=== PATIENT | male | born 1950 | race Caucasian/White ===

== ENCOUNTER 2020-05-24 09:47 | Inpatient (IN) | payer MEDICARE ==
[~2020-05-24] VITALS: Ht 175.3 cm; Wt 73.9 kg
[2020-05-24] MEDS ORDERED: ATOR40TA75 PO (10:01)
[2020-05-24] MEDS ORDERED: METO1TAB32 PO (10:01)
[2020-05-24] MEDS ORDERED: VICT18IN SC (10:01)
[2020-05-24] MEDS ORDERED: ASPI81CH33 PO (10:01)
[2020-05-24] MEDS ORDERED: METF500T13 PO (10:01)
[2020-05-24] MEDS ORDERED: CIAL5TAB PO (10:01)
[2020-05-24] MEDS ORDERED: LOSA25TA14 PO (10:01)
[2020-05-24 10:36] LABS: BASO % 0.1 % (0.0-1.0); EOS # 0.1 10^3/uL (0.0-0.5); EOS % 1.1 % (0.0-3.0); HEMATOCRIT 30.1 % (42.0-52.0); HEMOGLOBIN 9.8 g/dl (13.5-17.5); LYMPH # 0.8 10^3/uL (1.5-5.0); LYMPH % 10.4 % (24.0-44.0); MEAN CORPUSCULAR HEMOGLOBIN 29.3 pg (27.0-33.0); MEAN CORPUSCULAR HGB CONC 32.6 g/dl (32.0-36.5); MEAN CORPUSCULAR VOLUME 90.1 fl (80.0-96.0); MONO # 0.7 10^3/uL (0.0-0.8); NEUTROPHILS # 5.7 10^3/uL (1.5-8.5); PLATELET COUNT, AUTOMATED 212 10^3/uL (150-450); RED BLOOD COUNT 3.34 10^6/uL (4.30-6.10); WHITE BLOOD COUNT 7.4 10^3/uL (4.0-10.0)
[2020-05-24 10:59] LABS: BLOOD UREA NITROGEN 13 MG/DL (7-18); CALCIUM LEVEL 9.1 MG/DL (8.8-10.2); CARBON DIOXIDE LEVEL 27 MEQ/L (21-32); CHLORIDE LEVEL 102 MEQ/L (98-107); CREATININE FOR GFR 1.19 MG/DL (0.70-1.30); GLOMERULAR FILTRATION RATE > 60.0 (>49); GLUCOSE, FASTING 140 MG/DL (70-100); POTASSIUM SERUM 3.4 MEQ/L (3.5-5.1); SODIUM LEVEL 136 MEQ/L (136-145)
[2020-05-24] MEDS ORDERED: NS 1,000 ML IV ONE (11:00)
[2020-05-24] MEDS ORDERED: cefTRIAXone SOD 1 GM in D5W MINI-BAG PLUS 50 ML IV ONE (12:00)
--- NOTE | 2020-05-24 13:26 | REP ---
INDICATION: left flank pain, dysuria COMPARISON: None. TECHNIQUE: CT Scan of the abdomen and pelvis was performed without intravenous contrast. Sagittal and coronal reconstruction images performed. FINDINGS: Lung bases: Unremarkable. There is a small hiatal hernia. Liver: There appears to be a small subcentimeter cyst in the inferior right lobe of the liver. Gallbladder: Unremarkable. Spleen: Grossly unremarkable.. Adrenals: Normal. Pancreas: Grossly unremarkable.. Kidneys: There are multiple bilateral intrarenal calculi present. Largest on the right has a maximum diameter of 1 cm, located in the upper pole. The largest on the left is also located in the upper pole and has a maximum diameter of 8 mm. There is no right hydro ureteral nephrosis. The left kidney is enlarged with perinephric stranding and edema of a mild degree. There is moderately severe left hydroureteronephrosis. This is due to distal left ureteral calculi. There is a cluster of 2 or 3 calculi in the distal left ureter with a maximum diameter of 8 mm. Another calculus is seen at the left ureterovesical junction measuring 7 mm in maximum diameter. Urinary bladder itself is mildly distended with no other intraluminal calculus.. Small and large bowel: Grossly unremarkable.. There is sigmoid diverticulosis without evidence of acute diverticulitis. There appears to surgical sutures along the anterior proximal sigmoid colon. Free fluid: None. Abdominal aorta: No aneurysm. Extensive atherosclerotic calcifications. Adenopathy: None. Appendix: Not inflamed. Osseous structures: There are degenerative changes of the spine without compression deformity. Pelvis: No mass. No bladder calculus seen. Metallic clips are seen in the prostate. IMPRESSION: Multiple bilateral intrarenal calculi. Moderately severe left hydroureteronephrosis is caused by several distal left ureteral calculi as discussed in detail above. <Electronically signed by Cristian Hills > 05/24/20 [id number]
[2020-05-24] MEDS ORDERED: ASPI81TA26 PO (14:41)
[2020-05-24] MEDS ORDERED: MOM 30ML SUSPENSION UDC PO PRN (16:00)
[2020-05-24] MEDS ORDERED: ACETAMINOPHEN TAB 650MG DOSE (2X325MG) PO PRN (16:00)
[2020-05-24] MEDS ORDERED: HEPARIN SOD (PORCINE) 5000UNITS/ML 1ML VIAL/SYRINGE SC SCH (16:00)
[2020-05-24] MEDS ORDERED: MAALOX 30 ML SUSP *UDC PO PRN (16:00)
[2020-05-24 18:13] VITALS: BP 157/85
--- NOTE | 2020-05-24 18:58 | CR.PDOC ---
General Date of Consultation: May 24, 2020 Referring Provider: Zackery Mike M.D. Consultation REASON FOR CONSULTATION/CHIEF COMPLAINT: Ureteral obstruction and stones HISTORY OF PRESENT ILLNESS: Gualberto comes into the hospital with left flank pain, fevers up to 101, and nausea and vomiting which originally started week ago but has gotten worse over the last several days. He does have a history of kidney stones and is normally seen by Dr. Garza. A CT scan of the abdomen and pelvis was done in the emergency room on 05/24/20 and this showed severe left hydroureteronephrosis to 2-3 calculi in the distal left ureter measuring up to 8 and 7 mm each. There was also a 10 mm right upper pole stone and an 8 mm left upper pole stone. He passed 2 stones last month. He has had about 15-20 stones in his lifetime and at least 5 different operation. A urinalysis showed too numerous to count white blood cells but his white blood count was normal. He denies any gross hematuria. He does have burning at the end of his urinary stream and recently has had occasional urge incontinence. He does have some mild irritative and obstructive voiding symptoms and has been given tamsulosin in the past but no longer takes this. ALLERGIES: Please see below. HOME MEDICATIONS: Please see below. PAST MEDICAL HISTORY: -High blood pressure and hypercholesterolemia -Diabetes -Bilateral nephrolithiasis -Iron deficiency anemia -History of an DE in 2011 and no stents were placed PAST SURGICAL HISTORY: -At least 5 kidney stone operations including ureteroscopy and ESWL -Multiple orthopedic surgeries including ankle surgery and a rotator cuff FAMILY HISTORY: Noncontributory SOCIAL HISTORY: He denies drug or alcohol abuse and does not smoke cigarettes REVIEW OF SYSTEMS: The ED review of systems was gone over and reviewed PHYSICAL EXAMINATION: VITAL SIGNS: Please see below. GENERAL APPEARANCE: Well-developed well-nourished male in no apparent respiratory distress HEENT: PERRLA and EOMI RESPIRATORY: Clear without the use of accessory muscles CARDIOVASCULAR: Regular rate and rhythm ABDOMEN: Some left-sided abdominal tenderness but no rebound or guarding EXTREMITIES: No cyanosis clubbing or edema NEUROLOGICAL: Intact and nonfocal PSYCHIATRIC: Alert and oriented 3 LABORATORY DATA: Please see below. ASSESSMENT/PLAN: -Bilateral nephrolithiasis now with left flank pain which started 1 week ago and a 2-3 day history of fevers with vomiting found to have 2-3 distal left ureteral stones causing obstruction. The plan is to admit him overnight and stabilize him medically with IV antibiotics and IV fluids and plan on going to the operating room tomorrow and hopefully be able to do ureteroscopy, laser lithotripsy, and the stent placement. If he is still febrile or his white blood count postop then we may just want to place a stent at that time rather than go after the stones which could possibly cause septicemia. Vital Signs/I&O Vital Signs Date Time Temp Pulse Resp B/P (MAP) Pulse Ox O2 Delivery O2 Flow Rate FiO2 05/24/20 17:02 99.3 88 17 161/73 (102) 100 05/24/20 09:48 Room Air Laboratory Data Labs 24H Laboratory Tests 2 05/24/20 10:11: Immature Granulocyte % (Auto) 0.4, Neutrophils (%) (Auto) 78.0H, Lymphocytes (%) (Auto) 10.4L, Monocytes (%) (Auto) 10.0H, Eosinophils (%) (Auto) 1.1, Basophils (%) (Auto) 0.1, Neutrophils # (Auto) 5.7, Lymphocytes # (Auto) 0.8L, Monocytes # (Auto) 0.7, Eosinophils # (Auto) 0.1, Basophils # (Auto) 0.0, Nucleated Red Blood Cells % (auto) 0.0, Anion Gap 7L, Glomerular Filtration Rate > 60.0, Calcium Level 9.1 05/24/20 10:14: Urine Color BLANKA, Urine Appearance CLOUDYH, Urine pH 6.0, Urine Specific [place] 1.026, Urine Protein 2+H, Urine Glucose (UA) NEGATIVE, Urine Ketones TRACEH, Urine Blood 1+H, Urine Nitrite NEGATIVE, Urine Bilirubin NEGATIVE, Urine Urobilinogen 4.0H, Urine Leukocyte Esterase 3+H, Urine WBC (Auto) TNTCH, Urine RBC (Auto) 29H, Urine Hyaline Casts (Auto) 0, Urine Bacteria (Auto) 1+H, Urine S quamous Epithelial Cells 0, Urine Mucus (Auto) SMALL, Urine Sperm (Auto) 05/24/20 14:43: Coronavirus (COVID-19)(PCR) NEGATIVE CBC/BMP Laboratory Tests 05/24/20 10:11 Microbiology Microbiology 05/24/20 Urine Culture, Received Pending Allergies Coded Allergies: No Known Allergies (Unverified , 05/24/20) Home Medications Scheduled Aspirin (Aspirin EC) 81 Mg Tablet.dr, 81 MG PO DAILY, (Reported) Atorvastatin Calcium (Atorvastatin Calcium) 40 Mg Tablet, 40 MG PO QHS, (Reported) Liraglutide (Victoza 2-Phong) 0.6 Mg/0.1 Ml Pen.injctr, 0.6 MG SC DAILY, (Reported) Losartan Potassium (Losartan Potassium) 25 Mg Tablet, 25 MG PO DAILY, (Reported) Metformin HCl (Metformin HCl) 500 Mg Tablet, 1,000 MG PO DAILY, (Reported) Metoprolol Succinate (Metoprolol Succinate) 25 Mg Tab.er.24h, 25 MG PO QHS, (Reported) Tadalafil (Cialis) 5 Mg Tablet, 5 MG PO QHS, (Reported) RUPERTO KLEIN MD May 24, 2020 18:58
--- NOTE | 2020-05-24 19:13 | HPEPDOC ---
[facility] Medical History & Physical Date of Admission May 24, 2020 Date of Service: May 24, 2020 History and Physical CHIEF COMPLAINT: fever, flank pain HISTORY OF PRESENT ILLNESS: 70-year-old male with a history of type 2 diabetes, hypertension, coronary artery disease, prostate cancer status post radiation as well as kidney stones bilaterally, presented to the ED with a week long history of left flank pain, fevers, recurrent nausea, vomiting, starting one week ago and progressively worsening. Patient has a long-standing history of bilateral renal calculi. He follows with Dr. Garza, has had prior lithotripsy in the past. CT scan imaging shows multiple bilateral large intrarenal calculi: 1 cm diam in R upper pole. 8mm in L upper pole. Mod-severe hydroureteronephrosis on L due to distal L ureteral calculi (2-3 stones ~8 mm in diam) as well as a stone at UV junction 7mm in diam. Urology was consulted in ER. Patient was given a dose of ceftriaxone empirically. Urine cultures sent. From the patient has a history of coronary disease. Reports a myocardial infarction in 2011 did not require stenting. He is new to the area and did set up with PCP but has an appointment on 06/27/19. Patient will be be admitted by hospital services for IV antibiotics, hydration in consultation with urology for obstructive ureteral stones. PAST MEDICAL HISTORY: DM2 HTN BPH Prostate ca s/p radiation Iron deficiency anemia HTN HLD Hx of bilateral renal stones Hx [place] 2011, no stenting PAST SURGICAL HISTORY: Colonoscopy 3 years ago, reports 5 benign polyps Mesh hernia repair x 2 L ankle surgery Rotator cuff repair SOCIAL HISTORY: Patient denies smoking Patient denies etoh use Patient denies illicit drug use FAMILY HISTORY: Reviewed with patient. Patient denies any relevant history. ALLERGIES: Please see below. REVIEW OF SYSTEMS: CONSTITUTIONAL: patient denies fevers, chills HEENT: patient denies blurred vision, loss of vision, headache,. CARDIOVASCULAR: patient denies chest pain, palpitations. RESPIRATORY: patient denies shortness of breath, cough, hemoptysis. GASTROINTESTINAL: patient denies abdominal pain, n/v/d, blood in stool. GENITOURINARY: Endorses left flank pain SKIN: patient denies rashes. MUSCULOSKELETAL: patient denies joint pain, neck pain. NEUROLOGICAL: patient denies focal weakness, numbness, seizures. PSYCHIATRIC: patient denies SI/HI. ENDOCRINE: patient denies polyuria, heat intolerance, cold intolerance. HEMATOLOGIC/LYMPHATIC: patient denies easy bruising. HOME MEDICATIONS: Please see below. PHYSICAL EXAMINATION: VITAL SIGNS: please see below General: NAD, comfortable HEENT: PERRLA, EOMI, sclerae clear Neck: supple, normal ROM, no JVD Respiratory: lungs CTAB, no wheeze, no rales, no crackles CVS: RRR, normal S1, S2, no murmurs Abdo: soft, no masses, no hepatosplenomegaly, BS+, no rebound tenderness, mild tenderness to palpation of left lower quadrant. No bilateral CVA tenderness Extremities: no edema, pulses 2+ MSK: no joint deformities, normal ROM Neuro: no focal neuro deficits, moving all 4 extremities, CN2-12 intact. Strength 5/5 in all 4 extremities. No nystagmus. Psych: calm, cooperative, AAO x 3 LABORATORY DATA: See below. IMAGING: CT abdo pelvis wo contrast (05/24/20): FINDINGS: Lung bases: Unremarkable. There is a small hiatal hernia. Liver: There appears to be a small subcentimeter cyst in the inferior right lobe of the liver. Gallbladder: Unremarkable. Spleen: Grossly unremarkable.. Adrenals: Normal. Pancreas: Grossly unremarkable.. Kidneys: There are multiple bilateral intrarenal calculi present. Largest on the right has a maximum diameter of 1 cm, located in the upper pole. The largest on the left is also located in the upper pole and has a maximum diameter of 8 mm. There is no right hydro ureteral nephrosis. The left kidney is enlarged with perinephric stranding and edema of a mild degree. There is moderately severe left hydroureteronephrosis. This is due to distal left ureteral calculi. There is a cluster of 2 or 3 calculi in the distal left ureter with a maximum diameter of 8 mm. Another calculus is seen at the left ureterovesical junction measuring 7 mm in maximum diameter. Urinary bladder itself is mildly distended with no other intraluminal calculus.. Small and large bowel: Grossly unremarkable.. There is sigmoid diverticulosis without evidence of acute diverticulitis. There appears to surgical sutures along the anterior proximal sigmoid colon. Free fluid: None. Abdominal aorta: No aneurysm. Extensive atherosclerotic calcifications. Adenopathy: None. Appendix: Not inflamed. Osseous structures: There are degenerative changes of the spine without compression deformity. Pelvis: No mass. No bladder calculus seen. Metallic clips are seen in the prostate. IMPRESSION: Multiple bilateral intrarenal calculi. Moderately severe left hydroureteronephrosis is caused by several distal left ureteral calculi as discussed in detail above. MICROBIOLOGY: Please see below. ASSESSMENT: 70-year-old male with history listed as listed above, presenting with L ureteral obstruction secondary to distal ureteral stones. Urology consulted. Patient admitted for IV antibiotics, IV fluids. . PLAN: #UTI/pyelonephritis with hydroureteronephrosis 2/2 2-3 L distal ureteral stones as well as a stone in UV junction. Multiple stones in R renal pelvis, no hydro on R Seen on CT. Febrile. IV antibiotics, s/p ceftriaxone in ED, will continue with zosyn. IVF. zofran for n/v. Trend CBC. Tylenol for fevers. Plan for OR by Dr. Waterman in am. #hypokalemia: K 3.4, replace #HTN: home meds. losartan 25 mg. Metoprolol 25 daily #HDL: check lipid panel #CAD: c/w asa/statin #DM2: Insulin sliding scale. FSBS AC and HS. Consistent carbohydrate diet. Hypoglycemic precautions. Check a1c. Check lipids. Podiatry and ophtalmology as outpatient.. Hold metformin #GI ppx: protonix PO daily. DVT ppx: SCDs, TEDs. Heparin will be held pre-op. Resume after surgery. Vital Signs Vital Signs Date Time Temp Pulse Resp B/P (MAP) Pulse Ox O2 Delivery O2 Flow Rate FiO2 05/24/20 18:13 100.1 104 18 157/85 (109) 98 Room Air Laboratory Data Labs 24H Laboratory Tests 2 05/24/20 10:11: Immature Granulocyte % (Auto) 0.4, Neutrophils (%) (Auto) 78.0H, Lymphocytes (%) (Auto) 10.4L, Monocytes (%) (Auto) 10.0H, Eosinophils (%) (Auto) 1.1, Basophils (%) (Auto) 0.1, Neutrophils # (Auto) 5.7, Lymphocytes # (Auto) 0.8L, Monocytes # (Auto) 0.7, Eosinophils # (Auto) 0.1, Basophils # (Auto) 0.0, Nucleated Red Blood Cells % (auto) 0.0, Anion Gap 7L, Glomerular Filtration Rate > 60.0, Calcium Level 9.1 05/24/20 10:14: Urine Color BLANKA, Urine Appearance CLOUDYH, Urine pH 6.0, Urine Specific [place] 1.026, Urine Protein 2+H, Urine Glucose (UA) NEGATIVE, Urine Ketones TRACEH, Urine Blood 1+H, Urine Nitrite NEGATIVE, Urine Bilirubin NEGATIVE, Urine Urobilinogen 4.0H, Urine Leukocyte Esterase 3+H, Urine WBC (Auto) TNTCH, Urine RBC (Auto) 29H, Urine Hyaline Casts (Auto) 0, Urine Bacteria (Auto) 1+H, Urine Squamous Epithelial Cells 0, Urine Mucus (Auto) SMALL, Urine Sperm (Auto) 05/24/20 14:43: Coronavirus (COVID-19)(PCR) NEGATIVE CBC/BMP Laboratory Tests 05/24/20 10:11 Microbiology Microbiology 05/24/20 Urine Culture, Received Pending Home Medications Scheduled Aspirin (Aspirin EC) 81 Mg Tablet.dr, 81 MG PO DAILY Atorvastatin Calcium (Atorvastatin Calcium) 40 Mg Tablet, 40 MG PO QHS Liraglutide (Victoza 2-Phong) 0.6 Mg/0.1 Ml Pen.injctr, 0.6 MG SC DAILY Losartan Potassium (Losartan Potassium) 25 Mg Tablet, 25 MG PO DAILY Metformin HCl (Metformin HCl) 500 Mg Tablet, 1,000 MG PO DAILY Metoprolol Succinate (Metoprolol Succinate) 25 Mg Tab.er.24h, 25 MG PO QHS Tadalafil (Cialis) 5 Mg Tablet, 5 MG PO QHS Allergies Coded Allergies: No Known Allergies (Unverified , 05/24/20) A-FIB/CHADSVASC A-FIB History Current/History of A-Fib/PAF?: No Current PO Anticoag Therapy: No EDWINA CORREA MD May 24, 2020 19:13
[2020-05-24] MEDS ORDERED: DEXTROSE 50% 50 ML SYRINGE IV PRN (19:15)
[2020-05-24] MEDS ORDERED: GLUCAGON INJ 1MG VIAL SC PRN (19:15)
[2020-05-24] MEDS ORDERED: GLUCOSE 4GM CHEW TABLET PO PRN (19:15)
[2020-05-24] MEDS: PIPERACILLIN/TAZOBACTAM SOD 4.5 GM in D5W MINI-BAG PLUS 50 ML IV SCH (20:22)
[2020-05-24] MEDS: NS 1,000 ML IV SCH (20:22)
[2020-05-24] MEDS: DOCUSATE SODIUM 100MG CAPSULE PO SCH (21:00)
[2020-05-24] MEDS ORDERED: HumaLOG INSULIN (NovoLOG) PER UNIT SC SCH (21:00)
[2020-05-24] MEDS ORDERED: METOPROLOL SUCC *XL* 25MG TAB (TopROL *XL*) PO SCH (21:00)
[2020-05-24] MEDS ORDERED: ATORVASTATIN 20 MG TAB PO SCH (21:00)
[2020-05-24 22:00] VITALS: BP 144/82
[2020-05-25] VITALS (7 sets, daily range): BP systolic 122–137; BP diastolic 70–80
[2020-05-25] MEDS: PIPERACILLIN/TAZOBACTAM SOD 4.5 GM in D5W MINI-BAG PLUS 50 ML IV SCH ×2 (04:15→13:29)
[2020-05-25] MEDS: NS 1,000 ML IV SCH ×2 (04:15→13:32)
[2020-05-25 06:12] LABS: BASO % 0.3 % (0.0-1.0); EOS # 0.1 10^3/uL (0.0-0.5); EOS % 1.7 % (0.0-3.0); HEMATOCRIT 26.5 % (42.0-52.0); HEMOGLOBIN 8.3 g/dl (13.5-17.5); LYMPH # 0.6 10^3/uL (1.5-5.0); LYMPH % 10.4 % (24.0-44.0); MEAN CORPUSCULAR HEMOGLOBIN 28.9 pg (27.0-33.0); MEAN CORPUSCULAR HGB CONC 31.3 g/dl (32.0-36.5); MEAN CORPUSCULAR VOLUME 92.3 fl (80.0-96.0); MONO # 0.6 10^3/uL (0.0-0.8); MONO % 9.9 % (0.0-5.0); NEUTROPHILS # 4.4 10^3/uL (1.5-8.5); PLATELET COUNT, AUTOMATED 196 10^3/uL (150-450); RED BLOOD COUNT 2.87 10^6/uL (4.30-6.10); WHITE BLOOD COUNT 5.8 10^3/uL (4.0-10.0)
[2020-05-25 06:27] LABS: HEMOGLOBIN A1c 6.7 %
[2020-05-25 06:32] LABS: ALBUMIN 2.4 GM/DL (3.2-5.2); ALT/SGPT 20 U/L (12-78); BILIRUBIN,TOTAL 0.6 MG/DL (0.2-1.0); BLOOD UREA NITROGEN 13 MG/DL (7-18); CALCIUM LEVEL 8.3 MG/DL (8.8-10.2); CARBON DIOXIDE LEVEL 27 MEQ/L (21-32); CHLORIDE LEVEL 103 MEQ/L (98-107); CHOLESTEROL LEVEL 81 MG/DL (<200); CREATININE FOR GFR 1.19 MG/DL (0.70-1.30); GLOMERULAR FILTRATION RATE > 60.0 (>49); GLUCOSE, FASTING 137 MG/DL (70-100); HDL CHOLESTEROL 30 MG/DL (>40); LDL CHOLESTEROL 37 MG/DL (<100); MAGNESIUM LEVEL 1.3 MG/DL (1.8-2.4); NON-HDL-C 51 MG/DL; POTASSIUM SERUM 3.5 MEQ/L (3.5-5.1); SODIUM LEVEL 136 MEQ/L (136-145); TRIGLYCERIDES LEVEL 70 MG/DL (<150)
[2020-05-25] MEDS: HumaLOG INSULIN (NovoLOG) PER UNIT SC SCH ×2 (07:30→13:32)
[2020-05-25] MEDS ORDERED: dexameTHASONE 4 MG/ML 1ML VIAL (J1100 PER 1MG) As Ordered ONE (07:57)
[2020-05-25] MEDS ORDERED: propofoL 200 MG/20 ML VIAL As Ordered ONE (07:57)
[2020-05-25] MEDS ORDERED: LIDOCAINE 2% 100MG/5ML SDV (FOR ANES.) As Ordered ONE (07:57)
[2020-05-25] MEDS ORDERED: ONDANSETRON 4MG/2ML VIAL As Ordered ONE (07:57)
[2020-05-25] MEDS ORDERED: fentaNYL 100 MCG/2 ML INJECTION (J3010) As Ordered ONE ×2 (07:59→10:06)
[2020-05-25] MEDS ORDERED: MIDAZOLAM INJ 2MG/2ML VIAL (J2250 PER 1MG) As Ordered ONE (07:59)
[2020-05-25] MEDS ORDERED: LOSARTAN 25 MG TAB PO SCH (09:00)
[2020-05-25] MEDS ORDERED: ASPIRIN 81 MG ENTERIC TAB PO SCH (09:00)
[2020-05-25] MEDS ORDERED: CONRAY-60 60% 50ML VIAL (Q9961) As Ordered ONE (09:00)
--- NOTE | 2020-05-25 09:35 | ECGEPIP ---
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 Order Number: [id number] Reading MD: Carolyn Nova Measurements Intervals Dickens Rate: 80 P: 73 MT: 143 QRS: 26 QRSD: 105 T: 41 QT: 370 QTc: 428 Interpretive Statements SINUS RHYTHM POSSIBLE LATERAL MYOCARDIAL INFARCTION, PROBABLY OLD LOW VOLTAGE LIMB No prior Electronically Signed on 05-25-2020 9:35:26 EST by Carolyn Nova
--- NOTE | 2020-05-25 10:17 | IPNPDOC ---
Date Seen The patient was seen on 05/25/20. Progress Note SUBJECTIVE: patient was seen and examined at bedside. Doing well, no acute events overnight. Denies fevers, chills, abdominal pain, dysuria, CP, SOB, palpitations. OBJECTIVE PHYSICAL EXAMINATION: VITAL SIGNS: please see below General: NAD, comfortable HEENT: PERRLA, EOMI, sclerae clear Neck: supple, normal ROM, no JVD Respiratory: lungs CTAB, no wheeze, no rales, no crackles CVS: RRR, normal S1, S2, no murmurs Abdo: soft, no masses, no hepatosplenomegaly, BS+, no rebound tenderness, mild tenderness to palpation of left lower quadrant. No bilateral CVA tenderness Extremities: no edema, pulses 2+ MSK: no joint deformities, normal ROM Neuro: no focal neuro deficits, moving all 4 extremities, CN2-12 intact. Strength 5/5 in all 4 extremities. No nystagmus. Psych: calm, cooperative, AAO x 3 LABORATORY DATA, IMAGING STUDIES, MICROBIOLOGY: Please see below. CT abdo pelvis wo contrast (05/24/20): Multiple bilateral intrarenal calculi. Moderately severe left hydroureteronephrosis is caused by several distal left ureteral calculi DVT prophylaxis ordered?: SCDs, TEDs. Holding heparin prior to OR. ASSESSMENT: 70-year-old male with history listed as listed above, presenting with L ureteral obstruction secondary to distal ureteral stones. Urology consulted. Patient admitted for IV antibiotics, IV fluids, urology intervention. PLAN: #UTI/pyelonephritis with hydroureteronephrosis 2/2 2-3 L distal ureteral stones as well as a stone in UV junction. Multiple stones in R renal pelvis, no hydro on R Seen on CT. Febrile. IV antibiotics, s/p ceftriaxone in ED, will continue with zosyn. IVF. zofran for n/v. Trend CBC. Tylenol for fevers. Plan for OR by Dr. Waterman. #hypokalemia:resolved #hx of iron def anemia: baseline unknown, hgb 9.8 on arrival, now 8.3, likely dilutional effect. Transfuse for Hgb < 8 given hx of CAD. Check iron panel. Check fecal occult blood. #HTN: home meds. losartan 25 mg. Metoprolol 25 daily #HDL: check lipid panel #CAD: c/w asa/statin #DM2: Insulin sliding scale. FSBS AC and HS. Consistent carbohydrate diet. Hypoglycemic precautions. Check a1c. Check lipids. Podiatry and ophtalmology as outpatient.. Hold metformin #GI ppx: protonix PO daily. DVT ppx: SCDs, TEDs. Heparin will be held pre-op. Resume after surgery. VS, I&O, 24H, Fishbone Vital Signs/I&O Vital Signs Date Time Temp Pulse Resp B/P (MAP) Pulse Ox O2 Delivery O2 Flow Rate FiO2 05/25/20 06:00 98.5 79 20 122/74 (90) 97 Room Air I&O- Last 24 Hours up to 6 AM 05/25/20 05:59 Intake Total 1350 ml Output Total 125 ml Balance 1225 ml Laboratory Data 24H LABS Laboratory Tests 2 05/24/20 14:43: Coronavirus (COVID-19)(PCR) NEGATIVE 05/24/20 21:20: Bedside Glucose (Misc Panel) 109 05/25/20 05:17: Immature Granulocyte % (Auto) 0.7, Neutrophils (%) (Auto) 77.0H, Lymphocytes (%) (Auto) 10.4L, Monocytes (%) (Auto) 9.9H, Eosinophils (%) (Auto) 1.7, Basophils (%) (Auto) 0.3, Neutrophils # (Auto) 4.4, Lymphocytes # (Auto) 0.6L, Monocytes # (Auto) 0.6, Eosinophils # (Auto) 0.1, Basophils # (Auto) 0.0, Nucleated Red Blood Cells % (auto) 0.0, Anion Gap 6L, Glomerular Filtration Rate > 60.0, Estimated Mean Plasma Glucose 146H, Hemoglobin A1c 6.7, Calcium Level 8.3L, Magnesium Level 1.3L, Total Bilirubin 0.6, Aspartate Amino Transf (AST/SGOT) 12, Alanine Aminotransferase (ALT/SGPT) 20, Alkaline Phosphatase 57, Total Protein 6.0L, Albumin 2.4L, Albumin/Globulin Ratio 0.7, Triglycerides Level 70, Total Cholesterol 81, LDL Cholesterol 37, Non-HDL Cholesterol (LDL + VLDL) 51, Total HDL Cholesterol 30L, Cholesterol/HDL Ratio 2.700 CBC/BMP Laboratory Tests 05/25/20 05:17 Microbiology Microbiology 05/24/20 Blood Culture, Received Pending 05/24/20 Blood Culture, Received Pending 05/24/20 Urine Culture - Final, Complete EDWINA CORREA MD May 25, 2020 10:17
--- NOTE | 2020-05-25 11:01 | ROOPDOC ---
[facility] Report Of Operation Report of Operation DATE OF PROCEDURE: 05/25/20 PREPROCEDURE DIAGNOSES: Left distal ureteral stones and severe hydronephrosis. POSTPROCEDURE DIAGNOSES: Same. PROCEDURE: Cystoscopy, left ureteroscopy, laser lithotripsy, stone basketing, and left ureteral stent placement. SURGEON: Belén Klein MD TAIL BOARD MAN: None ANESTHESIA: Gen. ESTIMATED BLOOD LOSS: No significant blood loss COMPLICATIONS: None REMARKS: 1 of the stones was stuck at the ureteral orifice and a wire could not be passed so laser was used originally PROCEDURE NOTE: The patient came into the ER last night with a long-standing history of bilateral nephrolithiasis requiring multiple operations in the past. He noticed left flank pain approximately 1 week ago and for the last 2-3 days has had a fever with vomiting. A CT scan showed 2-3 distal left ureteral stones measuring up to 7 and 8 mm each. It was decided to admit the patient overnight for IV antibiotics and IV rehydration before bringing him to the operating room this morning. All options, alternatives, risks, benefits were discussed and it was decided to proceed with left ureteroscopic stone manipulation and stent placement. Risks included septicemia, inability to remove all the stones, ureteral injury, possible ureteral stricture in the future, stent discomfort, andthe need to remove the stent post-procedurally. DESCRIPTION OF PROCEDURE: The patient was brought into the operating room and general anesthesia was induced. He was then placed in the lithotomy position and careful attention was paid to make sure that his pressure points were well-padded and protected. He was then prepped and draped in the usual fashion. A 21 Indonesian cystoscope was inserted in his urethra was noted to be open without any evidence of lesions or strictures. His prostatic urethra showed very minimal obstruction. Upon entering the bladder there was a stone seen coming out of the left ureteral orifice. There was no other stones, erythematous patches, lesions, or abnormalities. Attempted to place a wire in the left ureteral orifice but was unable to pass the stone. At this point I used a laser fiber and was able to break this stone enough that I was then able to pass a safety wire. I then passed a ureteroscope and used the laser to make the stones into small enough fragments that I could then basket. I basketed and removed 3 separate stones. A 6 Indonesian universal stent was then placed with good placement seen in the left renal pelvis and in the bladder. The patient tolerated the procedure well and was returned to the recovery room in stable condition. BELÉN KLEIN MD May 25, 2020 11:01
[2020-05-25 11:32] LABS: FERRITIN 61 NG/ML (26-388); IRON (FE) 34 UG/DL (65-175)
[2020-05-25 12:47] LABS: HEMATOCRIT 25.9 % (42.0-52.0); HEMOGLOBIN 8.2 g/dl (13.5-17.5)
[2020-05-25 13:00] LABS: INR 1.2; PROTHROMBIN TIME 15.5 SECONDS (12.5-14.3)
[2020-05-25] MEDS: DOCUSATE SODIUM 100MG CAPSULE PO SCH (13:30)
[2020-05-25] MEDS ORDERED: ONDANSETRON 4MG/2ML VIAL IV PRN (16:00)
[2020-05-25] MEDS ORDERED: LR 1,000 ML IV SCH (16:00)
[2020-05-25] MEDS ORDERED: fentaNYL 100 MCG/2 ML INJECTION (J3010) IV PRN (16:00)
[2020-05-25] MEDS ORDERED: oxyCODONE 5MG TAB PO PRN (16:00)
--- NOTE | 2020-05-25 16:06 | DS.PDOC ---
Discharge Summary General Date of Admission May 24, 2020 at 15:56 Date of Discharge 05/25/20 Discharge Summary PROCEDURES PERFORMED DURING STAY: [None]. ADMITTING DIAGNOSES: UTI/pyelonephritis L sided hydroureteronephrosis Hypokalemia Hx of HTN HLD Hx of CAD DM2 DISCHARGE DIAGNOSES: UTI/pyelonephritis L sided hydroureteronephrosis Hypokalemia Hx of HTN HLD Hx of CAD DM2 COMPLICATIONS/CHIEF COMPLAINT: Pyelonephritis,Ureteral Calculus Left. HISTORY OF PRESENT ILLNESS: HISTORY OF PRESENT ILLNESS: 70-year-old male with a history of type 2 diabetes, hypertension, coronary artery disease, prostate cancer status post radiation as well as kidney stones bilaterally, presented to the ED with a week long history of left flank pain, fevers, recurrent nausea, vomiting, starting one week ago and progressively worsening. Patient has a long-standing history of bilateral renal calculi. He follows with Dr. Garza, has had prior lithotripsy in the past. CT scan imaging shows multiple bilateral large intrarenal calculi: 1 cm diam in R upper pole. 8mm in L upper pole. Mod-severe hydroureteronephrosis on L due to distal L ureteral calculi (2-3 stones ~8 mm in diam) as well as a stone at UV junction 7mm in diam. Urology was consulted in ER. Patient was given a dose of ceftriaxone empirically. Urine cultures sent. From the patient has a history of coronary disease. Reports a myocardial infarction in 2011 did not require stenting. He is new to the area and did set up with PCP but has an appointment on 06/27/19. Patient will be be admitted by hospital services for IV antibiotics, hydration in consultation with urology for obstructive ureteral stones. HOSPITAL COURSE: #UTI/pyelonephritis with hydroureteronephrosis 2/2 2-3 L distal ureteral stones as well as a stone in UV junction. Multiple stones in R renal pelvis, no hydro on R Seen on CT. Febrile. He received a total of 3 days of IV antibiotics, and was discharged with a 5 days course of PO bactrim DS. Urine cx negative. Blood cultures prelim neg. S/p L ureteral stent placement by Dr. Waterman. Cleared for discharge by urology, will be contacted to remove stent. #hypokalemia:resolved #hx of iron def anemia: baseline unknown, hgb 9.8 on arrival, now 8.3, likely dilutional effect. Transfuse for Hgb < 8 given hx of CAD. Iron 34. Check fecal occult blood - negative. #HTN: home meds. losartan 25 mg. Metoprolol 25 daily #HDL: check lipid panel #CAD: c/w asa/statin #DM2: Insulin sliding scale. FSBS AC and HS. Consistent carbohydrate diet. Hypoglycemic precautions. Check a1c. Check lipids. Podiatry and ophtalmology as outpatient. Resume metformin on discharge. #GI ppx: protonix PO daily. DISCHARGE MEDICATIONS: Please see below. ALLERGIES: Please see below. PHYSICAL EXAMINATION ON DISCHARGE: VITAL SIGNS: Please see below. General: NAD, comfortable HEENT: PERRLA, EOMI, sclerae clear Neck: supple, normal ROM, no JVD Respiratory: lungs CTAB, no wheeze, no rales, no crackles CVS: RRR, normal S1, S2, no murmurs Abdo: soft, no masses, no hepatosplenomegaly, BS+, no rebound tenderness, abdominal pain resolved. No bilateral CVA tenderness Extremities: no edema, pulses 2+ MSK: no joint deformities, normal ROM Neuro: no focal neuro deficits, moving all 4 extremities, CN2-12 intact. Strength 5/5 in all 4 extremities. No nystagmus. Psych: calm, cooperative, AAO x 3 LABORATORY DATA: Please see below. IMAGING: CT abdo pelvis wo contrast (05/24/20) FINDINGS: Lung bases: Unremarkable. There is a small hiatal hernia. Liver: There appears to be a small subcentimeter cyst in the inferior right lobe of the liver. Gallbladder: Unremarkable. Spleen: Grossly unremarkable.. Adrenals: Normal. Pancreas: Grossly unremarkable.. Kidneys: There are multiple bilateral intrarenal calculi present. Largest on the right has a maximum diameter of 1 cm, located in the upper pole. The largest on the left is also located in the upper pole and has a maximum diameter of 8 mm. There is no right hydro ureteral nephrosis. The left kidney is enlarged with perinephric stranding and edema of a mild degree. There is moderately severe left hydroureteronephrosis. This is due to distal left ureteral calculi. There is a cluster of 2 or 3 calculi in the distal left ureter with a maximum diameter of 8 mm. Another calculus is seen at the left ureterovesical junction measuring 7 mm in maximum diameter. Urinary bladder itself is mildly distended with no other intraluminal calculus.. Small and large bowel: Grossly unremarkable.. There is sigmoid diverticulosis without evidence of acute diverticulitis. There appears to surgical sutures along the anterior proximal sigmoid colon. Free fluid: None. Abdominal aorta: No aneurysm. Extensive atherosclerotic calcifications. Adenopathy: None. Appendix: Not inflamed. Osseous structures: There are degenerative changes of the spine without compression deformity. Pelvis: No mass. No bladder calculus seen. Metallic clips are seen in the prostate. IMPRESSION: Multiple bilateral intrarenal calculi. Moderately severe left hydroureteronephrosis is caused by several distal left ureteral calculi as discussed in detail above. PROGNOSIS: good ACTIVITY: As tolerated DIET: consistent carbohydrate DISCHARGE PLAN: DC home with PCP follow up in 3-5 days. He will be contacted by urology office for planned removal of stent. DISPOSITION: . DISCHARGE INSTRUCTIONS: 1. f/u with PCP 3-5 days 2. f/u with urology for stent removal, will be contacted by urology office 3. complete course of bactrim on DC for 5 days 4. if fevers, chills, bleeding, or otherwise worsening of symptoms, to return to the emergency room or call 911. ITEMS TO FOLLOWUP ON ON OUTPATIENT: stent removal check BMP check CBC follow up on renal stone type pathology follow up final blood cultures iron replacement DISCHARGE CONDITION: Stable TIME SPENT ON DISCHARGE: 35 minutes Vital Signs/I&Os Vital Signs Date Time Temp Pulse Resp B/P (MAP) Pulse Ox O2 Delivery O2 Flow Rate FiO2 05/25/20 14:30 97.7 70 18 134/78 (96) 98 Room Air I&O- Last 24 Hours up to 6 AM 05/25/20 06:00 Intake Total 1350 ml Output Total 125 ml Balance 1225 ml Laboratory Data Labs 24H Laboratory Tests 2 05/24/20 21:20: Bedside Glucose (Misc Panel) 109 05/25/20 05:17: Immature Granulocyte % (Auto) 0.7, Neutrophils (%) (Auto) 77.0H, Lymphocytes (%) (Auto) 10.4L, Monocytes (%) (Auto) 9.9H, Eosinophils (%) (Auto) 1.7, Basophils (%) (Auto) 0.3, Neutrophils # (Auto) 4.4, Lymphocytes # (Auto) 0.6L, Monocytes # (Auto) 0.6, Eosinophils # (Auto) 0.1, Basophils # (Auto) 0.0, Nucleated Red Blood Cells % (auto) 0.0, Anion Gap 6L, Glomerular Filtration Rate > 60.0, Estimated Mean Plasma Glucose 146H, Hemoglobin A1c 6.7, Calcium Level 8.3L, Magnesium Level 1.3L, Iron Level 34L, Ferritin 61, Total Bilirubin 0.6, Aspartate Amino Transf (AST/SGOT) 12, Alanine Aminotransferase (ALT/SGPT) 20, Alkaline Phosphatase 57, Total Protein 6.0L, Albumin 2.4L, Albumin/Globulin Ratio 0.7, Triglycerides Level 70, Total Cholesterol 81, LDL Cholesterol 37, Non-HDL Cholesterol (LDL + VLDL) 51, Total HDL Cholesterol 30L, Cholesterol/HDL Ratio 2.700 05/25/20 10:00: 05/25/20 11:45: Bedside Glucose (Misc Panel) 181H 05/25/20 12:15: Prothrombin Time 15.5H, Prothromb Time International Ratio 1.20 CBC/BMP Laboratory Tests 05/25/20 05:17 05/25/20 12:16 FSBS Laboratory Tests Test 05/24/20 21:20 05/25/20 11:45 Range/Units Bedside Glucose (Misc Panel) 109 181 80-115 MG/DL Microbiology Microbiology 05/25/20 Stool Occult Blood (GAVIN), Received Pending 05/24/20 Blood Culture, Received Pending 05/24/20 Blood Culture, Received Pending 05/24/20 Urine Culture - Final, Complete Discharge Medications Scheduled Aspirin (Aspirin EC) 81 Mg Tablet.dr, 81 MG PO DAILY, (Reported) Atorvastatin Calcium (Atorvastatin Calcium) 40 Mg Tablet, 40 MG PO QHS, (Reported) Liraglutide (Victoza 2-Phong) 0.6 Mg/0.1 Ml Pen.injctr, 0.6 MG SC DAILY, (Reported) Losartan Potassium (Losartan Potassium) 25 Mg Tablet, 25 MG PO DAILY, (Reported) Metformin HCl (Metformin HCl) 500 Mg Tablet, 1,000 MG PO DAILY, (Reported) Metoprolol Succinate (Metoprolol Succinate) 25 Mg Tab.er.24h, 25 MG PO QHS, (Reported) Sulfamethoxazole/Trimethoprim (Sulfamethoxazole-Tmp Ds Tablet) 1 Each Tablet, 1 TAB PO BID Tadalafil (Cialis) 5 Mg Tablet, 5 MG PO QHS, (Reported) Scheduled PRN Acetaminophen (Acetaminophen) 325 Mg Tablet, 650 MG PO Q4H PRN for PAIN OR FEVER Hydrocodone/Acetaminophen (Hydrocodone-Acetamin 5-325 mg) 1 Each Tablet, 1 TAB PO TIDP PRN for pain Allergies Coded Allergies: No Known Allergies (Unverified , 05/24/20) EDWINA OCRREA MD May 25, 2020 16:06
[2020-05-25] MEDS ORDERED: TRAM50TA2 PO (16:10)
[2020-05-25] MEDS ORDERED: ACET1TAB55 PO (16:10)
[2020-05-25] MEDS ORDERED: SULF1TAB93 PO (16:12)
[2020-05-25] MEDS ORDERED: HYDR-3713 PO (16:14)
== END 2020-05-25 16:54 | disposition home or self-care (01) | DRG 661 ==
LOC: M ED 09:47 → M ED INP 15:56 → ENRESERV 16:20 → M MSPAV 18:14
PROVIDERS: ADMIT Family Medicine; ATTEND Family Medicine
PROC: 0TC78ZZ Extirpation of Matter from Left Ureter, Via Natural or Artificial Opening Endoscopic (ICD-10-PCS; 2020-05-25)
PROC: 0T778DZ Dilation of Left Ureter with Intraluminal Device, Via Natural or Artificial Opening Endoscopic (ICD-10-PCS; principal; 2020-05-25 09:30)
DX: N13.1 Hydronephrosis with ureteral stricture, not elsewhere classified (principal); E11.9 Type 2 diabetes mellitus without complications; I10 Essential (primary) hypertension; N40.0 Benign prostatic hyperplasia without lower urinary tract symptoms; D50.9 Iron deficiency anemia, unspecified; I25.2 Old myocardial infarction; Z85.46 Personal history of malignant neoplasm of prostate; Z79.899 Other long term (current) drug therapy; E78.00 Pure hypercholesterolemia, unspecified

== ENCOUNTER → 2020-05-27 | Outpatient (REF) | payer MEDICARE ==
[~2020-05-27] MED LIST: ACET1TAB55 PO; ASPI81CH33 PO; ASPI81TA26 PO; ATOR40TA75 PO; CIAL5TAB PO; HYDR-3713 PO; LOSA25TA14 PO; METF500T13 PO; METO1TAB32 PO; SULF1TAB93 PO; TRAM50TA2 PO; VICT18IN SC
[2020-05-28 13:36] LABS: PERCENT SATURATION 12.8 % (19.7-50.0)
== END ==
LOC: M LAB REF 12:25
PROVIDERS: ATTEND Internal Medicine
DX: D50.9 Iron deficiency anemia, unspecified (principal)

== ENCOUNTER 2020-10-01 15:46 | Observation (INO) | payer MEDICARE ==
[~2020-10-01] VITALS: Ht 175.3 cm; Wt 61.6 kg
[~2020-10-01 15:46] MED LIST changes: -ACET-910 PO; -FERR1TAB8 PO; -FERR325T3 PO; -LIDOCAINE 2% 100MG/5ML SDV (FOR ANES.) As Ordered ONE; -MAGN400T2 PO; -MIDAZOLAM INJ 2MG/2ML VIAL (J2250 PER 1MG) As Ordered ONE; -NITR4TASL SL; -OMEP-218 PO; -OMEP40CA97 PO; -ONDANSETRON 4MG/2ML VIAL As Ordered ONE; -SLOWTAB2 PO; -VICT18IN2 SC; -fentaNYL 100 MCG/2 ML INJECTION (J3010) As Ordered ONE; -propofoL 200 MG/20 ML VIAL As Ordered ONE
[2020-10-01] MEDS ORDERED: FERR325T3 PO (15:56)
[2020-10-01] MEDS ORDERED: MAGN400T2 PO (15:56)
[2020-10-01] MEDS ORDERED: OMEP40CA97 PO (15:56)
[2020-10-01 17:41] LABS: BASO % 0.5 % (0.0-1.0); EOS # 0.1 10^3/uL (0.0-0.5); EOS % 2.7 % (0.0-3.0); HEMATOCRIT 29.1 % (42.0-52.0); HEMOGLOBIN 9.1 g/dl (13.5-17.5); MEAN CORPUSCULAR HEMOGLOBIN 28.3 pg (27.0-33.0); MEAN CORPUSCULAR HGB CONC 31.3 g/dl (32.0-36.5); MEAN CORPUSCULAR VOLUME 90.4 fl (80.0-96.0); MONO # 0.5 10^3/uL (0.0-0.8); MONO % 11.7 % (2.0-8.0); NEUTROPHILS # 2.7 10^3/uL (1.5-8.5); NEUTROPHILS % 61.6 % (36.0-66.0); PLATELET COUNT, AUTOMATED 209 10^3/uL (150-450); RED BLOOD COUNT 3.22 10^6/uL (4.30-6.10); WHITE BLOOD COUNT 4.4 10^3/uL (4.0-10.0)
[2020-10-01] MEDS ORDERED: NS 1,000 ML IV ONE (17:50)
[2020-10-01] MEDS ORDERED: KETOROLAC 30 MG/ML 1ML VIAL IV ONE (17:50)
[2020-10-01] MEDS ORDERED: TAMSULOSIN 0.4 MG CAP PO ONE (17:50)
[2020-10-01] MEDS ORDERED: ONDANSETRON 4MG/2ML VIAL IV ONE ×2 (17:50→21:25)
[2020-10-01 18:02] LABS: ALBUMIN 3.1 GM/DL (3.2-5.2); BILIRUBIN,DIRECT 0.2 MG/DL (0.0-0.2); BILIRUBIN,TOTAL 0.2 MG/DL (0.2-1.0); TOTAL PROTEIN 7.7 GM/DL (6.4-8.2)
[2020-10-01] MEDS ORDERED: ISOVUE-370 76% 100ML VIAL As Ordered ONE (18:34)
--- NOTE | 2020-10-01 19:58 | REPVR ---
PROCEDURE INFORMATION: Exam: CT Abdomen And Pelvis With Contrast Exam date and time: 10/01/2020 6:55 PM Age: 70 years old Clinical indication: Fever; Abdominal pain; Flank; Left; Additional info: Left flank pain x 1wk, fever, HX stones TECHNIQUE: Imaging protocol: Computed tomography of the abdomen and pelvis with contrast. Radiation optimization: All CT scans at this facility use at least one of these dose optimization techniques: automated exposure control; mA and/or kV adjustment per patient size (includes targeted exams where dose is matched to clinical indication); or iterative reconstruction. Contrast material: ISOVUE 370; Contrast volume: 100 ml; Contrast route: INTRAVENOUS (IV); COMPARISON: CT ABD PELVIS W/O CONTRAST 05/24/2020 12:28 PM FINDINGS: Mediastinal space: There is a small hiatal hernia. Liver: The liver is normal. Gallbladder and bile ducts: The gallbladder is contracted but otherwise normal. Bile ducts are not dilated. Pancreas: Normal. No ductal dilation. Spleen: The spleen is normal. Adrenal glands: The adrenals are normal. Kidneys and ureters: There are multiple bilateral renal calculi measuring up to 6 mm. There is severe left hydronephrosis and hydroureter. This is secondary to multiple calculi in the left distal ureter. There are 8 calculi in the left distal ureter measuring up to 4 mm. These are within 3 cm of the left UVJ. On the right side no definite hydronephrosis or hydroureter. However , there are 2 distal ureteral calculi the larger measuring 3 mm within 12 mm of the right UVJ. On the prior scan there were also multiple calculi in the left distal ureter and severe hydronephrosis. There were no calculi in the right ureter. There is persistent bilateral perinephric stranding unchanged from prior scan Stomach and bowel: There are numerous colonic diverticula. There is no bowel wall thickening. No bowel distension. Appendix: The appendix is well visualized and is normal. Intraperitoneal space: There is no free fluid or fluid collection. There is no free air. Vasculature: Unremarkable. No abdominal aortic aneurysm. Lymph nodes: Unremarkable. No enlarged lymph nodes. Urinary bladder: There is mild bladder wall thickening likely secondary to LN obstruction. No focal wall thickening. No calculus. Reproductive: The prostate is mildly enlarged, 5 cm. Bones/joints: Unremarkable. No acute fracture. Soft tissues: Unremarkable. IMPRESSION: 1. Persistent severe left hydronephrosis and hydroureter secondary to multiple distal left ureteral calculi. This was also present on the prior scan. 2. No hydronephrosis or hydroureter on the right, however , there are 2 distal right ureteral calculi which were not present on the prior scan. 3. Multiple additional bilateral nonobstructive renal calculi. 4. Extensive diverticulosis. No acute inflammatory findings Electronically signed by: Kennedy Pablo On 10/01/2020 19:58:12 PM
[2020-10-01] MEDS ORDERED: cefTRIAXone SOD 2 GM in D5W MINI-BAG PLUS 50 ML IV ONE (21:25)
[2020-10-01] MEDS ORDERED: MORPHINE 4 MG/ML 1ML VIAL/SYRINGE (J2270) IV ONE (21:25)
[2020-10-01] MEDS ORDERED: MOM 30ML SUSPENSION UDC PO PRN (21:40)
[2020-10-01] MEDS ORDERED: DEXTROSE 50% 50 ML SYRINGE IV PRN (21:40)
[2020-10-01] MEDS ORDERED: GLUCAGON INJ 1MG VIAL SC PRN (21:40)
[2020-10-01] MEDS ORDERED: MAALOX 30 ML SUSP *UDC PO PRN (21:40)
[2020-10-01] MEDS ORDERED: GLUCOSE 4GM CHEW TABLET PO PRN (21:40)
[2020-10-01] MEDS ORDERED: ONDANSETRON 4MG/2ML VIAL IV PRN (22:00)
--- NOTE | 2020-10-01 22:03 | HPEPDOC ---
[facility] Medical History & Physical Date of Admission Oct 01, 2020 Date of Service: Oct 01, 2020 Primary Care Physician: Clarice Pisano Attending Physician: JOANN WILLIAM MD History and Physical TIME OF SERVICE 1010PM CHIEF COMPLAINT: PAIN HISTORY OF PRESENT ILLNESS: This 70 yr old M was last admitted in May for management of Pyelonephritis w L hydroureteronephrosis and had a stent placed and a few weeks later had it removed. On September 25 he developed n/v, chills, burning w urination, L sided flank pain that radiated to his groin that felt similar to the pain he had in the past that was associated with kidney stones. He felt that the the pain was not that bad, has already passed one stone, but felt like he wasn't getting better so he decided to to come to the hospital for evaluation. ROS: 12 point ROS neg except as listed in HPI PAST MEDICAL/SURGICAL HISTORY: NIDDM2 Essential HTN BPH Prostate ca s/p radiation tx Iron deficiency anemia CAD/ PR 2011 w/o stenting / HLD Nephrolithiasis (10+ kidney stone procedures including ureteroscopy, stents & ESWL) Colonoscopy 3 years ago, reports 5 benign polyps Hernia repair x 2 w mesh implantation L ankle surgery Rotator cuff repair SOCIAL HISTORY: Patient denies smoking, etoh or recreational drug use FAMILY HISTORY:Daughter has kidney stones ALLERGIES: Please see below. HOME MEDICATIONS: Please see below. PHYSICAL EXAMINATION: Vital Signs Date Time Temp Pulse Resp B/P (MAP) Pulse Ox O2 Delivery O2 Flow Rate FiO2 10/01/ 15:47 98.7 106 18 146/79 (101) 98 Room Air GENERAL APPEARANCE: well nourished and developed/ NAD INTEGUMENT: not pale, flushed or diaphoretic HEENT:EOMI CARDIOVASCULAR: RRR/NMRG / no LE edema LUNGS: CTAB on RA ABDOMEN: soft/ NT w palpation MUSCULOSKELETAL: STEVEN x 4 extremities and back / + L lower back tenderness w percussion NEUROLOGICAL: CN 2-12 grossly intact /speech not dysarthric PSYCHIATRIC: A&OX 3 able to understand and follow all commands LABORATORY DATA: Immature Granulocyte % (Auto) 0.5, Neutrophils (%) (Auto) 61.6, Lymphocytes (%) (Auto) 23.0L, Monocytes (%) (Auto) 11.7H, Eosinophils (%) (Auto) 2.7, Basophils (%) (Auto) 0.5, Neutrophils # (Auto) 2.7, Lymphocytes # (Auto) 1.0L, Monocytes # (Auto) 0.5, Eosinophils # (Auto) 0.1, Basophils # (Auto) 0.0, Nucleated Red Blood Cells % (auto) 0.0, Total Bilirubin 0.2, Direct Bilirubin 0.2, Aspartate Amino Transf (AST/SGOT) 27, Alanine Aminotransferase (ALT/SGPT) 30, Alkaline Phosphatase 75, Total Protein 7.7, Albumin 3.1L, Albumin/Globulin Ratio 0.7, Lipase 351 10/01/20 17:28: POC Glucose (Misc Panel) 123H, POC Sodium (Misc Panel) 139, POC Potassium (Misc Panel) 4.1, POC Chloride (Misc Panel) 99, POC Total CO2 (Misc Panel) 30.0H, POC Blood Urea Nitrogen (Misc Panel 12, POC Ionized Calcium (Misc Panel) 5.0, POC Creatinine (Misc Panel) 1.1, POC Hematocrit (Misc Panel) 29.0L 10/01/20 18:14: Urine Color YELLOW, Urine Appearance HAZY, Urine pH 6.0, Urine Specific [place] 1.016, Urine Protein 2+H, Urine Glucose (UA) NEGATIVE, Urine Ketones NEGATIVE, Urine Blood 1+H, Urine Nitrite NEGATIVE, Urine Bilirubin NEGATIVE, Urine Urobilinogen 0.2, Urine Leukocyte Esterase 3+H, Urine WBC (Auto) 107H, Urine RBC (Auto) 16H, Urine Hyaline Casts (Auto) 0, Urine Bacteria (Auto) 1+H, Urine Squamous Epithelial Cells 0, Urine Mucus (Auto) SMALL, Urine Sperm (Auto) , Lactic Acid Level 1.4 IMAGING: CT abd/pelvis "IMPRESSION: 1. Persistent severe left hydronephrosis and hydroureter secondary to multiple distal left ureteral calculi. This was also present on the prior scan. 2. No hydronephrosis or hydroureter on the right, however , there are 2 distal right ureteral calculi which were not present on the prior scan. 3. Multiple additional bilateral nonobstructive renal calculi. 4. Extensive diverticulosis. No acute inflammatory findings." MICROBIOLOGY: 10/01/20 Urine Culture, Received Pending ASSESSMENT: is a 70 yr old w a hx of multiple epiosode of Nephrolithiasis requiring various interventions, NIDDM2, HTN, BPH, Prostate ca, BUDDY & CAD/DLP who presented w renal colic associated with fever will be admitted for management of persistent L hydrouretonephrosis 2/2 multiple ureteral calculi. PLAN: 1. Persistent L hydrouretonephrosis 2/2 multiple ureteral calculi Has received advice on modifying his diet, has stopped drinking soda but admits that he doesn't do everything he was told to do Plan:admit to med/surg / NPO/ LR / c/w Ceftriaxone / Morphine / Zofran / per d/w BRANT Barrios will take the patient to the OR tonight / strain urine for stones/ can f/u w Uro on out pt basis to review diet recommendations to avoid reoccurrence of stones 2. Pyelonephritis Dysuria w + UA Plan: abx / f/u UCx 3 NIDDM2 Plan: consistent carb diet in the morning / SSI w hypoglycemia protocol / hold metformin / f/u A1C (target 6-7.5%) 3 Essential HTN Plan: losartan & metoprolol 4 Chronic BUDDY Hx of colonic polyps Plan: hold Iron resolution of UTI / missed GI apt today to plan repeat c-scope, he can f/u at a later date 6 BPH / hx of Prostate ca s/p radiation tx Plan: Flomax / f/u w Uro as scheduled on an out pt basis 5 CAD/ PR 2011 w/o stenting / HLD Plan: ASA, statin, metoprolol DVT Px w SCDs Dispo: likely home after less than 2 midnight's stay Home Medications Scheduled Aspirin (Aspirin EC) 81 Mg Tablet.dr, 81 MG PO DAILY Atorvastatin Calcium (Atorvastatin Calcium) 40 Mg Tablet, 40 MG PO QHS Ferrous Sulfate (Ferrous Sulfate) 325 Mg Tablet.dr, 1 TAB PO DAILY Liraglutide (Victoza 2-Phong) 0.6 Mg/0.1 Ml Pen.injctr, 0.6 MG SC DAILY Losartan Potassium (Losartan Potassium) 25 Mg Tablet, 25 MG PO DAILY Magnesium Oxide (Magnesium Oxide) 400 Mg Tablet, 1 TAB PO DAILY for constipation Metformin HCl (Metformin HCl) 500 Mg Tablet, 1,000 MG PO DAILY Metoprolol Succinate (Metoprolol Succinate) 25 Mg Tab.er.24h, 25 MG PO QHS Omeprazole (Omeprazole) 40 Mg Capsule.dr, 1 CAP PO DAILY Tadalafil (Cialis) 5 Mg Tablet, 5 MG PO QHS Scheduled PRN Acetaminophen (Acetaminophen) 325 Mg Tablet, 650 MG PO Q4H PRN for PAIN OR FEVER Allergies Coded Allergies: No Known Allergies (Unverified , 05/24/20) A-FIB/CHADSVASC A-FIB History Current/History of A-Fib/PAF?: No Current PO Anticoag Therapy: No JOANN WILLIAM MD Oct 01, 2020 22:03
[2020-10-01 22:41] LABS: RSV AMPLIFICATION NEGATIVE (NEGATIVE)
[2020-10-01] MEDS: LR 1,000 ML IV SCH (22:41)
[2020-10-01] MEDS ORDERED: SLOWTAB2 PO (23:07)
[2020-10-01] MEDS ORDERED: FERR1TAB8 PO (23:07)
[2020-10-01] MEDS ORDERED: NITR4TASL SL (23:07)
[2020-10-01] MEDS ORDERED: OMEP-218 PO (23:07)
[2020-10-01] MEDS ORDERED: VICT18IN2 SC (23:07)
--- NOTE | 2020-10-01 23:14 | SMCUROLCON ---
Urology Consultation General Date of Consultation 10/01/20 Reason For Consultation This patient is seen for Ureteral Calculus,Left. History of Present Illness The patient is a 70-year-old male with a past medical history for renal calculi. He states that he began having flank pain, fever, chills, nausea and vomiting 1 week ago and was self-medicating with Tylenol without much success. When the nausea and vomiting cleared he began having chills. At some point today he also began having left flank pain and decided it was time to come into the hospital. A CT scan was performed in the emergency room showing the patient had numerous calculi in the distal left ureter causing significant high-grade hydronephrosis on the left side. He also had at least 2 stones in the distal right ureter with no hydro-. Urology consult was therefore called and he'll be admitted to medicine for hydration and antibiotics. Urine shows 107 white cells and 1+ bacteria. Past Medical History Medical History Hypertension Type 2 diabetes BPH Prostate cancer status post radiation Iron deficiency anemia Coronary artery disease with myocardial infarction 2012 Renal calculi Surgical Hstory Hernia repair 2 Left ankle surgery Rotator cuff repair left shoulder Radiation for prostate cancer Ureteroscopic laser lithotripsy left side Social History * Smoker: non-smoker Alcohol: Denies Drugs: denies Medications Current Medications Current Medications Medications (Trade) Dose Ordered Sig/Edson Route PRN Reason Start Time Stop Time Status Last Admin Dose Admin Al Hydrox/Mg Hydrox/Simethicone (Mylanta) 30 ml DAILY PRN PO DYSPEPSIA 10/01/20 21:40 Ceftriaxone Sodium 1 gm/ Dextrose 50 ml @ 100 mls/hr DAILY IV 10/02/20 09:00 Dextrose (Dextrose 50%) 25 ml ASDIRECTED PRN IV SEE LABEL COMMENTS 10/01/20 21:40 Glucagon (Glucagon) 1 mg ASDIRECTED PRN SC SEE LABEL COMMENTS 10/01/20 21:40 Glucose (Glucose) 16 GM ASDIRECTED PRN PO SEE LABEL COMMENTS 10/01/20 21:40 Insulin Human Lispro (HumaLOG INSULIN) See Protocol Table Q6H SC 10/02/20 00:00 Lactated Ringer's 1,000 ml @ 100 mls/hr Q10H IV 10/01/20 21:40 10/01/20 22:41 Magnesium Hydroxide (Milk Of Magnesia) 30 ml DAILY PRN PO CONSTIPATION 10/01/20 21:40 Morphine Sulfate (Morphine Sulfate Inj) 2 mg Q2H PRN IV renal colic 10/01/20 21:40 Ondansetron HCl (ZOFRAN INJection) 4 mg Q4HP PRN IV NAUSEA OR VOMITING 10/01/20 22:00 Allergies Allergies: Coded Allergies: No Known Allergies (Unverified , 05/24/20) Review of Systems General: Reports: Normal Appetite; Denies: Fatigue, Malaise Constitutional: Denies: Fever, Chills, Sweats, Weakness, Malaise Eyes: Denies: Pain, Vision change ENT: Denies: Head Aches, Sore Throat, Epistaxis Skin: Denies: Rash, Lesions, Breakdown, Nail Changes Pulmonary: Denies: Dyspnea, Cough Cardiovascular: Denies Chest Pain, Denies Palpitations Gastrointestinal: Denies: Nausea, Vomiting, Abdominal Pain Genitourinary: Denies: Dysuria, Frequency, Incontinence, Hematuria Hematologic: Denies: Bruising, Bleeding Excessively Endocrine: Denies: Polydipsia, Polyphagia, Polyuria Musculoskeletal: Denies: Neck Pain, Back Pain Neurological: Denies: Weakness, Numbness, Incoordination, Change in Speech Psych: Reports: Mood Normal; Denies: Anxiety, Depression Physical Examination General Exam: Alert, No Acute Distress EYE EXAM: PERRLA, Conjunctiva & lids normal, EOMI; No: Sclera icteric ENT EXAM: Atraumatic, Mucous membr. moist/pink, Pharynx Normal Neck Exam: Supple; No: JVD, thyromegaly Chest Exam: Clear to auscultation, Normal air movement Heart Exam: Rate Normal, Regular Rhythm, Normal S1, Normal S2; No: Murmurs, Rubs Abdomen Exam: Normal Bowel Sounds, Soft; No: Tenderness, Hepatospenomegaly Male Exam: Normal Genital Exam Male Exam 2+ left CVA tenderness Extremity Exam: Normal Pulses; No: Clubbing, Cyanosis, Edema Skin Exam: Nl turgor and temperature; No: Rash, Breakdown Neuro Exam: Normal Gait, Normal Speech, Cranial Nerves 3-12 NL, Reflexes 2+ Psych Exam: Mental status NL, Mood NL, Oriented x 3 Vital Signs/I&O Vital Signs Date Time Temp Pulse Resp B/P (MAP) Pulse Ox O2 Delivery O2 Flow Rate FiO2 10/01/20 22:45 74 16 132/77 (95) 97 Room Air 10/01/20 19:32 97.8 Laboratory Data 24H Labs Laboratory Tests 2 10/01/20 17:23: Immature Granulocyte % (Auto) 0.5, Neutrophils (%) (Auto) 61.6, Lymphocytes (%) (Auto) 23.0L, Monocytes (%) (Auto) 11.7H, Eosinophils (%) (Auto) 2.7, Basophils (%) (Auto) 0.5, Neutrophils # (Auto) 2.7, Lymphocytes # (Auto) 1.0L, Monocytes # (Auto) 0.5, Eosinophils # (Auto) 0.1, Basophils # (Auto) 0.0, Nucleated Red Blood Cells % (auto) 0.0, Total Bilirubin 0.2, Direct Bilirubin 0.2, Aspartate Amino Transf (AST/SGOT) 27, Alanine Aminotransferase (ALT/SGPT) 30, Alkaline Phosphatase 75, Total Protein 7.7, Albumin 3.1L, Albumin/Globulin Ratio 0.7, Lipase 351 10/01/20 17:28: POC Glucose (Misc Panel) 123H, POC Sodium (Misc Panel) 139, POC Potassium (Misc Panel) 4.1, POC Chloride (Misc Panel) 99, POC Total CO2 (Misc Panel) 30.0H, POC Blood Urea Nitrogen (Misc Panel 12, POC Ionized Calcium (Misc Panel) 5.0, POC Creatinine (Misc Panel) 1.1, POC Hematocrit (Misc Panel) 29.0L 10/01/20 18:14: Urine Color YELLOW, Urine Appearance HAZY, Urine pH 6.0, Urine Specific [place] 1.016, Urine Protein 2+H, Urine Glucose (UA) NEGATIVE, Urine Ketones NEGATIVE, Urine Blood 1+H, Urine Nitrite NEGATIVE, Urine Bilirubin NEGATIVE, Urine Urobilinogen 0.2, Urine Leukocyte Esterase 3+H, Urine WBC (Auto) 107H, Urine RBC (Auto) 16H, Urine Hyaline Casts (Auto) 0, Urine Bacteria (Auto) 1+H, Urine Squamous Epithelial Cells 0, Urine Mucus (Auto) SMALL, Urine Sperm (Auto) , La ctic Acid Level 1.4 10/01/20 21:31: Coronavirus (COVID-19)(PCR) NEGATIVE, Influenza Type A (RT-PCR) NEGATIVE, Influenza Type B (RT-PCR) NEGATIVE, Respiratory Syncytial Virus (PCR) NEGATIVE CBC/BMP Laboratory Tests 10/01/20 17:23 Microbiology Microbiology 10/01/20 Urine Culture, Received Pending Assessment Bilateral ureteral calculi Severe left hydronephrosis Plan Patient will be brought to the operating room for bilateral retrograde pyelograms and bilateral stent placement. Once the patient is more medically stable, he will need bilateral ureteroscopic laser lithotripsy Time Spent on Consult: Time Spent / Consult (Minutes): 75 NAINA ARANA MD Oct 01, 2020 23:14
[2020-10-01] MEDS ORDERED: CONRAY-60 60% 50ML VIAL (Q9961) As Ordered ONE (23:48)
[2020-10-02] VITALS (10 sets, daily range): BP systolic 136–146; BP diastolic 75–80
[2020-10-02] MEDS ORDERED: fentaNYL 100 MCG/2 ML INJECTION (J3010) IV PRN (01:15)
[2020-10-02] MEDS ORDERED: HYDROMORPHONE HCL 0.5 MG/ 0.5 ML SYRINGE (J1170 PER 1) IV PRN (01:15)
[2020-10-02] MEDS ORDERED: ONDANSETRON 4MG/2ML VIAL IV PRN (01:15)
[2020-10-02] MEDS ORDERED: LR 1,000 ML IV SCH (01:15)
[2020-10-02] MEDS ORDERED: oxyCODONE 5MG TAB PO PRN (01:15)
[2020-10-02] MEDS ORDERED: NITROGLYCERIN 0.4 MG SUBL TABLET SL PRN (01:20)
[2020-10-02] MEDS: ATORVASTATIN 20 MG TAB PO SCH ×2 (02:03→20:54)
[2020-10-02] MEDS: METOPROLOL SUCC *XL* 25MG TAB (TopROL *XL*) PO SCH ×2 (02:03→20:54)
[2020-10-02] MEDS: MORPHINE 2 MG/ML 1ML VIAL (J2270) IV PRN ×3 (05:39→23:35)
[2020-10-02 07:02] LABS: HEMATOCRIT 25.5 % (42.0-52.0); MEAN CORPUSCULAR HEMOGLOBIN 28.3 pg (27.0-33.0); MEAN CORPUSCULAR HGB CONC 31.4 g/dl (32.0-36.5); MEAN CORPUSCULAR VOLUME 90.1 fl (80.0-96.0); PLATELET COUNT, AUTOMATED 162 10^3/uL (150-450); RED BLOOD COUNT 2.83 10^6/uL (4.30-6.10); WHITE BLOOD COUNT 3.7 10^3/uL (4.0-10.0)
[2020-10-02 07:23] LABS: HEMOGLOBIN A1c 6.2 %
[2020-10-02 07:31] LABS: BLOOD UREA NITROGEN 11 MG/DL (7-18); CALCIUM LEVEL 8.3 MG/DL (8.8-10.2); CARBON DIOXIDE LEVEL 27 MEQ/L (21-32); CHLORIDE LEVEL 106 MEQ/L (98-107); CREATININE FOR GFR 1.03 MG/DL (0.70-1.30); GLOMERULAR FILTRATION RATE > 60.0 (>49); GLUCOSE, FASTING 137 MG/DL (70-100); POTASSIUM SERUM 4.1 MEQ/L (3.5-5.1); SODIUM LEVEL 138 MEQ/L (136-145)
[2020-10-02] MEDS: HumaLOG INSULIN (NovoLOG) PER UNIT SC SCH ×4 (08:18→18:09)
[2020-10-02] MEDS: ASPIRIN 81MG ENTERIC TABLET PO SCH (08:18)
[2020-10-02] MEDS: OMEPRAZOLE 20 MG CAP PO SCH (08:18)
[2020-10-02] MEDS: LOSARTAN 25 MG TAB PO SCH (08:20)
[2020-10-02] MEDS: cefTRIAXone SOD 1 GM in D5W MINI-BAG PLUS 50 ML IV SCH (08:20)
--- NOTE | 2020-10-02 08:38 | ROOPDOC ---
[facility] Report Of Operation Report of Operation DATE OF PROCEDURE: 10/02/20 PREPROCEDURE DIAGNOSES: Bilateral ureteral calculi with obstruction and massive left hydronephrosis POSTPROCEDURE DIAGNOSES: Bilateral ureteral calculi with bilateral hydronephrosis PROCEDURE: Cystoscopy, bilateral retrograde pyelogram, right ureteral stent placement, left ureteroscopic stone extraction and stent placement SURGEON: Shemar Holm MD MARINE CHRONOMETER ASSEMBLER: None ANESTHESIA: Gen. ESTIMATED BLOOD LOSS: Approximately less than 5 mL. COMPLICATIONS: Significant edema of the left ureteral orifice with calculus obstruction REMARKS: Patient had numerous stones in the distal left ureter and significant hydronephrosis complicating the procedure on the left side. PROCEDURE NOTE: Patient was brought to the operating room for bilateral stent placement because of bilateral stones. He also has massive hydronephrosis on the left side from at least 8 stones in the distal left ureter. DESCRIPTION OF PROCEDURE: The patient was placed on the table in supine position and given general anesthesia, placed in the lithotomy position, prepped with Betadine paint and timeout was performed. A #22 Tajik cystoscope was inserted into the meatus and advanced under direct vision of a 30 lens to the bladder. Once in the bladder, evaluation of the mucosa showed a normal bladder except for the ureteral orifices. Both were difficult to identify. The left ureteral orifice had significant edema surrounding it. With first fluoroscopy, the patient was found to have retained contrast material from his CT scan over 6 hours previously with contrast present on both sides. A wire guide was attempted to be passed into the left ureteral orifice unsuccessfully because of the calculus obstruction. The catheter was then placed in the right ureteral orifice up to the renal pelvis. A 6 Tajik double-J stent was then passed over the wire and coiled well in the renal pelvis and in the bladder when the wire was removed. A short ureteroscope was then exchanged for the cystoscope and the left ureteral orifice was examined. Several stones were retrieved with the basket. A wire was then able to be passed around some remaining stones up to the renal pelvis. The cystoscope was then exchanged for the ureteroscope and a 6 Tajik double-J stent was passed over this wire and also coiled well in the renal pelvis and in the bladder when the wire was removed. The calculi were retrieved from the bladder, bladder was drained and cystoscope was removed. The patient will need bilateral ureteroscopic laser lithotripsy after his medical condition is stabilized. SHEMAR HOLM MD Oct 02, 2020 08:38
--- NOTE | 2020-10-02 09:10 | REP ---
INDICATION: SURGERY. COMPARISON: Comparison CT study October 01, 2020.. TECHNIQUE: Fifteen views. 1 minutes 2 seconds of fluoroscopy time is reported. FINDINGS: A sequence of 15 last image hold fluoroscopically obtained spot radiographs document bilateral ureteral cannulation, contrast injection, moderate to marked hydronephrosis, and stent placement. IMPRESSION: Procedural imaging. <Electronically signed by Nico Boo > 10/02/20 0981
--- NOTE | 2020-10-02 19:59 | IPNPDOC ---
Date Seen The patient was seen on 10/02/20. Progress Note SUBJECTIVE: Taken to OR this AM for cystoscopy, bilateral retrograde pyelogram, right ureteral stent placement, left ureteroscopic stone extraction and stent placement . Still having some mild LLQ, flank pain. UCx pending. Denies SOB, fevers, chills. OBJECTIVE: PHYSICAL EXAMINATION: VS: Please see below GENERAL APPEARANCE: well nourished and developed/ NAD INTEGUMENT: not pale, flushed or diaphoretic HEENT:EOMI CARDIOVASCULAR: RRR/NMRG / no LE edema LUNGS: CTAB on RA ABDOMEN: LLQ tenderness, left flank pain. No CVA tendernss. soft, BS + in 4 quad MUSCULOSKELETAL: STEVEN x 4 extremities and back / + L lower back tenderness w percussion NEUROLOGICAL: CN 2-12 grossly intact /speech not dysarthric PSYCHIATRIC: A&OX 3 able to understand and follow all commands LABORATORY DATA: Please see below IMAGING: CT abd/pelvis 1. Persistent severe left hydronephrosis and hydroureter secondary to multiple distal left ureteral calculi. This was also present on the prior scan. 2. No hydronephrosis or hydroureter on the right, however , there are 2 distal right ureteral calculi which were not present on the prior scan. 3. Multiple additional bilateral nonobstructive renal calculi. 4. Extensive diverticulosis. No acute inflammatory findings." MICROBIOLOGY: UCx pending ASSESSMENT: is a 70 yr old w a hx of multiple epiosode of Nephrolithiasis requiring various interventions, NIDDM2, HTN, BPH, Prostate ca, BUDDY & CAD/DLP who presented w renal colic associated with fever will be admitted for management of persistent L hydrouretonephrosis 2/2 multiple ureteral calculi. PLAN: Bilateral ureteral calculi with obstruction and massive left hydronephrosis -POD 0 cystoscopy, bilateral retrograde pyelogram, right ureteral stent placement, left ureteroscopic stone extraction and stent placement -Pain persisting but milder -Stone sent for further evaluation -Per urology, patient will need bilateral ureteroscopic laser lithotripsy after his medical condition is stabilized. Can f/u as o/p in the 2 weeks after discharge -Pain control, monitor u/o Acute pyelonephritis -WBC wnl, afebrile -CVA tenderness still slightly present -UCx pending -C/w ceftriaxone -Daily labs NIDDM2 -BS stable -consistent carb diet in the morning / SSI w hypoglycemia protocol / hold metformin / f/u A1C (target 6-7.5%) Essential HTN -losartan & metoprolol -Chronic BUDDY -Hx of colonic polyps -hold Iron until resolution of UTI / missed GI apt today to plan repeat c-scope, he can f/u at a later date BPH / hx of Prostate ca s/p radiation tx -Flomax / f/u w Uro as scheduled on an out pt basis CAD/ [place] 2011 w/o stenting / HLD -ASA, statin, metoprolol DVT Px w SCDs DISPOSITION: F/u UCx. Urology to f/u with patient as o/p. Plan is d/c home when medically improved. VS, I&O, 24H, Fishbone Vital Signs/I&O Vital Signs Date Time Temp Pulse Resp B/P (MAP) Pulse Ox O2 Delivery O2 Flow Rate FiO2 10/02/20 18:00 98.6 86 18 137/77 (97) 95 Room Air I&O- Last 24 Hours up to 6 AM 10/02/20 06:00 Intake Total 3000 ml Output Total 654 ml Balance 2346 ml Laboratory Data 24H LABS Laboratory Tests 2 10/01/20 21:31: Coronavirus (COVID-19)(PCR) NEGATIVE, Influenza Type A (RT-PCR) NEGATIVE, Influenza Type B (RT-PCR) NEGATIVE, Respiratory Syncytial Virus (PCR) NEGATIVE 10/01/20 23:33: Bedside Glucose (Misc Panel) 119H 10/02/20 00:41: 10/02/20 06:41: Nucleated Red Blood Cells % (auto) 0.0, Anion Gap 5L, Glomerular Filtration Rate > 60.0, Estimated Mean Plasma Glucose 131H, Hemoglobin A1c 6.2, Calcium Level 8.3L 10/02/20 11:24: Bedside Glucose (Misc Panel) 121H 10/02/20 16:21: Bedside Glucose (Misc Panel) 132H 10/02/20 19:49: Bedside Glucose (Misc Panel) 195H CBC/BMP Laboratory Tests 10/02/20 06:41 Microbiology Microbiology 10/01/20 Urine Culture - Final, Complete Melinda Mckeon MD Oct 02, 2020 19:59
[2020-10-02] MEDS ORDERED: ACET-910 PO (20:08)
[2020-10-02] MEDS ORDERED: HumaLOG INSULIN (NovoLOG) PER UNIT SC SCH ×2 (21:00)
[2020-10-02] MEDS: LR 1,000 ML IV SCH (23:52)
[2020-10-03 02:00] VITALS: BP 150/83
[2020-10-03 06:00] VITALS: BP 149/84
[2020-10-03 08:00] LABS: HEMATOCRIT 25.1 % (42.0-52.0); HEMOGLOBIN 7.9 g/dl (13.5-17.5); MEAN CORPUSCULAR HEMOGLOBIN 28.3 pg (27.0-33.0); MEAN CORPUSCULAR HGB CONC 31.5 g/dl (32.0-36.5); PLATELET COUNT, AUTOMATED 185 10^3/uL (150-450); RED BLOOD COUNT 2.79 10^6/uL (4.30-6.10); WHITE BLOOD COUNT 4.3 10^3/uL (4.0-10.0)
[2020-10-03 08:24] LABS: BLOOD UREA NITROGEN 9 MG/DL (7-18); CALCIUM LEVEL 8.6 MG/DL (8.8-10.2); CARBON DIOXIDE LEVEL 29 MEQ/L (21-32); CHLORIDE LEVEL 103 MEQ/L (98-107); CREATININE FOR GFR 0.88 MG/DL (0.70-1.30); GLOMERULAR FILTRATION RATE > 60.0 (>49); GLUCOSE, FASTING 134 MG/DL (70-100); POTASSIUM SERUM 3.9 MEQ/L (3.5-5.1); SODIUM LEVEL 138 MEQ/L (136-145)
[2020-10-03] MEDS: HumaLOG INSULIN (NovoLOG) PER UNIT SC SCH (08:28)
[2020-10-03] MEDS: OMEPRAZOLE 20 MG CAP PO SCH (08:28)
[2020-10-03] MEDS: ASPIRIN 81MG ENTERIC TABLET PO SCH (08:28)
[2020-10-03 08:30] VITALS: BP 134/80
[2020-10-03] MEDS: LOSARTAN 25 MG TAB PO SCH (08:30)
[2020-10-03] MEDS: cefTRIAXone SOD 1 GM in D5W MINI-BAG PLUS 50 ML IV SCH (08:30)
[2020-10-03 10:00] VITALS: BP 131/70
--- NOTE | 2020-10-03 17:47 | DS.PDOC ---
Discharge Summary General Date of Admission Oct 01, 2020 at 15:47 Date of Discharge 10/03/20 Attending Physician: Melinda Mckeon MD Discharge Summary HISTORY OF PRESENT ILLNESS: This 70 yr old M was last admitted in May for management of Pyelonephritis w L hydroureteronephrosis and had a stent placed and a few weeks later had it removed. On September 25 he developed n/v, chills, burning w urination, L sided flank pain that radiated to his groin that felt similar to the pain he had in the past that was associated with kidney stones. He felt that the the pain was not that bad, has already passed one stone, but felt like he wasn't getting better so he decided to to come to the hospital for evaluation. He was admitted to hospitalist service for bilateral ureteral calculi with obstruction and massive left hydronephrosis with urology consulted. HOSPITAL COURSE: Patient was taken to OR on 10/02/20 for for cystoscopy, bilateral retrograde pyelogram, right ureteral stent placement, left ureteroscopic stone extraction and stent placement . Still having some mild LLQ, flank pain post operatively, no stones were passed but one was sent for pathology. Although UA +, UCx later came back no growth. Per urology, patient will need bilateral ureteroscopic laser lithotripsy after his medical condition is stabilized. Can f/u as o/p in the 2 weeks after discharge. By 10/03/20 patient had controlled left flank pain, u/o was good and decision was made to discharge home with f/u with urology. He had some anemia with H/H 7.9/ 25 ;however, there was not major blood loss during procedure, no s/s of bleeding post-op. He was advised to f/u with PCP about anemia and have CBC repeated on next visit. At time of discharge, patient had no acute complaints. PAST MEDICAL/SURGICAL HISTORY: NIDDM2 Essential HTN BPH Prostate ca s/p radiation tx Iron deficiency anemia CAD/ CT 2011 w/o stenting / HLD Nephrolithiasis (10+ kidney stone procedures including ureteroscopy, stents & ESWL) Colonoscopy 3 years ago, reports 5 benign polyps Hernia repair x 2 w mesh implantation L ankle surgery Rotator cuff repair SOCIAL HISTORY: Patient denies smoking, etoh or recreational drug use DISCHARGE MEDS: Please see below PHYSICAL EXAMINATION: VS: Please see below GENERAL APPEARANCE: well nourished and developed/ NAD INTEGUMENT: intact, no cyanosis, rashes HEENT:EOMI CARDIOVASCULAR: RRR/NMRG / no LE edema LUNGS: CTAB on RA ABDOMEN:mild LLQ tenderness, no left flank pain. No CVA tendernss. soft, BS + in 4 quad MUSCULOSKELETAL: STEVEN x 4 extremities and back / + L lower back tenderness w percussion NEUROLOGICAL: CN 2-12 grossly intact /speech not dysarthric PSYCHIATRIC: A&OX 3 able to understand and follow all commands LABORATORY DATA: Please see below IMAGING: CT abd/pelvis 1. Persistent severe left hydronephrosis and hydroureter secondary to multiple distal left ureteral calculi. This was also present on the prior scan. 2. No hydronephrosis or hydroureter on the right, however , there are 2 distal right ureteral calculi which were not present on the prior scan. 3. Multiple additional bilateral nonobstructive renal calculi. 4. Extensive diverticulosis. No acute inflammatory findings." MICROBIOLOGY: UCx: NG ASSESSMENT: is a 70 yr old w a hx of multiple epiosode of Nephrolithiasis requiring various interventions, NIDDM2, HTN, BPH, Prostate ca, BUDDY & CAD/DLP who presented w renal colic associated with fever will be admitted for management of persistent L hydrouretonephrosis 2/2 multiple ureteral calculi. PLAN: Bilateral ureteral calculi with obstruction and massive left hydronephrosis -POD 1 cystoscopy, bilateral retrograde pyelogram, right ureteral stent placement, left ureteroscopic stone extraction and stent placement -Pain much improved -Stone sent for further evaluation - pending results -Per urology, patient will need bilateral ureteroscopic laser lithotripsy after his medical condition is stabilized. Can f/u as o/p in the 2 weeks after discharge in clinic. -Pain control with tylenol PRN Chronic BUDDY -H/H slightly lower today at 7.9/25 -No s/s of bleeding, no blood loss during procedure -Hx of colonic polyps -Has GI apt today to plan repeat c-scope, he can f/u at a later date -Recommend f/u CBC on next PCP or GI visit to reassess levels + UA -UCx later NG -Received 3 days of IV ceftriaxone prior to d/c NIDDM2 -BS stable -consistent carb diet, f/u with PCP Essential HTN -losartan & metoprolol BPH / hx of Prostate ca s/p radiation tx -Flomax / f/u w Uro as scheduled on an out pt basis CAD/ CT 2011 w/o stenting / HLD -ASA, statin, metoprolol DISPOSITION: Urology to f/u with patient as o/p TIME SPENT ON DISCHARGE: 35 minutes. Vital Signs/I&Os Vital Signs Date Time Temp Pulse Resp B/P (MAP) Pulse Ox O2 Delivery O2 Flow Rate FiO2 10/03/20 10:00 97.9 75 20 131/70 (90) 97 Room Air I&O- Last 24 Hours up to 6 AM 10/03/20 06:00 Intake Total 3320 ml Output Total 1950 ml Balance 1370 ml Laboratory Data Labs 24H Laboratory Tests 2 10/02/20 19:49: Bedside Glucose (Misc Panel) 195H 10/03/20 07:09: Nucleated Red Blood Cells % (auto) 0.0, Anion Gap 6L, Glomerular Filtration Rate > 60.0, Calcium Level 8.6L 10/03/20 11:29: Bedside Glucose (Misc Panel) 131H CBC/BMP Laboratory Tests 10/03/20 07:09 FSBS Laboratory Tests Test 10/02/20 19:49 10/03/20 11:29 Range/Units Bedside Glucose (Misc Panel) 195 131 80-115 MG/DL Microbiology Microbiology 10/01/20 Urine Culture - Final, Complete Discharge Medications Scheduled Aspirin (Aspirin EC) 81 Mg Tablet.dr, 81 MG PO DAILY, (Reported) Atorvastatin Calcium (Atorvastatin Calcium) 40 Mg Tablet, 40 MG PO QHS, (Re ported) Ferrous Sulfate (Ferrous Sulfate) 325 Mg Tablet, 325 MG PO DAILY, (Reported) Liraglutide (Victoza 3-Phong) 0.6 Mg/0.1 Ml Pen.injctr, 1.2 MG SC QHS, (Reported) Losartan Potassium (Losartan Potassium) 25 Mg Tablet, 25 MG PO DAILY, (Reported) Magnesium Chloride (Slow-Mag) 71.5 Mg Tablet.dr, 3 TAB PO QHS, (Reported) Metformin HCl (Metformin HCl) 500 Mg Tablet, 1,000 MG PO DAILY, (Reported) Metoprolol Succinate (Metoprolol Succinate) 25 Mg Tab.er.24h, 25 MG PO QHS, (Reported) Omeprazole (Omeprazole) 20 Mg Capsule.dr, 20 MG PO DAILY, (Reported) Tadalafil (Cialis) 5 Mg Tablet, 5 MG PO QHS, (Reported) Scheduled PRN Acetaminophen (Acetaminophen) 325 Mg Tablet, 650 MG PO Q6HP PRN for PAIN OR FEVER Nitroglycerin (Nitrostat) 0.4 Mg Tab.subl, 0.4 MG SL NITRO PRN for CHEST PAIN, (Reported) Allergies Coded Allergies: No Known Allergies (Unverified , 05/24/20) Melinda Mckeon MD Oct 03, 2020 17:47
[2020-10-11 16:09] LABS: Ca Ox Monohydrate 5 % (.); Size 3x3 mm (.)
== END 2020-10-03 12:25 | disposition home or self-care (01) ==
LOC: M ED 15:46 → M ED INP 15:47 → ENRESERV 23:21 → M MS5PR 10-02 01:38
PROVIDERS: ADMIT Internal Medicine; ATTEND Internal Medicine
DX: N13.2 Hydronephrosis with renal and ureteral calculous obstruction (principal); I10 Essential (primary) hypertension; I25.2 Old myocardial infarction; I25.10 Atherosclerotic heart disease of native coronary artery without angina pectoris; D50.9 Iron deficiency anemia, unspecified; E11.9 Type 2 diabetes mellitus without complications; Z79.82 Long term (current) use of aspirin; Z79.84 Long term (current) use of oral hypoglycemic drugs; Z79.899 Other long term (current) drug therapy; Z85.46 Personal history of malignant neoplasm of prostate; Z92.3 Personal history of irradiation
CPT/HCPCS: 36415; 52332; 52352; 74177; 74420; 80047; 80048; 80076; 81001; 82365; 83036; 83605; 83690; 85025; 85027; 87086; 87631; 88300; 96361; 96365; 96366; 96375; 96376; 99284; C1769; C2617; G0378; J0696; J1885; J2270; J2405; Q9961; Q9967

== ENCOUNTER → 2020-10-01 | Day surgery (SDC) | payer MEDICARE ==
[~2020-10-01] MED LIST changes: +ACET-910 PO; +FERR1TAB8 PO; +FERR325T3 PO; +LIDOCAINE 2% 100MG/5ML SDV (FOR ANES.) As Ordered ONE; +MAGN400T2 PO; +MIDAZOLAM INJ 2MG/2ML VIAL (J2250 PER 1MG) As Ordered ONE; +NITR4TASL SL; +OMEP-218 PO; +OMEP40CA97 PO; +ONDANSETRON 4MG/2ML VIAL As Ordered ONE; +SLOWTAB2 PO; +VICT18IN2 SC; +fentaNYL 100 MCG/2 ML INJECTION (J3010) As Ordered ONE; +propofoL 200 MG/20 ML VIAL As Ordered ONE
== END | disposition home or self-care (01) ==
LOC: M SDC 23:14
PROVIDERS: ATTEND Urology
DX: N20.0 Calculus of kidney (principal); N13.0 Hydronephrosis with ureteropelvic junction obstruction; I10 Essential (primary) hypertension; N40.0 Benign prostatic hyperplasia without lower urinary tract symptoms; I25.10 Atherosclerotic heart disease of native coronary artery without angina pectoris; I25.2 Old myocardial infarction; D50.9 Iron deficiency anemia, unspecified; E11.9 Type 2 diabetes mellitus without complications; Z79.82 Long term (current) use of aspirin; Z79.84 Long term (current) use of oral hypoglycemic drugs; Z79.899 Other long term (current) drug therapy; Z85.46 Personal history of malignant neoplasm of prostate; Z92.3 Personal history of irradiation; Z98.61 Coronary angioplasty status
CPT/HCPCS: 52332; 52352; J2250; J2405; J3010

== ENCOUNTER → 2020-10-31 | Outpatient (CLI) | payer MEDICARE ==
[~2020-10-31] MED LIST changes: +ACET-910 PO; +BACTDSTA PO; +FERR1TAB8 PO; +FERR325T3 PO; +MAGN400T2 PO; +NITR4TASL SL; +OMEP-218 PO; +OMEP40CA97 PO; +SLOWTAB2 PO; -SULF1TAB93 PO; +VICT18IN2 SC
--- NOTE | 2020-11-01 01:43 | REP ---
INDICATION: CALCULUS OF KIDNEY COMPARISON: None. TECHNIQUE: PA and lateral. FINDINGS: The mediastinum and cardiac silhouette are normal. The lung regalado suggest generalized chronic appearing changes without acute consolidation, effusion, or pneumothorax. The skeletal structures are intact and normal. IMPRESSION: No acute cardiopulmonary process. <Electronically signed by Fuad Alberto > 11/01/20 014
== END ==
LOC: M RAD 11:23
PROVIDERS: ATTEND Nurse Practitioner Women's Health
DX: Z01.818 Encounter for other preprocedural examination (principal); N20.0 Calculus of kidney; Z79.899 Other long term (current) drug therapy

== ENCOUNTER → 2020-10-31 | Outpatient (REF) | payer MEDICARE ==
[2020-10-31 18:58] LABS: INR 1.07; PARTIAL THROMBOPLASTIN TIME 25.9 SECONDS (24.2-38.5); PROTHROMBIN TIME 14.1 SECONDS (12.5-14.3)
[2020-10-31 19:34] LABS: APPEARANCE, URINE HAZY (CLEAR); BACTERIA, URINE AUTO 1+ (NEGATIVE); BILIRUBIN, URINE AUTO NEGATIVE (NEGATIVE); BLOOD, URINE BLOOD 3+ (NEGATIVE); COLOR, URINE YELLOW (YELLOW); GLUCOSE, URINE (UA) AUTO NEGATIVE (NEGATIVE); KETONE, URINE AUTO NEGATIVE (NEGATIVE); LEUKOCYTE ESTERASE, URINE AUTO 3+ (NEGATIVE); MUCUS, URINE SMALL (NEGATIVE); NITRITE, URINE AUTO NEGATIVE (NEGATIVE); PROTEIN, URINE AUTO 2+ mg/dL (NEGATIVE); RBC, URINE AUTO TNTC /HPF (0-3); SPECIFIC GRAVITY URINE AUTO 1.011 (1.002-1.035); SQUAMOUS EPITHELIAL CELL UR AU 0 /HPF (0-6); UROBILINOGEN, URINE AUTO 0.2 mg/dL (0.0-2.0); WBC, URINE AUTO 98 /HPF (0-3)
== END ==
LOC: M LAB REF 16:13
PROVIDERS: ATTEND Internal Medicine
DX: Z01.818 Encounter for other preprocedural examination (principal); Z79.899 Other long term (current) drug therapy

== ENCOUNTER → 2020-11-04 | Outpatient (REF) | payer MEDICARE ==
[2020-11-06 12:12] LABS: HEPATITIS C QUANTITATION 1210000 IU/mL (.)
== END ==
LOC: M LAB REF 16:36
PROVIDERS: ATTEND Internal Medicine
DX: B19.20 Unspecified viral hepatitis C without hepatic coma (principal)

== ENCOUNTER → 2020-11-12 | Outpatient (REF) | payer MEDICARE | LOC: M LAB REF 16:06 | PROVIDERS: ATTEND Internal Medicine | DX: B19.20 Unspecified viral hepatitis C without hepatic coma (principal) ==

== ENCOUNTER → 2020-11-26 | Outpatient (REF) | payer MEDICARE ==
[2020-11-27 14:04] LABS: HEPATITIS B SURFACE ANTIBODY NEGATIVE (POSITIVE); HEPATITIS B SURFACE ANTIGEN NEGATIVE (NEGATIVE)
== END ==
LOC: M LAB REF 12:19
PROVIDERS: ATTEND Internal Medicine
DX: Z11.59 Encounter for screening for other viral diseases (principal); R79.89 Other specified abnormal findings of blood chemistry; B18.2 Chronic viral hepatitis C

== ENCOUNTER → 2020-11-29 | Outpatient (REF) | payer MEDICARE ==
[~2020-11-29] MED LIST changes: +OMEP40CA4 PO; -OMEP40CA97 PO
[2020-11-29 19:15] LABS: APPEARANCE, URINE HAZY (CLEAR); BACTERIA, URINE AUTO NEGATIVE (NEGATIVE); BILIRUBIN, URINE AUTO NEGATIVE (NEGATIVE); BLOOD, URINE BLOOD 3+ (NEGATIVE); COLOR, URINE YELLOW (YELLOW); GLUCOSE, URINE (UA) AUTO NEGATIVE (NEGATIVE); KETONE, URINE AUTO NEGATIVE (NEGATIVE); LEUKOCYTE ESTERASE, URINE AUTO 3+ (NEGATIVE); MUCUS, URINE SMALL (NEGATIVE); NITRITE, URINE AUTO NEGATIVE (NEGATIVE); PROTEIN, URINE AUTO 2+ mg/dL (NEGATIVE); RBC, URINE AUTO TNTC /HPF (0-3); SPECIFIC GRAVITY URINE AUTO 1.012 (1.002-1.035); SQUAMOUS EPITHELIAL CELL UR AU 0 /HPF (0-6); UROBILINOGEN, URINE AUTO 0.2 mg/dL (0.0-2.0); WBC, URINE AUTO 96 /HPF (0-3)
== END ==
LOC: M LAB REF 16:18
PROVIDERS: ATTEND Internal Medicine
DX: N20.0 Calculus of kidney (principal)

== ENCOUNTER → 2020-12-04 | Outpatient (CLI) | payer MEDICARE | LOC: M LABSMTC 11:00 | PROVIDERS: ATTEND Anesthesiology | DX: Z01.818 Encounter for other preprocedural examination (principal); Z11.52 Encounter for screening for COVID-19 ==

== ENCOUNTER 2020-12-09 07:34 | Day surgery (SDC) | payer MEDICARE ==
[~2020-12-09] VITALS: Ht 175.3 cm; Wt 72.1 kg
[~2020-12-09 07:34] MED LIST changes: +LR 1,000 ML IV ONE; +ceFAZolin SOD 2 GM in IV 1 EA IV ONE
[2020-12-09] MEDS ORDERED: propofoL 200 MG/20 ML VIAL As Ordered ONE (08:01)
[2020-12-09] MEDS ORDERED: fentaNYL 250 MCG/5 ML INJECTION (J3010) As Ordered ONE (08:01)
[2020-12-09] MEDS ORDERED: ROCURONIUM BROMIDE 50 MG/5 ML VIAL As Ordered ONE (08:01)
[2020-12-09] MEDS ORDERED: LIDOCAINE 2% 100MG/5ML SDV (FOR ANES.) As Ordered ONE (08:01)
[2020-12-09] MEDS ORDERED: MIDAZOLAM INJ 2MG/2ML VIAL (J2250 PER 1MG) As Ordered ONE (08:02)
[2020-12-09] MEDS ORDERED: CONRAY-60 60% 50ML VIAL (Q9961) As Ordered ONE (08:45)
[2020-12-09] MEDS ORDERED: ePHEDrine SULFATE 25 MG/5 ML(5MG/ML) SYRINGE As Ordered ONE (09:08)
[2020-12-09] MEDS ORDERED: PHENYLephrine 500MCG 5ML (100MCG/ML) SYRINGE As Ordered ONE (09:08)
[2020-12-09] MEDS ORDERED: dexameTHASONE 4 MG/ML 1ML VIAL (J1100 PER 1MG) As Ordered ONE (09:12)
[2020-12-09] MEDS ORDERED: ONDANSETRON 4MG/2ML VIAL As Ordered ONE (09:29)
--- NOTE | 2020-12-09 10:05 | REP ---
INDICATION: CYSTO, BILAT STENT, LASER. COMPARISON: Comparison study October 02, 2020.. TECHNIQUE: Single-view. 10 seconds of fluoroscopy time. FINDINGS: A single last image hold fluoroscopically obtained spot radiograph of the abdomen documents bilateral double pigtail ureteral stent placement. IMPRESSION: Procedural imaging. <Electronically signed by Nico Boo > 12/09/20 1002
[2020-12-09] MEDS ORDERED: CIPR500T39 PO (10:11)
[2020-12-09] MEDS ORDERED: PYRI1TAB5 PO (10:11)
[2020-12-09] MEDS ORDERED: OXYB5TAB10 PO (10:11)
[2020-12-09] MEDS ORDERED: HYDR-3713 PO (10:11)
[2020-12-09] MEDS ORDERED: ONDANSETRON 4MG/2ML VIAL IV PRN (10:23)
[2020-12-09] MEDS ORDERED: fentaNYL 100 MCG/2 ML INJECTION (J3010) IV PRN (10:23)
[2020-12-09] MEDS ORDERED: LR 1,000 ML IV SCH (10:23)
[2020-12-09] MEDS ORDERED: oxyCODONE 5MG TAB PO PRN (10:23)
[2020-12-09] MEDS ORDERED: MEPERIDINE INJ 25 MG/ML VIAL (J2175) IV PRN (10:23)
[2020-12-09 11:06] VITALS: BP 112/70
--- NOTE | 2020-12-10 13:15 | ROOPDOC ---
[facility] Report Of Operation Report of Operation DATE OF PROCEDURE: 12/10/20 PREPROCEDURE DIAGNOSES: [Bilateral distal ureteral stones, bilateral ureteral stents in place]. POSTPROCEDURE DIAGNOSES: [Same]. PROCEDURE PERFORMED: [Cystoscopy, fluoroscopy, rigid ureteroscopy with laser lithotripsy and basket stone extraction on both sides, bilateral ureteral stent exchange]. SURGEON: [Megan Deluca, IMAGING ACCOUNT MANAGER: [None], MD ANESTHESIA: [General]. ESTIMATED BLOOD LOSS: Approximately minimal mL. COMPLICATIONS: [None]. REMARKS: [70-year-old white male. Bilateral distal ureteral stones. Another urologist placed stents not long ago. Surgery was arranged to deal with the stones. Informed consent was obtained. Risks were discussed such as infection, bleeding, pain, scarring, failure of surgery, injury to the urinary tract, risks of anesthesia and others. No guarantees were given.]. FINDINGS: SPECIMENS REMOVED: [Stone for analysis] PROCEDURE NOTE: . DESCRIPTION OF PROCEDURE: [I met with the patient in the preop area before surgery. Informed consent was obtained. Surgery was discussed. Patient wished to proceed. Surgery was done under antimicrobial coverage. Patient was brought to the operating room. General anesthesia was secured without difficulty. Dorsolithotomy position. Well padded. Prepped and draped in the usual sterile fashion. Timeout was performed. Cystoscopy was performed with a rigid cystoscope. The left side was done first. The stent on the left was pulled to the external urethral meatus after which a wire was passed through it up into the kidney as seen using fluoroscopy. Stent was then removed. With the wire in place rigid ureteroscopy was performed. Several stones were encountered in the distal ureter. Laser lithotripsy was performed. Basket stone extraction was performed. Once satisfied a new 6fr multilength stent was placed. Before placing the stent I advanced the rigid ureteroscope to its hub. No other stones were encountered. The same procedure was done on the other side. Again several stones were encountered in the distal ureter. Laser lithotripsy and basket stone extraction were performed. A new 6fr stent was placed. Patient tolerated surgery well and left the room in satisfactory condition. At the end the bladder was emptied and the cystoscope was removed. Home with antibiotic, pain medication, oxybutynin and Pyridium.]. BENSON DELUCA MD Dec 10, 2020 13:15
== END 2020-12-09 11:07 | disposition home or self-care (01) ==
LOC: M SDC 07:34
PROVIDERS: ATTEND Urology
DX: N20.2 Calculus of kidney with calculus of ureter (principal); I25.10 Atherosclerotic heart disease of native coronary artery without angina pectoris; I25.2 Old myocardial infarction; I10 Essential (primary) hypertension; E78.5 Hyperlipidemia, unspecified; E11.9 Type 2 diabetes mellitus without complications; K21.9 Gastro-esophageal reflux disease without esophagitis; B18.2 Chronic viral hepatitis C; Z87.891 Personal history of nicotine dependence; R91.8 Other nonspecific abnormal finding of lung field; Z79.82 Long term (current) use of aspirin; Z79.899 Other long term (current) drug therapy; Z79.84 Long term (current) use of oral hypoglycemic drugs; Z92.3 Personal history of irradiation; Z85.46 Personal history of malignant neoplasm of prostate
CPT/HCPCS: 52356; 74420; 82365; 88300; C1769; C2617; J0690; J1100; J2250; J2370; J2405; J3010; Q9961

== ENCOUNTER → 2020-12-26 | Outpatient (CLI) | payer MEDICARE ==
[~2020-12-26] MED LIST changes: +CIPR500T39 PO; +ECOT81TA5 PO; +GERI8.6T PO; -LR 1,000 ML IV ONE; +OXYB5TAB10 PO; +PYRI1TAB5 PO; -ceFAZolin SOD 2 GM in IV 1 EA IV ONE
== END ==
LOC: M LABSMTC 10:38
PROVIDERS: ATTEND Anesthesiology
DX: Z01.812 Encounter for preprocedural laboratory examination (principal); Z20.822 Contact with and (suspected) exposure to COVID-19

== ENCOUNTER 2020-12-31 11:05 | Day surgery (SDC) | payer MEDICARE ==
[~2020-12-31] VITALS: Ht 175.3 cm; Wt 73.9 kg
[~2020-12-31 11:05] MED LIST changes: +NS 1,000 ML IV ONE
[2020-12-31] MEDS ORDERED: propofoL 200 MG/20 ML VIAL As Ordered ONE ×2 (13:03→13:44)
[2020-12-31] MEDS ORDERED: LIDOCAINE 2% 100MG/5ML SDV (FOR ANES.) As Ordered ONE (13:03)
[2020-12-31] MEDS ORDERED: fentaNYL 100 MCG/2 ML INJECTION (J3010) As Ordered ONE (13:03)
--- NOTE | 2020-12-31 13:57 | ROOR ---
Patient Name: Gualberto Wyman Procedure Date: 12/31/2020 1:12 PM Date of : 1950 Age: 70 Room: [facility] Gender: Male Note Status: Finalized Procedure: Upper GI endoscopy Indications: Iron deficiency anemia, Heartburn Providers: Carlos Pathak MD Referring MD: Clarice TAI MD Requesting Provider: Medicines: Monitored Anesthesia Care Complications: No immediate complications. Procedure: Pre-Anesthesia Assessment: - The heart rate, respiratory rate, oxygen saturations, blood pressure, adequacy of pulmonary ventilation, and response to care were monitored throughout the procedure. The Endoscope was introduced through the mouth, and advanced to the second part of duodenum. The upper GI endoscopy was accomplished without difficulty. The patient tolerated the procedure well. Findings: A single 5 mm sessile polyp was found in the first portion of the duodenum. The polyp was removed with a cold snare. Resection and retrieval were complete. Small Hiatal Hernia. The exam was otherwise without abnormality. Impression: - A single duodenal polyp. Resected and retrieved. - Small Hiatal Hernia. - The examination was otherwise normal. Recommendation: - Await pathology results. - Continue present medications. Procedure Code(s): --- Professional --- 94161, Esophagogastroduodenoscopy, flexible, transoral; with removal of tumor(s), polyp(s), or other lesion(s) by snare technique Diagnosis Code(s): --- Professional --- R12, Heartburn D50.9, Iron deficiency anemia, unspecified K31.7, Polyp of stomach and duodenum CPT copyright 2019 [employer]. All rights reserved. The codes documented in this report are preliminary and upon manager completions review may be revised to meet current compliance requirements. Carlos Pathak MD Carlos Pathak MD 12/31/2020 1:56:34 PM Electronically signed by Carlos Pathak MD Number of Addenda: 0 Note Initiated On: 12/31/2020 1:12 PM Estimated Blood Loss: Estimated blood loss: none.
--- NOTE | 2020-12-31 14:05 | ROOR ---
Patient Name: Gualberto Wyman Procedure Date: 12/31/2020 1:13 PM Date of : 1950 Age: 70 Room: [facility] Gender: Male Note Status: Finalized Procedure: Colonoscopy Indications: Iron deficiency anemia Providers: Carlos Pathak MD Referring MD: Clarice TAI MD Requesting Provider: Medicines: Monitored Anesthesia Care Complications: No immediate complications. Procedure: Pre-Anesthesia Assessment: - The heart rate, respiratory rate, oxygen saturations, blood pressure, adequacy of pulmonary ventilation, and response to care were monitored throughout the procedure. The Colonoscope was introduced through the anus and advanced to 10 cm into the ileum. The colonoscopy was performed without difficulty. The patient tolerated the procedure well. The quality of the bowel preparation was fair. (opaque fluid) Findings: The perianal and digital rectal examinations were normal. Two small angioectasias with typical arborization were found in the colon. For hemostasis, four hemostatic clips were successfully placed. There was no bleeding at the end of the procedure. Three sessile polyps were found in the ascending colon and descending colon. The polyps were 4 to 6 mm in size. These polyps were removed with a hot snare. Resection and retrieval were complete. A tattoo was seen in the mid ascending colon. A post-polypectomy scar was found at the tattoo site. There was no evidence of residual polyp tissue. Localized mild inflammation characterized by altered vascularity was found in the distal rectum. Internal hemorrhoids were found during retroflexion. The hemorrhoids were small. Impression: - Preparation of the colon was fair, slight obscuration with opaque fluid. - Two colonic angioectasias in the cecum. Clips were placed. - Three 4 to 6 mm polyps in the ascending colon and descending colon, removed with a hot snare. Resected and retrieved. - A tattoo was seen in the mid ascending colon. A post-polypectomy scar was found at the tattoo site. There was no evidence of residual polyp tissue. - Mild radiation proctitis. - Mild diverticulosis and small Internal hemorrhoids. Recommendation: - Repeat colonoscopy in 3 years for surveillance. Procedure Code(s): --- Professional --- 04086, 59, Colonoscopy, flexible; with control of bleeding, any method 33608, Colonoscopy, flexible; with removal of tumor(s), polyp(s), or other lesion(s) by snare technique Diagnosis Code(s): --- Professional --- D50.9, Iron deficiency anemia, unspecified K62.7, Radiation proctitis K63.5, Polyp of colon K55.20, Angiodysplasia of colon without hemorrhage K64.8, Other hemorrhoids CPT copyright 2019 [employer]. All rights reserved. The codes documented in this report are preliminary and upon mine car mechanic review may be revised to meet current compliance requirements. Carlos Pathak MD Carlos Pathak MD 12/31/2020 2:05:29 PM Electronically signed by Carlos Pathak MD Number of Addenda: 0 Note Initiated On: 12/31/2020 1:13 PM Estimated Blood Loss: Estimated blood loss: none.
[2020-12-31 14:20] VITALS: BP 127/74
== END 2020-12-31 14:29 | disposition home or self-care (01) ==
LOC: M OPP 11:05
PROVIDERS: ATTEND Internal Medicine Gastroenterology
DX: K62.7 Radiation proctitis (principal); K63.5 Polyp of colon; K55.20 Angiodysplasia of colon without hemorrhage; K64.8 Other hemorrhoids; D50.9 Iron deficiency anemia, unspecified; K31.7 Polyp of stomach and duodenum; K44.9 Diaphragmatic hernia without obstruction or gangrene; R12 Heartburn; B19.21 Unspecified viral hepatitis C with hepatic coma; Z79.82 Long term (current) use of aspirin; Z79.84 Long term (current) use of oral hypoglycemic drugs; Z79.899 Other long term (current) drug therapy; Z87.891 Personal history of nicotine dependence; Z85.46 Personal history of malignant neoplasm of prostate
CPT/HCPCS: 43239; 45382; 45385; 88305; J3010

== ENCOUNTER → 2021-02-04 | Outpatient (REF) | payer MEDICARE ==
[~2021-02-04] MED LIST changes: -NS 1,000 ML IV ONE
[2021-02-04 12:03] LABS: PERCENT SATURATION 8.2 % (19.7-50.0)
[2021-02-04 12:04] LABS: FOLATE 15.8 NG/ML
== END ==
LOC: M LAB REF 11:07
PROVIDERS: ATTEND Internal Medicine
DX: D50.9 Iron deficiency anemia, unspecified (principal); D72.819 Decreased white blood cell count, unspecified

== ENCOUNTER → 2021-02-10 | Outpatient (CLI) | payer MEDICARE ==
[2021-02-10 14:29] LABS: BASO % 0.6 % (0.0-1.0); EOS # 0.2 10^3/uL (0.0-0.5); EOS % 4.4 % (0.0-3.0); HEMATOCRIT 28.7 % (42.0-52.0); HEMOGLOBIN 8.6 g/dl (13.5-17.5); LYMPH # 1.1 10^3/uL (1.5-5.0); LYMPH % 31.2 % (24.0-44.0); MEAN CORPUSCULAR HEMOGLOBIN 26.3 pg (27.0-33.0); MEAN CORPUSCULAR VOLUME 87.8 fl (80.0-96.0); MONO # 0.4 10^3/uL (0.0-0.8); MONO % 10.5 % (2.0-8.0); NEUTROPHILS # 1.8 10^3/uL (1.5-8.5); PLATELET COUNT, AUTOMATED 164 10^3/uL (150-450); RED BLOOD COUNT 3.27 10^6/uL (4.30-6.10); WHITE BLOOD COUNT 3.4 10^3/uL (4.0-10.0)
== END ==
LOC: M PLALAB 11:58
PROVIDERS: ATTEND Internal Medicine Infectious Disease
DX: D50.9 Iron deficiency anemia, unspecified (principal); B18.2 Chronic viral hepatitis C
CPT/HCPCS: 36415; 81596; 82105; 85025; 90471; 90636; G0463

== ENCOUNTER 2021-02-11 08:12 | Outpatient (CLI) | payer MEDICARE ==
[~2021-02-11] VITALS: Ht 175.3 cm; Wt 74.1 kg
[~2021-02-11 08:12] MED LIST changes: +ACETAMINOPHEN 500 MG TAB PO ONE; +FERRIC CARBOXYMALTOSE INJ 750 MG, VIAL MATE ADAPTER 1 EACH in NS 250 ML IV ONE; +diphenhydrAMINE 25MG CAP PO ONE
[2021-02-11 08:15] VITALS: BP 148/80
[2021-02-11 09:50] VITALS: BP 168/79
== END 2021-02-11 10:00 | disposition home or self-care (01) ==
LOC: M INFU 08:12
PROVIDERS: ATTEND Internal Medicine
DX: D50.9 Iron deficiency anemia, unspecified (principal)
CPT/HCPCS: 96365; J1439

== ENCOUNTER 2021-02-19 08:34 | Outpatient (CLI) | payer MEDICARE ==
[~2021-02-19] VITALS: Ht 175.3 cm; Wt 74.1 kg
[2021-02-19 08:51] VITALS: BP 165/80
[2021-02-19 09:57] VITALS: BP 180/81
== END 2021-02-19 09:57 | disposition home or self-care (01) ==
LOC: M INFU 08:34
PROVIDERS: ATTEND Internal Medicine
DX: D50.9 Iron deficiency anemia, unspecified (principal)
CPT/HCPCS: 96365; J1439

== ENCOUNTER → 2021-02-26 | Outpatient (CLI) | payer MEDICARE ==
[~2021-02-26] MED LIST changes: -ACETAMINOPHEN 500 MG TAB PO ONE; -FERRIC CARBOXYMALTOSE INJ 750 MG, VIAL MATE ADAPTER 1 EACH in NS 250 ML IV ONE; +GLUCAGON INJ 1MG VIAL As Ordered ONE; +ISOVUE-370 76% 100ML VIAL As Ordered ONE; +NEULUMEX 0.1% SUSPENSION 450ML BOTTLE (FORMERLY VOLUMEN) As Ordered ONE; -diphenhydrAMINE 25MG CAP PO ONE
== END ==
LOC: M RAD 07:33
PROVIDERS: ATTEND Physician Assistant Medical
DX: D50.9 Iron deficiency anemia, unspecified (principal)
CPT/HCPCS: 74177; J1610; Q9967

== ENCOUNTER → 2021-03-24 | Outpatient (CLI) | payer MEDICARE ==
[~2021-03-24] MED LIST changes: +EPCL1TAB PO; -GLUCAGON INJ 1MG VIAL As Ordered ONE; -ISOVUE-370 76% 100ML VIAL As Ordered ONE; -NEULUMEX 0.1% SUSPENSION 450ML BOTTLE (FORMERLY VOLUMEN) As Ordered ONE
== END ==
LOC: M LABSMTC 10:52
PROVIDERS: ATTEND Anesthesiology
DX: Z01.812 Encounter for preprocedural laboratory examination (principal); Z20.822 Contact with and (suspected) exposure to COVID-19

== ENCOUNTER → 2021-03-24 | Outpatient (CLI) | payer MEDICARE ==
[2021-03-24 13:45] LABS: APPEARANCE, URINE CLEAR (CLEAR); BACTERIA, URINE AUTO NEGATIVE (NEGATIVE); BILIRUBIN, URINE AUTO NEGATIVE (NEGATIVE); BLOOD, URINE BLOOD NEGATIVE (NEGATIVE); COLOR, URINE YELLOW (YELLOW); GLUCOSE, URINE (UA) AUTO NEGATIVE (NEGATIVE); KETONE, URINE AUTO NEGATIVE (NEGATIVE); LEUKOCYTE ESTERASE, URINE AUTO NEGATIVE (NEGATIVE); MUCUS, URINE SMALL (NEGATIVE); NITRITE, URINE AUTO NEGATIVE (NEGATIVE); PROTEIN, URINE AUTO 2+ mg/dL (NEGATIVE); RBC, URINE AUTO 0 /HPF (0-3); SQUAMOUS EPITHELIAL CELL UR AU 0 /HPF (0-6); WBC, URINE AUTO 2 /HPF (0-3)
[2021-03-24 13:51] LABS: HEMATOCRIT 35.8 % (42.0-52.0); HEMOGLOBIN 11.6 g/dl (13.5-17.5); MEAN CORPUSCULAR HEMOGLOBIN 30.8 pg (27.0-33.0); MEAN CORPUSCULAR HGB CONC 32.4 g/dl (32.0-36.5); PLATELET COUNT, AUTOMATED 136 10^3/uL (150-450); RED BLOOD COUNT 3.77 10^6/uL (4.30-6.10); WHITE BLOOD COUNT 3.2 10^3/uL (4.0-10.0)
[2021-03-24 14:00] LABS: INR 1.1; PROTHROMBIN TIME 14.7 SECONDS (12.7-14.5)
[2021-03-24 14:01] LABS: PARTIAL THROMBOPLASTIN TIME 29.7 SECONDS (25.9-37.0)
[2021-03-24 14:15] LABS: BLOOD UREA NITROGEN 9 MG/DL (7-18); CALCIUM LEVEL 8.3 MG/DL (8.8-10.2); CARBON DIOXIDE LEVEL 32 MEQ/L (21-32); CHLORIDE LEVEL 105 MEQ/L (98-107); CREATININE FOR GFR 0.74 MG/DL (0.70-1.30); GLOMERULAR FILTRATION RATE > 60.0 (>42); GLUCOSE, FASTING 102 MG/DL (70-100); SODIUM LEVEL 140 MEQ/L (136-145)
== END ==
LOC: M LAB 11:34
PROVIDERS: ATTEND Nurse Practitioner Women's Health
DX: Z01.818 Encounter for other preprocedural examination (principal); N13.2 Hydronephrosis with renal and ureteral calculous obstruction

== ENCOUNTER 2021-03-28 06:45 | Day surgery (SDC) | payer MEDICARE ==
[~2021-03-28] VITALS: Ht 175.3 cm; Wt 73.5 kg
[~2021-03-28 06:45] MED LIST changes: +LR 1,000 ML IV ONE; +ceFAZolin SOD 2 GM in IV 1 EA IV ONE
--- OUTSIDE RECORDS SUMMARY | 2021-03-28 06:49 | CCD ---
Author Author [facility] Organization [facility] Address Unknown Phone Unavailable Care Team Providers Care Conductor Symphonic Orchestra Name Role Phone Yuriy Mcdaniels Unavailable PROBLEMS Type Condition ICD9-CM Code [id number] Code Onset Dates Condition S tatus W/U Status Risk SNOMED Code Notes Problem Benign prostatic hyperplasia without lower urina ry tract symptoms N40.0 Active confirmed 797913764 Problem Ureteral stone N20.1 Active confirmed 31079 009 Problem Tubular adenoma of colon D12.6 Active confirmed 405004560 Problem Nephrolithiasis N20.0 Active confirmed 9557 0007 Problem Diabetes mellitus type 2, noninsulin dependent E11 .9 Active confirmed 92732567 Problem Primary hypertension I10 Active confirmed 68297760 Problem Hep C w/o coma, chronic B18.2 Active confirmed 806306978 Problem Iron deficiency anemia, unspecified iron deficiency an emia type D50.9 Active confirmed 54702668 ALLERGIES No Known Allergies ENCOUNTERS from 1950 to 2021-02-28 Encounter Location Date Provider Diagnosis [address] [phone] [place] [address] Feb, Yuriy Mcdaniels Hep C w/o coma, chronic B18. 2 IMMUNIZATIONS Vaccine Route Administration Date Status COVID-19 dose #2 given elsewhere Unspecified Unknown Aug Administered COVID-19 dose #1 given elsewhere Unspecified Unknown Jul 31, 2020 Administered Hepatitis A & B 1mL Twinrix IM Intramuscular Feb 10, 2021 Adm inistered Hepatitis A & B 1mL Twinrix Unknown December 25, 2020 Admi nistered SOCIAL HISTORY Tobacco Use: Social History Observation Description Date Details (start date - stop date) Former Smoker Sex Assigned At : Social History Observation Description Sex Assigned At Unknown Language: Question Answer Notes Languages spoken: Pashto Yazdanism: Question Answer Notes Yazdanism No orthodoxy beliefs that would impact health care. Sexual Hx: Question Answer Notes Had sex in the last 12 months (vaginal, oral, or anal)? Yes Have you ever had an STD? No with Women only Use protection? No Alcohol Screening: Question Answer Notes Did you have a drink containing alcohol in the past year? No Points 0 Interpretation Negative Tobacco Use: Question Answer Notes Are you a: former smoker quit 2012 REASON FOR REFERRAL No Information VITAL SIGNS No information MEDICATIONS Medication SIG (Take, Route, Frequency, Duration) Notes Start Da te End Date Status Victoza 18 MG/3ML as directed Subcutaneous Active Magnesium 300 MG 1 capsule with a meal Orally Once a day for 30 day(s ) Active Pepcid 20 MG 1 tablet at bedtime as needed Orally Once a day for 30 day(s) Active Aspirin 81 81 MG 1 tablet Orally Once a day Active Iron 325 (65 Fe) MG 1 tablet Orally twice daily Active Cialis 5 MG 1 tablet as needed Orally Once a day for 30 day(s) Active Atorvastatin Calcium 20 MG 1 tablet Orally Once a day for 30 day(s) Active Losartan Potassium 25 MG 1 tablet Orally Once a day Active metFORMIN HCl ER 500 MG 2 tablet with evening meal Orally Daily Active Metoprolol Succinate ER 25 MG 1 tablet Orally Once a day Active Epclusa 400-100 MG 1 tablet Orally Once a day--WILL for 28 day(s) Jan, Active PROCEDURES No Information RESULTS No Results REASON FOR VISIT epclusa MEDICAL (GENERAL) HISTORY Type Description Date Medical History DM Medical History kidney stones Medical History HTN Medical History hx prostate cancer Medical History colon polyps Medical History hx heart attack Surgical History hernia repair x 2 Surgical History lithotripsy Surgical History cysto with stent removal 06/12/20 Surgical History ankle repair Surgical History cysto with stent placement 09/2020 Surgical History [facility] Hospitalization History kidney stone Goals Section No Information Health Concerns No Information MEDICAL EQUIPMENT No Information MENTAL STATUS No Information FUNCTIONAL STATUS No Information ASSESSMENTS Encounter Date Diagnosis Assessment Notes Treatment Notes Treatm ent Clinical Notes Feb, Hep C w/o coma, chronic (ICD-10 - B18.2) PLAN OF TREATMENT Medication Medication Name Sig Start Date Stop Date Victoza 18 MG/3ML as directed Subcutaneous metFORMIN HCl ER 500 MG 2 tablet with evening meal Orally Daily Metoprolol Succinate ER 25 MG 1 tablet Orally Once a day Losartan Potassium 25 MG 1 tablet Orally Once a day Epclusa 400-100 MG 1 tablet Orally Once a day--WILL for 28 day(s) Jan, Iron 325 (65 Fe) MG 1 tablet Orally twice daily Aspirin 81 81 MG 1 tablet Orally Once a day Next Appt Details Provider Name:Kylee Francis, 2021-02-13 2 02:15:00 PM, [address], , [place], [address], Provider Name:Saman Wheat, 10:15:00 AM, [address], , [place], [address], Insurance Providers Payer Name Payer Address Payer Phone Insured Name Patient Relati onship to Insured Coverage Start Date Coverage End Date [facility] [address] [address] [facility] [address] [phone] FRANCIA [place] self
--- OUTSIDE RECORDS SUMMARY | 2021-03-28 06:49 | CCD ---
Author Author [facility] Organization [facility] Address Unknown Phone Unavailable Care Team Providers Care Insurance Verification Clerk Name Role Phone MaximKylee mcfadden Unavailable PROBLEMS Type Condition ICD9-CM Code HUM01-XC Code Onset Dates Condition S tatus W/U Status Risk SNOMED Code Notes Problem Ureteral stone N20.1 Active confirmed 78311 009 Problem Tubular adenoma of colon D12.6 Active confirmed 990044551 Problem Nephrolithiasis N20.0 Active confirmed 9557 0007 Problem Hydronephrosis due to obstruction of ureter N13.2 Active confirmed 753670823 Problem Benign prostatic hyperplasia without lower urina ry tract symptoms N40.0 Active confirmed 259416013 Problem Ureteral stone with hydronephrosis N13.2 Activ e confirmed 595610121 Problem Hep C w/o coma, chronic B18.2 Active confirmed 365167627 Problem Diabetes mellitus type 2, noninsulin dependent E11 .9 Active confirmed 57081159 Problem Primary hypertension I10 Active confirmed 64819216 Problem Iron deficiency anemia, unspecified iron deficiency an emia type D50.9 Active confirmed 85545014 ALLERGIES No Known Allergies ENCOUNTERS from 1950 to 2021-03-06 Encounter Location Date Provider Diagnosis [facility] [address] [phone] [place] [address] Feb, Kylee Francis Ureteral stone with hydronephrosis N13.2 ; Hydronephrosis due to obstruction of ureter N13.2 and Pre-op testing Z01.818 IMMUNIZATIONS Vaccine Route Administration Date Status COVID-19 [...] Unknown Language: Question Answer Notes Languages spoken: Lao Jew: Question Answer Notes Jew No advent beliefs that would impact health care. Sexual [...] REASON FOR REFERRAL No Information VITAL SIGNS Weight 163 lbs Feb, Height 69 in Feb, BMI 24.07 kg/m2 Feb, Heart Rate 77 /min Feb, Respiratory Rate 18 /min Feb, Temperature 98.2 degrees Fahrenheit Feb, Oximetry 95 Feb, Blood pressure systolic 126 mm Hg Feb, Blood pressure diastolic 64 mm Hg Feb, MEDICATIONS Medication SIG (Take, Route, Frequency, Duration) Notes Start Da te End Date Status Aspirin 81 81 MG 1 tablet Orally Once a day Active Losartan Potassium 25 MG 1 tablet Orally Once a day Active metFORMIN HCl ER 500 MG 2 tablet with evening meal Orally Daily Active Metoprolol Succinate ER 25 MG 1 tablet Orally Once a day Active Cialis 5 MG 1 tablet as needed Orally Once a day for 30 day(s) Active Atorvastatin Calcium 20 MG 1 tablet Orally Once a day for 30 day(s) Active Pepcid 20 MG 1 tablet at bedtime as needed Orally Once a day for 30 day(s) Active Iron 325 (65 Fe) MG 1 tablet Orally twice daily Active Victoza 18 MG/3ML as directed Subcutaneous Active Epclusa 400-100 MG 1 tablet Orally Once a day--WILL for 28 day(s) Jan, Active Magnesium 300 MG 1 capsule with a meal Orally Once a day for 30 day(s ) Active PROCEDURES No Information RESULTS No Results REASON FOR VISIT fu kidney stone MEDICAL (GENERAL) HISTORY Type Description Date Medical [...] Treatment Notes Treatm ent Clinical Notes Feb, Ureteral stone with hydronephrosis (ICD-10 - N13 .2) Feb, Hydronephrosis due to obstruction of ureter (ICD -10 - N13.2) Feb, Pre-op testing (ICD-10 - Z01.818) PLAN OF TREATMENT Future Test Test Name Order Date Basic Metabolic Profile (BMP) [id number] CBC - Complete Blood Count [id number] PT & APTT [id number] URINE CULTURE [id number] UA URINALYSIS [id number] Next Appt Details Provider Name:Saman Wheat, 10:15:00 AM, [address], , [place], [address], Insurance Providers Payer Name Payer Address Payer Phone Insured Name Patient Relati onship to Insured Coverage Start Date Coverage End Date [facility] [employer] [address] [address] [facility] [address] FRANCIA [place] self
--- OUTSIDE RECORDS SUMMARY | 2021-03-28 06:49 | CCD ---
Author Author [facility] Organization [facility] Address Unknown Phone Unavailable Care Team Providers Care Insulation Packer Name Role Phone uYriy Mcdaniels Unavailable PROBLEMS Type Condition ICD9-CM Code OJI63-CW Code Onset Dates Condition S tatus W/U Status Risk SNOMED Code Notes Problem Ureteral stone N20.1 Active confirmed 54414 009 Problem Tubular adenoma of colon D12.6 Active confirmed 333873932 Problem Nephrolithiasis N20.0 Active confirmed 9557 0007 Problem Hydronephrosis due to obstruction of ureter N13.2 Active confirmed 092192275 Problem Benign prostatic hyperplasia without lower urina ry tract symptoms N40.0 Active confirmed 056621711 Problem Ureteral stone with hydronephrosis N13.2 Activ e confirmed 374440850 Problem Hep C w/o coma, chronic B18.2 Active confirmed 792839372 Problem Diabetes mellitus type 2, noninsulin dependent E11 .9 Active confirmed 90451016 Problem Primary hypertension I10 Active confirmed 07050419 Problem Iron deficiency anemia, unspecified iron deficiency an emia type D50.9 Active confirmed 04544411 ALLERGIES No Known Allergies ENCOUNTERS from 1950 to 2021-03-17 Encounter Location Date Provider Diagnosis [id number] [facility] [phone] [place] [address] Feb, Yuriy Mcdaniels IMMUNIZATIONS Vaccine Route Administration Date Status COVID-19 [...] Unknown Language: Question Answer Notes Languages spoken: Stateless Baptist: Question Answer Notes Baptist No islam beliefs that would impact health care. Sexual [...] Information RESULTS No Results REASON FOR VISIT drug interaction MEDICAL (GENERAL) HISTORY Type Description Date Medical [...] No Information FUNCTIONAL STATUS No Information ASSESSMENTS No Information PLAN OF TREATMENT Next Appt Details Provider Name:Sergio Cuba, 2020-10-2 9 02:00:00 PM, [address], , [place], [address], Provider Name:Saman Wheat, 10:15:00 AM, [address], , [place], [address], Insurance Providers Payer Name Payer Address Payer Phone Insured Name Patient Relati onship to Insured Coverage Start Date Coverage End Date [facility] [address] [address] [facility] [address] [phone] FRANCIA [place] self
--- OUTSIDE RECORDS SUMMARY | 2021-03-28 06:49 | CCD ---
Author Author [facility] Organization [facility] Address Unknown Phone Unavailable Care Team Providers Care Drier Operator Helper Name Role Phone Yuriy Mcdaniels Unavailable PROBLEMS Type Condition ICD9-CM Code AOW92-OP Code Onset Dates Condition S tatus W/U Status Risk SNOMED Code Notes Problem Benign prostatic hyperplasia without lower urina ry tract symptoms N40.0 Active confirmed 009708779 Problem Ureteral stone N20.1 Active confirmed 68562 009 Problem Tubular adenoma of colon D12.6 Active confirmed 990742389 Problem Nephrolithiasis N20.0 Active confirmed 9557 0007 Problem Diabetes mellitus type 2, noninsulin dependent E11 .9 Active confirmed 46844698 Problem Primary hypertension I10 Active confirmed 95293931 Problem Hep C w/o coma, chronic B18.2 Active confirmed 663773390 Problem Iron deficiency anemia, unspecified iron deficiency an emia type D50.9 Active confirmed 29833116 ALLERGIES No Known Allergies ENCOUNTERS from 1950 to 2021-03-04 Encounter Location Date Provider Diagnosis [facility] [place] [address] [facility] [phone] [place] [id number] Jan, Yuriy Mcdaniels Hep C w/o coma, sports reporter liz B18.2 ; Iron deficiency anemia, unspecified iron deficiency anemia type D50.9 ; Nephrolithiasis N20.0 ; Primary hypertension I10 ; Diabetes mellitus type 2, noninsulin dependent E11.9 ; Tubular adenoma of colon D12.6 and Encounter for immunization Z23 IMMUNIZATIONS Vaccine Route Administration Date Status COVID-19 [...] Unknown Language: Question Answer Notes Languages spoken: Somali Latter-Day: Question Answer Notes Latter-Day No druze beliefs that would impact health care. Sexual [...] FOR REFERRAL No Information VITAL SIGNS Weight 163.4 lbs Jan, Height 69 in Jan, BMI 24.13 kg/m2 Jan, Heart Rate 101 /min Jan, Respiratory Rate 18 /min Jan, Temperature 98.6 degrees Fahrenheit Jan, Oximetry 96% Jan, Blood pressure systolic 128 mm Hg Jan, Blood pressure diastolic 82 mm Hg Jan, MEDICATIONS Medication SIG (Take, Route, Frequency, Duration) [...] day--WILL for 28 day(s) Jan, Active PROCEDURES from 1950 to 2021-03-04 Procedure Date Ordered Result Body Site Imm: Twinrix 1mL IM Hepatitis A & B 2021-02-10 N/A RESULTS Component Value Reference Range ALPHA FETOPROTEIN TUMOR QUANT Reviewed date:02/10/2021 14:51:12 Interpretation: Performing Lab:[facility] [address] [facility] [address] , ,[place] [address] ALPHA FETOPROTEIN TUMOR QUANT < 1.3 <8.1 CBC with Differential Reviewed date:02/10/2021 14:51:12 Interpretation: Performing Lab:[facility] [address] [facility] [address] , ,[place] [address] WHITE BLOOD COUNT 3.4 4.0-10.0 RED BLOOD COUNT 3.27 4.30-6.10 HEMOGLOBIN 8.6 13.5-17.5 HEMATOCRIT 28.7 42.0-52.0 MEAN CORPUSCULAR VOLUME 87.8 80.0-96.0 MEAN CORPUSCULAR HEMOGLOBIN 26.3 27.0-33.0 MEAN CORPUSCULAR HGB CONC 30.0 32.0-36.5 RED CELL DISTRIBUTION WIDTH 16.0 11.5-14.5 PLATELET COUNT, AUTOMATED 164 150-450 NEUTROPHILS % 53.0 36.0-66.0 LYMPH % 31.2 24.0-44.0 MONO % 10.5 2.0-8.0 EOS % 4.4 0.0-3.0 BASO % 0.6 0.0-1.0 NEUTROPHILS # 1.8 1.5-8.5 LYMPH # 1.1 1.5-5.0 MONO # 0.4 0.0-0.8 EOS # 0.2 0.0-0.5 BASO # 0.0 0.0-0.2 HEPATITIS C FIBROSURE [id number] Reviewed date:02/12/2021 10:01:50 Interpretation: Performing Lab:[facility] [address] [facility] [address] , ,[place] [address] FIBROSIS SCORE 0.66 0.00-0.21 FIBROSIS STAGE . NECROINFLAM SCORE 0.55 0.00-0.17 NECROINFLAMM GRADE A2-Moderate activity . ALPHA 2-MACROGLOBULIN 336 110-276 HAPTOGLOBIN 135 32-363 APOLIPOPROTEIN A-1 97 101-178 TOTAL BILIRUBIN 0.3 0.0-1.2 GGT 43 0-65 ALT 70 0-55 INTERPRETATION . FIBROSIS SCORING . NECROINFLAM SCORING . LIMITATIONS . COMMENT : . REASON FOR VISIT Hep C MEDICAL (GENERAL) HISTORY Type Description Date Medical [...] Notes Treatment Notes Treatm ent Clinical Notes Jan, Hep C w/o coma, chronic (ICD-10 - B18.2) Patient Educated with: Hepatitis A [id number].pdf (Hepatitis A [id number].pdf) Patient Educated with: Hepatitis B [id number].pdf (Hepatitis B [id number].pdf) Gt1a , HCV RNA 1.2 million, Hb 7.5 HCT 25 Fe sat=8%, Pt14.1/ inr 1.05 10/2020 He will be treated with 12 weeks epclusa , SE advised fatigue headache nausea He will take at supper to minimize side effcts Will obtain fibrosure and AFP , has telangiectasias and palmar erythema He will remain abstinent of alcohol avoid tylenol He received Twinrix at [facility] 12/25/2020 due for #2 today and #3 after 06/27/2021 Jan, Iron deficiency anemia, unsp ecified iron deficiency anemia type (ICD-10 - D50.9) Scheduled for 2 iron infusions 2 weeks apart , first on 02/11/2021 at infusion unit Jan, Nephrolithiasis (ICD-10 - N20.0) Jan, Primary hypertension (ICD-10 - I10) Jan, Diabetes mellitus type 2, noninsulin dependent ( ICD-10 - E11.9) Jan, Tubular adenoma of colon (ICD-10 - D12.6) Colonoscopy 12/2020 FU in 3 years possibly cause of iron deficiency anemia Jan, Encounter for immunization (ICD-10 - Z23) PLAN OF TREATMENT Medication Medication Name Sig [...] MG 1 tablet Orally Once a day Treatment Notes Assessment Notes Clinical Notes Hep C w/o coma, chronic Patient Educated with: Hepat itis A [id number].pdf (Hepatitis A [id number].pdf) Patient Educated with: Hepatitis B [id number] (Hepatitis B [id number].pdf) Gt1a , HCV RNA 1.2 million, Hb 7.5 HCT 2 5 Fe sat=8%, Pt14.1/ inr 1.05 10/2020He will be treated with 12 weeks epclusa , SE advised fatigue headache nauseaHe will take at supper to minimize side effctsWill obtain fibrosure and AFP , has telangiectasias and palmar erythemaHe will remain abstinent of alcohol avoid tylenolHe received Twinrix at 12/25/2020 due for #2 today and #3 after 06/27/2021 Iron deficiency anemia, unspecified iron deficiency anemia t ype Scheduled for 2 iron infusions 2 weeks apart , first on 02/11/2021 at infusion unit Tubular adenoma of colon Colonoscopy 12/13 FU in 3 years possibly cause of iron deficiency anemia Next Appt Details 4 Weeks Reason: Provider Name:Kylee Francis, 2021-02-13 2 02:15:00 PM, [address], , [place], [address], Provider Name:Saman Wheat, 10:15:00 AM, [address], , [place], [address], Insurance Providers Payer Name Payer Address Payer Phone Insured Name Patient Relati onship to Insured Coverage Start Date Coverage End Date [facility] [address] [address] [facility] [address] FRANCIA W[place]MAN self
--- OUTSIDE RECORDS SUMMARY | 2021-03-28 06:49 | CCD | Continuity of Care Document ---
Author Author Gualberto PATHAK MD Organization Unknown Address [address] [place] [address] Phone [phone] Care Team Providers Care Infection Preventionist Name Role Phone Clarice Pisano M.D. [facility] [phone] Problems Description No Active Problems Social History Type Date Description Comments Sex Unknown ETOH Use Denies alcohol use Tobacco Use Start: Unknown Non Smoker Allergies and adverse reactions Description No Known Drug Allergies Medications Active Medications SIG Qnty Indications Ordering Provide r Date Omeprazole 20mg Capsules DR jamie almeida Unknown Cialis 5mg Tablets prn Unknown Atorvastatin Calcium 40mg Tablets Daily Unknown Metformin HCL 500mg Tablets b id Unknown Losartan Potassium 25mg Tablets Daily Unknown Aspirin 81 Low Dose 81mg Chewtabs Every other day Unknown Metoprolol Succinate ER 25mg Tablets ER 24HR Daily Unknown Ferrous Sulfate 324(65Fe) mg Table ts DR Take 1 tablet by mouth twice daily. Unknown Magnesium Gluconate 250mg Tablets 2 bid Unknown Victoza 18mg/3ML Solution Pen-Inje ct 1.2 daily Unknown History Medications Miralax 17GM/Scoop Powder use as instructed by doctor for bowel prep 510gm Z12.11 Carlos Pathak MD 10/15/2020 - 01/28/2021 Milk Of Magnesia 1200mg/15ML Suspe nsion take 45 milliliters by mouth as directed on colonoscopy prep sheet. Z12.11 Carlos Pathak MD 10/15/2020 - 01/28/2021 Immunizations Description No Information Available Vital Signs Date Vital Result Comment 02/12/2021 12:54pm BP Systolic 152 mmHg BP Diastolic 78 mmHg Height 69 inches 5'9" Weight 164.00 lb BMI (Body Mass Index) 24.2 kg/m2 [place] Body Weight 160 lb Weight 74.390 kg BSA (Body Surface Area) 1.90 m2 10/15/2020 11:07am BP Systolic 126 mmHg BP Diastolic 78 mmHg Height 69 inches 5'9" Weight 160.00 lb BMI (Body Mass Index) 23.6 kg/m2 [employer] Body Weight 160 lb Weight 72.576 kg BSA (Body Surface Area) 1.88 m2 Results Test Acquired Date Facility Test Result H/L Range Note Laboratory test finding 12/31/2020 [facility] Main Lab [address] [id number] [phone] Pathology Request For Service (SEE NOTE) 1 1 FINAL DIAGNOSIS A - Duodenal polyp, biopsy: Heterotopic gastric tissue and duodenal mucosa. No adenomatous change is noted. B - Descending colon, polyp, polypectomy: Adenomatous polyp/tubular adenoma fragments. C - Ascending colon, polyp, polypectomy: Adenomatous polyp/tubular adenoma. Hyperplastic polyp fragments are also noted. 01/02/2021 - 09 CLINICAL DIAGNOSIS Iron deficiency anemia, heartburn, colon polyps 01/01/2021 - 1348 GROSS DIAGNOSIS A - Received in formalin labeled "duodenal polyp" is a 0.5 x 0.3 x 0.2 cm. portion of mucosa. All in one. B - Received in formalin labeled "descending colon polyp" is a 0.7 x 0.5 x 0.3 cm. aggregate of polyp fragments. All in one. C - Received in formalin labeled "ascending colon polyp" is a 0.8 x 0.3 x 0.2 cm. aggregate of mucosal fragments, admixed with fecal matter. All in a histo bag. - 01/01/2021 - 1348 Signed Geraldine Quiñonez MD 01/02/2021 0908 Procedures Date Code Description Status 02/12/2021 18148 Office/Outpatient Established Mo d MDM 30-39 Min Completed 12/31/2020 66541 Colonoscopy W/ Poly Completed 12/31/2020 78649 Colonoscopy Flexible Control Ble eding Completed 12/31/2020 22716 Endoscopy Upper GI Remove Tumor/ Polyp/Lesion Snare Technique Completed 10/15/2020 30893 Office/Outpatient [facility] 30 -44 Minutes Completed Medical Devices Description No Information Available Encounters Type Date Location Provider Dx Diagnosis Office Visit 02/12/2021 1:00p [facility] Gastroenterology Pra cturszula Montero KARYN Robles D50.9 Iron deficiency anemia, unsp ecified Office Visit 10/15/2020 11:15a [facility] Gastroenterology Pra ctice Shameka Montero KARYN Robles Z12.11 Encounter for screening for malignant neoplasm of colon Z86.010 Personal history of colonic polyps R12 Heartburn D50.9 Iron deficiency anemia, unsp ecified Assessments Date Code Description Provider 02/12/2021 D50.9 Iron deficiency anemia, unspecif ied Shameka Kylah KARYN Robles 12/31/2020 D50.9 Iron deficiency anemia, unspecif ied Carlos Pathak MD 12/31/2020 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 michelle Carlos Pathak MD 12/31/2020 D12.2 Benign neoplasm of ascending col on Carlos Pathak MD 12/31/2020 K62.7 Radiation proctitis Carlos Pathak MD 12/31/2020 K55.20 Angiodysplasia of colon without hemorrhage Carlos Pathak MD 12/31/2020 K64.8 Other hemorrhoids Carlos Pathak MD 12/31/2020 R12 Heartburn Carlos Pathak MD 12/31/2020 K31.7 Polyp of stomach and duodenum Da alesia Pathak MD 10/15/2020 Z12.11 Encounter for screening for natalya gnant neoplasm of colon Shameka Kylah KARYN Robles 10/15/2020 Z86.010 Personal history of colonic poly ps KARYN Fernandez 10/15/2020 R12 Heartburn KARYN Torres 10/15/2020 D50.9 Iron deficiency anemia, unspecif ied KARYN Fernandez Plan of Treatment 02/12/2021 - KARYN Fernandez* D50.9 Iron deficiency anemia, unspecified * * Comments:* Patient verbalized understanding of above plan and will seek medical attention for any acute changes. Will monitor. * Follow up:* Will call patient with results and to arrange for further testing as warranted. Functional Status Description No Information Available Mental Status Description No Information Available Referrals Refer to Reason for Referral Status Appt Date Yuriy Mcdaniels M.D. Pt [place] [address] [phone] Carlos Pathak M.D. HEP C Scheduled 01/13/2021 [facility], Gastroenterology [address] [place] [address] [phone]
--- OUTSIDE RECORDS SUMMARY | 2021-03-28 06:49 | CCD ---
Author Author [facility] Organization [facility] Address Unknown Phone Unavailable Care Team Providers Care Tool Design Engineer Name Role Phone Saman Wheat Unavailable PROBLEMS Type Condition ICD9-CM Code UAG25-SP Code Onset Dates Condition S tatus W/U Status Risk SNOMED Code Notes Problem Benign prostatic hyperplasia without lower urina ry tract symptoms N40.0 Active confirmed 540130709 Problem Ureteral stone N20.1 Active confirmed 17459 009 Problem Tubular adenoma of colon D12.6 Active confirmed 574787176 Problem Nephrolithiasis N20.0 Active confirmed 9557 0007 Problem Diabetes mellitus type 2, noninsulin dependent E11 .9 Active confirmed 66766195 Problem Primary hypertension I10 Active confirmed 65818863 Problem Hep C w/o coma, chronic B18.2 Active confirmed 995531380 Problem Iron deficiency anemia, unspecified iron deficiency an emia type D50.9 Active confirmed 49584195 ALLERGIES No Known Allergies ENCOUNTERS from 1950 to 2021-02-28 Encounter Location Date Provider Diagnosis [facility] Urology [address] [phone] [place] [address] Feb, Saman Wheat IMMUNIZATIONS Vaccine Route Administration Date Status COVID-19 [...] Unknown Language: Question Answer Notes Languages spoken: [place] Congregational: Question Answer Notes Congregational No zoroastrian beliefs that would impact health care. Sexual [...] Information RESULTS No Results REASON FOR VISIT Pt. Concerns MEDICAL (GENERAL) HISTORY Type Description Date Medical [...] Information ASSESSMENTS No Information PLAN OF TREATMENT Medication Medication Name Sig [...] a day Next Appt Details Provider Name:Kylee Aruna Francis, 2021-02-13 2 02:15:00 PM, [address], , [place], [address], Provider Name:Saman Wheat, 10:15:00 AM, [address], , [place], [address], Insurance Providers Payer Name Payer Address Payer Phone Insured Name Patient Relati onship to Insured Coverage Start Date Coverage End Date [facility] [address] [facility] [id number] FRANCIA WYMAN self
--- OUTSIDE RECORDS SUMMARY | 2021-03-28 06:50 | CCD | Continuity of Care Document ---
Author Author Gualberto [facility]- Organization Unknown Address [address], [address] [place] [address] Phone [phone] Care Team Providers Care Dam Tender Assistant Name Role Phone Clarice Pisano M.D. [facility] [phone] Problems Description No Active Problems Social History Type Date Description Comments Sex Unknown ETOH Use Denies alcohol use Tobacco Use Start: Unknown Non Smoker Allergies, Adverse Reactions, Alerts Description No Known Drug Allergies Medications Active [...] lb BMI (Body Mass Index) 24.2 kg/m2 [place] Body Weight 160 lb Weight 74.390 kg BSA (Body Surface Area) 1.90 m2 10/15/2020 11:07am BP Systolic 126 mmHg BP Diastolic 78 mmHg Height 69 inches 5'9" Weight 160.00 lb BMI (Body Mass Index) 23.6 kg/m2 [place] Body Weight 160 lb Weight 72.576 kg BSA (Body Surface Area) 1.88 m2 Results Test Acquired Date Facility Test Result H/L Range Note Laboratory test finding 12/31/2020 [facility] Main Lab [address] [place], [place] [id number] [phone] Pathology Request For Service (SEE NOTE) 1 [...] 0908 Procedures Date Code Description Status 02/12/2021 58050 Office/Outpatient Established Mo d MDM 30-39 Min Completed 12/31/2020 50919 Colonoscopy W/ Poly Completed 12/31/2020 19614 Colonoscopy Flexible Control Ble eding Completed 12/31/2020 51305 Endoscopy Upper GI Remove Tumor/ Polyp/Lesion Snare Technique Completed 10/15/2020 20548 Office/Outpatient New Low MDM 30 -44 Minutes Completed Medical Devices Description No Information Available Encounters Type Date Location Provider Dx Diagnosis Office Visit 02/12/2021 1:00p [facility] Gastroenterology Pra cturszula De La Torretomasandra, MARYJOC D50.9 Iron deficiency anemia, unsp ecified Office Visit 10/15/2020 11:15a [facility] Gastroenterology Pra ctice Shameka MillardMARYJOC Z12.11 Encounter for screening for malignant neoplasm of colon Z86.010 Personal history of colonic polyps R12 Heartburn D50.9 Iron deficiency anemia, unsp ecified Assessments Date Code Description Provider 02/12/2021 D50.9 Iron deficiency anemia, unspecif ied Shameka Millard, LORRAINE-C 12/31/2020 D50.9 Iron deficiency anemia, unspecif ied [...] for natalya gnant neoplasm of colon Shameka Millard, LORRAINE-C 10/15/2020 Z86.010 Personal history of colonic poly ps Shameka De La Torrebois, LORRAINE-C 10/15/2020 R12 Heartburn Shameka De La Torre bois, LORRAINE-C 10/15/2020 D50.9 Iron deficiency anemia, unspecif ied Shameka Montero Jaquelineeduardobosandra, RPA-C Plan of Treatment 02/12/2021 - Shameka Montero KARYN Millard* D50.9 Iron deficiency anemia, unspecified * * New Xrays:* CT Abdomen And Pelvis W Contrast, Ordered: 02/12/21 * Comments:* Patient verbalized understanding of above [...] Mcdaniels M.D. Pt with Hepatitis C Created [facility] [address] [place] [address] [phone] Carlos Pathak M.D. HEP C Scheduled 01/13/2021 [facility], Gastroenterology [address] [place] [phone] Carlos Pathak M.D. COLO SCREENING Scheduled 10/01/2020 [facility], Gastroenterology [address] [place] [address] [phone]
--- OUTSIDE RECORDS SUMMARY | 2021-03-28 06:50 | CCD | Continuity of Care Document ---
Author Author Gualberto PATHAK MD Organization Unknown Address [address] [place] [address] Phone [phone] Care Team Providers Care Soil Biology Teacher Name Role Phone Clarice Pisano M.D. [facility] [phone] Problems Description No Active Problems Social History Type Date Description Comments Sex Unknown ETOH Use Denies alcohol use Tobacco Use Start: Unknown Non Smoker Allergies, Adverse Reactions, Alerts Description No Known Drug Allergies Medications Active Medications SIG Qnty Indications Ordering Provide r Date Miralax 17GM/Scoop Powder use as instructed by doctor for bowel prep 510gm Z12.11 Carlos Pathak MD 10/15/2020 Milk Of Magnesia 1200mg/15ML Suspe nsion take 45 milliliters by mouth as directed on colonoscopy prep sheet. Z12.11 Carlos Pathak MD 10/15/[address] jamie almeida Unknown Cialis 5mg Tablets prn Unknown Atorvastatin Calcium 40mg Tablets Daily Unknown Metformin HCL 500mg Tablets b id Unknown Losartan Potassium 25mg Tablets Daily Unknown Aspirin 81 Low Dose 81mg Chewtabs Daily Unknown Metoprolol Succinate ER 25mg Tablets ER 24HR tid Unknown Ferrous Sulfate 324(65Fe) mg Table ts DR Daily Unknown Magnesium Gluconate 250mg Tablets 3 tabs daily Unknown Victoza 18mg/3ML Solution Pen-Inje ct 1.2 daily Unknown Immunizations Description No Information Available Vital Signs Date Vital Result Comment 10/15/2020 11:07am BP Systolic 126 mmHg BP Diastolic 78 mmHg Height 69 inches 5'9" Weight 160.00 lb BMI (Body Mass Index) 23.6 kg/m2 [place] Body Weight 160 lb Weight 72.576 kg BSA (Body Surface Area) 1.88 m2 Results Test Acquired Date Facility Test Result H/L Range Note Laboratory test finding 12/31/2020 [facility] Main Lab [address] [id number] [phone] Pathology Request For Service (SEE NOTE) 1 1 FINAL DIAGNOSIS A - Duodenal polyp, biopsy: Heterotopic gastric tissue and duodenal mucosa. No adenomatous change is noted. B - Descending colon, polyp, polypectomy: Adenomatous polyp/tubular adenoma fragments. C - Ascending colon, polyp, polypectomy: Adenomatous polyp/tubular adenoma. Hyperplastic polyp fragments are also noted. 01/02/2021 - 0907 CLINICAL DIAGNOSIS Iron deficiency anemia, heartburn, colon [...] fecal matter. All in a histo bag. [facility] 01/01/2021 - 1348 Signed Geraldine Quiñonez MD 01/02/2021 0908 Procedures Date Code Description Status 12/31/2020 63326 Colonoscopy W/ Poly Completed 12/31/2020 68456 Colonoscopy Flexible Control Ble eding Completed 12/31/2020 77310 Endoscopy Upper GI Remove Tumor/ Polyp/Lesion Snare Technique Completed 10/15/2020 51445 Office/Outpatient New Low [facility] 30 -44 Minutes Completed Medical Devices Description No Information Available Encounters Type Date Location Provider Dx Diagnosis Office Visit 10/15/2020 11:15a [facility] Gastroenterology Pra KARYN Elizabeth Z12.11 Encounter for screening for malignant neoplasm of colon Z86.010 Personal history of colonic polyps R12 Heartburn D50.9 Iron deficiency anemia, unsp ecified Assessments Date Code Description Provider 12/31/2020 D50.9 Iron deficiency anemia, unspecif ied [...] K31.7 Polyp of stomach and duodenum Da vijamie Pathak MD 10/15/2020 Z12.11 Encounter for screening for natalya gnant neoplasm of colon Shameka Robles, LORRAINE-C 10/15/2020 Z86.010 Personal history of colonic poly ps Shameka Montero MARYJO RoblesC 10/15/2020 R12 Heartburn Shameka De La Torre amber, LORRAINE-C 10/15/2020 D50.9 Iron deficiency anemia, unspecif ied Shameka Montero LORRAINE Robles-Vivian Plan of Treatment 10/15/2020 - Shameka RoblesKARYN* Z12.11 Encounter for screening for malignant neoplasm of colon * Z86.010 Personal history of colonic polyps * R12 Heartburn * D50.9 Iron deficiency anemia, unspecified * * New Medication:* Miralax 17 GM/Scoop * Milk Of Magnesia 1200 mg/15ML * New Orders:* Colonoscopy, Ordered: 10/15/20 * Comments:* Will arrange for upper endoscopy and colonoscopy. Reviewed risks and benefits of the procedures, as well as other options, with the patient. Prep for this procedure was discussed with patient, including risks and side effects associated with the prep. Patient verbalized understanding of all of the above and is in agreement to proceed. Patient will seek medical attention for any acute changes. Will monitor. * Follow up:* As scheduled, sooner if needed. Functional Status Description No Information Available Mental Status Description No Information Available Referrals Refer to Reason for Referral Status Appt Date Yuriy Mcdaniels M.D. Pt with Hepatitis C Created 00/00/ [address] [place] [address] [phone] Carlos Pathak M.D. HEP C Scheduled 01/13/2021 [facility], Gastroenterology [address] [place] [phone] Carlos Pathak M.D. COLO SCREENING Scheduled 10/01/2020 [facility], Gastroenterology [address] [place] [phone]
--- OUTSIDE RECORDS SUMMARY | 2021-03-28 06:50 | CCD | Continuity of Care Document ---
Author Author Gualberto Scott M.D. Organization Unknown Address [address] [facility] [address] [place] [address] Phone [phone] Care Team Providers Care Cash Applications Clerk Name Role Phone Clarice Scott MD AUTM [phone] [facility] AUTM Carlos Miller MD AUTM Unavailable ReinCarlos ramirez MD AUTM [phone] Problems Active Problems Provider Date Kidney stone Clarice Scott M.D. Onset: 0 Type 2 diabetes mellitus Clarice Scott M.D. Onset: 05/15 Nausea Clarice Scott M.D. Onset: 0 Essential hypertension Clarice Scott M.D. Onset: 2019 Pure hypercholesterolemia Clarice Scott M.D. Onset: Low back pain Clarice Soctt M.D. Onset: 0 Malignant tumor of prostate Clarice Scott M.D. Onset: 1 08/12/2019 History of polyp of colon Clarice Scott M.D. Onset: Social History Type Date Description Comments Sex Unknown ETOH Use Denies alcohol use Tobacco Use Start: Unknown End: Unknown Patient is a former smoker quit 09/2012 x 50yrs 1 pack a day Allergies, Adverse Reactions, Alerts Description No Known Drug Allergies Medications Active Medications SIG Qnty Indications Ordering Provide r Date Senna 8.6mg Tablets 1-2 by mouth every night at bedtime as needed 180tabs Ron Camarillo 11/29/2020 Losartan Potassium 25mg Tablets 1 by mouth every at bedtime 90tabs Clarice Scott M.D. 021 Metoprolol Succinate ER 25mg Tablets ER 24HR take one tablet by mouth at bedtime 90tabs Clarice Scott M.D. 10/31/2020 Metformin HCL 500mg Tablets take one tablet by mouth twice a day 180tabs Ashia Camarillo 10/31/2020 Onetouch Verio Flex Blood Glucose Monito ring System w/Device Kit use as directed 1units Clarice heart M.D. 10/08/2020 [facility] Verio Strips Test Daily dx e11.9 100units Clarice Scott M.D. 10/09/19 21 [employer] Verio w/Device Kit lancets test daily dx e11.9 2units Clarice Scott M.D. 10/09/19 21 [employer]et[employer] Delica Lancets Fine 30G 3 0G Misc Test Daily e11.9 100units Clarice Scott M.D. 10/08 Nitrostat 0.4mg Tablets Sub one under tongue every 5 minutes x 3 as needed for chest discomfort 25tabs Clarice Scott M.D. 09/04/[address] Take One Capsule By Mouth Every Day 90caps Ron Camarillo 06/27/2020 Victoza 18mg/3ML Solution Pen-Inje ct inject 1.2mg under the skin daily 54ml Clarice martell M.D. 06/27/2020 Ferrous Sulfate 324(65Fe) mg Table ts DR 1 by mouth twice a day 180tabs Clarice Scott M.D. Slow-Mag 71.5-119mg Tablets DR 2 bid po 270tabs Clarice Scott M.D. 05/29/2020 Dry Eye Medication OTC Clarice kidd M.D. 05/27/[address] 1 by mouth every day Clarice Scott M.D. 05/27/20 20 Unifine Pentips Plus 32G X 4 mm Misc Unknown Atorvastatin Calcium 40mg Tablets 1 by mouth qhs 90tabs Clarice Scott M.D. Tadalafil 5mg Tablets take one tablet by mouth every day 90tabs Clarice Scott M.D. History Medications Freestyle Precision Jhoan Blood Glucose Te st Strips Strips test qd 100units E11.9 Clarice Scott M.D. - 10/08/2020 Immunizations Description No Information Available Vital Signs Date Vital Result Comment 02/03/2021 1:48pm BP Systolic 130 mmHg RT Arm BP Diastolic 72 mmHg RT Arm Heart Rate 96 /min Height 67.50 inches 5'7.50" Weight 164.00 lb BMI (Body Mass Index) 25.3 kg/m2 11/26/2020 2:03pm BP Systolic 122 mmHg RT Arm BP Diastolic 68 mmHg RT Arm Heart Rate 92 /min Height 67.50 inches 5'7.50" Weight 162.50 lb BMI (Body Mass Index) 25.1 kg/m2 Results Test Acquired Date Facility Test Result H/L Range Note Laboratory test finding 02/03/2021 [facility] jimenez rebollar Director Financial Systems: Dr Donte Schaefer [place], [place] [id number] [phone] Magnesium 1.4 mg/dL Low 1.8 - 2.4 1 Basic Metabolic Panel 02/03/2021 [facility] Director Financial Systems: [place] [address] [phone] Glucose 118 mg/dL High 74 - 99 2 BUN 9 mg/dL 7 - 18 Creatinine 1.0 mg/dL 0.6 - 1.3 Sodium 142 mEq/L 136 - 145 Potassium 3.6 mEq/L 3.5 - 5.1 Chloride 105 mEq/L 98 - 107 Carbon Dioxide 29 mEq/L 21 - 32 Calcium 9.2 mg/dL 8.5 - 10.1 GFR >= 60 mL/min >60 GFR >= 60 mL/min >60 3 A1c 02/03/2021 [facility] Director Financial Systems: [place] [address] [phone] Hba1c 6.7 % High <5.7 4 Est Avg Glucose 146 mg/dL High 60 - 110 Complete Blood Count 02/03/2021 [facility] Director Financial Systems: Dr Donte Schaefer [place], [place] [id number] [phone] WBC 2.9 x10*3/UL Low 4.1 - 10.9 RBC 3.23 x10*6/UL Low 4.20 - 6.30 Hemoglobin 8.6 g/dL Low 12.0 - 18.0 5 Hematocrit 26.1 % Low 37.0 - 51.0 MCV 80.8 fL 80.0 - 97.0 MCH 26.7 pg 26.0 - 32.0 MCHC 33.1 g/dL 31.0 - 38.0 RDW 15.0 % High 11.6 - 13.7 PLT 173 x10*3/UL 140 - 440 MPV 9.0 FL 7.8 - 11.0 Lymph % 32.2 % 10.0 - 58.5 Mid % 8.0 % 1.7 - 9.3 Neut % 59.8 % 37.0 - 92.0 Lymph # 0.9 x10*3/UL 0.6 - 4.1 Mid # 0.3 x10*3/UL 0.1 - 0.6 Neut # 1.7 x10*3/UL Low 2.0 - 7.8 Coronavirus 2019 Nasopharygeal 12/26/[address] [address] [phone] Coronavirus 2019 Nasopharygeal ASSAY INFORMATIO <SEE N OTE> 6 [facility] [place] 12/09/[address] [address] [phone] Specimen Type (SEE NOTE) Normal . 7 Color Villar Normal . Size 3x2 mm Normal . 8 Weight 10 mg Normal . Composition (SEE NOTE) Normal . 9 CA Oxalate Dihy TNP Normal . Hydroxyapatite 70 % Normal . Carbonate Apatite TNP Normal . Ca Ox Monohydrate 30 % Normal . CA Phosphate TNP Normal . MG [place] Phos TNP Normal . Uric Acid TNP Normal . Ua Dihydrate TNP Normal . Amm Acid Urate TNP Normal . Na Acid Urate TNP Normal . 2.8 Dihydroxyadenine TNP Normal . Xanthine TNP Normal . CA [place] Phos TNP Normal . Cystine TNP Normal . Cholesterol TNP Normal . CA Bilirubinate TNP Normal . CA Carbonate TNP Normal . Bilirubin TNP Normal . Calcium Palmitate TNP Normal . Calcium Stearate TNP Normal . Triamterene TNP Normal . Drug or Metabolite TNP Normal . Newberyite TNP Normal . Dried Blood TNP Normal . Cell Material TNP Normal . Other components(s) TNP Normal . Comment TNP Normal . Comment TNP Normal . Comment (SEE NOTE) Normal . 10 Please Note: (SEE NOTE) Normal . 11 Disclaimer (SEE NOTE) Normal . 12 Photo (SEE NOTE) Normal . 13 Laboratory test finding 12/09/[address] [address] [phone] Bedside Glucose 95 mg/dL Normal 80-115 Laboratory test finding 11/29/[address] [address] [phone] Urine Culture FULL REPORT IN L <SEE NOTE> Normal 14 Ua Routine 11/29/2020 [facility] nter [address] [place] [address] [phone] Appearance, Urine HAZY Normal Clear Color, Urine YELLOW Normal Yellow PH,Urine 7.0 units Normal 5.0-9.0 Specific [place] Urine Auto 1.012 Normal 1.002-1.035 Protein, Urine Auto 2+ mg/dL High Negative Glucose, Urine (Ua) Auto NEGATIVE mg/dL Normal Negative Ketone, Urine Auto NEGATIVE mg/dL Normal Negative Urobilinogen, Urine Auto 0.2 mg/dL Normal 0.0-2.0 Bilirubin, Urine Auto NEGATIVE Normal Negative Nitrite, Urine Auto NEGATIVE Normal Negative Leukocyte Esterase, Urine Auto 3+ High Negative Blood, Urine Blood 3+ High Negative WBC, Urine Auto 96 /HPF High 0-3 RBC, Urine Auto TNTC /HPF High 0-3 Bacteria, Urine Auto NEGATIVE Normal Negative Squamous Epithelial Cell Ur AU 0 /HPF Normal 0-6 Mucus, Urine SMALL Normal Negative Hyaline Cast, Urine Auto 2 /LPF Normal 0-1 A1c 11/26/2020 [facility] Director Financial Systems: [place] [address] [phone] Hba1c 6.6 % High <5.7 15 Est Avg Glucose 143 mg/dL High 60 - 110 Laboratory test finding 11/26/2020 [facility] [address] [place] [address] [phone] Hepatitis B Surface Antibody NEGATIVE Normal Pos itive Hepatitis B Surface Antigen NEGATIVE Normal Negative Laboratory test finding 11/26/2020 [facility] Director Financial Systems: [place] [address] [phone] Thyroid Stimulating Hormone 0.98 uIU/mL 0.3 6 - 3.74 Basic Metabolic Panel 11/26/2020 [facility] Director Financial Systems: [place] [address] [phone] Glucose 159 mg/dL High 74 - 99 16 BUN 12 mg/dL 7 - 18 Creatinine 0.9 mg/dL 0.6 - 1.3 Sodium 138 mEq/L 136 - 145 Potassium 3.6 mEq/L 3.5 - 5.1 Chloride 101 mEq/L 98 - 107 Carbon Dioxide 29 mEq/L 21 - 32 Calcium 9.2 mg/dL 8.5 - 10.1 GFR >= 60 mL/min >60 GFR >= 60 mL/min >60 17 Laboratory test finding 11/26/2020 [facility] jimenez Director Financial Systems: [place] [address] [phone] Magnesium 1.6 mg/dL Low 1.8 - 2.4 Complete Blood Count 11/26/2020 [facility] Director Financial Systems: [place] [address] [phone] WBC 4.4 x10*3/UL 4.1 - 10.9 RBC 3.32 x10*6/UL Low 4.20 - 6.30 Hemoglobin 9.3 g/dL Low 12.0 - 18.0 18 Hematocrit 27.5 % Low 37.0 - 51.0 MCV 82.7 fL 80.0 - 97.0 MCH 28.0 pg 26.0 - 32.0 MCHC 33.9 g/dL 31.0 - 38.0 RDW 14.4 % High 11.6 - 13.7 PLT 223 x10*3/UL 140 - 440 MPV 8.7 FL 7.8 - 11.0 Lymph % 20.8 % 10.0 - 58.5 Mid % 7.3 % 1.7 - 9.3 Neut % 71.9 % 37.0 - 92.0 Lymph # 0.9 x10*3/UL 0.6 - 4.1 Mid # 0.4 x10*3/UL 0.1 - 0.6 Neut # 3.1 x10*3/UL 2.0 - 7.8 Hepatitis C Virus Genotype 11/12/[address] [address] [phone] Hepatitis C Virus Genotype 1a Normal . Comment For Hepc Genotype (SEE NOTE) Normal . 19 Hepatitis C Quant By PCR 11/04/[address] [address] [phone] Hepatitis C Quantitation [id number] IU/mL Normal . Hepatitis C log10 6.083 Normal . 20 Test Information: (SEE NOTE) Normal . 21 Laboratory test finding 10/31/[address] [address] [phone] Urine Culture FULL REPORT IN L <SEE NOTE> Normal 22 Liver Function Profile 10/31/2020 [facility] Director Financial Systems: [place] [address] [phone] Alk. Phosphatase 106 mg/dL 46 - 116 Total Bilirubin 0.3 mg/dL 0.2 - 1.0 Ast (Sgot) 46 U/L High 15 - 37 Alt (SGPT) 50 U/L 12 - 78 Albumin 3.4 g/dL 3.4 - 5.0 Total Protein 7.4 g/dL 6.4 - 8.2 Direct Bilirubin 0.1 mg/dL 0.0 - 0.2 A/G Ratio 0.85 CALC Low 1.00 - 1.90 Laboratory test finding 10/31/2020 [facility] Director Financial Systems: [place] [address] [phone] Magnesium 1.7 mg/dL Low 1.8 - 2.4 Laboratory test finding 10/31/2020 [facility] [address] [place] [address] [phone] Hepatitis C Virus Trudi Index > 11.0 INDEX High <0 .8 23 HCV Rna Randolph Qualitative Positive Abnormal Negative 24 Complete Blood Count 10/31/2020 [facility] Director Financial Systems: [place] [address] [phone] WBC 4.0 x10*3/UL Low 4.1 - 10.9 RBC 3.29 x10*6/UL Low 4.20 - 6.30 Hemoglobin 9.6 g/dL Low 12.0 - 18.0 25 Hematocrit 27.4 % Low 37.0 - 51.0 MCV 83.3 fL 80.0 - 97.0 MCH 29.1 pg 26.0 - 32.0 MCHC 34.9 g/dL 31.0 - 38.0 RDW 14.1 % High 11.6 - 13.7 PLT 218 x10*3/UL 140 - 440 MPV 8.7 FL 7.8 - 11.0 Lymph % 20.7 % 10.0 - 58.5 Mid % 7.0 % 1.7 - 9.3 Neut % 72.3 % 37.0 - 92.0 Lymph # 0.8 x10*3/UL 0.6 - 4.1 Mid # 0.3 x10*3/UL 0.1 - 0.6 Neut # 2.9 x10*3/UL 2.0 - 7.8 Ua Routine 10/31/2020 [facility] nter [address] [place] [address] [phone] Appearance, Urine HAZY Normal Clear Color, Urine YELLOW Normal Yellow PH,Urine 7.0 units Normal 5.0-9.0 Specific [place] Urine Auto 1.011 Normal 1.002-1.035 Protein, Urine Auto 2+ mg/dL High Negative Glucose, Urine (Ua) Auto NEGATIVE mg/dL Normal Negative Ketone, Urine Auto NEGATIVE mg/dL Normal Negative Urobilinogen, Urine Auto 0.2 mg/dL Normal 0.0-2.0 Bilirubin, Urine Auto NEGATIVE Normal Negative Nitrite, Urine Auto NEGATIVE Normal Negative Leukocyte Esterase, Urine Auto 3+ High Negative Blood, Urine Blood 3+ High Negative WBC, Urine Auto 98 /HPF High 0-3 RBC, Urine Auto TNTC /HPF High 0-3 Bacteria, Urine Auto 1+ High Negative Squamous Epithelial Cell Ur AU 0 /HPF Normal 0-6 Mucus, Urine SMALL Normal Negative Hyaline Cast, Urine Auto 6 /LPF Normal 0-1 PT & Aptt 10/31/2020 [facility] nter [address] [place], [place] [id number] [phone] Prothrombin Time 14.1 seconds High 12.5-14.3 Inr 1.07 Normal 26 Partial Thromboplastin Time 25.9 seconds Normal 24.2-38.5 Basic Metabolic Panel 10/31/2020 [facility] Director Financial Systems: [place] [address] [phone] Glucose 162 mg/dL High 74 - 99 27 BUN 10 mg/dL 7 - 18 Creatinine 1.0 mg/dL 0.6 - 1.3 Sodium 135 mEq/L Low 136 - 145 28 Potassium 3.9 mEq/L 3.5 - 5.1 Chloride 101 mEq/L 98 - 107 Carbon Dioxide 27 mEq/L 21 - 32 Calcium 8.8 mg/dL 8.5 - 10.1 GFR >= 60 mL/min >60 GFR >= 60 mL/min >60 29 Complete Blood Count 10/07/2020 [facility] Director Financial Systems: Dr Donte Schaefer [place], [place] [id number] [phone] WBC 5.0 x10*3/UL 4.1 - 10.9 30 RBC 3.41 x10*6/UL Low 4.20 - 6.30 Hemoglobin 9.9 g/dL Low 12.0 - 18.0 Hematocrit 28.7 % Low 37.0 - 51.0 MCV 84.2 fL 80.0 - 97.0 MCH 29.1 pg 26.0 - 32.0 MCHC 34.5 g/dL 31.0 - 38.0 RDW 13.7 % 11.6 - 13.7 PLT 296 x10*3/UL 140 - 440 MPV 7.8 FL 7.8 - 11.0 Lymph % 25.5 % 10.0 - 58.5 Mid % 6.8 % 1.7 - 9.3 Neut % 67.7 % 37.0 - 92.0 Lymph # 1.2 x10*3/UL 0.6 - 4.1 Mid # 0.4 x10*3/UL 0.1 - 0.6 Neut # 3.4 x10*3/UL 2.0 - 7.8 Laboratory test finding 10/07/2020 [facility] Director Financial Systems: [place] [address] [phone] Magnesium 1.3 mg/dL Low 1.8 - 2.4 31 Basic Metabolic Panel 10/07/2020 [facility] Director Financial Systems: [place] [address] [phone] Glucose 129 mg/dL High 74 - 99 32 BUN 14 mg/dL 7 - 18 Creatinine 1.1 mg/dL 0.6 - 1.3 Sodium 138 mEq/L 136 - 145 Potassium 4.2 mEq/L 3.5 - 5.1 Chloride 100 mEq/L 98 - 107 Carbon Dioxide 28 mEq/L 21 - 32 Calcium 9.2 mg/dL 8.5 - 10.1 GFR >= 60 mL/min >60 GFR >= 60 mL/min >60 33 Istat Chem8+ Panel 10/01/2020 [facility] nter [address] [place] [address] [phone] iSTAT HCT 29.0 % Low 38.0-51.0 iSTAT Glucose 123 mg/dL High 70-105 iSTAT Sodium 139 mEq/L Normal 136-145 iSTAT Potassium 4.1 mEq/L Normal 3.5-5.1 iSTAT CA++ 5.0 mg/dL Normal 4.5-5.3 iSTAT Chloride 99 mEq/L Normal 98-109 iSTAT Co2 30.0 MM/L High 23.0-27.0 iSTAT BUN 12 mg/dL Normal 8-26 iSTAT Creatinine 1.1 mg/dL Normal 0.6-1.3 Laboratory test finding 10/01/2020 [facility] [address] [place] [address] [phone] Lipase 351 U/L Normal 73-393 Liver Profile 10/01/2020 [facility] nter [address] [place] [address] [phone] Ast/Sgot 27 U/L Normal 7-37 Alt/SGPT 30 U/L Normal 12-78 Alkaline Phosphatase 75 U/L Normal 45-117 Bilirubin,Total 0.2 mg/dL Normal 0.2-1.0 Bilirubin,Direct 0.2 mg/dL Normal 0.0-0.2 Total Protein 7.7 GM/DL Normal 6.4-8.2 Albumin 3.1 GM/DL Low 3.2-5.2 Albumin/Globulin Ratio 0.7 Normal CBC With Differential 10/01/2020 [facility] [address] [place] [address] [phone] White Blood Count 4.4 10 Normal 4.0-10.0 Red Blood Count 3.22 10 Low 4.30-6.10 Hemoglobin 9.1 g/dL Low 13.5-17.5 Hematocrit 29.1 % Low 42.0-52.0 Mean Corpuscular Volume 90.4 fl Normal 80.0-96.0 Mean Corpuscular Hemoglobin 28.3 pg Normal 27.0-33.0 Mean Corpuscular HGB Conc 31.3 g/dL Low 32.0-36.5 Red Cell Distribution Width 14.4 % Normal 11.5-14.5 Platelet Count, Automated 209 10 Normal 150-450 Neutrophils % 61.6 % Normal 36.0-66.0 Lymph % 23.0 % Low 24.0-44.0 Apache % 11.7 % High 2.0-8.0 Eos % 2.7 % Normal 0.0-3.0 Baso % 0.5 % Normal 0.0-1.0 Immature Granulocyte % 0.5 % Normal 0-3.0 Nucleated Red Blood Cell % 0.0 % Normal 0-0 Neutrophils # 2.7 10 Normal 1.5-8.5 Lymph # 1.0 10 Low 1.5-5.0 Apache # 0.5 10 Normal 0.0-0.8 Eos # 0.1 10 Normal 0.0-0.5 Baso # 0.0 10 Normal 0.0-0.2 Laboratory test finding 10/01/2020 [place] [address] [phone] Lactic Acid Sepsis Protocol 1.4 mmol/L Normal 0.4- 2.0 34 Ua W/ Reflex To Culture 10/01/[address] [address] [phone] Appearance, Urine RFX HAZY Normal Clear Color, Urine RFX YELLOW Normal Yellow PH,Urine RFX 6.0 units Normal 5.0-9.0 Specific [place] Ur Auto RFX 1.016 Normal 1.002-1.035 Protein, Urine Auto RFX 2+ mg/dL High Negative Glucose, Urine (Ua) Auto RFX NEGATIVE mg/dL Normal Negative Ketone, Urine Auto RFX NEGATIVE mg/dL Normal Negative Urobilinogen, Urine Auto RFX 0.2 mg/dL Normal 0.0-2.0 Bilirubin, Urine Auto RFX NEGATIVE Normal Negative Nitrite, Urine Auto RFX NEGATIVE Normal Negative Leukocyte Esterase Ur Auto RFX 3+ High Negative Blood, Urine Blood RFX 1+ High Negative WBC, Urine Auto RFX 107 /HPF High 0-3 RBC, Urine Auto RFX 16 /HPF High 0-3 Bacteria, Urine Auto RFX 1+ High Negative Squam Epithelial Cell Ur Aurfx 0 /HPF Normal 0-6 Mucus, Urine RFX SMALL Normal Negative Hyaline Cast, Urine Auto RFX 0 /LPF Normal 0-1 Complete Blood Count 08/26/2020 [facility] Director Financial Systems: [place] [address] [phone] WBC 4.5 x10*3/UL 4.1 - 10.9 RBC 3.33 x10*6/UL Low 4.20 - 6.30 Hemoglobin 10.0 g/dL Low 12.0 - 18.0 Hematocrit 29.0 % Low 37.0 - 51.0 MCV 87.0 fL 80.0 - 97.0 MCH 30.2 pg 26.0 - 32.0 MCHC 34.7 g/dL 31.0 - 38.0 RDW 14.3 % High 11.6 - 13.7 PLT 207 x10*3/UL 140 - 440 MPV 8.4 FL 7.8 - 11.0 Lymph % 30.3 % 10.0 - 58.5 Mid % 6.9 % 1.7 - 9.3 Neut % 62.8 % 37.0 - 92.0 Lymph # 1.3 x10*3/UL 0.6 - 4.1 Mid # 0.4 x10*3/UL 0.1 - 0.6 Neut # 2.8 x10*3/UL 2.0 - 7.8 A1c 08/26/2020 [facility] Director Financial Systems: [place] [address] [phone] Hba1c 7.3 % High <5.7 35 Est Avg Glucose 163 mg/dL High 60 - 110 Laboratory test finding 08/26/2020 [facility] Director Financial Systems: [place] [address] [phone] Magnesium 1.5 mg/dL Low 1.8 - 2.4 36 Basic Metabolic Panel 08/26/2020 [facility] Director Financial Systems: [place] [address] [phone] Glucose 134 mg/dL High 74 - 99 37 BUN 10 mg/dL 7 - 18 Creatinine 0.9 mg/dL 0.6 - 1.3 Sodium 142 mEq/L 136 - 145 Potassium 3.5 mEq/L 3.5 - 5.1 Chloride 104 mEq/L 98 - 107 Carbon Dioxide 27 mEq/L 21 - 32 Calcium 8.8 mg/dL 8.5 - 10.1 GFR >= 60 mL/min >60 GFR >= 60 mL/min >60 38 Lipid Profile 08/26/2020 [facility] Director Financial Systems: [place] [address] [phone] Cholesterol 114 mg/dL Low 131 - 200 Triglycerides 107 mg/dL 30 - 150 HDL Cholesterol 35 mg/dL 35 - 60 LDL (Calculated) 58 CALC 50 - 159 1 NOTE: RESULT VERIFIED. 2 100-125 mg/dL PRE-DIABET ES/FASTING >126 mg/dL DIABETES/FASTING 3 CHRONIC KIDNEY DISEASE STAGI NG PER NKF STAGE I & II GFR >= 60 NORMAL TO MILDLY DECREASED STAGE III GFR 30-59 MODERATELY DECREASED STAGE IV GFR 15-29 SEVERELY DECREASED STAGE V GFR <15 VERY LITTLE GFR LEFT ESRD GFR <15 ON RADIO PERSONALITY 4 Lab Result Notes: Pre-Diabetes 5.7 - 6.4 % Diabetes = or > 6.5% 5 NOTE: RESULT VERIFIED. 6 ASSAY INFORMATION: Real Time RT-PCR NOTE: The COVID-19 assay has been cleared by the U.S. Food and Drug Administration under the Emergency Use Authorization (EUA). [facility] and [facility] are designated as high complexity laboratories by the Clinical Laboratory Improvement Amendments of 1988(CLIA) and are qualified to perform this test. Not Detected 7 . Not provided 8 Multiple pieces received. D imensions of the largest piece reported. 9 . Percentage (Represents the % composition) 10 . Physician questions regarding [facility] contact [facility] at: [phone]. 11 . Calculi report will follow via computer, mail or powersaw supervisor delivery. 12 . This test was developed and its performance characteristics determined by [facility]. It has not been cleared or approved by the Food and Drug Administration. Performed at: [facility] [address] [place] [address] Dr Bhatia, [place], [place] [id number] Director Financial Systems: Cirilo Bautista MD, Phone: [phone] 13 . Photograph will follow under a separate cover 14 FULL REPORT IN LAB NOTES (eC W and Medent). NO GROWTH 15 Lab Result Notes: Pre-Diabetes 5.7 - 6.4 % Diabetes = or > 6.5% 16 100-125 mg/dL PRE-DIABET ES/FASTING >126 mg/dL DIABETES/FASTING 17 CHRONIC KIDNEY DISEASE STAGI NG PER NKF STAGE I & II GFR >= 60 NORMAL TO MILDLY DECREASED STAGE III GFR 30-59 MODERATELY DECREASED STAGE IV GFR 15-29 SEVERELY DECREASED STAGE V GFR <15 VERY LITTLE GFR LEFT ESRD GFR <15 ON RADIO PERSONALITY 18 NOTE: RESULT VERIFIED. 19 . This test was developed and its performance characteristics determined by [facility]. It has not been cleared or approved by the U.S. Food and Drug Administration. . The FDA has determined that such clearance or approval is not necessary. This test is used for clinical purposes. It should not be regarded as investigational or for research. Performed at: [facility] [id number] Director Financial Systems: Odell Coe MD, Phone: [phone] 20 Result Units: log10 IU/mL 21 . The quantitative range of this assay is 15 IU/mL to 100 million IU/mL. Performed at: [facility] [id number] Director Financial Systems: Niki Meyer MD, Phone: [phone] 22 FULL REPORT IN LAB NOTES (eC W and [facility]). NO GROWTH 23 This screening test for Hepa titis C Virus was above the 1.0 cutoff index value and will be sent to reference lab Laboratory [facility], [address] [place] [address], [facility] [address] for Hep C RNA RANDOLPH testing to confirm or exclude active Hepatitis C Virus infection. Screening test Positive samples with high index values (>11.0) usually (95%) confirm Positive, but <5 of every 100 samples with this result might be a false positive and Hep C RNA RANDOLPH testing will aid in patient management. 24 Positive: HCV RNA Detected Performed at: [facility] [id number] 61 Director Financial Systems: Odell Coe MD, Phone: [phone] 25 NOTE: RESULT VERIFIED. 26 THERAPUTIC HUMAN INR VALUES INDICATIONS NORMAL RANGES PROPHYLAXIS/TREATMENT OF: VENOUS THROMBOSIS 2.0-3.0 PULMONARY EMBOLISM 2.0-3.0 PREVENTION OF SYSTEMIC EMBOLISM FROM: TISSUE HEART VALVES 2.0-3.0 ACUTE MYOCARDIAL INFARCTION 2.0-3.0 VALVULAR HEART DISEASE 2.0-3.0 ATRIAL FIBRILLATION 2.0-3.0 MECHANICAL VALVES(HIGH RISK) 2.5-3.5 RECURRENT MYOCARDIAL INFARCTION 2.5-3.5 27 100-125 mg/dL PRE-DIABET ES/FASTING >126 mg/dL DIABETES/FASTING 28 NOTE: RESULT VERIFIED. 29 CHRONIC KIDNEY DISEASE STAGI NG PER NKF STAGE I & II GFR >= 60 NORMAL TO MILDLY DECREASED STAGE III GFR 30-59 MODERATELY DECREASED STAGE IV GFR 15-29 SEVERELY DECREASED STAGE V GFR <15 VERY LITTLE GFR LEFT ESRD GFR <15 ON RADIO PERSONALITY 30 NOTE: CBC VERIFIED 31 NOTE: RESULT VERIFIED. 32 100-125 mg/dL PRE-DIABET ES/FASTING >126 mg/dL DIABETES/FASTING 33 CHRONIC KIDNEY DISEASE STAGI NG PER NKF STAGE I & II GFR >= 60 NORMAL TO MILDLY DECREASED STAGE III GFR 30-59 MODERATELY DECREASED STAGE IV GFR 15-29 SEVERELY DECREASED STAGE V GFR <15 VERY LITTLE GFR LEFT ESRD GFR <15 ON RADIO PERSONALITY 34 Y/N query for Sepsis Lactate Rule: Y 35 Lab Result Notes: Pre-Diabetes 5.7 - 6.4 % Diabetes = or > 6.5% 36 NOTE: RESULT VERIFIED. 37 100-125 mg/dL PRE-DIABET ES/FASTING >126 mg/dL DIABETES/FASTING 38 CHRONIC KIDNEY DISEASE STAGI NG PER NKF STAGE I & II GFR >= 60 NORMAL TO MILDLY DECREASED STAGE III GFR 30-59 MODERATELY DECREASED STAGE IV GFR 15-29 SEVERELY DECREASED STAGE V GFR <15 VERY LITTLE GFR LEFT ESRD GFR <15 ON RADIO PERSONALITY Procedures Date Code Description Status 12/31/2020 [id number] Colonoscopy Completed 11/26/2020 15576 Office/Outpatient Established Mo d MDM 30-39 Min Completed 10/31/2020 03264 Office/Outpatient Established Mo d MDM 30-39 Min Completed 10/31/2020 61356 EKG/Interpretation & Report Comp leted 10/07/2020 33968 Trans Care SRV W/I 14D Of DC, Co mm W/I 2 Dys Med Rec Completed 08/26/2020 67927 Office/Outpatient Established Mo d MDM 30-39 Min Completed Medical Devices Description No Information Available Encounters Type Date Location Provider Dx Diagnosis Office Visit 11/26/2020 2:30p [facility] M.D[facility] 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 N20.0 Calculus of kidney D50.9 Iron deficiency anemia, unsp ecified E11.9 Type 2 diabetes mellitus wit hout complications E83.42 Hypomagnesemia K64.9 Unspecified hemorrhoids I25.10 Athscl heart disease of [place] coronary artery w/o ang pctrs I10 Essential (primary) hyperten rickie E78.00 Pure hypercholesterolemia, u nspecified Z85.46 Personal history of malignan t neoplasm of prostate Office Visit 08/26/2020 2:30p [facility] M.D. N20.0 Calculus of kidney E11.9 Type 2 diabetes mellitus wit hout complications R11.0 Nausea E83.42 Hypomagnesemia I25.10 Athscl heart disease of [place] coronary artery w/o ang pctrs I10 Essential (primary) hyperten rickie D50.9 Iron deficiency anemia, unsp ecified E78.00 Pure hypercholesterolemia, u nspecified Assessments Date Code Description Provider 02/03/2021 B18.2 Chronic viral hepatitis C Clarice Scott M.D. 02/03/2021 I25.10 Atherosclerotic hear t disease of [place] coronary artery without angina pectoris Clarice Scott M.D. 02/03/2021 I10 Essential (primary) hypertension Clarice Scott M.D. 02/03/2021 D50.9 Iron deficiency anemia, unspecif ied Clarice Scott M.D. 02/03/2021 C61 Malignant neoplasm of prostate Neri Scott M.D. 02/03/2021 N20.0 Calculus of kidney Clarice kidd M.D. 02/03/2021 E78.00 Pure hypercholesterolemia, unspe cified Clarice Scott M.D. 02/03/2021 Z86.010 Personal history of colonic poly ps Clarice Scott M.D. 02/03/2021 E83.42 Hypomagnesemia Clarice heart M.D. 02/03/2021 E11.9 Type 2 diabetes mellitus without complications Clarice Scott M.D. 11/26/2020 B18.2 Chronic viral hepatitis C Clarice Scott M.D. 11/26/2020 I25.10 Atherosclerotic hear t disease of [place] coronary artery without angina pectoris Clarice Scott M.D. 11/26/2020 I10 Essential (primary) hypertension Clarice Scott M.D. 11/26/2020 E11.9 Type 2 diabetes mellitus without complications Clarice Scott M.D. 11/26/2020 D50.9 Iron deficiency anemia, unspecif ied Clarice Scott M.D. 11/26/2020 C61 Malignant neoplasm of prostate Neri Scott M.D. 11/26/2020 N20.0 Calculus of kidney Clarice kidd M.D. 11/26/2020 E78.00 Pure hypercholesterolemia, unspe civelia Scott M.D. 11/26/2020 Z86.010 Personal history of colonic poly ps Clarice Scott M.D. 11/26/2020 E83.42 Hypomagnesemia Clarice heart M.D. 11/12/2020 B19.20 Unspecified viral hepatitis C wi thout hepatic coma Clarice Scott M.D. 11/12/2020 B19.20 Unspecified viral hepatitis C wi thout hepatic coma Lab Schedule 11/04/2020 B18.2 Chronic viral hepatitis C Clarice cSott M.D. 11/04/2020 B18.2 Chronic viral hepatitis C Lab [facility] 10/31/2020 Z01.810 Encounter for preprocedural card iovascular examination Clarice Scott M.D. 10/31/2020 N20.0 Calculus of kidney Clarice kidd M.D. 10/31/2020 I25.10 Atherosclerotic hear t disease of [place] coronary artery without angina pectoris Clarice Scott M.D. 10/31/2020 I10 Essential (primary) hypertension Clarice Scott M.D. 10/31/2020 E11.9 Type 2 diabetes mellitus without complications Clarice Scott M.D. 10/31/2020 D50.9 Iron deficiency anemia, unspecif ied Clarice Scott M.D. 10/31/2020 E78.00 Pure hypercholesterolemia, unspe cified Clarice Scott M.D. 10/31/2020 M54.5 Low back pain Clarice heart M.D. 10/31/2020 C61 Malignant neoplasm of prostate J yanique Scott M.D. 10/31/2020 E83.42 Hypomagnesemia Clarice heart M.D. 10/31/2020 Z86.010 Personal history of colonic poly ps Clarice Scott M.D. 10/07/2020 N20.0 Calculus of kidney Clarice kidd M.D. 10/07/2020 D50.9 Iron deficiency anemia, unspecif ied Clarice Scott M.D. 10/07/2020 E11.9 Type 2 diabetes mellitus without complications Clarice Scott M.D. 10/07/2020 E83.42 Hypomagnesemia Clarice heart M.D. 10/07/2020 K64.9 Unspecified hemorrhoids Clarice Scott M.D. 10/07/2020 I25.10 Atherosclerotic hear t disease of [place] coronary artery without angina pectoris Clarice Scott M.D. 10/07/2020 I10 Essential (primary) hypertension Clarice Scott M.D. 10/07/2020 E78.00 Pure hypercholesterolemia, unspe cified Clarice Scott M.D. 10/07/2020 Z85.46 Personal history of malignant ne oplasm of prostate Clarice Scott M.D. 08/26/2020 N20.0 Calculus of kidney Clarice kidd M.D. 08/26/2020 E11.9 Type 2 diabetes mellitus without complications Clarice Scott M.D. 08/26/2020 R11.0 Nausea Clarice heart M.D. 08/26/2020 E83.42 Hypomagnesemia Clarice heart M.D. 08/26/2020 I25.10 Atherosclerotic hear t disease of [place] coronary artery without angina pectoris Clarice Scott M.D. 08/26/2020 I10 Essential (primary) hypertension Clarice Scott M.D. 08/26/2020 D50.9 Iron deficiency anemia, unspecif ied Clarice Scott M.D. 08/26/2020 E78.00 Pure hypercholesterolemia, unspe cified Clarice Scott M.D. Plan of Treatment Future Appointment(s):* 05/14/2021 10:40 am - Nurse #2 at [facility] * 05/14/2021 11:00 am - Clarice Scott M.D. at [facility] 02/03/2021 - Clarice Scott M.D.* B18.2 Chronic viral hepatitis C * I25.10 Atherosclerotic heart disease of [place] coronary artery without angina pectoris * I10 Essential (primary) hypertension * D50.9 Iron deficiency anemia, unspecified * C61 Malignant neoplasm of prostate * N20.0 Calculus of kidney * E78.00 Pure hypercholesterolemia, unspecified * Z86.010 Personal history of colonic polyps * E83.42 Hypomagnesemia * E11.9 Type 2 diabetes mellitus without complications Functional Status Description No Information Available Mental Status Description No Information Available Referrals Refer to Reason for Referral Status Appt Date Carlos Pathak MD CONSULT FOR NEW ONSET HEPATITIS C Patient No tified 01/13/2021 [facility] Medical Practice [address] [id number] [phone]
--- OUTSIDE RECORDS SUMMARY | 2021-03-28 06:50 | CCD | Continuity of Care Document ---
Author Author [facility]- Organization Unknown Address [address], [address] [place] [address] Phone [phone] Care Team Providers Care Strategic Sourcing Manager Name Role Phone Clarice Pisano M.D. AUTM [phone] Problems Description No Active Problems Social History [...] lb BMI (Body Mass Index) 24.2 kg/m2 Brandon Body Weight 160 lb Weight 74.390 kg BSA (Body Surface Area) 1.90 m2 10/15/2020 11:07am BP Systolic 126 mmHg BP Diastolic 78 mmHg Height 69 inches 5'9" Weight 160.00 lb BMI (Body Mass Index) 23.6 kg/m2 Brandon Body Weight 160 lb Weight 72.576 kg BSA (Body Surface Area) 1.88 m2 Results Test Acquired Date Facility Test Result H/L Range Note Laboratory test finding 12/31/2020 [facility] [address] [place], [place] [id number] [phone] Pathology Request For Service (SEE NOTE) 1 [...] 0908 Procedures Date Code Description Status 12/31/2020 37853 Colonoscopy W/ Poly Completed 12/31/2020 43158 Colonoscopy Flexible Control Ble eding Completed 12/31/2020 56444 Endoscopy Upper GI Remove Tumor/ Polyp/Lesion Snare Technique Completed 10/15/2020 14603 Office/Outpatient New [facility] 30 -44 Minutes Completed Medical Devices Description No Information Available Encounters Type Date Location Provider Dx Diagnosis Office Visit 10/15/2020 11:15a [facility] Shameka MillardKARYN Z12.11 Encounter for screening for malignant neoplasm of colon Z86.010 Personal history of colonic polyps R12 Heartburn D50.9 Iron deficiency anemia, unsp ecified Assessments Date Code Description Provider 02/12/2021 D50.9 Iron deficiency anemia, unspecif ied Shameka Millard, RPA-C 12/31/2020 D50.9 Iron deficiency anemia, unspecif ied [...] natalya gnant neoplasm of colon Shameka Millard, RPA-C 10/15/2020 Z86.010 Personal history of colonic poly ps Shameka Valadezsandra, LORRAINE-C 10/15/2020 R12 Heartburn Shameka De La Torre tomasandra, LORRAINE-C 10/15/2020 D50.9 Iron deficiency anemia, unspecif ied Shameka Millard, RPA-C Plan of Treatment 02/12/2021 - Shameka MillardMARYJOC* D50.9 Iron deficiency anemia, unspecified * * New Xrays:* CT Abdomen And Pelvis W Contrast, Ordered: 02/12/21 * Follow up:* Will call patient with results. Functional Status Description No Information Available Mental Status Description No Information Available Referrals Refer to Reason for Referral Status Appt Date Yuriy Mcdaniels M.D. Pt with Hepatitis C Created [facility] [address] [place] [address] [phone] Carlos Pathak M.D. HEP C Scheduled 01/13/2021 [facility] [address] [place] [phone] Carlos Pathak M.D. COLO SCREENING Scheduled 10/01/2020 [facility]astroenter[facility] [address] [place] [phone]
--- OUTSIDE RECORDS SUMMARY | 2021-03-28 06:50 | CCD | Continuity of Care Document ---
Author Author Gualberto Scott M.D. Organization Unknown Address [address] [facility] [address] [place] [address] Phone [phone] Care Team Providers Care Roving Weight Gauger Name Role Phone Clarice Scott MD AUTM [phone] [facility] AUTM [phone] Carlos Miller MD AUTM Unavailable ReinCarlos ramirez MD AUTM [phone] Problems Active Problems Provider Date Kidney stone Clarice Scott M.D. Onset: 0 Type 2 diabetes mellitus Clarice Scott M.D. Onset: 05/15 Nausea Clarice Scott M.D. Onset: 0 Essential hypertension Clarice Scott M.D. Onset: 2019 Pure hypercholesterolemia Clarice Scott M.D. Onset: Low back pain Clarice Scott M.D. Onset: 0 Malignant tumor of prostate [...] H/L Range Note Laboratory test finding 02/03/2021 [facility]ollar Program Aide: Dr Donte Schaefer [address] [place], [place] [id number] [phone] Magnesium 1.4 mg/dL Low 1.8 - 2.4 1 Basic Metabolic Panel 02/03/2021 [facility]: [place] [address] [phone] Glucose 118 mg/dL High 74 - 99 [...] >= 60 mL/min >60 3 A1c 02/03/2021 [facility] Program Aide: [place] [address] [phone] Hba1c 6.7 % High <5.7 4 Est Avg Glucose 146 mg/dL High 60 - 110 Complete Blood Count 02/03/2021 [facility] Program Aide: Dr Donte Schaefer [address] [place], [place] [id number] [phone] WBC 2.9 x10*3/UL Low 4.1 - 10.9 [...] 2.0 - 7.8 Coronavirus 2019 Nasopharygeal 12/26/[address] [address] [phone] Coronavirus 2019 Nasopharygeal ASSAY INFORMATIO <SEE N OTE> 6 [facility] [place] 12/09/[address] [address] [phone] Specimen Type (SEE NOTE) Normal . 7 Color Villar Normal . Size 3x2 mm Normal . 8 Weight 10 mg Normal . Composition (SEE NOTE) Normal . 9 CA Oxalate Dihy TNP Normal . Hydroxyapatite 70 % Normal . Carbonate Apatite TNP Normal . Ca Ox Monohydrate 30 % Normal . CA Phosphate TNP Normal . MG Hendrum Phos TNP Normal . Uric Acid TNP Normal . Ua Dihydrate TNP Normal . Amm Acid Urate TNP Normal . Na Acid Urate TNP Normal . 2.8 Dihydroxyadenine TNP Normal . Xanthine TNP Normal . CA [facility] Phos TNP Normal . Cystine TNP Normal [...] Normal . 13 Laboratory test finding 12/09/[address] [address] [phone] Bedside Glucose 95 mg/dL Normal 80-115 Laboratory test finding 11/29/[address] [address] [phone] Urine Culture FULL REPORT IN L <SEE NOTE> Normal 14 Ua Routine 11/29/2020 [facility] nter [address] [place] [address] [phone] Appearance, Urine HAZY Normal Clear Color, Urine YELLOW Normal Yellow PH,Urine 7.0 units Normal 5.0-9.0 Specific [place] Urine Auto 1.012 Normal 1.002-1.035 Protein, Urine [...] Auto 2 /LPF Normal 0-1 A1c 11/26/2020 [facility] Program Aide: [place] [address] [phone] Hba1c 6.6 % High <5.7 15 Est Avg Glucose 143 mg/dL High 60 - 110 Laboratory test finding 11/26/2020 [facility] [address] [place] [address] [phone] Hepatitis B Surface Antibody NEGATIVE Normal Pos itive Hepatitis B Surface Antigen NEGATIVE Normal Negative Laboratory test finding 11/26/2020 [facility] Program Aide: [place] [address] [phone] Thyroid Stimulating Hormone 0.98 uIU/mL 0.3 6 - 3.74 Basic Metabolic Panel 11/26/2020 [facility] Program Aide: [place] [address] [phone] Glucose 159 mg/dL High 74 - 99 [...] mL/min >60 17 Laboratory test finding 11/26/2020 [facility] jimenez Program Aide: Dr [place] [address] [phone] Magnesium 1.6 mg/dL Low 1.8 - 2.4 Complete Blood Count 11/26/2020 [facility] Program Aide: Dr [place] [address] [phone] WBC 4.4 x10*3/UL 4.1 - 10.9 RBC [...] - 7.8 Hepatitis C Virus Genotype 11/12/[address] [address] [phone] Hepatitis C Virus Genotype 1a Normal . Comment For Hepc Genotype (SEE NOTE) Normal . 19 Hepatitis C Quant By PCR 11/04/[address] [address] [phone] Hepatitis C Quantitation [id number] IU/mL Normal . Hepatitis C log10 6.083 Normal . 20 Test Information: (SEE NOTE) Normal . 21 Laboratory test finding 10/31/[address] [address] [phone] Urine Culture FULL REPORT IN L <SEE NOTE> Normal 22 Liver Function Profile 10/31/2020 [facility] Program Aide: [place] [address] [phone] Alk. Phosphatase 106 mg/dL 46 - 116 Total Bilirubin 0.3 mg/dL 0.2 - 1.0 Ast (Sgot) 46 U/L High 15 - 37 Alt (SGPT) 50 U/L 12 - 78 Albumin 3.4 g/dL 3.4 - 5.0 Total Protein 7.4 g/dL 6.4 - 8.2 Direct Bilirubin 0.1 mg/dL 0.0 - 0.2 A/G Ratio 0.85 CALC Low 1.00 - 1.90 Laboratory test finding 10/31/2020 [facility] Program Aide: [place] [address] [phone] Magnesium 1.7 mg/dL Low 1.8 - 2.4 Laboratory test finding 10/31/2020 [facility] [address] [place] [address] [phone] Hepatitis C Virus Trudi Index > 11.0 INDEX High <0 .8 23 HCV Rna Randolph Qualitative Positive Abnormal Negative 24 Complete Blood Count 10/31/2020 [facility] Program Aide: [place] [address] [phone] WBC 4.0 x10*3/UL Low 4.1 - 10.9 [...] x10*3/UL 2.0 - 7.8 Ua Routine 10/31/2020 [facility] nter [address] [place] [address] [phone] Appearance, Urine HAZY Normal Clear Color, Urine YELLOW Normal Yellow PH,Urine 7.0 units Normal 5.0-9.0 Specific [place] Urine Auto 1.011 Normal 1.002-1.035 Protein, Urine [...] /LPF Normal 0-1 PT & Aptt 10/31/2020 [facility] nter [address] [place], [place] [id number] [phone] Prothrombin Time 14.1 seconds High 12.5-14.3 Inr 1.07 Normal 26 Partial Thromboplastin Time 25.9 seconds Normal 24.2-38.5 Basic Metabolic Panel 10/31/2020 [facility] Program Aide: [place] [address] [phone] Glucose 162 mg/dL High 74 - 99 [...] mL/min >60 29 Complete Blood Count 10/07/2020 [facility] Program Aide: Dr Donte Schaefer [address] [place], [place] [id number] [phone] WBC 5.0 x10*3/UL 4.1 - 10.9 30 [...] 2.0 - 7.8 Laboratory test finding 10/07/2020 [facility] Program Aide: [place] [address] [phone] Magnesium 1.3 mg/dL Low 1.8 - 2.4 31 Basic Metabolic Panel 10/07/2020 [facility] Program Aide: [place] [address] [phone] Glucose 129 mg/dL High 74 - 99 [...] mL/min >60 33 Istat Chem8+ Panel 10/01/2020 [facility] nter [address] [place] [address] [phone] iSTAT HCT 29.0 % Low 38.0-51.0 iSTAT Glucose 123 mg/dL High 70-105 iSTAT Sodium 139 mEq/L Normal 136-145 iSTAT Potassium 4.1 mEq/L Normal 3.5-5.1 iSTAT CA++ 5.0 mg/dL Normal 4.5-5.3 iSTAT Chloride 99 mEq/L Normal 98-109 iSTAT Co2 30.0 MM/L High 23.0-27.0 iSTAT BUN 12 mg/dL Normal 8-26 iSTAT Creatinine 1.1 mg/dL Normal 0.6-1.3 Laboratory test finding 10/01/2020 [facility] [address] [place] [address] [phone] Lipase 351 U/L Normal 73-393 Liver Profile 10/01/2020 [facility] nter [address] [place] [address] [phone] Ast/Sgot 27 U/L Normal 7-37 Alt/SGPT 30 U/L Normal 12-78 Alkaline Phosphatase 75 U/L Normal 45-117 Bilirubin,Total 0.2 mg/dL Normal 0.2-1.0 Bilirubin,Direct 0.2 mg/dL Normal 0.0-0.2 Total Protein 7.7 GM/DL Normal 6.4-8.2 Albumin 3.1 GM/DL Low 3.2-5.2 Albumin/Globulin Ratio 0.7 Normal CBC With Differential 10/01/[address] [facility] [address] [place] [address] [phone] White Blood Count 4.4 10 Normal 4.0-10.0 [...] 36.0-66.0 Lymph % 23.0 % Low 24.0-44.0 [place] % 11.7 % High 2.0-8.0 Eos % 2.7 % Normal 0.0-3.0 Baso % 0.5 % Normal 0.0-1.0 Immature Granulocyte % 0.5 % Normal 0-3.0 Nucleated Red Blood Cell % 0.0 % Normal 0-0 Neutrophils # 2.7 10 Normal 1.5-8.5 Lymph # 1.0 10 Low 1.5-5.0 [place] # 0.5 10 Normal 0.0-0.8 Eos # 0.1 10 Normal 0.0-0.5 Baso # 0.0 10 Normal 0.0-0.2 Laboratory test finding 10/01/2020 [place] [address] [phone] Lactic Acid Sepsis Protocol 1.4 mmol/L Normal 0.4- 2.0 34 Ua W/ Reflex To Culture 10/01/[address] [address] [phone] Appearance, Urine RFX HAZY Normal Clear Color, Urine RFX YELLOW Normal Yellow PH,Urine RFX 6.0 units Normal 5.0-9.0 Specific [place] Ur Auto RFX 1.016 Normal 1.002-1.035 Protein, [...] /LPF Normal 0-1 Complete Blood Count 08/26/2020 [facility] Program Aide: [place] [address] [phone] WBC 4.5 x10*3/UL 4.1 - 10.9 RBC [...] 2.8 x10*3/UL 2.0 - 7.8 A1c 08/26/2020 [facility] Program Aide: [place] [address] [phone] Hba1c 7.3 % High <5.7 35 Est Avg Glucose 163 mg/dL High 60 - 110 Laboratory test finding 08/26/2020 [facility] Program Aide: [place] [address] [phone] Magnesium 1.5 mg/dL Low 1.8 - 2.4 36 Basic Metabolic Panel 08/26/2020 [facility] Program Aide: [place] [address] [phone] Glucose 134 mg/dL High 74 - 99 [...] 60 mL/min >60 38 Lipid Profile 08/26/2020 [facility] Program Aide: [place] [address] [phone] Cholesterol 114 mg/dL Low 131 - 200 [...] LITTLE GFR LEFT ESRD GFR <15 ON VESSEL SLAG WORKER 4 Lab Result Notes: Pre-Diabetes 5.7 - 6.4 % Diabetes = or > 6.5% 5 NOTE: RESULT VERIFIED. 6 ASSAY INFORMATION: Real Time RT-PCR NOTE: The COVID-19 assay has been cleared by the U.S. Food and Drug Administration under the Emergency Use Authorization (EUA). [facility] and [facility] are designated as high complexity laboratories by the Clinical Laboratory Improvement Amendments of 1988(CLIA) and are qualified to perform this test. Not Detected 7 . Not provided 8 Multiple pieces received. D imensions of the largest piece reported. 9 . Percentage (Represents the % composition) 10 . Physician questions regarding [facility] contact [employer] [facility] [employer] at: [phone]. 11 . Calculi report will follow via computer, mail or veneer puller delivery. 12 . This test was developed and its performance characteristics determined by [employer] [employer]. It has not been cleared or approved by the Food and Drug Administration. Performed at: [facility] [address] [place] [address] Dr Bhatia, [place], [place] [id number] Program Aide: Cirilo Bautista MD, Phone: [phone] . Photograph will follow under a [...] LITTLE GFR LEFT ESRD GFR <15 ON VESSEL SLAG WORKER 18 NOTE: RESULT VERIFIED. 19 . This test was developed and its performance characteristics determined by [facility]. It has not been cleared or approved by the U.S. Food and Drug Administration. . The FDA has determined that such clearance or approval is not necessary. This test is used for clinical purposes. It should not be regarded as investigational or for research. Performed at: [facility] [id number] Program Aide: Odell Coe MD, Phone: [phone] 20 Result Units: log10 IU/mL 21 . The quantitative range of this assay is 15 IU/mL to 100 million IU/mL. Performed at: [facility] [address] [id number] Program Aide: Niki Meyer MD, Phone: [phone] 22 FULL REPORT IN LAB NOTES (eC W and [facility]). NO GROWTH 23 This screening test for Hepa titis C Virus was above the 1.0 cutoff index value and will be sent to reference lab Laboratory [facility], [address] [place] [address], [facility] [address] for Hep C RNA RANDOLPH testing to confirm or exclude active Hepatitis C Virus infection. Screening test Positive samples with high index values (>11.0) usually (95%) confirm Positive, but <5 of every 100 samples with this result might be a false positive and Hep C RNA RANDOLPH testing will aid in patient management. 24 Positive: HCV RNA Detected Performed at: [facility] [id number] Program Aide: Odell Coe MD, Phone: [phone] 25 NOTE: RESULT VERIFIED. 26 THERAPUTIC HUMAN [...] LITTLE GFR LEFT ESRD GFR <15 ON VESSEL SLAG WORKER 30 NOTE: CBC VERIFIED 31 NOTE: RESULT VERIFIED. 32 100-125 mg/dL PRE-DIABET ES/FASTING >126 mg/dL DIABETES/FASTING 33 CHRONIC KIDNEY DISEASE STAGI NG PER NKF STAGE I & II GFR >= 60 NORMAL TO MILDLY DECREASED STAGE III GFR 30-59 MODERATELY DECREASED STAGE IV GFR 15-29 SEVERELY DECREASED STAGE V GFR <15 VERY LITTLE GFR LEFT ESRD GFR <15 ON VESSEL SLAG WORKER 34 Y/N query for Sepsis Lactate Rule: [...] LITTLE GFR LEFT ESRD GFR <15 ON VESSEL SLAG WORKER Procedures Date Code Description Status 12/31/2020 57185586 Colonoscopy Completed 11/26/2020 36138 Office/Outpatient Established Mo d MDM 30-39 Min Completed 10/31/2020 81736 Office/Outpatient Established Mo d MDM 30-39 Min Completed 10/31/2020 41848 EKG/Interpretation & Report Comp leted 10/07/2020 48592 Trans Care SRV W/I 14D Of DC, Co mm W/I 2 Dys Med Rec Completed 08/26/2020 72560 Office/Outpatient Established Mo d MDM 30-39 Min Completed Medical Devices Description No Information Available Encounters Type Date Location Provider Dx Diagnosis Office Visit 11/26/2020 2:30p [facility] M.D. B18.2 Chronic viral [...] polyps E83.42 Hypomagnesemia Office Visit 10/31/2020 2:00p [facility] M.[facility]. Z01.810 Encounter for preprocedural [...] of colonic polyps Office Visit 10/07/2020 1:30p [facility] N20.0 Calculus of kidney D50.9 Iron deficiency anemia, unsp ecified E11.9 Type 2 diabetes mellitus wit hout complications E83.42 Hypomagnesemia K64.9 Unspecified hemorrhoids I25.10 Athscl heart disease of [place] coronary artery w/o ang pctrs I10 Essential (primary) hyperten rickie E78.00 Pure hypercholesterolemia, u nspecified Z85.46 Personal history of malignan t neoplasm of prostate Office Visit 08/26/2020 2:30p [facility] M.[facility]. N20.0 Calculus of [...] 02/03/2021 I25.10 Atherosclerotic hear t disease of [place] coronary artery without angina pectoris Clarice Scott [...] 11/26/2020 I25.10 Atherosclerotic hear t disease of [place] coronary artery without angina pectoris Clarice Scott [...] 11/04/2020 B18.2 Chronic viral hepatitis C Clarice Scott M.D. 11/04/2020 B18.2 Chronic viral hepatitis C Lab [facility] 10/31/2020 Z01.810 Encounter for preprocedural card iovascular examination Clarice Scott M.D. 10/31/2020 N20.0 Calculus of kidney Clarice kdid M.D. 10/31/2020 I25.10 Atherosclerotic hear t disease of [place] coronary artery without angina pectoris Clarice Scott [...] 10/07/2020 I25.10 Atherosclerotic hear t disease of [place] coronary artery without angina pectoris Clarice Scott M.D. 10/07/2020 I10 Essential (primary) hypertension Clarice Scott M.D. 10/07/2020 E78.00 Pure hypercholesterolemia, unspe cified Clarice Sctot M.D. 10/07/2020 Z85.46 Personal history of malignant ne oplasm of prostate Clarice Scott M.D. 08/26/2020 N20.0 Calculus of kidney Clarice kidd M.D. 08/26/2020 E11.9 Type 2 diabetes mellitus without complications Clarice Scott M.D. 08/26/2020 R11.0 Nausea Clarice heart M.D. 08/26/2020 E83.42 Hypomagnesemia Clarice heart M.D. 08/26/2020 I25.10 Atherosclerotic hear t disease of [place] coronary artery without angina pectoris Clarice Scott M.D. 08/26/2020 I10 Essential (primary) hypertension Clarice Scott M.D. 08/26/2020 D50.9 Iron deficiency anemia, unspecif ied Clarice Scott M.D. 08/26/2020 E78.00 Pure hypercholesterolemia, unspe cified Clarice Scott M.D. Plan of Treatment Future Appointment(s):* 05/14/2021 10:40 am - Nurse #2 at [facility] * 05/14/2021 11:00 am - Clarice Scott M.D. at [facility] 02/03/2021 - Clarice Scott M.D.* B18.2 Chronic viral hepatitis C * I25.10 Atherosclerotic heart disease of [place] coronary artery without angina pectoris * I10 [...] ONSET HEPATITIS C Patient No tified 01/13/2021 [facility] Medical Practice [address] [id number] [phone]
--- OUTSIDE RECORDS SUMMARY | 2021-03-28 06:50 | CCD | Continuity of Care Document ---
Author Author Gualberto Scott M.D. Organization Unknown Address [address] [facility] [address] [place] [address] Phone [phone] Care Team Providers Care Tuck Pointer Name Role Phone Clarice Scott MD AUTM [phone] [facility] AUTM [phone] Carlos Miller MD AUTM Unavailable ReinCarlos ramirez MD AUTM [phone] Problems Active Problems Provider Date Kidney stone [...] 1 by mouth every at bedtime 90tabs Clraice Scott M.D. 021 Metoprolol Succinate ER 25mg Tablets ER 24HR take one tablet by mouth at bedtime 90tabs Clarice Scott M.D. 10/31/2020 Metformin HCL 500mg Tablets take one tablet by mouth twice a day 180tabs Asiha Camarillo 10/31/2020 [employer] Verio Flex Blood Glucose [...] H/L Range Note Laboratory test finding 02/03/2021 [facility]im[facility] rebollar Corporate Law Assistant: Dr Donte Schaefer [place], [place] [id number] [phone] Magnesium 1.4 mg/dL Low 1.8 - 2.4 1 Basic Metabolic Panel 02/03/2021 [facility] Corporate Law Assistant: [place] [address] [phone] Glucose 118 mg/dL High 74 - 99 [...] >= 60 mL/min >60 3 A1c 02/03/2021 [facility] Corporate Law Assistant: [place] [address] [phone] Hba1c 6.7 % High <5.7 4 Est Avg Glucose 146 mg/dL High 60 - 110 Complete Blood Count 02/03/2021 [facility] Corporate Law Assistant: Dr Donte Schaefer [place], [place] [id number] [phone] WBC 2.9 x10*3/UL Low 4.1 - 10.9 [...] 2.0 - 7.8 Coronavirus 2019 Nasopharygeal 12/26/[address] [address] [phone] Coronavirus 2019 Nasopharygeal ASSAY INFORMATIO <SEE N OTE> 6 [facility],Stone [place] 12/09/[address] [address] [phone] Specimen Type (SEE NOTE) Normal . 7 Color Villar Normal . Size 3x2 mm Normal . 8 Weight 10 mg Normal . Composition (SEE NOTE) Normal . 9 CA Oxalate Dihy TNP Normal . Hydroxyapatite 70 % Normal . Carbonate Apatite TNP Normal . Ca Ox Monohydrate 30 % Normal . CA Phosphate TNP Normal . MG [place] Phos TNP Normal . Uric Acid TNP Normal . Ua Dihydrate TNP Normal . Amm Acid Urate TNP Normal . Na Acid Urate TNP Normal . 2.8 Dihydroxyadenine TNP Normal . Xanthine TNP Normal . CA [place] Phos TNP Normal . Cystine TNP Normal [...] Normal . 13 Laboratory test finding 12/09/[address] [address] [phone] Bedside Glucose 95 mg/dL Normal 80-115 Laboratory test finding 11/29/[address] [address] [phone] Urine Culture FULL REPORT IN L <SEE NOTE> Normal 14 Ua Routine 11/29/2020 [facility] nter [address] [place] [address] [phone] Appearance, Urine HAZY Normal Clear Color, Urine YELLOW Normal Yellow PH,Urine 7.0 units Normal 5.0-9.0 Specific [place] Urine Auto 1.012 Normal 1.002-1.035 Protein, Urine [...] Auto 2 /LPF Normal 0-1 A1c 11/26/2020 [facility] Corporate Law Assistant: [place] [address] [phone] Hba1c 6.6 % High <5.7 15 Est Avg Glucose 143 mg/dL High 60 - 110 Laboratory test finding 11/26/2020 [facility] [address] [place] [address] [phone] Hepatitis B Surface Antibody NEGATIVE Normal Pos itive Hepatitis B Surface Antigen NEGATIVE Normal Negative Laboratory test finding 11/26/2020 [facility] Corporate Law Assistant: [place] [address] [phone] Thyroid Stimulating Hormone 0.98 uIU/mL 0.3 6 - 3.74 Basic Metabolic Panel 11/26/2020 [facility] Corporate Law Assistant: [place] [address] [phone] Glucose 159 mg/dL High 74 - 99 [...] mL/min >60 17 Laboratory test finding 11/26/2020 [facility], jimenez Corporate Law Assistant: [place] [address] [phone] Magnesium 1.6 mg/dL Low 1.8 - 2.4 Complete Blood Count 11/26/2020 [facility] Corporate Law Assistant: [place] [address] [phone] WBC 4.4 x10*3/UL 4.1 - 10.9 RBC [...] - 7.8 Hepatitis C Virus Genotype 11/12/[address] [address] [phone] Hepatitis C Virus Genotype 1a Normal . Comment For Hepc Genotype (SEE NOTE) Normal . 19 Hepatitis C Quant By PCR 11/04/[address] [address] [phone] Hepatitis C Quantitation [id number] IU/mL Normal . Hepatitis C log10 6.083 Normal . 20 Test Information: (SEE NOTE) Normal . 21 Laboratory test finding 10/31/[address] [address] [phone] Urine Culture FULL REPORT IN L <SEE NOTE> Normal 22 Liver Function Profile 10/31/2020 [facility] Corporate Law Assistant: [place] [address] [phone] Alk. Phosphatase 106 mg/dL 46 - 116 Total Bilirubin 0.3 mg/dL 0.2 - 1.0 Ast (Sgot) 46 U/L High 15 - 37 Alt (SGPT) 50 U/L 12 - 78 Albumin 3.4 g/dL 3.4 - 5.0 Total Protein 7.4 g/dL 6.4 - 8.2 Direct Bilirubin 0.1 mg/dL 0.0 - 0.2 A/G Ratio 0.85 CALC Low 1.00 - 1.90 Laboratory test finding 10/31/2020 [facility] Corporate Law Assistant: [place] [address] [phone] Magnesium 1.7 mg/dL Low 1.8 - 2.4 Laboratory test finding 10/31/2020 [facility] [address] [place] [address] [phone] Hepatitis C Virus Trudi Index > 11.0 INDEX High <0 .8 23 HCV Rna Randolph Qualitative Positive Abnormal Negative 24 Complete Blood Count 10/31/2020 [facility] Corporate Law Assistant: [place] [address] [phone] WBC 4.0 x10*3/UL Low 4.1 - 10.9 [...] x10*3/UL 2.0 - 7.8 Ua Routine 10/31/2020 [facility] [address] [place] [address] [phone] Appearance, Urine HAZY Normal Clear Color, Urine YELLOW Normal Yellow PH,Urine 7.0 units Normal 5.0-9.0 Specific [place] Urine Auto 1.011 Normal 1.002-1.035 Protein, Urine [...] /LPF Normal 0-1 PT & Aptt 10/31/2020 [facility] [address] [place], [place] [id number] [phone] Prothrombin Time 14.1 seconds High 12.5-14.3 Inr 1.07 Normal 26 Partial Thromboplastin Time 25.9 seconds Normal 24.2-38.5 Basic Metabolic Panel 10/31/2020 [facility] Corporate Law Assistant: [place] [address] [phone] Glucose 162 mg/dL High 74 - 99 [...] mL/min >60 29 Complete Blood Count 10/07/2020 [facility] Corporate Law Assistant: Dr Donte Schaefer [place], [place] [address] [phone] WBC 5.0 x10*3/UL 4.1 - 10.9 30 [...] 2.0 - 7.8 Laboratory test finding 10/07/2020 [facility] Corporate Law Assistant: [place] [address] [phone] Magnesium 1.3 mg/dL Low 1.8 - 2.4 31 Basic Metabolic Panel 10/07/2020 [facility] Corporate Law Assistant: [place] [address] [phone] Glucose 129 mg/dL High 74 - 99 [...] mL/min >60 33 Istat Chem8+ Panel 10/01/2020 [facility] [address] [place] [address] [phone] iSTAT HCT 29.0 % Low 38.0-51.0 iSTAT Glucose 123 mg/dL High 70-105 iSTAT Sodium 139 mEq/L Normal 136-145 iSTAT Potassium 4.1 mEq/L Normal 3.5-5.1 iSTAT CA++ 5.0 mg/dL Normal 4.5-5.3 iSTAT Chloride 99 mEq/L Normal 98-109 iSTAT Co2 30.0 MM/L High 23.0-27.0 iSTAT BUN 12 mg/dL Normal 8-26 iSTAT Creatinine 1.1 mg/dL Normal 0.6-1.3 Laboratory test finding 10/01/2020 [facility] [address] [place] [address] [phone] Lipase 351 U/L Normal 73-393 Liver Profile 10/01/2020 [facility] [address] [place] [address] [phone] Ast/Sgot 27 U/L Normal 7-37 Alt/SGPT 30 U/L Normal 12-78 Alkaline Phosphatase 75 U/L Normal 45-117 Bilirubin,Total 0.2 mg/dL Normal 0.2-1.0 Bilirubin,Direct 0.2 mg/dL Normal 0.0-0.2 Total Protein 7.7 GM/DL Normal 6.4-8.2 Albumin 3.1 GM/DL Low 3.2-5.2 Albumin/Globulin Ratio 0.7 Normal CBC With Differential 10/01/2020 [facility] [address] [place] [address] [phone] White Blood Count 4.4 10 Normal 4.0-10.0 [...] 36.0-66.0 Lymph % 23.0 % Low 24.0-44.0 [place] % 11.7 % High 2.0-8.0 Eos % 2.7 % Normal 0.0-3.0 Baso % 0.5 % Normal 0.0-1.0 Immature Granulocyte % 0.5 % Normal 0-3.0 Nucleated Red Blood Cell % 0.0 % Normal 0-0 Neutrophils # 2.7 10 Normal 1.5-8.5 Lymph # 1.0 10 Low 1.5-5.0 [place] # 0.5 10 Normal 0.0-0.8 Eos # 0.1 10 Normal 0.0-0.5 Baso # 0.0 10 Normal 0.0-0.2 Laboratory test finding 10/01/2020 [place] [address] [phone] Lactic Acid Sepsis Protocol 1.4 mmol/L Normal 0.4- 2.0 34 Ua W/ Reflex To Culture 10/01/[address] [address] [phone] Appearance, Urine RFX HAZY Normal Clear Color, Urine RFX YELLOW Normal Yellow PH,Urine RFX 6.0 units Normal 5.0-9.0 Specific [place] Ur Auto RFX 1.016 Normal 1.002-1.035 Protein, [...] /LPF Normal 0-1 Complete Blood Count 08/26/2020 [facility] Corporate Law Assistant: [place] [address] [phone] WBC 4.5 x10*3/UL 4.1 - 10.9 RBC [...] 2.8 x10*3/UL 2.0 - 7.8 A1c 08/26/2020 [facility] Corporate Law Assistant: [place] [address] [phone] Hba1c 7.3 % High <5.7 35 Est Avg Glucose 163 mg/dL High 60 - 110 Laboratory test finding 08/26/2020 [facility] Corporate Law Assistant: [place] [address] [phone] Magnesium 1.5 mg/dL Low 1.8 - 2.4 36 Basic Metabolic Panel 08/26/2020 [facility] Corporate Law Assistant: [place] [address] [phone] Glucose 134 mg/dL High 74 - 99 [...] 60 mL/min >60 38 Lipid Profile 08/26/2020 [facility] Corporate Law Assistant: [place] [address] [phone] Cholesterol 114 mg/dL Low 131 - 200 [...] LITTLE GFR LEFT ESRD GFR <15 ON CNC MANAGER 4 Lab Result Notes: Pre-Diabetes 5.7 - 6.4 % Diabetes = or > 6.5% 5 NOTE: RESULT VERIFIED. 6 ASSAY INFORMATION: Real Time RT-PCR NOTE: The COVID-19 assay has been cleared by the U.S. Food and Drug Administration under the Emergency Use Authorization (EUA). [facility] and [facility] are designated as high complexity laboratories by the Clinical Laboratory Improvement Amendments of 1988(CLIA) and are qualified to perform this test. Not Detected 7 . Not provided 8 Multiple pieces received. D imensions of the largest piece reported. 9 . Percentage (Represents the % composition) 10 . Physician questions regarding [facility] contact [facility] at: [phone]. 11 . Calculi report will follow via computer, mail or recreational vehicle resort manager delivery. 12 . This test was developed and its performance characteristics determined by [facility]. It has not been cleared or approved by the Food and Drug Administration. Performed at: [facility] [address] [place] [address] Dr Bhatia, [place], [place] [id number] Corporate Law Assistant: Cirilo Bautista MD, Phone: [phone] 13 . Photograph will follow under a [...] LITTLE GFR LEFT ESRD GFR <15 ON CNC MANAGER 18 NOTE: RESULT VERIFIED. 19 . This test was developed and its performance characteristics determined by [facility]. It has not been cleared or approved by the U.S. Food and Drug Administration. . The FDA has determined that such clearance or approval is not necessary. This test is used for clinical purposes. It should not be regarded as investigational or for research. Performed at: [facility] [employer] [id number] Corporate Law Assistant: Odell Coe MD, Phone: [phone] 20 Result Units: log10 IU/mL 21 . The quantitative range of this assay is 15 IU/mL to 100 million IU/mL. Performed at: [facility] [id number] Corporate Law Assistant: Niki Meyer MD, Phone: [phone] 22 FULL REPORT IN LAB NOTES (eC W and [employer]). NO GROWTH 23 This screening test for Hepa titis C Virus was above the 1.0 cutoff index value and will be sent to reference lab Laboratory [facility], [address] [place] [address], [facility] [address] for Hep C RNA RANDOLPH testing to confirm or exclude active Hepatitis C Virus infection. Screening test Positive samples with high index values (>11.0) usually (95%) confirm Positive, but <5 of every 100 samples with this result might be a false positive and Hep C RNA RANDOLPH testing will aid in patient management. 24 Positive: HCV RNA Detected Performed at: [facility] [employer] [id number] Corporate Law Assistant: Odell Coe MD, Phone: [phone] 25 NOTE: RESULT VERIFIED. 26 THERAPUTIC HUMAN [...] LITTLE GFR LEFT ESRD GFR <15 ON CNC MANAGER 30 NOTE: CBC VERIFIED 31 NOTE: RESULT VERIFIED. 32 100-125 mg/dL PRE-DIABET ES/FASTING >126 mg/dL DIABETES/FASTING 33 CHRONIC KIDNEY DISEASE STAGI NG PER NKF STAGE I & II GFR >= 60 NORMAL TO MILDLY DECREASED STAGE III GFR 30-59 MODERATELY DECREASED STAGE IV GFR 15-29 SEVERELY DECREASED STAGE V GFR <15 VERY LITTLE GFR LEFT ESRD GFR <15 ON CNC MANAGER 34 Y/N query for Sepsis Lactate Rule: [...] LITTLE GFR LEFT ESRD GFR <15 ON CNC MANAGER Procedures Date Code Description Status 12/31/2020 81518096 Colonoscopy Completed 11/26/2020 32646 Office/Outpatient Established Mo d MDM 30-39 Min Completed 10/31/2020 22995 Office/Outpatient Established Mo d MDM 30-39 Min Completed 10/31/2020 42852 EKG/Interpretation & Report Comp leted 10/07/2020 78721 Trans Care SRV W/I 14D Of DC, Co mm W/I 2 Dys Med Rec Completed 08/26/2020 11901 Office/Outpatient Established Mo d MDM 30-39 Min Completed Medical Devices Description No Information Available Encounters Type Date Location Provider Dx Diagnosis Office Visit 11/26/2020 2:30p [facility] Scott M.D. B18.2 Chronic viral [...] polyps E83.42 Hypomagnesemia Office Visit 10/31/2020 2:00p [facility] M.D. Z01.810 Encounter for preprocedural [...] of colonic polyps Office Visit 10/07/2020 1:30p [facility] N20.0 Calculus of kidney D50.9 Iron deficiency anemia, unsp ecified E11.9 Type 2 diabetes mellitus wit hout complications E83.42 Hypomagnesemia K64.9 Unspecified hemorrhoids I25.10 Athscl heart disease of [place] coronary artery w/o ang pctrs I10 Essential (primary) hyperten rickie E78.00 Pure hypercholesterolemia, u nspecified Z85.46 Personal history of malignan t neoplasm of prostate Office Visit 08/26/2020 2:30p [facility] M.[facility]. N20.0 Calculus of [...] 02/03/2021 I25.10 Atherosclerotic hear t disease of [place] coronary artery without angina pectoris Clarice Scott [...] 11/26/2020 I25.10 Atherosclerotic hear t disease of [place] coronary artery without angina pectoris Clarice Scott [...] 11/04/2020 B18.2 Chronic viral hepatitis C Lab [facility] 10/31/2020 Z01.810 Encounter for preprocedural card iovascular examination Clarice Scott M.D. 10/31/2020 N20.0 Calculus of kidney Clarice kidd M.D. 10/31/2020 I25.10 Atherosclerotic hear t disease of [place] coronary artery without angina pectoris Clarice Scott M.D. 10/31/2020 I10 Essential (primary) hypertension Clarice Scott M.D. 10/31/2020 E11.9 Type 2 diabetes mellitus without complications Clarice Scott M.D. 10/31/2020 D50.9 Iron deficiency anemia, unspecif ied Clarice Scott M.D. 10/31/2020 E78.00 Pure hypercholesterolemia, unspe cified Clarice cSott M.D. 10/31/2020 M54.5 Low back pain Clarice [...] 10/07/2020 I25.10 Atherosclerotic hear t disease of [place] coronary artery without angina pectoris Clarice Scott [...] 08/26/2020 I25.10 Atherosclerotic hear t disease of [place] coronary artery without angina pectoris Clarice Scott M.D. 08/26/2020 I10 Essential (primary) hypertension Clarice Scott M.D. 08/26/2020 D50.9 Iron deficiency anemia, unspecif ied Clarice Scott M.D. 08/26/2020 E78.00 Pure hypercholesterolemia, unspe cified Clarice Scott M.D. Plan of Treatment Future Appointment(s):* 05/14/2021 10:40 am - Nurse #2 at [facility] * 05/14/2021 11:00 am - Clarice Scott M.D. at [facility] 02/03/2021 - Clarice Scott M.D.* B18.2 Chronic viral hepatitis C * I25.10 Atherosclerotic heart disease of [place] coronary artery without angina pectoris * I10 [...] ONSET HEPATITIS C Patient No tified 01/13/2021 [facility] Medical Practice [address] [id number] [phone]
--- OUTSIDE RECORDS SUMMARY | 2021-03-28 06:50 | CCD | Continuity of Care Document ---
Author Author Gualberto Scott M.D. Organization Unknown Address [address] [facility] [address] [place] [address] Phone [phone] Care Team Providers Care Hose Sprayer Name Role Phone Clarice Scott MD AUTM [phone] [facility] AUTM Carlos Miller MD AUTM Unavailable ReinCarlos ramirez MD AUTM [phone] Problems Active Problems Provider Date Kidney stone Clarice Scott M.D. Onset: 0 Type 2 diabetes mellitus lCarice Scott M.D. Onset: 05/15 Nausea Clarice Scott [...] 40mg Tablets 1 by mouth qhs 90tabs Calrice Scott M.D. Tadalafil 5mg Tablets take one [...] H/L Range Note Laboratory test finding 02/03/2021 [facility] jimenez rebollar Electronic Warfare Linguist: Dr Donte Schaefer [place], [place] [id number] [phone] Magnesium 1.4 mg/dL Low 1.8 - 2.4 1 Basic Metabolic Panel 02/03/2021 [facility] Electronic Warfare Linguist: [place] [address] [phone] Glucose 118 mg/dL High 74 - 99 [...] >= 60 mL/min >60 3 A1c 02/03/2021 [facility] Electronic Warfare Linguist: [place] [address] [phone] Hba1c 6.7 % High <5.7 4 Est Avg Glucose 146 mg/dL High 60 - 110 Complete Blood Count 02/03/2021 [facility] [facility] Electronic Warfare Linguist: Dr Donte Schaefer [place], [place] [id number] [phone] WBC 2.9 x10*3/UL Low 4.1 - 10.9 [...] 2.0 - 7.8 Coronavirus 2019 Nasopharygeal 12/26/[address] [address] [phone] Coronavirus 2019 Nasopharygeal ASSAY INFORMATIO <SEE N OTE> 6 [facility] [place] 12/09/[address] [address] [phone] Specimen Type (SEE NOTE) Normal . 7 Color Villar Normal . Size 3x2 mm Normal . 8 Weight 10 mg Normal . Composition (SEE NOTE) Normal . 9 CA Oxalate Dihy TNP Normal . Hydroxyapatite 70 % Normal . Carbonate Apatite TNP Normal . Ca Ox Monohydrate 30 % Normal . CA Phosphate TNP Normal . MG [place] Phos TNP Normal . Uric Acid TNP Normal . Ua Dihydrate TNP Normal . Amm Acid Urate TNP Normal . Na Acid Urate TNP Normal . 2.8 Dihydroxyadenine TNP Normal . Xanthine TNP Normal . CA [place] Phos TNP Normal . Cystine TNP Normal [...] Normal . 13 Laboratory test finding 12/09/[address] [address] [phone] Bedside Glucose 95 mg/dL Normal 80-115 Laboratory test finding 11/29/[address] [address] [phone] Urine Culture FULL REPORT IN L <SEE NOTE> Normal 14 Ua Routine 11/29/2020 [facility] nter [address] [place] [address] [phone] Appearance, Urine HAZY Normal Clear Color, Urine YELLOW Normal Yellow PH,Urine 7.0 units Normal 5.0-9.0 Specific [place] Urine Auto 1.012 Normal 1.002-1.035 Protein, Urine [...] Auto 2 /LPF Normal 0-1 A1c 11/26/2020 [facility] Electronic Warfare Linguist: Dr [place] [address] [phone] Hba1c 6.6 % High <5.7 15 Est Avg Glucose 143 mg/dL High 60 - 110 Laboratory test finding 11/26/2020 [facility] [address] [place] [address] [phone] Hepatitis B Surface Antibody NEGATIVE Normal Pos itive Hepatitis B Surface Antigen NEGATIVE Normal Negative Laboratory test finding 11/26/2020 [facility] [employer] [facility] Electronic Warfare Linguist: Dr Don[place] [address] [phone] Thyroid Stimulating Hormone 0.98 uIU/mL 0.3 6 - 3.74 Basic Metabolic Panel 11/26/2020 [facility] Electronic Warfare Linguist: Dr Don[place] [address] [phone] Glucose 159 mg/dL High 74 - 99 [...] mL/min >60 17 Laboratory test finding 11/26/2020 [facility] [employer] [facility] smooth, jimenez Electronic Warfare Linguist: Dr Don[place] [address] [phone] Magnesium 1.6 mg/dL Low 1.8 - 2.4 Complete Blood Count 11/26/2020 [facility] Electronic Warfare Linguist: Dr Don[place] [address] [phone] WBC 4.4 x10*3/UL 4.1 - 10.9 RBC [...] - 7.8 Hepatitis C Virus Genotype 11/12/[address] [address] [phone] Hepatitis C Virus Genotype 1a Normal . Comment For Hepc Genotype (SEE NOTE) Normal . 19 Hepatitis C Quant By PCR 11/04/[address] [address] [phone] Hepatitis C Quantitation [id number] IU/mL Normal . Hepatitis C log10 6.083 Normal . 20 Test Information: (SEE NOTE) Normal . 21 Laboratory test finding 10/31/[address] [address] [phone] Urine Culture FULL REPORT IN L <SEE NOTE> Normal 22 Liver Function Profile 10/31/2020 [facility] Electronic Warfare Linguist: [place] [address] [phone] Alk. Phosphatase 106 mg/dL 46 - 116 Total Bilirubin 0.3 mg/dL 0.2 - 1.0 Ast (Sgot) 46 U/L High 15 - 37 Alt (SGPT) 50 U/L 12 - 78 Albumin 3.4 g/dL 3.4 - 5.0 Total Protein 7.4 g/dL 6.4 - 8.2 Direct Bilirubin 0.1 mg/dL 0.0 - 0.2 A/G Ratio 0.85 CALC Low 1.00 - 1.90 Laboratory test finding 10/31/2020 [facility] [employer] [facility] Electronic Warfare Linguist: [place] [address] [phone] Magnesium 1.7 mg/dL Low 1.8 - 2.4 Laboratory test finding 10/31/2020 [facility] [address] [place] [address] [phone] Hepatitis C Virus Trudi Index > 11.0 INDEX High <0 .8 23 HCV Rna Randolph Qualitative Positive Abnormal Negative 24 Complete Blood Count 10/31/2020 [facility] [employer] Electronic Warfare Linguist: [place] [address] [phone] WBC 4.0 x10*3/UL Low 4.1 - 10.9 [...] x10*3/UL 2.0 - 7.8 Ua Routine 10/31/2020 [facility] nter [address] [place] [address] [phone] Appearance, Urine HAZY Normal Clear Color, Urine YELLOW Normal Yellow PH,Urine 7.0 units Normal 5.0-9.0 Specific [place] Urine Auto 1.011 Normal 1.002-1.035 Protein, Urine [...] /LPF Normal 0-1 PT & Aptt 10/31/2020 [facility] nter [address] [place], [place] [id number] [phone] Prothrombin Time 14.1 seconds High 12.5-14.3 Inr 1.07 Normal 26 Partial Thromboplastin Time 25.9 seconds Normal 24.2-38.5 Basic Metabolic Panel 10/31/2020 [facility] Electronic Warfare Linguist: [place] [address] [phone] Glucose 162 mg/dL High 74 - 99 [...] mL/min >60 29 Complete Blood Count 10/07/2020 [facility] [employer] [facility] Electronic Warfare Linguist: Dr Donte Schaefer [place], [place] [id number] [phone] WBC 5.0 x10*3/UL 4.1 - 10.9 30 [...] 2.0 - 7.8 Laboratory test finding 10/07/2020 [facility] Electronic Warfare Linguist: [place] [address] [phone] Magnesium 1.3 mg/dL Low 1.8 - 2.4 31 Basic Metabolic Panel 10/07/2020 [facility] Electronic Warfare Linguist: [place] [address] [phone] Glucose 129 mg/dL High 74 - 99 [...] mL/min >60 33 Istat Chem8+ Panel 10/01/2020 [facility] nter [address] [place] [address] [phone] iSTAT HCT 29.0 % Low 38.0-51.0 iSTAT Glucose 123 mg/dL High 70-105 iSTAT Sodium 139 mEq/L Normal 136-145 iSTAT Potassium 4.1 mEq/L Normal 3.5-5.1 iSTAT CA++ 5.0 mg/dL Normal 4.5-5.3 iSTAT Chloride 99 mEq/L Normal 98-109 iSTAT Co2 30.0 MM/L High 23.0-27.0 iSTAT BUN 12 mg/dL Normal 8-26 iSTAT Creatinine 1.1 mg/dL Normal 0.6-1.3 Laboratory test finding 10/01/2020 [facility] [address] [place] [address] [phone] Lipase 351 U/L Normal 73-393 Liver Profile 10/01/2020 [facility] nter [address] [place] [address] [phone] Ast/Sgot 27 U/L Normal 7-37 Alt/SGPT 30 U/L Normal 12-78 Alkaline Phosphatase 75 U/L Normal 45-117 Bilirubin,Total 0.2 mg/dL Normal 0.2-1.0 Bilirubin,Direct 0.2 mg/dL Normal 0.0-0.2 Total Protein 7.7 GM/DL Normal 6.4-8.2 Albumin 3.1 GM/DL Low 3.2-5.2 Albumin/Globulin Ratio 0.7 Normal CBC With Differential 10/01/2020 [facility] [address] [place] [address] [phone] White Blood Count 4.4 10 Normal 4.0-10.0 [...] 36.0-66.0 Lymph % 23.0 % Low 24.0-44.0 [place] % 11.7 % High 2.0-8.0 Eos % 2.7 % Normal 0.0-3.0 Baso % 0.5 % Normal 0.0-1.0 Immature Granulocyte % 0.5 % Normal 0-3.0 Nucleated Red Blood Cell % 0.0 % Normal 0-0 Neutrophils # 2.7 10 Normal 1.5-8.5 Lymph # 1.0 10 Low 1.5-5.0 [place] # 0.5 10 Normal 0.0-0.8 Eos # 0.1 10 Normal 0.0-0.5 Baso # 0.0 10 Normal 0.0-0.2 Laboratory test finding 10/01/2020 [place] [address] [phone] Lactic Acid Sepsis Protocol 1.4 mmol/L Normal 0.4- 2.0 34 Ua W/ Reflex To Culture 10/01/[address] [address] [phone] Appearance, Urine RFX HAZY Normal Clear Color, Urine RFX YELLOW Normal Yellow PH,Urine RFX 6.0 units Normal 5.0-9.0 Specific [place] Ur Auto RFX 1.016 Normal 1.002-1.035 Protein, [...] /LPF Normal 0-1 Complete Blood Count 08/26/2020 [facility] [employer] [facility] Electronic Warfare Linguist: [place] [address] [phone] WBC 4.5 x10*3/UL 4.1 - 10.9 RBC [...] 2.8 x10*3/UL 2.0 - 7.8 A1c 08/26/2020 [facility] Electronic Warfare Linguist: [place] [address] [phone] Hba1c 7.3 % High <5.7 35 Est Avg Glucose 163 mg/dL High 60 - 110 Laboratory test finding 08/26/2020 [facility] Electronic Warfare Linguist: [place] [address] [phone] Magnesium 1.5 mg/dL Low 1.8 - 2.4 36 Basic Metabolic Panel 08/26/2020 [facility] Electronic Warfare Linguist: [place] [address] [phone] Glucose 134 mg/dL High 74 - 99 [...] 60 mL/min >60 38 Lipid Profile 08/26/2020 [facility] Electronic Warfare Linguist: [place] [address] [phone] Cholesterol 114 mg/dL Low 131 - 200 [...] LITTLE GFR LEFT ESRD GFR <15 ON COMMUNICATIONS STRATEGIST 4 Lab Result Notes: Pre-Diabetes 5.7 - 6.4 % Diabetes = or > 6.5% 5 NOTE: RESULT VERIFIED. 6 ASSAY INFORMATION: Real Time RT-PCR NOTE: The COVID-19 assay has been cleared by the U.S. Food and Drug Administration under the Emergency Use Authorization (EUA). [facility] are designated as high complexity laboratories by the Clinical Laboratory Improvement Amendments of 1988(CLIA) and are qualified to perform this test. Not Detected 7 . Not provided 8 Multiple pieces received. D imensions of the largest piece reported. 9 . Percentage (Represents the % composition) 10 . Physician questions regarding [facility] contact [facility] at: [phone]. 11 . Calculi report will follow via computer, mail or property man delivery. 12 . This test was developed and its performance characteristics determined by [facility]. It has not been cleared or approved by the Food and Drug Administration. Performed at: [facility] [address] [place] [address] Dr Bhatia, [place], [place] [id number] Electronic Warfare Linguist: Cirilo Bautista MD, Phone: [phone] 13 . Photograph will follow under a [...] LITTLE GFR LEFT ESRD GFR <15 ON COMMUNICATIONS STRATEGIST 18 NOTE: RESULT VERIFIED. 19 . This test was developed and its performance characteristics determined by [facility]. It has not been cleared or approved by the U.S. Food and Drug Administration. . The FDA has determined that such clearance or approval is not necessary. This test is used for clinical purposes. It should not be regarded as investigational or for research. Performed at: [facility] [employer] [id number] Electronic Warfare Linguist: Odell Coe MD, Phone: [phone] 20 Result Units: log10 IU/mL 21 . The quantitative range of this assay is 15 IU/mL to 100 million IU/mL. Performed at: [facility] [id number] Electronic Warfare Linguist: Niki Meyer MD, Phone: [phone] FULL REPORT IN LAB NOTES (eC W and [employer]). NO GROWTH 23 This screening test for Hepa titis C Virus was above the 1.0 cutoff index value and will be sent to reference lab Laboratory [facility], [address] [place] [address], [facility] [address] for Hep C RNA RANDOLPH testing to confirm or exclude active Hepatitis C Virus infection. Screening test Positive samples with high index values (>11.0) usually (95%) confirm Positive, but <5 of every 100 samples with this result might be a false positive and Hep C RNA RANDOLPH testing will aid in patient management. 24 Positive: HCV RNA Detected Performed at: [facility] [employer] [id number] 61 Electronic Warfare Linguist: Odell Coe MD, Phone: [phone] 25 NOTE: RESULT VERIFIED. 26 THERAPUTIC HUMAN [...] LITTLE GFR LEFT ESRD GFR <15 ON COMMUNICATIONS STRATEGIST 30 NOTE: CBC VERIFIED 31 NOTE: RESULT VERIFIED. 32 100-125 mg/dL PRE-DIABET ES/FASTING >126 mg/dL DIABETES/FASTING 33 CHRONIC KIDNEY DISEASE STAGI NG PER NKF STAGE I & II GFR >= 60 NORMAL TO MILDLY DECREASED STAGE III GFR 30-59 MODERATELY DECREASED STAGE IV GFR 15-29 SEVERELY DECREASED STAGE V GFR <15 VERY LITTLE GFR LEFT ESRD GFR <15 ON COMMUNICATIONS STRATEGIST 34 Y/N query for Sepsis Lactate Rule: [...] LITTLE GFR LEFT ESRD GFR <15 ON COMMUNICATIONS STRATEGIST Procedures Date Code Description Status 12/31/2020 64534516 Colonoscopy Completed 11/26/2020 22006 Office/Outpatient Established Mo d MDM 30-39 Min Completed 10/31/2020 29592 Office/Outpatient Established Mo d MDM 30-39 Min Completed 10/31/2020 12416 EKG/Interpretation & Report Comp leted 10/07/2020 01325 Trans Care SRV W/I 14D Of DC, Co mm W/I 2 Dys Med Rec Completed 08/26/2020 08706 Office/Outpatient Established Mo d MDM 30-39 Min Completed Medical Devices Description No Information Available Encounters Type Date Location Provider Dx Diagnosis Office Visit 11/26/2020 2:30p [facility] PC[facility] Scott M.D. B18.2 Chronic viral [...] polyps E83.42 Hypomagnesemia Office Visit 10/31/2020 2:00p [facility]ollar M.D. Z01.810 Encounter for preprocedural [...] of colonic polyps Office Visit 10/07/2020 1:30p [facility] 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 N20.0 Calculus of [...] 02/03/2021 I25.10 Atherosclerotic hear t disease of [place] coronary artery without angina pectoris Clarice Scott [...] 11/26/2020 I25.10 Atherosclerotic hear t disease of [place] coronary artery without angina pectoris Clarice Scott [...] 11/04/2020 B18.2 Chronic viral hepatitis C Lab [facility] 10/31/2020 Z01.810 Encounter for preprocedural card iovascular examination Clarice Scott M.D. 10/31/2020 N20.0 Calculus of kidney Clarice kidd M.D. 10/31/2020 I25.10 Atherosclerotic hear t disease of [place] coronary artery without angina pectoris Clarice Scott [...] 10/07/2020 I25.10 Atherosclerotic hear t disease of [place] coronary artery without angina pectoris Clarice Scott [...] 08/26/2020 I25.10 Atherosclerotic hear t disease of [place] coronary artery without angina pectoris Clarice Scott M.D. 08/26/2020 I10 Essential (primary) hypertension Clarice Scott M.D. 08/26/2020 D50.9 Iron deficiency anemia, unspecif ied Clarice Scott M.D. 08/26/2020 E78.00 Pure hypercholesterolemia, unspe cified Clarice Scott M.D. Plan of Treatment Future Appointment(s):* 05/14/2021 10:40 am - Nurse #2 at [facility] * 05/14/2021 11:00 am - Clarice Scott M.D. at [facility] 02/03/2021 - Clarice Scott M.D.* B18.2 Chronic viral hepatitis C * I25.10 Atherosclerotic heart disease of [place] coronary artery without angina pectoris * I10 [...] ONSET HEPATITIS C Patient No tified 01/13/2021 [facility] Medical Practice [address] [id number] [phone]
--- OUTSIDE RECORDS SUMMARY | 2021-03-28 06:50 | CCD ---
Author Author Carlos Moyer MD [facility] Organization Carlos Moyer MD [facility] Address [address] [address] Phone Care Team Providers Care Radiological Engineer Name Role Phone Comfort BOWEN, CORIN, Carlos Jacome Unavailable [phone] Reason for Referral No Reason for Referral Recorded Problems Includes: Active, inactive, and resolved ProblemsNo Problems Recorded Plan of Treatment Future Appointments Date Time Location Provider 1 Year Follow-Up 01/07/2022 12:45PM Carlos Moyer MD [facility] Carlos Moyer MD, CORIN Assessments Includes: Assessments for all patient encounters Findings Encounter Date Long-term use of oral hypoglycemics NEW PATIENT WITH R EFERRAL with Carlos Moyer MD, FACS 01/08/2021 Instructions Instructions not supported for this document typeNo Instructions Recorded Medical Equipment - Implanted Devices Includes: Current and historical DevicesNo Medical Equipment Recorded Medications Includes: Current and historical Medications Current Medications (continue as prescribed) Losartan 25 mg Oral Tablet 01/08/2021 Provider: Diagnosis: metFORMIN HCl 500 MG Oral Tablet 01/08/2021 Provide r: Diagnosis: Adult Aspirin EC Low Strength 81 MG Oral Tablet Delayed Rele ase 01/08/2021 Provider: Diagnosis: Metoprolol 25 MG Oral Tablet 01/08/2021 Provider: Diagnosis: Atorvastatin 4 MG Oral Tablet 01/08/2021 Provider: Diagnosis: Tadalafil 5 MG Oral Tablet 01/08/2021 Provider: Diagnosis: Ferrous Fumarate 324 (106 Fe) MG Oral Tablet 01/08/2021 Provider: Diagnosis: Victoza 1.2 MG Oral Tablet 01/08/2021 Provider: Diagnosis: CVS Omeprazole 20 MG Oral Tablet Delayed Release Disintegrat ing 01/08/2021 Provider: Diagnosis: Medications Administered Includes: Administered Medications in patient's chartNo Administered Medications Recorded Vital Signs Includes: Vital Signs from 02/14/2020 through 02/13/2021No Vital Signs Recorded For Specified Dates Results Includes: Results from 02/14/2020 through 02/13/2021No Results Recorded For Specified Dates History of Present Illness History of Present Illness not supported for this document typeNo History of Present Illness Recorded Social History Description Last Updated No tobacco use 01/08/2021 Not using alcohol 01/08/2021 Not using drugs 01/08/2021 Previous smoking history 01/08/2021 Smoking status : Former smoker 01/08/2021 Tobacco non-user 01/08/2021 Procedures and Surgical History Surgical History Last Updated Surgical / procedural history Hernia, Broken ankle Medical History Includes: Medical History in patient's chart Description Last Updated Reported medical history Shoulder left bone spur, Her maggie, hepatitis C 01/08/2021 History of hyperlipidemia 01/08/2021 History of hypertension 01/08/2021 History of diabetes mellitus DX: [address] FBS:110 this morning 01/08/2021 Family History Includes: Family History in patient's chartNo Family History Recorded Review of Systems Review of Systems not supported for this document typeNo Review of Systems Recorded Mental Status Mental Status not supported for this document type Description Oriented to time, place, and person Functional Status Functional Status not supported for this document typeNo Functional Status Recorded Physical Exam Physical Exam not supported for this document typeNo Physical Exam Recorded Immunizations Includes: Immunizations in patient's chartNo Immunizations Recorded Allergies Includes: Active, inactive, and resolved AllergiesNo Known Allergies Encounters Includes: Encounters from 02/14/2020 through 02/13/2021 Encounter Provider Location Date Check-In Time Check-Out Time D iagnosis NEW PATIENT WITH REFERRAL Carlos Moyer MD, FACS Carlos Cox MD [facility] 01/08/2021 12:44PM 1:56PM Taking Medication Fo r Diabetes Long-term Use of Oral Hypoglycemics Insurance Includes: Active Insurance Policies Plan Name Member ID Group # Subscriber Relationship Effective Da linette 1 - [employer] (Medicare).-AUTHS NEEDED!!!! [id number] Gualberto dawn Self Advance Directives Includes: Current Advance DirectivesNo Advance Directives Recorded Health Concerns Includes: Active Health ConcernsNo Active Health Concerns Recorded Goals Includes: Active GoalsNo Active Goals Recorded Interventions Includes: Interventions for active GoalsNo Interventions Recorded Evaluations & Outcomes Includes: Evaluations & Outcomes for active GoalsNo Outcomes Recorded
--- OUTSIDE RECORDS SUMMARY | 2021-03-28 06:53 | CCD ---
Author Author [facility] Organization [facility] Address Unknown Phone Unavailable Care Team Providers Care Industrial Maintenance Manager Name Role Phone Jenna Guajardo MD Unavailable Unavailable Jenna Guajardo MD Unavailable Unavailable Jenna Guajardo MD Unavailable Unavailable Jenna Guajardo MD Unavailable Unavailable Jenna Guajardo MD Unavailable Unavailable Jenna Guajardo MD Unavailable Unavailable Jenna Guajardo MD Unavailable Unavailable Jenna Guajardo MD Unavailable Unavailable Jenna Guajardo MD Unavailable Unavailable Jenna Guajardo MD Unavailable Unavailable Jenna Guajardo MD Unavailable Unavailable Jenna Guajardo MD Unavailable Unavailable Sd SAENZ MD Unavailable Unavailable Sd SAENZ MD Unavailable Unavailable Sd SAENZ MD Unavailable Unavailable Sd SAENZ MD Unavailable Unavailable Sd SAENZ MD Unavailable Unavailable Sd SAENZ MD Unavailable Unavailable Sd SAENZ MD Unavailable Unavailable Sd SAENZ MD Unavailable Unavailable Sd SAENZ MD Unavailable Unavailable Sd SAENZ MD Unavailable Unavailable Sd SAENZ MD Unavailable Unavailable Sd SAENZ MD Unavailable Unavailable Sd SAENZ MD Unavailable Unavailable Sd SAENZ MD Unavailable Unavailable Sd SAENZ MD Unavailable Unavailable Sd SAENZ MD Unavailable Unavailable Sd SAENZ MD Unavailable Unavailable Sd SAENZ MD Unavailable Unavailable Sd SAENZ MD Unavailable Unavailable Sd SAENZ MD Unavailable Unavailable Sd SAENZ MD Unavailable Unavailable Sd SAENZ MD Unavailable Unavailable Sd SAENZ MD Unavailable Unavailable Sd SAENZ MD Unavailable Unavailable Sd SAENZ MD Unavailable Unavailable Sd SAENZ MD Unavailable Unavailable Sd SAENZ MD Unavailable Unavailable Sd SAENZ MD Unavailable Unavailable Sd SAENZ MD Unavailable Unavailable LETTYSd BAIRD MD Unavailable Unavailable LETTYSd Miramontes MD Unavailable Unavailable Sd SAENZ MD Unavailable Unavailable Sd SAENZ MD Unavailable Unavailable Sd SAENZ MD Unavailable Unavailable Sd SAENZ MD Unavailable Unavailable Sd SAENZ MD Unavailable Unavailable Sd SAENZ MD Unavailable Unavailable Sd SAENZ MD Unavailable Unavailable Sd SAENZ MD Unavailable Unavailable Sd SAENZ MD Unavailable Unavailable Sd SAENZ MD Unavailable Unavailable Sd SAENZ MD Unavailable Unavailable Sd SAENZ MD Unavailable Unavailable Sd SAENZ MD Unavailable Unavailable Sd SAENZ MD Unavailable Unavailable Sd SAENZ MD Unavailable Unavailable Sd SAENZ MD Unavailable Unavailable Sd SAENZ MD Unavailable Unavailable Sd SAENZ MD Unavailable Unavailable Sd SAENZ MD Unavailable Unavailable Sd SAENZ MD Unavailable Unavailable Sd SAENZ MD Unavailable Unavailable Sd SAENZ MD Unavailable Unavailable Sd SAENZ MD Unavailable Unavailable Sd SAENZ MD Unavailable Unavailable Sd SAENZ MD Unavailable Unavailable Sd SAENZ MD Unavailable Unavailable Sd SAENZ MD Unavailable Unavailable Sd SAENZ MD Unavailable Unavailable Sd SAENZ MD Unavailable Unavailable Sd SAENZ MD Unavailable Unavailable Sd SAENZ MD Unavailable Unavailable Sd SAENZ MD Unavailable Unavailable Sd SAENZ MD Unavailable Unavailable Sd SAENZ MD Unavailable Unavailable Sd SAENZ MD Unavailable Unavailable Sd SAENZ MD Unavailable Unavailable Sd SAENZ MD Unavailable Unavailable Sd SAENZ MD Unavailable Unavailable Sd SAENZ MD Unavailable Unavailable Sd SAENZ MD Unavailable Unavailable Sd SAENZ MD Unavailable Unavailable LETTY, Sd GUSTAFSON MD Unavailable Unavailable LETTY, Sd GUSTAFSON MD Unavailable Unavailable LETTY, Sd GUSTAFSON MD Unavailable Unavailable LETTY, Sd GUSTAFSON MD Unavailable Unavailable LETTY, Sd GUSTAFSON MD Unavailable Unavailable LETTY, Sd GUSTAFSON MD Unavailable Unavailable LETTY, Sd GUSTAFSON MD Unavailable Unavailable LETTY, Sd GUSTAFSON MD Unavailable Unavailable LETTY, Sd GUSTAFSON MD Unavailable Unavailable LETTY, Sd GUSTAFSON MD Unavailable Unavailable LETTY, Sd GUSTAFSON MD Unavailable Unavailable LETTY, Sd GUSTAFSON MD Unavailable Unavailable LETTY, Sd GUSTAFSON MD Unavailable Unavailable LETTY, Sd GUSTAFSON MD Unavailable Unavailable LETTY, Sd GUSTAFSON MD Unavailable Unavailable LETTY, Sd GUSTAFSON MD Unavailable Unavailable LETTY, Sd GUSTAFSON MD Unavailable Unavailable Charlebois, A Shameka RPA C Unavailable Unavailable Charlebois, A Shameka RPA C Unavailable Unavailable Charlebois, A Shameka RPA C Unavailable Unavailable Charlebois, A Shameka RPA C Unavailable Unavailable Charlebois, A Shameka RPA C Unavailable Unavailable Charlebois, A Shameka RPA C Unavailable Unavailable Charlebois, A Shameka RPA C Unavailable Unavailable Charlebois, A Shameka RPA C Unavailable Unavailable Charlebois, A Shameka RPA C Unavailable Unavailable Charlebois, A Shameka RPA C Unavailable Unavailable Charlebois, A Shameka RPA C Unavailable Unavailable Charlebois, A Shameka RPA C Unavailable Unavailable Charlebois, A Shameka RPA C Unavailable Unavailable Charlebois, A Shameka RPA C Unavailable Unavailable Charlebois, A Shameka RPA C Unavailable Unavailable Charlebois, A Shameka RPA C Unavailable Unavailable Charlebois, A Shameka RPA C Unavailable Unavailable Charlebois, A Shameka RPA C Unavailable Unavailable Charlebois, A Shameka RPA C Unavailable Unavailable Charlebois, A Shameka RPA C Unavailable Unavailable Charlebois, A Shameka RPA C Unavailable Unavailable Charlebois, A Shameka RPA C Unavailable Unavailable Charlebois, A Shameka RPA C Unavailable Unavailable Charlebois, A Shameka RPA C Unavailable Unavailable Charlebois, A Shameka RPA C Unavailable Unavailable Charlebois, A Shameka RPA C Unavailable Unavailable Charlebois, A Shameka RPA C Unavailable Unavailable Charlebois, A Shameka RPA C Unavailable Unavailable Charlebois, A Shameka RPA C Unavailable Unavailable Charlebois, A Shameka RPA C Unavailable Unavailable Charlebois, A Shameka RPA C Unavailable Unavailable Charlebois, A Shameka RPA C Unavailable Unavailable Charlebois, A Shameka RPA C Unavailable Unavailable NARANJO, M WAYLON PA Unavailable Unavailable NARANJO, M WAYLON PA Unavailable Unavailable NARANJO, M WAYLON PA Unavailable Unavailable NARANJO, M WAYLON PA Unavailable Unavailable NARANJO, M WAYLON PA Unavailable Unavailable NARANJO, M WAYLON PA Unavailable Unavailable NARANJO, M WAYLON PA Unavailable Unavailable NARANJO, M WAYLON PA Unavailable Unavailable NARANJO, M WAYLON PA Unavailable Unavailable NARANJO, M WAYLON PA Unavailable Unavailable Logan Tapia MD Unavailable Unavailable Logan Tapia MD Unavailable Unavailable Logan Tapia MD Unavailable Unavailable Logan Tapia MD Unavailable Unavailable Logan Tapia MD Unavailable Unavailable Logan Tapia MD Unavailable Unavailable Logan Tapia MD Unavailable Unavailable Logan Tapia MD Unavailable Unavailable Logan Tapia MD Unavailable Unavailable Logan Tapia MD Unavailable Unavailable Logan Tapia MD Unavailable Unavailable Logan Tapia MD Unavailable Unavailable Logan Tapia MD Unavailable Unavailable Logan Tapia MD Unavailable Unavailable JOSHUA MAST MD Unavailable Unavailable MAST, JOSHUA BOWEN Unavailable Unavailable MAST, JOSHUA BOWEN Unavailable Unavailable MAST, JOSHUA MD Unavailable Unavailable MAST, JOSHUA MD Unavailable Unavailable MAST, JOSHUA BOWEN Unavailable Unavailable MAST, JOSHUA MD Unavailable Unavailable MAST, JOSHUA BOWEN Unavailable Unavailable MAST, JOSHUA BOWEN Unavailable Unavailable MAST, JOSHUA BOWEN Unavailable Unavailable MAST, JOSHUA BOWEN Unavailable Unavailable MAST, JOSHUA BOWEN Unavailable Unavailable MAST, JOSHUA BOWEN Unavailable Unavailable MAST, JOSHUA MD Unavailable Unavailable MAST, JOSHUA MD Unavailable Unavailable MAST, JOSHUA MD Unavailable Unavailable MAST, JOSHUA MD Unavailable Unavailable MAST, JOSHUA MD Unavailable Unavailable MAST, JOSHUA MD Unavailable Unavailable MAST, JOSHUA BOWEN Unavailable Unavailable MAST, JOSHUA MD Unavailable Unavailable MAST, JOSHUA MD Unavailable Unavailable MAST, JOSHUA MD Unavailable Unavailable MAST, JOSHUA MD Unavailable Unavailable MAST, JOSHUA MD Unavailable Unavailable MAST, JOSHUA MD Unavailable Unavailable KEZIA, JOSHUA BOWEN Unavailable Unavailable KEZIA, JOSHUA BOWEN Unavailable Unavailable SHABANA TAYLOR MD Unavailable Unavailable SHABANA TAYLOR MD Unavailable Unavailable SHABANA TAYLOR MD Unavailable Unavailable Blessing Pineda MD Unavailable [phone] Blessing Pineda MD Unavailable [phone] Blessing Pineda MD Unavailable [phone] Blessing Pineda MD Unavailable [phone] Blessing Pineda MD Unavailable [phone] Blessing Pineda MD Unavailable + Blessing Pineda MD Unavailable + Blessing Pineda MD Unavailable [phone] Blessing Pineda MD Unavailable [phone] Blessing Pineda MD Unavailable [phone] NANETTE, J PAOLA Unavailable Unavailable NANETTE, J PAOLA Unavailable Unavailable NANETTE, J PAOLA Unavailable Unavailable NANETTE, J PAOLA Unavailable Unavailable NANETTE, J PAOLA Unavailable Unavailable NANETTE, J PAOLA Unavailable Unavailable NANETTE, J PAOLA Unavailable Unavailable NANETTE, J PAOLA Unavailable Unavailable NANETTE, J PAOLA Unavailable Unavailable NANETTE, J PAOLA Unavailable Unavailable NANETTE, J PAOLA Unavailable Unavailable NANETTE, J PAOLA Unavailable Unavailable NANETTE, J PAOLA Unavailable Unavailable NANETTE, J PAOLA Unavailable Unavailable NANETTE, J PAOLA Unavailable Unavailable NANETTE, J PAOLA Unavailable Unavailable NANETTE, J PAOLA Unavailable Unavailable Gerardo Watkins MD Unavailable [phone] Gerardo Watkins MD Unavailable [phone] Mac, A Lobito DO Unavailable Unavailable Mac, A Lobito DO Unavailable Unavailable Mac, A Lobito DO Unavailable Unavailable Mac, A Lobito DO Unavailable Unavailable Mac, A Lobito DO Unavailable Unavailable Mac, A Lobito DO Unavailable Unavailable Mac, A Lobito DO Unavailable Unavailable Mac, A Lobito DO Unavailable Unavailable Mac, A Lobito DO Unavailable Unavailable Mac, A Lobito DO Unavailable Unavailable Mac, A Lobito DO Unavailable Unavailable Mac, A Lobito DO Unavailable Unavailable Mac, A Lobito DO Unavailable Unavailable Erazo, M Dorina AIRBRUSH ARTIST PHOTOGRAPHY Unavailable Unavailable Erazo, M Dorina AIRBRUSH ARTIST PHOTOGRAPHY Unavailable Unavailable Erazo, M Dorina AIRBRUSH ARTIST PHOTOGRAPHY Unavailable Unavailable Erazo, M Dorina AIRBRUSH ARTIST PHOTOGRAPHY Unavailable Unavailable Erazo, M Dorina AIRBRUSH ARTIST PHOTOGRAPHY Unavailable Unavailable Erazo, M Dorina AIRBRUSH ARTIST PHOTOGRAPHY Unavailable Unavailable Erazo, M Dorina AIRBRUSH ARTIST PHOTOGRAPHY Unavailable Unavailable Erazo, M Dorina AIRBRUSH ARTIST PHOTOGRAPHY Unavailable Unavailable Erazo, M Dorina AIRBRUSH ARTIST PHOTOGRAPHY Unavailable Unavailable Ashia ErazoP Unavailable Unavailable ANTECOL, Francisca GUSTAFSON MD Unavailable Unavailable ANTECOL, Francisca GUSTAFSON MD Unavailable Unavailable ANTECOL, Francisca GUSTAFSON MD Unavailable Unavailable ANTECOL, Francisca GUSTAFSON MD Unavailable Unavailable ANTECOL, Francisca GUSTAFSON MD Unavailable Unavailable ANTECOL, Francisca GUSTAFSON MD Unavailable Unavailable ANTECOL, Francisca GUSTAFSON MD Unavailable Unavailable ANTECOL, Francisca GUSTAFSON MD Unavailable Unavailable ANTECOL, Francisca GUSTAFSON MD Unavailable Unavailable ANTECOL, Francisca GUSTAFSON MD Unavailable Unavailable ANTECOL, Francisca GUSTAFSON MD Unavailable Unavailable ANTECOL, Francisca GUSTAFSON MD Unavailable Unavailable ANTECOL, Francisca GUSTAFSON MD Unavailable Unavailable ANTECOL, Francisca GUSTAFSON MD Unavailable Unavailable ANTECOL, Francisca GUSTAFSON MD Unavailable Unavailable ANTECOL, Francisca GUSTAFSON MD Unavailable Unavailable ANTECOL, Francisca GUSTAFSON MD Unavailable Unavailable ANTECOL, Francisca GUSTAFSON MD Unavailable Unavailable ANTECOL, Francisca GUSTAFSON MD Unavailable Unavailable ANTECOL, Francisca GUSTAFSON MD Unavailable Unavailable ANTECOL, Francisca GUSTAFSON MD Unavailable Unavailable ANTECOL, Francisca GUSTAFSON MD Unavailable Unavailable ANTECOL, Francisca GUSTAFSON MD Unavailable Unavailable ANTECOL, Francisca GUSTAFSON MD Unavailable Unavailable ANTECOL, Francisca GUSTAFSON MD Unavailable Unavailable ANTECOL, Francisca GUSTAFSON MD Unavailable Unavailable ANTECOL, Francisca GUSTAFSON MD Unavailable Unavailable ANTECOL, Francisca GUSTAFSON MD Unavailable Unavailable ANTECOL, Francisca GUSTAFSON MD Unavailable Unavailable ANTECOL, Francisca GUSTAFSON MD Unavailable Unavailable ANTECOL, Francisca GUSTAFSON MD Unavailable Unavailable ANTECOL, Francisca GUSTAFSON MD Unavailable Unavailable ANTECOL, Francisca GUSTAFSON MD Unavailable Unavailable ANTECOL, Francisca GUSTAFSON MD Unavailable Unavailable ANTECOL, Francisca GUSTAFSON MD Unavailable Unavailable ANTECOL, Francisca GUSTAFSON MD Unavailable Unavailable ANTECOL, Francisca GUSTAFSON MD Unavailable Unavailable ANTECOL, Francisca GUSTAFSON MD Unavailable Unavailable ANTECOL, Francisca GUSTAFSON MD Unavailable Unavailable ANTECOL, Francisca GUSTAFSON MD Unavailable Unavailable ANTECOL, Francisca GUSTAFSON MD Unavailable Unavailable ANTECOL, Francisca GUSTAFSON MD Unavailable Unavailable ANTECOL, Francisca GUSTAFSON MD Unavailable Unavailable ANTECOL, Francisca GUSTAFSON MD Unavailable Unavailable ANTECOL, Francisca GUSTAFSON MD Unavailable Unavailable ANTECOL, Francisca GUSTAFSON MD Unavailable Unavailable ANTECOL, Francisca GUSTAFSON MD Unavailable Unavailable ANTECOL, Francisca GUSTAFSON MD Unavailable Unavailable ANTECOL, Francisca GUSTAFSON MD Unavailable Unavailable ANTECOL, Francisca GUSTAFSON MD Unavailable Unavailable ANTECOL, Francisca GUSTAFSON MD Unavailable Unavailable ANTECOL, Francisca GUSTAFSON MD Unavailable Unavailable ANTECOL, Francisca GUSTAFSON MD Unavailable Unavailable ANTECOL, Francisca GUSTAFSON MD Unavailable Unavailable Buscemi, Jd Odell MD Unavailable Unavailable Buscemi, Jd Odell MD Unavailable Unavailable BuscemiJd MD Unavailable Unavailable Buscemi, Jd Odell MD Unavailable Unavailable Buscemi, Jd Odell MD Unavailable Unavailable Buscemi, Jd Melchiore MD Unavailable Unavailable Buscemi, Jd Odell MD Unavailable Unavailable Buscemi, Jd Odell MD Unavailable Unavailable Buscemi, Jd Odell MD Unavailable Unavailable Buscemi, Jd Odell MD Unavailable Unavailable Buscemi, Jd Odell MD Unavailable Unavailable Buscemi, Jd Odell MD Unavailable Unavailable Buscemi, Jd Odell MD Unavailable Unavailable Buscemi, Jd Odell MD Unavailable Unavailable Buscemi, Jd Odell MD Unavailable Unavailable Buscemi, Jd Odell MD Unavailable Unavailable Buscemi, Jd Odell MD Unavailable Unavailable Buscemi, Jd Odell MD Unavailable Unavailable Buscemi, Jd Odell MD Unavailable Unavailable Buscemi, Jd Odell MD Unavailable Unavailable Buscemi, Jd Odell MD Unavailable Unavailable Buscemi, Jd Odell MD Unavailable Unavailable Buscemi, Jd Odell MD Unavailable Unavailable Buscemi, Jd Odell MD Unavailable Unavailable Buscemi, Jd Odell MD Unavailable Unavailable Buscemi, Jd Odell MD Unavailable Unavailable Buscemi, Jd Odell MD Unavailable Unavailable Buscemi, Jd Odell MD Unavailable Unavailable Buscemi, Jd Odell MD Unavailable Unavailable Buscemi, Jd Odell MD Unavailable Unavailable VANWAGNER, JOSE DO Unavailable Unavailable VANWAGNER, JOSE DO Unavailable Unavailable VANWAGNER, JOSE DO Unavailable Unavailable VANWAGNER, JOSE DO Unavailable Unavailable VANWAGNER, JOSE DO Unavailable Unavailable VANWAGNER, JOSE DO Unavailable Unavailable VANWAGNER, JOSE DO Unavailable Unavailable VANWAGNER, JOSE DO Unavailable Unavailable VANWAGNER, JOSE DO Unavailable Unavailable VANWAGNER, JOSE DO Unavailable Unavailable VANWAGNER, JOSE DO Unavailable Unavailable VANWAGNER, JOSE DO Unavailable Unavailable VANWAGNER, JOSE DO Unavailable Unavailable VANWAGNER, JOSE DO Unavailable Unavailable VANWAGNER, JOSE DO Unavailable Unavailable VANWAGNER, JOSE DO Unavailable Unavailable Stepan Scott MD Unavailable Unavailable Stepan Scott MD Unavailable Unavailable Stepan Scott MD Unavailable Unavailable Stepan Scott MD Unavailable Unavailable Stepan Scott MD Unavailable Unavailable Stepan Scott MD Unavailable Unavailable Stepan Scott MD Unavailable Unavailable Stepan Scott MD Unavailable Unavailable Stepan Scott MD Unavailable Unavailable Stepan Scott MD Unavailable Unavailable Stepan Scott MD Unavailable Unavailable Stepan Scott MD Unavailable Unavailable Stepan Scott MD Unavailable Unavailable Stepan Scott MD Unavailable Unavailable Stepan Scott MD Unavailable Unavailable Stepan Scott MD Unavailable Unavailable Stepan Scott MD Unavailable Unavailable Stepan Scott MD Unavailable Unavailable Stepan Scott MD Unavailable Unavailable Stepan Scott MD Unavailable Unavailable Stepan Scott MD Unavailable Unavailable Stepan Scott MD Unavailable Unavailable Stepan Scott MD Unavailable Unavailable Stepan Scott MD Unavailable Unavailable Stepan Scott MD Unavailable Unavailable Stepan Scott MD Unavailable Unavailable Stepan Scott MD Unavailable Unavailable Stepan Scott MD Unavailable Unavailable Stepan Scott MD Unavailable Unavailable Stepan Scott MD Unavailable Unavailable Stepan Scott MD Unavailable Unavailable Stepan Scott MD Unavailable Unavailable Stepan Scott MD Unavailable Unavailable Stepan Scott MD Unavailable Unavailable Stepan Scott MD Unavailable Unavailable Stepan Scott MD Unavailable Unavailable Stepan Scott MD Unavailable Unavailable Stepan Scott MD Unavailable Unavailable Stepan Scott MD Unavailable Unavailable Stepan Scott MD Unavailable Unavailable Stepan Scott MD Unavailable Unavailable ABHILASH BASURTO MD Unavailable Unavailable ABHILASH BASURTO MD Unavailable Unavailable ABHILASH BASURTO MD Unavailable Unavailable ABHILASH BASURTO MD Unavailable Unavailable ABHILASH BASURTO MD Unavailable Unavailable ABHILASH BASURTO MD Unavailable Unavailable ABHILASH BASURTO MD Unavailable Unavailable ABHILASH BASURTO MD Unavailable Unavailable ABHILASH BASURTO MD Unavailable Unavailable Jenna Mai JR, MD Unavailable Unavailable Jenna Mai JR, MD Unavailable Unavailable Jenna Mai JR, MD Unavailable Unavailable Jenna Mai JR, MD Unavailable Unavailable Jenna Mai JR, MD Unavailable Unavailable Jenna Mai JR, MD Unavailable Unavailable Jenna Mai JR, MD Unavailable Unavailable Jenna Mai JR, MD Unavailable Unavailable Jenna Mai JR, MD Unavailable Unavailable Jenna Mai JR, MD Unavailable Unavailable Jenna Mai JR, MD Unavailable Unavailable Jenna Mai JR, MD Unavailable Unavailable Jenna Mai JR, MD Unavailable Unavailable Jenna Mai JR, MD Unavailable Unavailable Jenna Mai JR, MD Unavailable Unavailable Jenna Mai JR, MD Unavailable Unavailable Jenna Mai JR, MD Unavailable Unavailable Jenna Mai JR, MD Unavailable Unavailable Jenna Mai JR, MD Unavailable Unavailable MIKAYLA, A COURTNEY PA Unavailable Unavailable MIKAYLA, A COURTNEY PA Unavailable Unavailable MIKAYLA, A COURTNEY PA Unavailable Unavailable MIKAYLA, A COURTNEY PA Unavailable Unavailable MIKAYLA, A COURTNEY PA Unavailable Unavailable MIKAYLA, A COURTNEY PA Unavailable Unavailable MIKAYLA, A COURTNEY PA Unavailable Unavailable MIKAYLA, A COURTNEY PA Unavailable Unavailable MIKAYLA, A COURTNEY PA Unavailable Unavailable MIKAYLA, A COURTNEY PA Unavailable Unavailable MIKAYLA, A COURTNEY PA Unavailable Unavailable MIKAYLA, A COURTNEY PA Unavailable Unavailable MIKAYLA, A COURTNEY PA Unavailable Unavailable MIKAYLA, A COURTNEY PA Unavailable Unavailable MIKAYLA, A COURTNEY PA Unavailable Unavailable MIKAYLA, A COURTNEY PA Unavailable Unavailable MIKAYLA, A COURTNEY PA Unavailable Unavailable MIKAYLA, A COURTNEY PA Unavailable Unavailable PEARL, B NAJMA BOWEN Unavailable Unavailable PEARL, B NAJMA BOWEN Unavailable Unavailable PEARL, B NAJMA BOWEN Unavailable Unavailable PEARL, B NAJMA BOWEN Unavailable Unavailable PEARL, B NAJMA BOWEN Unavailable Unavailable PEARL, B NAJMA BOWEN Unavailable Unavailable PEARL, B NAJMA BOWEN Unavailable Unavailable PEARL, B NAJMA BOWEN Unavailable Unavailable PEARL, B NAJMA BOWEN Unavailable Unavailable PEARL, B NAJMA BOWEN Unavailable Unavailable PEARL, B NAJMA BOWEN Unavailable Unavailable PEARL, B NAJMA BOWEN Unavailable Unavailable PEARL, B NAJMA BOWEN Unavailable Unavailable PEARL, B NAJMA BOWEN Unavailable Unavailable PEARL, B NAJMA BOWEN Unavailable Unavailable PEARL, B NAJMA BOWEN Unavailable Unavailable PEARL, B NAJMA BOWEN Unavailable Unavailable PEARL, B NAJMA BOWEN Unavailable Unavailable PEARL, B NAJMA BOWEN Unavailable Unavailable PEARL, B NAJMA BOWEN Unavailable Unavailable PEARL, B NAJMA BOWEN Unavailable Unavailable PEARL, B NAJMA BOWEN Unavailable Unavailable PEARL, B NAJMA BOWEN Unavailable Unavailable PEARL, B NAJMA BOWEN Unavailable Unavailable PEARL, B NAJMA BOWEN Unavailable Unavailable PEARL, B NAJMA BOWEN Unavailable Unavailable PEARL, B NAJMA BOWEN Unavailable Unavailable PEARL, B NAJMA BOWEN Unavailable Unavailable PEARL, B NAJMA BOWEN Unavailable Unavailable Almanza Stringer, Kylah Gustafson MD, FACS Unavailable Unavailable Almanza Stringer, Kylah Gustafson MD, FACS Unavailable Unavailable Almanza Stringer, Kylah Gustafson MD, FACS Unavailable Unavailable Almanza Stringer, Kylah Gustafson MD, FACS Unavailable Unavailable Almanza Stringer, Kylah Gustafson MD, FACS Unavailable Unavailable Almanza Stringer, Kylah Gustafson MD, FACS Unavailable Unavailable Almanza Stringer, Kylah Gustafson MD, FACS Unavailable Unavailable Almanza Stringer, Kylah Gustafson MD, FACS Unavailable Unavailable Almanza Stringer, Kylah Gustafson MD, FACS Unavailable Unavailable Almanza Stringer, Kylah Gustafson MD, FACS Unavailable Unavailable Almanza Stringer, Kylah Gustafson MD, FACS Unavailable Unavailable Almanza Stringer, Kylah Gustafson MD, FACS Unavailable Unavailable Almanza Stringer, Kylah Gustafson MD, FACS Unavailable Unavailable Almanza Stringer, Kylah Gustafson MD, FACS Unavailable Unavailable Almanza Stringer, Kylah Gustafson MD, FACS Unavailable Unavailable Almanza Stringer, Kylah Gustafson MD, FACS Unavailable Unavailable Almanza Stringer, Kylah Gustafson MD, FACS Unavailable Unavailable Almanza Stringer, Kylah Gustafson MD, FACS Unavailable Unavailable Almanza Stringer, Kylah Gustafson MD, FACS Unavailable Unavailable Almanza Stringer, Kylah Gustafson MD, FACS Unavailable Unavailable Almanza Stringer, Kylah Gustafson MD, FACS Unavailable Unavailable Almanza Stringer, Kylah Gustafson MD, FACS Unavailable Unavailable Almanza Stringer, Kylah Gustafson MD, FACS Unavailable Unavailable Almanza Stringer, Kylah Gustafson MD, FACS Unavailable Unavailable Almanza Stringer, Kylah Gustafson MD, FACS Unavailable Unavailable Almanza Stringer, Kylah Gustafson MD, FACS Unavailable Unavailable Almanza Stringer, Kylah Gustafson MD, FACS Unavailable Unavailable Almanza Stringer, Kylah Gustafson MD, FACS Unavailable Unavailable Almanza Stringer, Kylah Gustafson MD, FACS Unavailable Unavailable Almanza Stringer, Kylah Gustafson MD, FACS Unavailable Unavailable Almanza Stringer, Kylah Gustafson MD, FACS Unavailable Unavailable Almanza Stringer, Kylah Gustafson MD, FACS Unavailable Unavailable Almanza Stringer, Kylah Gustafson MD, FACS Unavailable Unavailable Almanza Stringer, Kylah Gustafson MD, FACS Unavailable Unavailable Almanza Stringer, Kylah Gustafson MD, FACS Unavailable Unavailable Almanza Stringer, Kylah Gustafson MD, FACS Unavailable Unavailable Almanza Stringer, Kylah Gustafson MD, FACS Unavailable Unavailable Almanza Stringer, Kylah Gustafson MD, FACS Unavailable Unavailable Almanza Stringer, Kylah Gustafson MD, FACS Unavailable Unavailable Sd Leiva MD Unavailable Unavailable Sd Leiva MD Unavailable Unavailable JENNIFER, Renea PHILLIPS MD Unavailable Unavailable JENNIFER, Renea PHILLIPS MD Unavailable Unavailable JENNIFER, Renea PHILLIPS MD Unavailable Unavailable JENNIFER, Renea PHILLIPS MD Unavailable Unavailable JENNIFER, Renea PHILLIPS MD Unavailable Unavailable JENNIFER, Renea PHILLIPS MD Unavailable Unavailable JENNIFER, Renea PHILLIPS MD Unavailable Unavailable JENNIFER, Renea PHILLIPS MD Unavailable Unavailable JENNIFER, Renea PHILLIPS MD Unavailable Unavailable JENNIFER, K JACQUELINE MD Unavailable Unavailable JENNIFER, K JACQUELINE MD Unavailable Unavailable JENNIFER, K JACQUELINE MD Unavailable Unavailable JENNIFER, K JACQUELINE MD Unavailable Unavailable JENNIFER, K JACQUELINE MD Unavailable Unavailable JENNIFER, K JACQUELINE MD Unavailable Unavailable JENNIFER, K JACQUELINE MD Unavailable Unavailable JENNIFER, K JACQUELINE MD Unavailable Unavailable JENNIFER, K JACQUELINE MD Unavailable Unavailable JENNIFER, K JACQUELINE MD Unavailable Unavailable JENNIFER, K JACQUELINE MD Unavailable Unavailable JENNIFER, K JACQUELINE MD Unavailable Unavailable JENNIFER, K JACQUELINE MD Unavailable Unavailable JENNIFER, K JACQUELINE MD Unavailable Unavailable JENNIFER, K JACQUELINE MD Unavailable Unavailable JENNIFER, K JACQUELINE MD Unavailable Unavailable JENNIFER, K JACQUELINE MD Unavailable Unavailable JENNIFER, K JACQUELINE MD Unavailable Unavailable JENNIFER, K JACQUELINE MD Unavailable Unavailable JENNIFER, K JACQUELINE MD Unavailable Unavailable JENNIFER, K JACQUELINE MD Unavailable Unavailable JENNIFER, K JACQUELINE MD Unavailable Unavailable JENNIFER, K JACQUELINE MD Unavailable Unavailable JENNIFER, K JACQUELINE MD Unavailable Unavailable JENNIFER, K JACQUELINE MD Unavailable Unavailable JENNIFER, K JACQUELINE MD Unavailable Unavailable JENNIFER, K JACQUELINE MD Unavailable Unavailable JENNIFER, K JACQUELINE MD Unavailable Unavailable JENNIFER, K JACQUELINE MD Unavailable Unavailable JENNIFER, K JACQUELINE MD Unavailable Unavailable JENNIFER, K JACQUELINE MD Unavailable Unavailable JENNIFER, K JACQUELINE MD Unavailable Unavailable JENNIFER, K JACQUELINE MD Unavailable Unavailable JENNIFER, K JACQUELINE MD Unavailable Unavailable JENNIFER, K JACQUELINE MD Unavailable Unavailable JENNIFER, K JACQUELINE MD Unavailable Unavailable JENNIFER, K JACQUELINE MD Unavailable Unavailable JENNIFER, K JACQUELINE MD Unavailable Unavailable JENNIFER, K JACQUELINE MD Unavailable Unavailable JENNIFER, K JACQUELINE MD Unavailable Unavailable JENNIFER, K JACQUELINE MD Unavailable Unavailable JENNIFER, K JACQUELINE MD Unavailable Unavailable JENNIFER, K JACQUELINE MD Unavailable Unavailable JENNIFER, K JACQUELINE MD Unavailable Unavailable JENNIFER, K JACQUELINE MD Unavailable Unavailable AMARA, AB COREY RPA-C Unavailable Unavailable AMARA, AB COREY RPA-C Unavailable Unavailable AMARA, AB COREY RPA-C Unavailable Unavailable AMARA, AB COREY RPA-C Unavailable Unavailable AMARA, AB COREY RPA-C Unavailable Unavailable AMARA, AB COREY RPA-C Unavailable Unavailable AMARA, AB COREY RPA-C Unavailable Unavailable AMARA, AB COREY RPA-C Unavailable Unavailable AMARA, AB COREY RPA-C Unavailable Unavailable AMARAAB RUBIO RPA-C Unavailable Unavailable AMARAAB RUBIO RPA-C Unavailable Unavailable VenicealkJenna hess MD Unavailable Unavailable Conjalka, Jenna Carrillo MD Unavailable Unavailable Conjalka, Jenna Carrillo MD Unavailable Unavailable Conjalka, Jenna Carrillo MD Unavailable Unavailable ConjalkaJenna MD Unavailable Unavailable ConjalkaJenna MD Unavailable Unavailable ConjalkaJenna MD Unavailable Unavailable Conjalka, Jenna Carrillo MD Unavailable Unavailable Conjalka, Jenna Carrillo MD Unavailable Unavailable Conjalka, Jenna Carrillo MD Unavailable Unavailable Conjalka, Jenna Carrillo MD Unavailable Unavailable ConjalkaJenna MD Unavailable Unavailable VenicealkaJenna MD Unavailable Unavailable Kylah Byrne MD Unavailable Unavailable Kylah Byrne MD Unavailable Unavailable Kylah Byrne MD Unavailable Unavailable Ashia Scott MD Unavailable Unavailable Ashia Scott MD Unavailable Unavailable Ashia Scott MD Unavailable Unavailable Ashia Scott MD Unavailable Unavailable Ashia Scott MD Unavailable Unavailable Ashia Scott MD Unavailable Unavailable Ashia Scott MD Unavailable Unavailable Ashia Scott MD Unavailable Unavailable Ashia Scott MD Unavailable Unavailable Ashia Scott MD Unavailable Unavailable Ashia Scott MD Unavailable Unavailable Ashia Scott MD Unavailable Unavailable Ashia Scott MD Unavailable Unavailable Ashia Scott MD Unavailable Unavailable Ashia Scott MD Unavailable Unavailable Ashia Scott MD Unavailable Unavailable Ashia Scott MD Unavailable Unavailable Ashia Scott MD Unavailable Unavailable Ashia Scott MD Unavailable Unavailable Ashia Scott MD Unavailable Unavailable Ashia Scott MD Unavailable Unavailable Ashia Scott MD Unavailable Unavailable Ashia Scott MD Unavailable Unavailable Ashia Scott MD Unavailable Unavailable Ashia Scott MD Unavailable Unavailable Ashia Scott MD Unavailable Unavailable Ashia Scott MD Unavailable Unavailable Ashia Scott MD Unavailable Unavailable Ashia Scott MD Unavailable Unavailable Ashia Scott MD Unavailable Unavailable Ashia Scott MD Unavailable Unavailable Ashia Scott MD Unavailable Unavailable TylerAshia MD Unavailable Unavailable TylerAshia MD Unavailable Unavailable TylerAshia MD Unavailable Unavailable TylerAshia MD Unavailable Unavailable TylerAshia MD Unavailable Unavailable TylerAshia MD Unavailable Unavailable TylerAshia MD Unavailable Unavailable TylerAshia pichardo MD Unavailable Unavailable TylerAshia MD Unavailable Unavailable Ashia Scott MD Unavailable Unavailable TylerAshia MD Unavailable Unavailable TylerAshia MD Unavailable Unavailable TylerAshia MD Unavailable Unavailable TylerAshia MD Unavailable Unavailable TylerAshia MD Unavailable Unavailable TylerAshia MD Unavailable Unavailable TylerAshia MD Unavailable Unavailable TylerAshia heart MD Unavailable Unavailable TylerAshia MD Unavailable Unavailable TylerAshia MD Unavailable Unavailable Ashia Scott MD Unavailable Unavailable Ashia Scott MD Unavailable Unavailable Ashia Scott MD Unavailable Unavailable Ashia Scott MD Unavailable Unavailable Ashia Scott MD Unavailable Unavailable Ashia Scott MD Unavailable Unavailable Ashia Scott MD Unavailable Unavailable Ashia Scott MD Unavailable Unavailable Ashia Scott MD Unavailable Unavailable Ashia Scott MD Unavailable Unavailable Ashia Scott MD Unavailable Unavailable Ashia Scott MD Unavailable Unavailable Ashia Scott MD Unavailable Unavailable Ashia Scott MD Unavailable Unavailable Ashia Scott MD Unavailable Unavailable Ashia Scott MD Unavailable Unavailable Ashia Scott MD Unavailable Unavailable Ashia Scott MD Unavailable Unavailable Ashia Scott MD Unavailable Unavailable Ashia Scott MD Unavailable Unavailable Ashia Scott MD Unavailable Unavailable Ashia Scott MD Unavailable Unavailable Ashia Scott MD Unavailable Unavailable Ashia Scott MD Unavailable Unavailable Ashia Scott MD Unavailable Unavailable Ashia Scott MD Unavailable Unavailable Ashia Scott MD Unavailable Unavailable Ashia Scott MD Unavailable Unavailable Ashia Scott MD Unavailable Unavailable TylerAshia heart MD Unavailable Unavailable TylerAshiaie MD Unavailable Unavailable Ashia Scott MD Unavailable Unavailable LANDON, L AMANDO PA Unavailable Unavailable LANDON, L AMANDO PA Unavailable Unavailable LANDON, L AMANDO PA Unavailable Unavailable LANDON, L AMANDO PA Unavailable Unavailable LANDON, L AMANDO PA Unavailable Unavailable LANDON, L AMANDO PA Unavailable Unavailable LANDON, L AMANDO PA Unavailable Unavailable LANDON, L AMANDO PA Unavailable Unavailable LANDON, L AMANDO PA Unavailable Unavailable LANDON, L AMANDO PA Unavailable Unavailable LANDON, L AMANDO PA Unavailable Unavailable LANDON, L AMANDO PA Unavailable Unavailable LANDON, L AMANDO PA Unavailable Unavailable LANDON, L AMANDO PA Unavailable Unavailable LANDON, L AMANDO PA Unavailable Unavailable LANDON, L AMANDO PA Unavailable Unavailable NORDDANIEL Alves, E TANIA BOWEN Unavailable Unavailable NORDBERG , Min MARIN MD Unavailable Unavailable NORDBERG , E TANIA BOWEN Unavailable Unavailable NORDBERG , E TANIA BOWEN Unavailable Unavailable NORDBERG Jr, E TANIA BOWEN Unavailable Unavailable NORDBERG Jr, E TANIA BOWEN Unavailable Unavailable NORDBERG , E TANIA BOWEN Unavailable Unavailable NORDBERG , E TANIA BOWEN Unavailable Unavailable NORDBERG , E TANIA BOWEN Unavailable Unavailable NORDBERG , Min MARIN MD Unavailable Unavailable NORDBERG , E TANIA BOWEN Unavailable Unavailable NORDBERG Jr, E TANIA MD Unavailable Unavailable NORDBERG , E TANIA BOWEN Unavailable Unavailable Neri TRUJILLO MD Unavailable Unavailable Neri TRUJILLO MD Unavailable Unavailable Neri TRUJILLO MD Unavailable Unavailable Neri TRUJILLO MD Unavailable Unavailable Neri TRUJILLO MD Unavailable Unavailable Nrei TRUJILLO MD Unavailable Unavailable Neri TRUJILLO MD Unavailable Unavailable Neri TRUJILLO MD Unavailable Unavailable Neri TRUJILLO MD Unavailable Unavailable Neri TRUJILLO MD Unavailable Unavailable LISBET ST MD Unavailable Unavailable LISBET ST MD Unavailable Unavailable LISBET ST MD Unavailable Unavailable LISBET ST MD Unavailable Unavailable LISBET ST MD Unavailable Unavailable LISBET ST MD Unavailable Unavailable LISBET ST MD Unavailable Unavailable LISBET ST MD Unavailable Unavailable LISBET ST MD Unavailable Unavailable LISBET ST MD Unavailable Unavailable LISBET ST MD Unavailable Unavailable LISBET ST MD Unavailable Unavailable LISBET ST MD Unavailable Unavailable LISBET ST MD Unavailable Unavailable LISBET ST MD Unavailable Unavailable Neri DE LEON MD Unavailable Unavailable Neri DE LEON MD Unavailable Unavailable Neri DE LEON MD Unavailable Unavailable MOISES, J EVELIO BOWEN Unavailable Unavailable MOISES, J EVELIO BOWEN Unavailable Unavailable MOISES, J EVELIO BOWEN Unavailable Unavailable MOISES, J EVELIO BOWEN Unavailable Unavailable MOISES, J EVELIO BOWEN Unavailable Unavailable MOISES, J EVELIO BOWEN Unavailable Unavailable MOISES, J EVELIO BOWEN Unavailable Unavailable MOISES, J EVELIO BOWEN Unavailable Unavailable MOISES, J EVELIO BOWEN Unavailable Unavailable MOISES, J EVELIO BOWEN Unavailable Unavailable MOISES, J EVELIO BOWEN Unavailable Unavailable MOISES, J EVELIO BOWEN Unavailable Unavailable MOISES, J EVELIO BOWEN Unavailable Unavailable MOISES, J EVELIO BOWEN Unavailable Unavailable MOISES, J EVELIO BOWEN Unavailable Unavailable MOISES, J EVELIO BOWEN Unavailable Unavailable MOISES, J EVELIO BOWEN Unavailable Unavailable MOISES, J EVELIO BOWEN Unavailable Unavailable MOISES, J EVELIO BOWEN Unavailable Unavailable MOISES, J EVELIO BOWEN Unavailable Unavailable MOISES, J EVELIO BOWEN Unavailable Unavailable MOISES, J EVELIO BOWEN Unavailable Unavailable MOISES, J EVELIO BOWEN Unavailable Unavailable MOISES, J EVELIO BOWEN Unavailable Unavailable MOISES, J EVELIO BOWEN Unavailable Unavailable MOISES, J EVELIO BOWEN Unavailable Unavailable MOISES, J EVELIO BOWEN Unavailable Unavailable MOISES, J EVELIO BOWEN Unavailable Unavailable MOISES, J EVELIO BOWEN Unavailable Unavailable MOISES, J EVELIO BOWEN Unavailable Unavailable MOISES, J EVELIO BOWEN Unavailable Unavailable MOISES, J EVELIO BOWEN Unavailable Unavailable MOISES, J EVELIO BOWEN Unavailable Unavailable MOISES, J EVELIO BOWEN Unavailable Unavailable MOISES, J EVELIO BOWEN Unavailable Unavailable MOISES, J EVELIO BOWEN Unavailable Unavailable MOISES, J EVELIO BOWEN Unavailable Unavailable MOISES, J EVELIO BOWEN Unavailable Unavailable MOISES, J EEVLIO BOWEN Unavailable Unavailable MOISES, J EVELIO BOWEN Unavailable Unavailable MOISES, J EVELIO BOWEN Unavailable Unavailable MOISES, J EVELIO BOWEN Unavailable Unavailable MOISES, J EVELIO BOWEN Unavailable Unavailable MOISES, J EVELIO BOWEN Unavailable Unavailable MOISES, J EVELIO BOWEN Unavailable Unavailable MOISES, J EVELIO BOWEN Unavailable Unavailable MOISES, J EVELIO BOWEN Unavailable Unavailable MOISES, J EVELIO BOWEN Unavailable Unavailable MOISES, J EVELIO BOWEN Unavailable Unavailable MOISES, J EVELIO BOWEN Unavailable Unavailable MOISES, J EVELIO BOWEN Unavailable Unavailable MOISES, J EVELIO BOWEN Unavailable Unavailable MOISES, J EVELIO BOWEN Unavailable Unavailable MOISES, J EVELIO BOWEN Unavailable Unavailable MOISES, J EVELIO BOWEN Unavailable Unavailable MOISES, J EVELIO BOWEN Unavailable Unavailable MOISES, J EVELIO MD Unavailable Unavailable MOISES, Neri FRASER MD Unavailable Unavailable MOISES, Neri FRASER MD Unavailable Unavailable MOISES, Neri FRASER MD Unavailable Unavailable MOISES, Neri FRASER MD Unavailable Unavailable MOISES, Neri FRASER MD Unavailable Unavailable MOISES, Neri FRASER MD Unavailable Unavailable MOISES, Neri FRASER MD Unavailable Unavailable MOISES, Neri FRASER MD Unavailable Unavailable MOISES, Neri FRASER MD Unavailable Unavailable MOISES, Neri FRASER MD Unavailable Unavailable MOISES, Neri FRASER MD Unavailable Unavailable MOISES, Neri FRASER MD Unavailable Unavailable MOISES, Neri FRASER MD Unavailable Unavailable MOISES, Neri FRASER MD Unavailable Unavailable MOISES, Neri FRASER MD Unavailable Unavailable MOISES, Neri FRASER MD Unavailable Unavailable MOISES, Neri FRASER MD Unavailable Unavailable MOISES, Neri FRASER MD Unavailable Unavailable Jessica, C Jayaram Unavailable Unavailable Jessica, C Jayaram Unavailable Unavailable Jessica, C Jayaram Unavailable Unavailable Jessica, C Jayaram Unavailable Unavailable Jessica, C Jayaram Unavailable Unavailable Jessica, C Jayaram Unavailable Unavailable Jessica, C Jayaram Unavailable Unavailable Jessica, C Jayaram Unavailable Unavailable Jessica, C Jayaram Unavailable Unavailable Jessica, C Jayaram Unavailable Unavailable Jessica, C Jayaram Unavailable Unavailable Re-disclosure Warning The records that you are about to access may contain information from federally-assisted alcohol or drug abuse programs. If such information is present, then the following federally mandated warning applies: This information has been disclosed to you from records protected by federal confidentiality rules (42 CFR part 2). The federal rules prohibit you from making any further disclosure of this information unless further disclosure is expressly permitted by the written consent of the person to whom it pertains or as otherwise permitted by 42 CFR part 2. A general authorization for the release of medical or other information is NOT sufficient for this purpose. The Federal rules restrict any use of the information to criminally investigate or prosecute any alcohol or drug abuse patient.The records that you are about to access may contain highly sensitive health information, the redisclosure of which is protected by Article 27-F of the [place] State Public Health law. If you continue you may have access to information: Regarding HIV / AIDS; Provided by facilities licensed or operated by the [facility] Office of Mental Health; or Provided by the [facility] Office for People With Developmental Disabilities. If such information is present, then the following [facility] mandated warning applies: This information has been disclosed to you from confidential records which are protected by state law. State law prohibits you from making any further disclosure of this information without the specific written consent of the person to whom it pertains, or as otherwise permitted by law. Any unauthorized further disclosure in violation of state law may result in a fine or mcc sentence or both. A general authorization for the release of medical or other information is NOT sufficient authorization for further disc losure. Allergies and Adverse Reactions Type Description Substance Reaction Status Data Source(s ) Allergy to substance No Known Allergies No known allergies (situation ) MACY (Janay Stringer MD [facility]) Encounters Encounter Providers Location Date Indications Data Source(s ) Unknown [address] [facility] [id number] 03/13/2021 12:00:00 AM EDT eCW1 ([facility]) Postop visit [address] [facility] [id number] 03/05/2021 12:00:00 AM EDT eCW1 ([facility]) Unknown [address] [facility] [id number] 02/28/2021 12:00:00 AM EDT eCW1 ([facility]) Unknown [address] [facility] [id number] 02/28/2021 12:00:00 AM EDT eCW1 ([facility]) Outpatient Attender: Shameka Ball/Dm/Kylah coyle/Lawson 02/12/2021 01:00:00 PM EDT MEDENT ([facility] MARTÍN Jade) Outpatient [address] [facility] [id number] 02/10/2021 12:00:00 AM EDT eCW1 ([facility]) Outpatient<td ID="encounterTypeDescripti [email or web address]">NEW PATIENT WITH REFERRAL</td><td>Janay Moyer MD, FACS</td><td>Janay Moyer MD [facility]</td><td>01/08/2021</td><td>12:44PM</td><td>1:56PM</td><td><content ID="[email or web address]">Taking Medication For Diabetes Long-term Use of Oral Hypoglycemics</content></td> Attender: Janay Stringer MD, FACS Janay Moyer MD [facility] 01/08/2021 12:44:00 PM EDT - 01/08/2021 01:56:00 PM ED T Taking Medication For Diabetes Long-term Use of Oral Hypoglycemics SHAD (Janay Stringer MD [facility]) Taking Medication For Diabetes Long-term Use of Oral Hypoglycemics (Cysto2) Urology [address] [place] [address] 12/23/2020 12:00:00 AM EDT eCW1 ([facility]) Unknown [address] [facility] [id number] 12/05/2020 12:00:00 AM EDT eCW1 ([facility]) Outpatient Attender: Clarice Martinez 02:30:00 PM EDT MEDENT ([facility] ) Outpatient Attender: AMANDO GUO Main Office 11/15/2020 1 1:15:00 AM EDT MEDENT ([facility]) Unknown [address] [facility] [id number] 11/12/2020 12:00:00 AM EDT eCW1 ([facility]) Unknown [address] [facility] [place] [address] 11/07/2020 12:00:00 AM EDT eCW1 ([facility]) Outpatient Attender: Clarice Martinez 02:00:00 PM EDT MEDENT ([facility] ) Unknown [address] [facility] [id number] 10/23/2020 12:00:00 AM EDT eCW1 ([facility]) Outpatient Attender: Shameka Ball/Dm/Kylah coyle/Lawson 10/15/2020 11:15:00 AM EDT MEDENT ([facility] Graham peacock, ) Outpatient [address] [facility] [id number] 10/11/2020 12:00:00 AM EDT eCW1 ([facility]) Outpatient Attender: Clarice Martinez 01:30:00 PM EDT MEDENT ([facility] ) Outpatient Attender: Clarice Martinez 02:30:00 PM EDT MEDENT ([facility] ) Outpatient Attender: Clarice Martinez 01:45:00 PM EST MEDENT ([facility] ) Outpatient Attender: JANAY INFANTE MD Main Office 06/24/2020 02:30:00 PM EST MEDENT ([facility]) (Cysto1) Urology [address] [place] [address] 06/12/2020 12:00:00 AM EST eCW1 ([facility]) Outpatient Attender: Clarice Martinez 01:45:00 PM EST MEDENT ([facility] ) Outpatient Attender: EVELIO GUPTA 12/13 12:51:00 PM EDT - 01/01/2020 12:52:00 PM EDT E11.9 [facility] E11.9 Patient discharged. Outpatient Attender: EVELIO GUPTA 12/2019 01:24:00 PM EDT - 10/19/2019 01:25:00 PM EDT Z85.46 [facility] Z85.46 Patient discharged. Outpatient Attender: JOSHUA COVINGTON-SDCSDC 07/10 07:24:00 AM EST - 07/10/2019 11:11:00 AM EST RENAL CALC [facility] RENAL CALC Patient discharged. Outpatient Attender: JOSHUA CEDILLOIMACRowena 07/03 01:12:00 PM EST - 07/03/2019 01:13:00 PM EST N20.0 [facility] N20.0 Patient discharged. Outpatient Attender: JACQUELINE RODRIGUEZ MDReferrer: JOSHUA COVINGTON-IMAPBlessing 06/12/2019 12:36:00 PM EST - 06/12/2019 12:37:00 PM EST N20.0 [facility] N20.0 Patient discharged. Outpatient Attender: Logan COVINGTON-SHERRI 04/14 09:51:00 AM EST - 04/27/2019 09:52:00 AM EST C51,D50.9 [facility] C51,D50.9 Patient discharged. Outpatient Attender: Logan COVINGTON-ONCAARTI 01:56:00 PM EST - 04/18/2019 01:57:00 PM EST FU ANEMIA [facility] FU ANEMIA Patient discharged. Outpatient Attender: Logan COVINGTON-SHERRI 03/16 11:46:00 AM EDT - 04/13/2019 11:47:00 AM EDT RESTAGING MALIGNANT NEOPLASM PROSTATE CANCER [facility] RESTAGING MALIGNANT NEOPLASM PROSTATE CA NCER Patient discharged. Outpatient Attender: Logan COVINGTON-SHERRI 03/15 07:27:00 AM EDT - 04/05/2019 07:28:00 AM EDT C61,D20.9 [facility] C61,D20.9 Patient discharged. Outpatient Attender: Logan COVINGTON-ONCAARTI 11:05:00 AM EDT - 03/16/2019 11:06:00 AM EDT FU ANEMIA [facility] FU ANEMIA Patient discharged. Outpatient Attender: Logan COVINGTON-ONCAARTI 03:17:00 PM EDT - 02/14/2019 03:18:00 PM EDT [address] [facility] Patient discharged. Outpatient Attender: Ted Guajardo MD CPSCAORT-LABPD 02/15/20 02:32:00 PM EDT - 02/14/2019 02:33:00 PM EDT K31.811 [facility] K31.811 Patient discharged. Outpatient Attender: JOSE OSCAR DO CPSCAORT-REFOPS 01/13 07:55:00 AM EDT - 02/08/2019 07:56:00 AM EDT [facility] Patient discharged. Outpatient Attender: Gerardo [facility]azares [facility] 12/01/2018 12:22:00 PM EDT - 12/01/2018 12:23:00 PM EDT LABS POST VENOFER [facility] LABS POST VENOFER Patient discharged. Outpatient Attender: Gerardo Cazares [facility]ON[facility] 11/17/2018 12:47:00 PM EDT - 11/17/2018 12:48:00 PM EDT VENOFER [facility] VENOFER Patient discharged. Outpatient Attender: Gerardo Cazares MD [facility] 10/26/2018 08:37:00 AM EDT - 10/26/2018 08:38:00 AM EDT LABS [facility] LABS Patient discharged. Outpatient Attender: Monica Lopez [facility]CARPBlessing 10/18/2018 08:18:00 AM EDT - 10/18/2018 08:19:00 AM EDT R06.02, I25.5,I25.10, E78.5 [facility] R06.02, I25.5,I25.10, E78.5 Outpatient Attender: Gerardo Cazares MD [facility]ON[facility] 09/29/2018 09:46:00 AM EDT - 09/29/2018 09:47:00 AM EDT LABS 1 WK PRIOR TO FU [facility] LABS 1 WK PRIOR TO FU Outpatient Attender: Gerardo COVINGTON-ONCPDMED 09/16/2018 12:03:00 PM EDT - 09/16/2018 12:04:00 PM EDT VENOFER [facility] VENOFER Outpatient Attender: Gerardo Cazares [facility] 09/14/2018 11:01:00 AM EDT - 09/14/2018 11:02:00 AM EDT 2 WK FU [facility] 2 WK FU Outpatient Attender: [facility] 09/08/2018 01:13:00 PM EDT - 09/08/2018 01:14:00 PM EDT CBC/FERRITIN/PSA [facility] CBC/FERRITIN/PSA Outpatient Attender: Gerardo Cazares [facility] 09/01/2018 12:57:00 PM EDT - 09/01/2018 12:58:00 PM EDT FU IRON DEF ANEMIA [facility]ital FU IRON DEF ANEMIA Outpatient Attender: Gerardo Cazares MD [facility]-ONCPDMED 08/25/2018 11:55:00 AM EDT - 08/25/2018 11:56:00 AM EDT VENOFER [facility] VENOFER Outpatient Attender: JOSHUA MAST [facility] 08/18 02:13:00 PM EST - 08/18/2018 02:14:00 PM EST REHAL CALC,KUB,EKG [facility] REHAL CALC,KUB,EKG Outpatient Attender: [facility]ares [facility] 08/18/2018 12:56:00 PM EST - 08/18/2018 12:57:00 PM EST PROSTATE CA [facility]ital PROSTATE CA Outpatient Attender: Gerardo Cazares MD [facility] 08/11/2018 11:42:00 AM EST - 08/11/2018 11:43:00 AM EST VENOFER W2 [facility] VENOFER W2 Outpatient Attender: Gerardo Cazares MD [facility]-ONCPDMED 08/04/2018 12:42:00 PM EST - 08/04/2018 12:43:00 PM EST VENOFER [facility] VENOFER Outpatient Attender: Ger[facility]ares [facility] 07/28/2018 09:20:00 AM EST - 07/28/2018 09:21:00 AM EST FU PER DR.MIKE MACK [facility] FU PER DR.MIKE MACK Outpatient Attender: Gerardo Cazares MD [facility]-ONCPDMED 07/06/2018 08:43:00 AM EST - 07/06/2018 08:44:00 AM EST RE REFERRED SEEN 2014 RADON 18-HX OF PROSTATE [facility] RE REFERRED SEEN 2014 RADON 18-HX OF MS OSTATE Outpatient Attender: Lobito Livingston: JOSHUA Funk CPSCAORT-IMAPD 07/06/2018 07:28:00 AM EST - 07/06/2018 07:29:00 AM EST LEFT FLANK PAIN [facility] LEFT FLANK PAIN Outpatient Attender: Lobito Livingston: JOSHUA Funk CPSCAORT-CPSLAPCP 06/15/2018 12:29:00 PM EST - 06/15/2018 12:30:00 PM EST E11.9,R10.9 [facility] E11.9,R10.9 Outpatient Attender: Lobito Watts DO CPSCAORT-CPSLAPCP 2017 10:27:00 AM EST - 05/24/2018 10:28:00 AM EST [facility] Outpatient Attender: Lobito Watts DO CPSCAORT-IMAPD 02/24/20 18 07:48:00 AM EDT - 02/23/2018 07:49:00 AM EDT SCREENING FOR LUNG CANCER [facility] SCREENING FOR LUNG CANCER Outpatient Attender: JOSHUA MAST MD CPSCAMARNI-IMACN 02/03 11:22:00 AM EDT - 02/03/2018 11:23:00 AM EDT C61; N20.0 [facility] C61; N20.0 Outpatient Attender: Benjamín Scott MD CPSCAORT-CPSLAPCP 10:22:00 AM EDT - 02/02/2018 10:23:00 AM EDT E11.9,C61 [facility] E11.9,C61 Outpatient Attender: JOSHUA MAST MD CPSCAMARNI-IMACN 10/06 02:50:00 PM EDT - 10/06/2017 02:51:00 PM EDT N20.0 [facility] N20.0 Outpatient Attender: Benjamín Scott MD CPSCAORT-LABPD 10/2017 10:52:00 AM EDT - 09/16/2017 10:53:00 AM EDT I25.10,N20.0 [facility] I25.10,N20.0 Outpatient Attender: JOSHUA MAST MD CPSCAORT-IMACN 09/13 08:03:00 AM EDT - 09/13/2017 08:04:00 AM EDT N20.0 [facility] N20.0 Outpatient Attender: JOSHUA MAST MD CPSCAMARNI-SDCSDC 08/23 08:19:00 AM EDT - 08/23/2017 11:30:00 AM EDT RENAL CALC, ABNORMAL PSA, HEMATURIA [facility] RENAL CALC, ABNORMAL PSA, HEMATURIA Outpatient Attender: JOSHUA MAST MD CPSCAORT-LABPD 08/19 08:48:00 AM EST - 08/19/2017 08:49:00 AM EST R97.2,R31.9,Z01.818 [facility] R97.2,R31.9,Z01.818 Outpatient Attender: JOSHUA MAST MD CPSCAMARNI-IMACN 08/18 10:32:00 AM EST - 08/18/2017 10:33:00 AM EST N20.0 [facility] N20.0 Outpatient Attender: JOSHUA MAST MD CPSCAORT-LABPD 08/09 10:29:00 AM EST - 08/09/2017 10:30:00 AM EST N13.30,N20.0 [facility] N13.30,N20.0 Outpatient Attender: JANAY SAENZ MD CPSCAORT-CPSLAPCP 05/14 08:09:00 AM EST - 05/26/2017 08:10:00 AM EST E11.9,R53.83,M54.9,E78.5 [facility] E11.9,R53.83,M54.9,E78.5 Outpatient Attender: JANAY SAENZ MD [facility] 04/14 09:54:00 AM EST - 04/27/2017 09:55:00 AM EST [facility] Outpatient Attender: Ted Guajardo MD CPSCAORT-SDCGASTRO 04/20 06:27:00 AM EST - 04/20/2017 08:33:00 AM EST HISTORY OF COLON POLYPS [facility] HISTORY OF COLON POLYPS Outpatient Attender: JANAY SAENZ MD CPSCAMARNI-IMAPD 2016 11:15:00 AM EDT - 03/09/2017 11:16:00 AM EDT PULMONARY NODULE [facility] PULMONARY NODULE Outpatient Attender: JOSE OSCAR DO CPSCAORT-SDCSDC 02/13 10:27:00 AM EDT - 03/03/2017 01:50:00 PM EDT RIGHT EYE CATARACT [facility] RIGHT EYE CATARACT Outpatient Attender: JOSE OSCAR DO CPSCAORT-SDCSDC 11/13 08:31:00 AM EDT - 12/02/2016 11:26:00 AM EDT CATARACT LEFT EYE [facility] CATARACT LEFT EYE Outpatient Attender: JANAY SAENZ MD CPSCAMARNI-IMAPD 2016 10:37:00 AM EDT - 09/02/2016 10:38:00 AM EDT R10.32;Z12.2 [facility] R10.32;Z12.2 Outpatient Attender: JANAY SAENZ MD CPSCAORT-CPSLAPCP 07/16 09:46:00 AM EST - 08/06/2016 09:47:00 AM EST E78.5; E11.9 [facility] E78.5; E11.9 Emergency Attender: Clarice Leiva MD CPSCAORT-ED 017 12:06:00 PM EST - 07/11/2016 01:12:00 PM EST NECK PAIN [facility] NECK PAIN Outpatient Attender: JANAY SAENZ MD CPSCAMARNI-IMAPD 2015 12:47:00 PM EST - 05/20/2016 12:48:00 PM EST M75.42, M75.100 [facility] M75.42, M75.100 Outpatient Attender: JANAY SAENZ MD CPSCAORT-LABLAW 2015 09:33:00 AM EST - 05/05/2016 09:34:00 AM EST R73.02,E78.5 [facility] R73.02,E78.5 Outpatient Attender: TANIA MORENO Jr [facility] 05:44:00 AM EDT - 04/02/2016 12:01:00 PM EDT RECURRENT LEFT INGUINAL HERNIA [facility] RECURRENT LEFT INGUINAL HERNIA Outpatient Attender: TANIA MORENO Jr [facility] 03/24/2016 07:55:00 AM EDT - 03/24/2016 07:56:00 AM EDT PREOPSET; RECURRENT LIH [facility] PREOPSET; RECURRENT LIH Outpatient Attender: TANIA MORENO Jr CPSNEENA-IMAPD 02:42:00 PM EDT - 03/09/2016 02:43:00 PM EDT K40.91;HERNIA [facility] K40.91;HERNIA Outpatient Attender: Tania Mai JR [facility] 08:04:00 AM EDT - 2016 01:52:00 PM EDT LEFT SHOULDER IMPINGEMENT [facility] LEFT SHOULDER IMPINGEMENT Outpatient Attender: JANAY SAENZ MD [facility] 2015 01:00:00 PM EDT - 01/27/2016 01:01:00 PM EDT N39.0 [facility] N39.0 Outpatient Attender: JANAY SAENZ MD CPSNEENA-LAB 2015 10:00:00 AM EDT - 01/22/2016 10:01:00 AM EDT Z01.818,E11.9, [facility] Z01.818,E11.9, Outpatient Attender: TANIA MORENO Jr [facility] 10/2015 07:41:00 AM EDT - 09/17/2015 04:15:00 PM EDT INGUINAL HERNIA [facility] INGUINAL HERNIA Outpatient Attender: JANAY SAENZ MD CPSCAMARNI-LABTRENT 2015 12:45:00 PM EDT - 09/04/2015 12:46:00 PM EDT E78.9:R53.83:K40.90 [facility] E78.9:R53.83:K40.90 Outpatient Attender: Dorina ESTRADA [facility] 0 08/30/2015 09:39:00 AM EDT - 08/30/2015 09:40:00 AM EDT [facility] R Attender: Dorina ESTRADA CPSCAORT-PRSLAPT 09:09:00 AM EST - 08/12/2015 12:01:00 AM EST LEFT SHOULDER IMPINGEMENT SYNDROME [facility] LEFT SHOULDER IMPINGEMENT SYNDROME Emergency Attender: Tre Byrne MD CPSCAORT-ED 03:06:00 PM EST - 08/03/2015 04:50:00 PM EST HAND INJURY [facility] HAND INJURY R Attender: Doirna ESTRADA CPSCAORT-PRSLAPT 08:55:00 AM EST - 07/14/2015 12:01:00 AM EST LEFT SHOULDER IMPINGEMENT SYNDROME [facility] LEFT SHOULDER IMPINGEMENT SYNDROME Outpatient Attender: JANAY SAENZ MD CPSCAORT-LABPD 2014 12:34:00 PM EST - 05/30/2015 12:35:00 PM EST R53.83,M25.50,Z12.5 [facility] R53.83,M25.50,Z12.5 Outpatient Attender: JANAY SAENZ MD CPSCAORT-IMAPD 2014 03:17:00 PM EST - 05/15/2015 03:18:00 PM EST LEFT SHOULDER PAIN [facility] LEFT SHOULDER PAIN Outpatient Attender: JANAY SAENZ MD CPSCAORT-IMALAW 2014 09:54:00 AM EST - 05/10/2015 09:55:00 AM EST M25.512 [facility] M25.512 Emergency Attender: Gerardo Watkins MD CPSCAORT-ED 03/15 10:57:00 AM EDT - 04/05/2015 02:20:00 PM EDT FALLING CHEST WALL INJURY [facility] FALLING CHEST WALL INJURY Outpatient Attender: ABHILASH BASURTO MD CPSCAORT-LABPD 02/14/2015 07:53:00 AM EDT - 02/14/2015 07:54:00 AM EDT 414.00 [facility] 414.00 Outpatient Attender: Dipika Pineda MD [facility]PSCAORT-[facility] 01/07/2015 11:05:00 AM EDT - 01/07/2015 11:06:00 AM EDT IRON DIFF [facility] IRON DIFF Outpatient Attender: PAOLA FITZPATRICK [facility] 2014 01:38:00 PM EDT - 11/29/2014 03:28:00 PM EDT FERRIC GLUCONATE [facility] FERRIC GLUCONATE Outpatient Attender: PAOLA FITZPATRICK [facility] 2014 01:37:00 PM EDT - 11/28/2014 01:38:00 PM ED[facility] Outpatient Attender: PAOLA FITZPATRICK [facility] 2014 01:38:00 PM EDT - 11/27/2014 03:16:00 PM EDT FERRIC GLUCONATE [facility] FERRIC GLUCONATE Outpatient Attender: PAOLA FIT[facility]PATRICK [facility] 2014 01:31:00 PM EDT - 11/26/2014 03:30:00 PM EDT FERRIC GLUCONATE [facility] FERRIC GLUCONATE Outpatient Attender: Dipika Pineda MD [facility] 11/21/2014 09:44:00 AM EDT - 11/21/2014 09:45:00 AM EDT F/U [facility] F/U Outpatient Attender: Dipika Pineda MD CPSCAORT-ON CPDMED 11/02/2014 11:17:00 AM EDT - 11/02/2014 11:18:00 AM EDT F/U POST IRON [facility] F/U POST IRON Outpatient Attender: Dipika Pineda MD CPSCAORT-ON CPDMED 09/07/2014 12:41:00 PM EDT - 09/07/2014 12:42:00 PM EDT IRON [facility] IRON Outpatient Attender: Dipika Pineda MD CPSCAORT-ON CPDMED 09/04/2014 01:33:00 PM EDT - 09/04/2014 03:20:00 PM EDT IRON #7 [facility] IRON #7 Outpatient Attender: Dipika Pineda MD [facility]ON CPDMED 09/03/2014 01:33:00 PM EDT - 09/03/2014 03:33:00 PM EDT IRON #6 [facility] IRON #6 Outpatient Attender: GUILLAUME TRUJILLO MD [facility]ON[facility]DMED 08/31 12:35:00 PM EDT - 08/31/2014 12:36:00 PM EDT IRON #5 [facility] IRON #5 Outpatient Attender: GUILLAUME TRUJILLO MD CPSCAORT-ONCPDMED 08/30 01:36:00 PM EDT - 08/30/2014 01:37:00 PM EDT IRON #4 [facility] IRON #4 Outpatient Attender: GUILLAUME TRUJILLO [facility] 08/29 01:42:00 PM EDT - 08/29/2014 03:39:00 PM EDT IRON #3 [facility] IRON #3 Outpatient Attender: GUILLAUME TRUJILLO [facility] 08/28 01:43:00 PM EDT - 08/28/2014 03:09:00 PM EDT IRON #2 [facility] IRON #2 Outpatient Attender: GUILLAUME TRUJILLO MD [facility]ONCPDMED 08/27 01:53:00 PM EDT - 08/27/2014 01:54:00 PM EDT IRON #1 [facility] IRON #1 Outpatient Attender: GUILLAUME TRUJILLO MD [facility]LABPD 015 07:55:00 AM EDT - 08/23/2014 07:56:00 AM EDT IRON DEF,ANEMIA [facility] IRON DEF,ANEMIA Outpatient Attender: COURTNEY GOU [facility]LABCN 09/2014 11:46:00 AM EST - 07/18/2014 11:47:00 AM EST [facility]285.9 Outpatient Attender: LISBET ST MD [facility]SDCGASTRO 11:28:00 AM EST - 04/27/2014 03:42:00 PM EST IRON DEFICENCY ANEMIA, COLON POLYP [facility] IRON DEFICENCY ANEMIA, COLON POLYP Outpatient Attender: Dorina ESTRADA CPSCAORT-IMAPD 12:36:00 PM EDT - 03/26/2014 12:37:00 PM EDT 813.42 [facility] 813.42 Outpatient Attender: Dorina ESTRADA CPSCAORT-CPSLAORT 0 03/12/2014 02:10:00 PM EDT - 03/12/2014 02:11:00 PM EDT [facility] Outpatient Attender: Cass Maurice MD CPSCAORT-IMACN 0 03/06/2014 09:09:00 AM EDT - 03/06/2014 09:10:[address] [facility] Outpatient Attender: COURTNEY GUO CPSCAORT-LABPNP 04:19:00 PM EDT - 02/28/2014 04:20:00 PM EDT 285.9 [facility] 285.9 Outpatient Attender: ABHILASH BASURTO MD CPSCAORT-CARPD 02/08/2014 11:49:00 AM EDT - 02/08/2014 11:50:00 AM EDT V72.84;429.9 [facility] V72.84;429.9 Outpatient Attender: Cass Maurice MD CPSCAORT-LABLAW 0 02/07/2014 08:46:00 AM EDT - 02/07/2014 08:47:00 AM EDT 592.0 [facility] Hospit al 592.0 Outpatient Attender: COURTNEY GUO CPSCAORT-LABCN 07:45:00 AM EDT - 02/07/2014 07:46:00 AM EDT 250.05,272.4 [facility] 250.05,272.4 Outpatient Attender: Cass Maurice MD CPSCAORT-LABPNP 0 01/23/2014 07:37:00 AM EDT - 01/23/2014 07:38:00 AM EDT 790.93 [facility] Hospit [facility] 790.93 Outpatient Attender: Cass Maurice MD CPSCAORT-IMAPD 0 01/18/2014 12:51:00 PM EDT - 01/18/2014 12:52:00 PM EDT 592.0; 599.7 [facility] 592.0; 599.7 Outpatient Attender: Dorina ESTRADA CPSCAORT-CPSLAORT 0 01/08/2014 02:18:00 PM EDT - 01/08/2014 02:19:00 PM EDT [facility] Outpatient Attender: Dorina ESTRADA CPSCAORT-CPSLAORT 0 12/25/2013 02:23:00 PM EDT - 12/25/2013 02:24:00 PM EDT [facility] Outpatient Attender: COREY BOSS CPSCAORT-LABCN 04/2014 12:14:00 PM EDT - 12/22/2013 12:15:00 PM EDT PSA ELEVATION [facility] PSA ELEVATION Outpatient Attender: Dorina ESTRADA CPSCAORT-CPSLAORT 0 12/04/2013 01:47:00 PM EDT - 12/04/2013 01:48:00 PM EDT [facility] Emergency Attender: Gerardo Watkins MD CPSCAORT-ED 11/12 10:40:00 AM EDT - 11/26/2013 12:42:00 PM EDT WRIST PAIN [facility] WRIST PAIN Outpatient Attender: COREY BOSS CPSCAORT-LABPNP 01/2014 06:45:00 PM EDT - 10/19/2013 06:46:00 PM EDT 599.0,V73.89 [facility] 599.0,V73.89 Outpatient Attender: COREY BOSS CPSCAORT-LABPNP 11:58:00 AM EDT - 10/06/2013 11:59:00 AM EDT 789.00 [facility] Hospit al 789.00 Outpatient Attender: COREY BOSS CPSCAORT-LABPD 04/2014 08:55:00 AM EDT - 09/22/2013 08:56:00 AM EDT 272.4 [facility] Hospit [facility] 272.4 Outpatient Attender: WAYLON GUO CPSCAORT-LABPNP 04:49:00 PM EDT - 11/10/2012 04:50:00 PM EDT V76.44 [facility] V76.44 Outpatient Attender: WAYLON GUO CPSCAORT-LABPD 08:12:00 AM EDT - 11/03/2012 08:13:00 AM EDT 250.02;272.4 [facility] Hospit [facility] 250.02;272.4 Outpatient Attender: WAYLON GUO CPSCAORT-LABPD 01/2013 12:08:00 PM EDT - 09/19/2012 12:09:00 PM EDT 250.02 [facility] Hospit al 250.02 Outpatient Attender: WAYLON GUO CPSCAORT-LABPD 03:06:00 PM EDT - 03/30/2012 03:07:00 PM EDT 250.02 [facility] Hospit al 250.02 Outpatient Attender: WAYLON GUO CPSCAORT-LABCN 08:57:00 AM EDT - 03/11/2012 08:58:[address] [facility] Emergency Attender: SHABANA TAYLOR MD CPSCAORT-ED 2011 06:31:00 PM EDT - 12/21/2011 11:32:00 PM EDT [facility] Outpatient Attender: NAJMA PEARL MD CPSCAORT-IMAPD 12/01/2011 08: 38:00 AM EDT LOW BACK PAIN [facility] LOW BACK PAIN Outpatient Attender: WAYLON GUO CPSCAORT-IMAPD 11:54:00 AM EDT DIZZINESS [facility] DIZZINESS Outpatient Attender: WAYLON GUO CPSCAORT-LABCN 03/2012 10:58:00 AM EDT DIZZINES:JOINT PAIN/BILATERAL HANDS [facility] pital DIZZINES:JOINT PAIN/BILATERAL HANDS Immunizations Vaccine Date Status Description Data Source(s) Hep A-Hep B 02/10/2021 11:51:00 AM EDT completed e CW1 ([facility]) Hep A-Hep B 02/10/2021 11:51:00 AM EDT completed e CW1 ([facility]) Hep A-Hep B 02/10/2021 11:51:00 AM EDT completed e CW1 ([facility]) Hep A-Hep B 02/10/2021 11:51:00 AM EDT completed e CW1 ([facility]) Hep A-Hep B 02/10/2021 11:51:00 AM EDT completed e CW1 ([facility]) Hep A-Hep B 12/25/2020 11:44:00 AM EDT completed e CW1 ([facility]) Hep A-Hep B 12/25/2020 11:44:00 AM EDT completed e CW1 ([facility]) Hep A-Hep B 12/25/2020 11:44:00 AM EDT completed e CW1 ([facility]) Hep A-Hep B 12/25/2020 11:44:00 AM EDT completed e CW1 ([facility]) Hep A-Hep B 12/25/2020 11:44:00 AM EDT completed e CW1 ([facility]) COVID-19 dose #2 given elsewhere Unspecified 08/28/2020 11:4 3:00 AM EDT completed eCW1 ([facility]) COVID-19 dose #2 given elsewhere Unspecified 08/28/2020 11:4 3:00 AM EDT completed eCW1 ([facility]) COVID-19 dose #2 given elsewhere Unspecified 08/28/2020 11:4 3:00 AM EDT completed eCW1 ([facility]) COVID-19 dose #2 given elsewhere Unspecified 08/28/2020 11:4 3:00 AM EDT completed eCW1 ([facility]) COVID-19 dose #2 given elsewhere Unspecified 08/28/2020 11:4 3:00 AM EDT completed eCW1 ([facility]) COVID-19 VACCINE Moderna 08/28/2020 12:00:00 AM EDT completed [facility] Vaccine Series Complete: YESThis Data wa s Submitted to [facility] [employer]. COVID-19 dose #1 given elsewhere Unspecified 07/31/2020 11:4 3:00 AM EST completed eCW1 ([facility]) COVID-19 dose #1 given elsewhere Unspecified 07/31/2020 11:4 3:00 AM EST completed eCW1 ([facility]) COVID-19 dose #1 given elsewhere Unspecified 07/31/2020 11:4 3:00 AM EST completed eCW1 ([facility]) COVID-19 dose #1 given elsewhere Unspecified 07/31/2020 11:4 3:00 AM EST completed eCW1 ([facility]) COVID-19 dose #1 given elsewhere Unspecified 07/31/2020 11:4 3:00 AM EST completed eCW1 ([facility]) COVID-19 VACCINE Moderna 07/31/2020 12:00:00 AM EST completed [facility] Vaccine Series Complete: NOThis Data was Submitted to [facility] [employer]. Medications Medication Brand Name Start Date Product Form Dose Route Admi nistrative Instructions Pharmacy Instructions Status Indications Reaction Description Data Source(s) 32 gauge x 5/32" 03/16/2021 12:00:00 AM EDT needle 12 USE DAILY DIRECTED USE DAILY DIRECTED SOLD: 03/16/2021 [facility] Epclusa 400-100 MG Epclusa 400-100 MG 02/10/2021 12:00:00 AM EDT 1.0 {tablet} active Epclusa 400-100 MG e CW1 ([facility]) Epclusa 400-100 MG Epclusa 400-100 MG 02/10/2021 12:00:00 AM EDT 1.0 {tablet} active Epclusa 400-100 MG e CW1 ([facility]) Epclusa 400-100 MG Epclusa 400-100 MG 02/10/2021 12:00:00 AM EDT 1.0 {tablet} active Epclusa 400-100 MG e CW1 ([facility]) Epclusa 400-100 MG Epclusa 400-100 MG 02/10/2021 12:00:00 AM EDT 1.0 {tablet} active Epclusa 400-100 MG e CW1 ([facility]) Epclusa 400-100 MG Epclusa 400-100 MG 02/10/2021 12:00:00 AM EDT 1.0 {tablet} active Epclusa 400-100 MG e CW1 ([facility]) Aspirin 81 MG Delayed Release Oral Table t Adult Aspirin EC Low Strength 81 MG Oral Tablet Delayed Release Adult Aspirin EC Low Strength 81 MG Oral Tablet Delayed Release 01/08/2021 12:00:00 AM EDT ac tive aspirin 81 MG Delayed Release Oral Tablet SHAD (Janay Stringer MD [facility]) Metformin hydrochloride 500 MG Oral Tablet metFORMIN H Cl 500 MG Oral Tablet metFORMIN HCl 500 MG Oral Tablet 01/08/2021 12:00:00 AM EDT active metformin hydrochloride 500 MG Oral Tablet SHAD (Belssing Stringer MD [facility]) Losartan 25 mg Oral Tablet Losartan 25 mg Oral Tablet 2020 12:00:00 AM EDT active Losartan SHAD (Jnaay Stringer MD [facility]) Atorvastatin 4 MG Oral Tablet Atorvastatin 4 MG Oral Tablet 01/08/2021 12:00:00 AM EDT active Atorvastatin GREE NWAY (Janay Stringer MD [facility]) Metoprolol 25 MG Oral Tablet Metoprolol 25 MG Oral Tablet 12:00:00 AM EDT active Metoprolol GREENW AY (Janay Stringer MD [facility]) [facility] Om[facility]razole 20 MG Oral Tablet Delayed Release Disin tegrating [facility] Omeprazole 20 MG Oral Tablet Delayed Release Disintegrating 01/08/2021 12:00:00 AM EDT active [facility] Omeprazole [address] (Janay Stringer MD [facility]) Victoza 1.2 MG Oral Tablet Victoza 1.2 MG Oral Tablet 2020 12:00:00 AM EDT active Victoza SHAD (Janay Stringer MD [facility]) Ferrous fumarate 324 MG Oral Tablet Ferr ous Fumarate 324 (106 Fe) MG Oral Tablet Ferrous Fumarate 324 (106 Fe) MG Oral Tablet 01/08/2021 12:00:00 AM ED T active ferrous fumarate 324 MG Oral Tablet SHAD (Janay Stringer MD [facility]) tadalafil 5 MG Oral Tablet Tadalafil 5 MG Oral Tablet Tadalafil 5 MG Oral Tablet 01/08/2021 12:00:00 AM EDT active tadalafil 5 MG Oral Tablet SHAD (Janay Stringer MD [facility]) sennosides, LONGTERM 8.6 MG Oral Tablet Senna 11/29/2020 12:00:00 AM EDT ORAL active MEDENT ([facility]) Losartan Potassium 25 MG Oral Tablet Losartan Potassium 12:00:00 AM EDT ORAL active [facility]ENT ([facility]) 24 HR metoprolol succinate 25 MG Extended Release Oral Tablet Metoprolol Succinate ER 10/31/2020 12:00:00 AM EDT ORAL active [facility]ENT ([facility]) Metformin hydrochloride 500 MG Oral Tablet Metformin HCL 10/31/2020 12:00:00 AM EDT ORAL active [facility] ([facility]) POLYETHYLENE GLYCOL 3350 142 MG/ML Oral Solution [Miralax] M iralax 10/15/2020 12:00:00 AM EDT completed MEDENT ([facility], ) Magnesium Hydroxide 80 MG/ML Oral Suspension Milk Of Magnesi a 10/15/2020 12:00:00 AM EDT ORAL completed [facility] ([facility], ) Onetouch Delica Lancets Fine 30G 10/08/2020 12:00:00 AM EDT active [facility] ([facility]) Onetouch Verio 10/08/2020 12:00:00 AM EDT [place] MEDENT ([facility]) Onetouch Verio Flex Blood Glucose Monitoring System 10/08/2020 12:00:00 AM EDT active [facility] ([facility]) Onetouch Verio 10/08/2020 12:00:00 AM EDT [place] [facility]ENT ([facility]) Freestyle Precision Jhoan Blood Glucose Test Strips 10/07/2020 12:00:00 AM EDT completed MEDENT ([facility]) Nitroglycerin 0.4 MG Sublingual Tablet [Nitrostat] Nitrostat 09/04/2020 12:00:00 AM EDT active [facility] ( [facility]) 3 ML liraglutide 6 MG/ML Pen Injector [Victoza] Victoza 06/27/2020 12:00:00 AM EST active [facility] ([facility]) Omeprazole 20 MG Delayed Release Oral Capsule Omeprazole 06/27/2020 12:00:00 AM EST active [facility] ([facility]) Losartan Potassium 25 MG Oral Tablet Losartan Potassium 03/2021 12:00:00 AM EST ORAL active [facility] ([facility]) tadalafil 5 MG Oral Tablet Tadalafil 06/23/2020 12:00:00 AM EST ORAL active [facility] ([facility]) Omeprazole 20 MG Delayed Release Oral Capsule Omeprazole 06/23/2020 12:00:00 AM EST ORAL active [facility] ([facility]) 24 HR metoprolol succinate 25 MG Extended Release Oral Tablet Metoprolol Succinate ER 06/23/2020 12:00:00 AM EST ORAL active [facility] ([facility]) atorvastatin 40 MG Oral Tablet Atorvastatin Calcium 06/23/2020 1 2:00:00 AM EST ORAL active [facility] ( [facility]) Aspirin 81 MG Delayed Release Oral Tablet Aspirin 06/23/2020 1 2:00:00 AM EST ORAL active [facility] ([facility]) Metformin hydrochloride 500 MG Oral Tablet Metformin HCL 06/23/2020 12:00:00 AM EST ORAL [facility] 3 ML liraglutide 6 MG/ML Pen Injector [Victoza] Victoza 06/23/2020 12:00:00 AM EST active [facility] ([facility]) Magnesium 06/23/2020 12:00:00 AM EST ORAL active [facility] ([facility]) ferrous sulfate 325 MG Delayed Release Oral Tablet Ferrous S ulfate 06/23/2020 12:00:00 AM EST ORAL active M [facility] ([facility]) ferrous sulfate 325 MG Delayed Release Oral Tablet Ferrous S ulfate 05/29/2020 12:00:00 AM EST ORAL active M [facility] ([facility]) Calcium Carbonate 298 MG / Magnesium Chl oride 596 MG Delayed Release Oral Tablet [Slow-Mag Reformulated Jul 2011] Slow-Mag 05/29/2020 12:00:00 AM EST ORAL active [facility] ([facility]) Dry Eye Medication OTC 05/27/2020 12:00:00 AM EST active [facility] ([facility]) Aspirin 81 MG Delayed Release Oral Tablet Aspirin 81 2019 12:00:00 AM EST ORAL active [facility] ( [facility]) Famotidine 20 MG Oral Tablet Famotidine 05/27/2020 12:00:00 AM EST ORAL completed [facility] ([facility]) 25 mg 02/02/2020 12:00:00 AM EDT tablet 90 TAKE ONE TABLET BY MOUTH EVERY DAY TAKE ONE TABLET BY MOUTH EVERY DAY SOLD: 02/02/2020 [facility] atorvastatin 40 MG Oral Tablet ATORVASTATIN CALCIUM 01/30/2020 1 2:00:00 AM EDT tablet 90 TAKE ONE TABLET BY MOUTH EVERY D AY TAKE ONE TABLET BY MOUTH EVERY DAY SOLD: 01/30/2020 [facility] 32 gauge x 5/32" 11/12/2019 12:00:00 AM EDT needle 90 USE DIRECTED DAILY USE DIRECTED DAILY SOLD: 02/02/2020 [facility] Insurance Providers Payer name Policy type / Coverage type Policy ID Covered constitution party ID Covered constitution party's relationship to nguyen Policy Nguyen Plan Information [facility] G [id number] Self [id number] FINANCIAL ASSISTANCE [id number] Retired [id number] FINANCIAL ASSISTANCE [id number] Retired [id number] FINANCIAL ASSISTANCE [id number] Retired [id number] FINANCIAL ASSISTANCE C73 Retired C73 AETNA MEDICARE COMPLETE G [id number] Self [id number] AETNA MEDICARE COMPLETE G [id number] Self [id number] MEDICAID [id number] Retired [id number] FINANCIAL ASSISTANCE 9585 Retired 9585 [place] MEDICARE [id number] Retired [id number] FINANCIAL ASSISTANCE [id number] Other [id number] TODAYS OPTIONS AMER PROG [id number] Other [id number] [facility] MEDICARE ADVANTAGE [id number] Retired [id number] AENA MEDICARE ADVANTAGE [id number] Retired [id number] [place] MEDICARE [id number] Retired [id number] [facility] MEDICARE [id number] Retired [id number] MEDICARE [id number] Other [id number] A MEDICARE [id number] Other [id number] A [facility] PLUS [id number] Other [id number] [facility] [id number] Other 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 [employer] 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 time lock expert employed [id number] AETNA MEDICARE ADVANTAGE [id number] Retired [id number] FINANCIAL ASSISTANCE C73 Retired C73 WELLCARE [id number] SP [id number] FINANCIAL ASSISTANCE [place] PENDING Retired [place] PENDING MEDICARE BLUE PPO 306 [id number] SP [id number] WELLCARE [id number] SP [id number] WELLCARE [id number] SP [id number] MEDICARE [id number] SP [id number] MEDICARE [id number] SP [id number] [id number] MEDICARE BLUE PPO 306 [id number] SP [id number] Problems, Conditions, and Diagnoses Code Display Name Description Problem Type Effective Dates Data Source(s) N13.2 Hydronephrosis with renal and ureteral c alculous obstruction Hydronephrosis due to obstruction of ureter Problem 03/05/2021 12:00 :00 AM EDT eCW1 ([facility]) N13.2 Hydronephrosis with renal and ureteral c alculous obstruction Ureteral stone with hydronephrosis Problem 03/05/2021 12:00:00 AM EDT eCW1 ([facility]) N20.0 [id number] Nephrolithiasis Problem 02/10/2021 12:00:00 AM EDT eCW1 ([facility]) D12.6 [id number] Tubular adenoma of colon Problem 02/10/2021 12:00:00 AM EDT eCW1 ([facility]) D50.9 [id number] Iron deficiency anemia, unspecif ied iron deficiency anemia type Problem 02/10/2021 12:00:00 AM EDT eCW1 ([facility]) I10 [id number] Primary hypertension Problem 02/10/2021 12:0 0:00 AM EDT eCW1 ([facility]) E11.9 [id number] Diabetes mellitus type 2, noninsulin depe ndent Problem 02/10/2021 12:00:00 AM EDT eCW1 ([facility]) B18.2 [id number] Hep C w/o coma, chronic Problem 02/10/2021 1 2:00:00 AM EDT eCW1 ([facility]) N20.1 Ureteral stone Ureteral stone Problem 12/23/2020 12:00: 00 AM EDT eCW1 ([facility]) N20.0 Kidney stone Kidney stone Problem 10/11/2020 12:00:00 A M EDT eCW1 ([facility]) Z95.5 Patient post percutaneous transluminal c oronary angioplasty Patient post percutaneous transluminal coronary angioplasty Problem 021 12:00:00 AM EST MEDENT ([facility]) R94.31 Electrocardiogram abnormal Electrocardiogram abnormal Problem 06/24/2020 12:00:00 AM EST MED[facility] ([facility]) I10 Essential hypertension Essential hypertension Problem 06/24/2020 12:00:00 AM EST MED[facility] ([facility]) E87.6 Hypokalemia Hypokalemia Problem 06/24/2020 12:00:00 AM EST MEDENT ([facility]) 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 Disorder of mag nesium metabolism Problem 06/24/2020 12:00:00 AM EST [facility] E78.00 Pure hypercholesterolemia Pure hypercholesterolemia Pr oblem 06/24/2020 12:00:00 AM EST MED[facility] ([facility]) Z71.3 Dietary management surveillance Dietary management kassidy veillance Problem 06/24/2020 12:00:00 AM EST MEDENT ([facility]) I25.10 Coronary arteriosclerosis after percutan eous coronary angioplasty Coronary arteriosclerosis after percutaneous coronary angioplasty Problem 06/24/2020 12:00:00 AM EST MEDENT ([facility]) I25.2 Old myocardial infarction Old myocardial infarction Pr oblem 06/24/2020 12:00:00 AM EST MED[facility] ([facility]) N40.0 Benign prostatic hypertrophy without out flow obstruction Benign prostatic hyperplasia without lower urinary tract symptoms Problem 06/12 12:00:00 AM EST eCW1 ([facility]) Z86.010 History of polyp of colon History of polyp of colon Pr oblem 06/11/2020 12:00:00 AM EST MEDENT ([facility]) C61 Malignant tumor of prostate Malignant tumor of prostat e Problem 06/11/2020 12:00:00 AM EST MEDENT ([facility]) M54.5 Low back pain Low back pain Problem 06/11/2020 12:00:00 AM EST MEDENT ([facility]) E78.00 Pure hypercholesterolemia Pure hypercholesterolemia Pr oblem 06/11/2020 12:00:00 AM EST MEDENT ([facility]) I10 Essential hypertension Essential hypertension Problem 06/11/2020 12:00:00 AM EST [facility] ([facility]) R11.0 Nausea Nausea Problem 06/11/2020 12:00:00 AM ES T MEDENT ([facility]) E11.9 Type 2 diabetes mellitus Type 2 diabetes mellitus Prob jake 06/11/2020 12:00:00 AM EST MEDENT ([facility]) N20.0 Kidney stone Kidney stone Problem 06/11/2020 12:00:00 A M EST MEDENT ([facility]) N20.0 Renal calculus Renal calculus Problem 06/11/2020 12:00: 00 AM EST eCW1 ([facility]) I25.10 Atherosclerosis of coronary artery witho ut angina pectoris Atherosclerosis of coronary artery without angina pectoris Problem 06/11/2020 12:00:00 AM EST MEDENT ([facility]) Surgeries/Procedures Procedure Description Date Indications Data Source(s) OFFICE OUTPATIENT VISIT 25 MINUTES 02/12/2021 12:00:00 AM EDT [facility] ([facility]) HEPATITIS A & B VACCINE HEPA-HEPB ADULT IM 02/10/2021 12:00:00 AM EDT eCW1 ([facility]) Surgical / procedural history Hernia, Broken ankle Odom rgical / procedural history Hernia, Broken ankle 01/08/2021 12:00:00 AM EDT GRE DELPHINEWAY (Janay Stringer MD [facility]) Endoscopy Upper GI Remove Tumor/Polyp/Lesion Snare Technique 12/31/2020 12:00:00 AM EDT MED[facility] ([facility]) Colonoscopy Flexible Control Bleeding 12/31/2020 12:00 :00 AM EDT MEDENT ([facility], ) Colonoscopy W/ Poly 12/31/2020 12:00:00 AM EDT MEDENT ([facility], ) Colonoscopy 12/31/2020 12:00:00 AM EDT M EDKURT ([facility]) Med: Lidocaine Jelly 2% 6ml Intravesically (Glydo) 12/23/2020 12:00:00 AM EDT eCW1 ([facility]) MYOCARDIAL SPECT MULTIPLE STUDIES 12/03/2020 12:00:00 AM EDT MED[facility] ([facility]) CV STRS TST XERS&/OR RX CONT ECG PHYS SI&R 12/03/2020 12:00:00 AM EDT MED[facility] ([facility]) OFFICE OUTPATIENT VISIT 25 MINUTES 11/26/2020 12:00:00 AM EDT MED[facility] ([facility]) ECG ROUTINE ECG W/LEAST 12 LDS W/I&R 11/15/2020 12:00: 00 AM EDT MEDENT ([facility]) OFFICE OUTPATIENT VISIT 25 MINUTES 11/15/2020 12:00:00 AM EDT MED[facility] ([facility]) ECG ROUTINE ECG W/LEAST 12 LDS W/I&R 10/31/2020 12:00: 00 AM EDT MEDENT ([facility]) OFFICE OUTPATIENT VISIT 25 MINUTES 10/31/2020 12:00:00 AM EDT MEDENT ([facility]) OFFICE OUTPATIENT NEW 30 MINUTES 10/15/2020 12:00:00 A M EDT MEDENT ([facility], ) Trans Care SRV W/I 14D Of DC, Comm W/I 2 Dys Med Rec 10/07/2020 12:00:00 AM EDT MEDENT ([facility] ) OFFICE OUTPATIENT VISIT 25 MINUTES 08/26/2020 12:00:00 AM EDT MEDENT ([facility]) OFFICE OUTPATIENT VISIT 25 MINUTES 06/27/2020 12:00:00 AM EST MEDENT ([facility]) ECG ROUTINE ECG W/LEAST 12 LDS W/I&R 06/24/2020 12:00: 00 AM EST MEDENT ([facility]) Arterial Pressure Waveform Analysis For Assessment Of Centra l Art 06/24/2020 12:00:00 AM LISA CALDERON ([facility]) OFFICE OUTPATIENT NEW 45 MINUTES 06/24/2020 12:00:00 A M LISA CALDERON ([facility]) Medication: Lidocaine HCl 2% Jelly 5mL Intravesically 06/12/2020 12:00:00 AM EST eCW1 ([facility]) Results ID Date Data Source HEPATITIS C FIBROSURE [id number] 02/10/2021 12:00:00 AM EDT eC W1 ([facility]) Name Value Range Interpretation Code Description Data Shi rce(s) Supporting Document(s) . FIBROSIS STAGE eCW1 ([facility]) 0.66 0.00-0.21 FIBROSIS SCORE eCW1 ([facility]) A2-Moderate activity . NECROINFLAMM GR BELTRAN eCW1 ([facility]) 0.55 0.00-0.17 NECROINFLAM SCORE eCW1 ([facility] hospital) [phone] APOLIPOPROTEIN A-1 eCW1 (Count includes the [facility]) 43 0-65 GGT eCW1 ([facility]) [phone] ALPHA 2-MACROGLOBULIN eCW1 ([facility]) 135 32-363 HAPTOGLOBIN eCW1 ([facility]) 0.3 0.0-1.2 TOTAL BILIRUBIN eCW1 ([facility]) . NECROINFLAM SCORING eCW1 ([facility]) 70 0-55 ALT eCW1 ([facility]) . FIBROSIS SCORING eCW1 ([facility]) . INTERPRETATION eCW1 ([facility]) . LIMITATIONS eCW1 ([facility]) . COMMENT : eCW1 ([facility]) ID Date Data Source CBC with Differential 02/10/2021 12:00:00 AM EDT eCW1 ([facility] includes [facility]) Name Value Range Interpretation Code Description Data Shi rce(s) Supporting Document(s) 3.27 4.30-6.10 RED BLOOD COUNT eCW1 ([facility]) 3.4 4.0-10.0 WHITE BLOOD COUNT eCW1 ([facility]) 26.3 27.0-33.0 MEAN CORPUSCULAR HEMOGLOB IN eCW1 ([facility]) 8.6 13.5-17.5 HEMOGLOBIN eCW1 ([facility]) 28.7 42.0-52.0 HEMATOCRIT eCW1 ([facility]) 87.8 80.0-96.0 MEAN CORPUSCULAR VOLUME e CW1 ([facility]) 30.0 32.0-36.5 MEAN CORPUSCULAR HGB CONC eCW1 ([facility]) 53.0 36.0-66.0 NEUTROPHILS % eCW1 ([facility]) 16.0 11.5-14.5 RED CELL DISTRIBUTION WID TH eCW1 ([facility]) 164 150-450 PLATELET COUNT, AUTOMATED eCW1 ([facility]) 31.2 24.0-44.0 LYMPH % eCW1 ([facility]) 4.4 0.0-3.0 EOS % eCW1 ([facility]) 10.5 2.0-8.0 MONO % eCW1 ([facility]) 0.6 0.0-1.0 BASO % eCW1 ([facility]) 0.4 0.0-0.8 MONO # eCW1 ([facility]) 1.1 1.5-5.0 LYMPH # eCW1 ([facility]) 1.8 1.5-8.5 NEUTROPHILS # eCW1 ([facility]) 0.2 0.0-0.5 EOS # eCW1 ([facility]) 0.0 0.0-0.2 BASO # eCW1 ([facility]) ID Date Data Source ALPHA FETOPROTEIN TUMOR QUANT 02/10/2021 12:00:00 AM EDT eCW 1 ([facility]) Name Value Range Interpretation Code Description Data Shi rce(s) Supporting Document(s) < 1.3 <8.1 ALPHA FETOPROTEIN TUMOR Q UANT eCW1 ([facility]) ID Date Data Source [id number] 02/03/2021 01:41:00 PM EDT MEDENT ([facility]) Name Value Range Interpretation Code Description Data Shi rce(s) Supporting Document(s) Leukocytes [#/volume] in Blood by Automated count 2.9 x10*3/UL 4.1-10 .9 MEDENT ([facility]) Hemoglobin [Mass/volume] in Blood 8.6 g/dL 12.0-18.0 MEDENT ([facility]) NOTE: RESULT VERIFIED. Erythrocytes [#/volume] in Blood by Automated count 3.23 x10*6/UL 4.2 0-6.30 MEDENT ([facility]) Hematocrit [Volume Fraction] of Blood by Automated count 26.1 % 3 7.0-51.0 MEDENT ([facility]) MCV 80.8 fL 80.0-97.0 [facility]) MCHC 33.1 g/dL 31.0-38.0 [facility] ([facility]) MCH 26.7 pg 26.0-32.0 [facility] ([facility]) Platelets [#/volume] in Blood by Automated count 173 x10*3/UL 140-440 MEDENT ([facility]) Erythrocyte distribution width [Ratio] by Automated count 15.0 % 11.6-13.7 MED[facility] ([facility]) Lymph % 32.2 % 10.0-58.5 [facility] ([facility]) Mid % 8.0 % 1.7-9.3 [facility] ([facility]) MPV 9.0 FL 7.8-11.0 [facility]) Lymph # 0.9 x10*3/UL 0.6-4.1 MED[facility] ([facility]) Neut % 59.8 % 37.0-92.0 [facility] Mid # 0.3 x10*3/UL 0.1-0.6 MED[facility] ([facility]) Neut # 1.7 x10*3/UL 2.0-7.8 MED[facility] ([facility]) ID Date Data Source [id number] 02/03/2021 01:41:00 PM EDT MEDENT ([facility]) Name Value Range Interpretation Code Description Data Shi rce(s) Supporting Document(s) Urea nitrogen [Mass/volume] in Serum or Plasma 9 mg/dL 7-18 MEDENT ([facility]) Glucose [Mass/volume] in Serum or Plasma 118 mg/dL 74-99 MEDENT ([facility]) 100-125 mg/dL PRE-DIABETES/FASTING >126 mg/dL DIABETES/FASTING Sodium [Moles/volume] in Serum or Plasma 142 meq/L 136-145 MEDENT ([facility]) Creatinine 1.0 mg/dL 0.6-1.3 MEDENT ([facility] Potassium [Moles/volume] in Serum or Plasma 3.6 meq/L 3.5-5.1 MEDENT ([facility]) Chloride [Moles/volume] in Serum or Plasma 105 meq/L 98-107 MED[facility] ([facility]) Carbon dioxide, total [Moles/volume] in Serum or Plasma 29 meq/L 21 -32 MEDENT ([facility]) Glomerular filtration rate/1.73 sq M pre dicted among non-blacks [Volume Rate/Area] in Serum or Plasma by Creatinine-based formula (MDRD) Laboratory test result MEDENT ([facility] ) Calcium [Mass/volume] in Serum or Plasma 9.2 mg/dL 8.5-10.1 MEDENT ([facility]) Glomerular filtration rate/1.73 sq M pre dicted among blacks [Volume Rate/Area] in Serum or Plasma by Creatinine-based formula (MDRD) Laboratory test result [facility] <content>CHRONIC KIDNEY DISEASE STAGING PER NKF</content>
<content></content>
<content>STAGE I & II GFR >= 60 NORMAL TO MILDLY DECREASED</content>
<content>STAGE III GFR 30-59 MODERATELY DECREASED</content>
<content>STAGE IV GFR 15-29 SEVERELY DECREASED</content>
<content>STAGE V GFR <15 VERY LITTLE GFR LEFT</content>
<content>ESRD GFR <15 ON LIFE SKILLS WORKER</content>
<content></content> ID Date Data Source [id number] 02/03/2021 01:41:00 PM EDT MEDENT ([facility]) Name Value Range Interpretation Code Description Data Shi rce(s) Supporting Document(s) Magnesium 1.4 mg/dL 1.8-2.4 [facility] NOTE: RESULT VERIFIED. ID Date Data Source [id number] 02/03/2021 01:40:00 PM EDT MEDENT ([facility]) Name Value Range Interpretation Code Description Data Shi rce(s) Supporting Document(s) Hemoglobin A1c/Hemoglobin.total in Blood 6.7 % [facility] Lab Result Notes: Pre-Diabetes 5.7 - 6.4 % Diabetes = or > 6.5% Glucose mean value [Mass/volume] in Blood Estimated fr om glycated hemoglobin 146 mg/dL 60-110 [facility] ID Date Data Source [id number] 12/31/2020 01:24:00 PM EDT [facility] Name Value Range Interpretation Code Description Data Shi rce(s) Supporting Document(s) Surgical pathology study Laboratory test result [facility] ([facility] ) FINAL DIAGNOSIS A - Duodenal polyp, biopsy: [...] 1348 Signed Geraldine Quiñonez MD 01/02/2021 0908 ID Date Data Source [id number] 12/26/2020 10:55:00 AM EDT MEDENT ([facility]) Name Value Range Interpretation Code Description Data Shi rce(s) Supporting Document(s) Coronavirus 2019 Nasopharygeal Laboratory test result [facility] ASSAY INFORMATION: Real Time RT-PCR NOTE: The COVID-19 assay has been cleared by the U.S. Food and Drug Administration under the Emergency Use Authorization (EUA). [facility] are designated as high complexity laboratories by the Clinical Laboratory Improvement Amendments of 1988(CLIA) and are qualified to perform this test. Not Detected ID Date Data Source [id number] 12/09/2020 09:25:00 AM EDT [facility] Name Value Range Interpretation Code Description Data Shi rce(s) Supporting Document(s) Color Laboratory test result MEDENT ([facility]) Laboratory test finding (navigational concept) Laboratory test result MEDENT ([facility]) . Not provided Size Laboratory test result MEDENT ([facility]) Multiple pieces received. Dimensions of the largest piece reported. Weight 10 mg [facility]) Composition Laboratory test result MEDEN T ([facility]) . Percentage (Represents the % composition) CA Oxalate Dihy Laboratory test result M EDENT ([facility]) Laboratory test finding (navigational concept) 70 % MED[facility] ([facility]) Laboratory test finding (navigational concept) Laboratory test result MEDENT ([facility]) Ca Ox Monohydrate 30 % MED[facility] ([facility]) CA Phosphate Laboratory test result MEDE NT ([facility]) MG Isaiah Phos Laboratory test result MED ENT ([facility]) Uric Acid Laboratory test result MEDENT ([facility]) Ua Dihydrate Laboratory test result MEDE NT ([facility]) Amm Acid Urate Laboratory test result ME DENT ([facility]) Na Acid Urate Laboratory test result [facility] Laboratory test finding (navigational concept) Laboratory test result MEDENT ([facility]) Laboratory test finding (navigational concept) Laboratory test result MED[facility] ([facility]) Cystine Laboratory test result MED[facility] ([facility]) CA [place] Phos Laboratory test result MED ENT ([facility]) CA Bilirubinate Laboratory test result M EDENT ([facility]) Cholesterol Laboratory test result MEDEN T ([facility]) CA Carbonate Laboratory test result MEDE NT ([facility]) Bilirubin Laboratory test result MED[facility] ([facility]) Laboratory test finding (navigational concept) Laboratory test result MED[facility] ([facility]) Laboratory test finding (navigational concept) Laboratory test result MED[facility] ([facility]) Triamterene Laboratory test result MEDEN T ([facility]) Laboratory test finding (navigational concept) Laboratory test result MEDENT ([facility]) Newberyite Laboratory test result MEDENT ([facility]) Cell Material Laboratory test result MED ENT ([facility]) Dried Blood Laboratory test result MEDEN T ([facility]) Laboratory test finding (navigational concept) Laboratory test result MEDENT ([facility]) Comment Laboratory test result MEDENT ([facility]) Comment Laboratory test result MED[facility] ([facility]) Comment Laboratory test result MEDENT ([facility]) . Physician questions regarding Calculi Analysis contact [employer] at: [phone]. Please Note: Laboratory test result MEDE NT ([facility]) . Calculi report will follow via computer, mail or autistic teacher delivery. Disclaimer Laboratory test result [facility] . This test was developed and its performance characteristics determined by [employer]. It has not been cleared or approved by the Food and Drug Administration. Performed at: [facility] [address] [place] [address] [address], [place], [place] [id number] Cross Country Coach: Najma Bautista MD, Phone: [phone] Laboratory test finding (navigational concept) Laboratory test result MEDENT ([facility]) . Photograph will follow under a separate cover ID Date Data Source [id number] 12/09/2020 08:20:00 AM EDT MEDENT ([facility]) Name Value Range Interpretation Code Description Data Shi rce(s) Supporting Document(s) Bedside Glucose 95 mg/dL 80-115 MEDENT ([facility]) ID Date Data Source [id number] 12/04/2020 11:10:00 AM EDT [facility] Name Value Range Interpretation Code Description Data Shi rce(s) Supporting Document(s) SARS-CoV-2 (COVID-19) RNA [Presence] in Respiratory specimen by RANDOLPH with probe detection Not Detected [facility] This lab was ordered by [facility] and reported by [employer]. ID Date Data Source [id number] 11/29/2020 11:01:00 AM EDT MEDENT ([facility]) Name Value Range Interpretation Code Description Data Shi rce(s) Supporting Document(s) Color, Urine Laboratory test result MEDE NT ([facility]) Appearance, Urine Laboratory test result [facility] ([facility]) PH,Urine 7.0 units 5.0-9.0 [facility]) Specific [place] Urine Auto 1.012 1.002-1.035 MED[facility] ([facility]) Protein, Urine Auto Laboratory test result MEDENT ([facility]) Glucose, Urine (Ua) Auto Laboratory test result [facility] ([facility]) Urobilinogen, Urine Auto 0.2 mg/dL 0.0-2.0 MEDEN T ([facility]) Ketone, Urine Auto Laboratory test result [facility] ([facility]) Bilirubin, Urine Auto Laboratory test result [facility] ([facility]) Nitrite, Urine Auto Laboratory test result [facility] ([facility]) Leukocyte Esterase, Urine Auto Laboratory test result [facility] ([facility]) WBC, Urine Auto 96 /HPF 0-3 MED[facility] ([facility]) Blood, Urine Blood Laboratory test result MED[facility] ([facility]) Bacteria, Urine Auto Laboratory test result [facility] ([facility]) RBC, Urine Auto Laboratory test result 0-3 M EDENT [facility] Squamous Epithelial Cell Ur AU 0 /HPF 0-6 MED[facility] ([facility]) Mucus, Urine Laboratory test result MEDE NT [facility] Hyaline Cast, Urine Auto 2 /LPF 0-1 MED[facility] T [facility] ID Date Data Source [id number] 11/29/2020 11:01:00 AM EDT [facility] ([facility] Name Value Range Interpretation Code Description Data Shi rce(s) Supporting Document(s) Bacteria identified in Urine by Culture Laboratory test result MED[facility] ([facility]) FULL REPORT IN LAB NOTES (eCW and Medent ). NO GROWTH ID Date Data Source [id number] 11/26/2020 01:48:00 PM EDT [facility] ([facility] Name Value Range Interpretation Code Description Data Shi rce(s) Supporting Document(s) Leukocytes [#/volume] in Blood by Automated count 4.4 x10*3/UL 4.1-10 .9 [facility] Erythrocytes [#/volume] in Blood by Automated count 3.32 x10*6/UL 4.2 0-6.30 [facility] Hemoglobin [Mass/volume] in Blood 9.3 g/dL 12.0-18.0 [facility] NOTE: RESULT VERIFIED. Hematocrit [Volume Fraction] of Blood by Automated count 27.5 % 3 7.0-51.0 [facility] ([facility]) MCV 82.7 fL 80.0-97.0 [facility] [facility]) MCH 28.0 pg 26.0-32.0 [facility] ([facility]) MCHC 33.9 g/dL 31.0-38.0 [facility] ([facility]) Erythrocyte distribution width [Ratio] by Automated count 14.4 % 11.6-13.7 [facility] ([facility]) Platelets [#/volume] in Blood by Automated count 223 x10*3/UL 140-440 [facility] ([facility]) MPV 8.7 FL 7.8-11.0 [facility] Mid % 7.3 % 1.7-9.3 [facility] Lymph % 20.8 % 10.0-58.5 [facility] Neut % 71.9 % 37.0-92.0 [facility] Lymph # 0.9 x10*3/UL 0.6-4.1 [facility] ([facility]) Mid # 0.4 x10*3/UL 0.1-0.6 [facility] ([facility]) Neut # 3.1 x10*3/UL 2.0-7.8 [facility] ([facility]) ID Date Data Source [id number] 11/26/2020 01:48:00 PM EDT [facility] ([facility]) Name Value Range Interpretation Code Description Data Shi rce(s) Supporting Document(s) Magnesium 1.6 mg/dL 1.8-2.4 [facility] ([facility]) ID Date Data Source [id number] 11/26/2020 01:48:00 PM EDT [facility] ([facility]) Name Value Range Interpretation Code Description Data Shi rce(s) Supporting Document(s) Glucose [Mass/volume] in Serum or Plasma 159 mg/dL 74-99 [facility] ([facility]) 100-125 mg/dL PRE-DIABETES/FASTING >126 mg/dL DIABETES/FASTING Urea nitrogen [Mass/volume] in Serum or Plasma 12 mg/dL 7-18 [facility] ([facility]) Creatinine 0.9 mg/dL 0.6-1.3 [facility] Sodium [Moles/volume] in Serum or Plasma 138 meq/L 136-145 [facility] ([facility]) Potassium [Moles/volume] in Serum or Plasma 3.6 meq/L 3.5-5.1 [facility] Carbon dioxide, total [Moles/volume] in Serum or Plasma 29 meq/L 21 -32 [facility] Calcium [Mass/volume] in Serum or Plasma 9.2 mg/dL 8.5-10.1 [facility] Chloride [Moles/volume] in Serum or Plasma 101 meq/L 98-107 [facility] ([facility]) Glomerular filtration rate/1.73 sq M pre dicted among non-blacks [Volume Rate/Area] in Serum or Plasma by Creatinine-based formula (MDRD) Laboratory test result [facility] Glomerular filtration rate/1.73 sq M pre dicted among blacks [Volume Rate/Area] in Serum or Plasma by Creatinine-based formula (MDRD) Laboratory test result [facility] ([facility]) <content>CHRONIC KIDNEY DISEASE STAGING PER NKF</content>
<content></content>
<content>STAGE I & II GFR >= 60 NORMAL TO MILDLY DECREASED</content>
<content>STAGE III GFR 30-59 MODERATELY DECREASED</content>
<content>STAGE IV GFR 15-29 SEVERELY DECREASED</content>
<content>STAGE V GFR <15 VERY LITTLE GFR LEFT</content>
<content>ESRD GFR <15 ON [employer] WORKER</content>
<content></content> ID Date Data Source [id number] 11/26/2020 01:48:00 PM EDT [facility] Name Value Range Interpretation Code Description Data Shi rce(s) Supporting Document(s) Thyrotropin [Units/volume] in Serum or Plasma by Detec tion limit <= 0.05 mIU/L 0.98 uIU/mL 0.36-3.74 [facility] ) ID Date Data Source [id number] 11/26/2020 01:48:00 PM EDT [facility]) Name Value Range Interpretation Code Description Data Shi rce(s) Supporting Document(s) Hepatitis B virus surface Ag [Presence] in Serum or Pl asma by Immunoassay Laboratory test result [facility] Hepatitis B virus surface Ab [Presence] in Serum by Im munoassay Laboratory test result [facility] ID Date Data Source [id number] 11/26/2020 01:48:00 PM EDT [facility] Name Value Range Interpretation Code Description Data Shi rce(s) Supporting Document(s) Hemoglobin A1c/Hemoglobin.total in Blood 6.6 % [facility] Lab Result Notes: Pre-Diabetes 5.7 - 6.4 % Diabetes = or > 6.5% Glucose mean value [Mass/volume] in Blood Estimated fr om glycated hemoglobin 143 mg/dL 60-110 [facility] ([facility] ID Date Data Source [id number] 11/26/2020 01:48:00 PM EDT [facility]) Name Value Range Interpretation Code Description Data Shi rce(s) Supporting Document(s) Thyrotropin [Units/volume] in Serum or Plasma by Detec tion limit <= 0.05 mIU/L 0.98 uIU/mL 0.36-3.74 [facility] ([facility]) Hepatitis B virus surface Ag [Presence] in Serum or Pl asma by Immunoassay Laboratory test result [facility]) Hepatitis B virus surface Ab [Presence] in Serum by Im munoassay Laboratory test result [facility] ([facility]) ID Date Data Source [id number] 11/26/2020 01:48:00 PM EDT [facility] ([facility]) Name Value Range Interpretation Code Description Data Shi rce(s) Supporting Document(s) Glucose [Mass/volume] in Serum or Plasma 159 mg/dL 74-99 [facility] ([facility]) 100-125 mg/dL PRE-DIABETES/FASTING >126 mg/dL DIABETES/FASTING Creatinine 0.9 mg/dL 0.6-1.3 [facility] ([facility]) Urea nitrogen [Mass/volume] in Serum or Plasma 12 mg/dL 7-18 [facility] ([facility]) Sodium [Moles/volume] in Serum or Plasma 138 meq/L 136-145 [facility] ([facility]) Potassium [Moles/volume] in Serum or Plasma 3.6 meq/L 3.5-5.1 [facility] ([facility]) Chloride [Moles/volume] in Serum or Plasma 101 meq/L 98-107 [facility] ([facility]) Calcium [Mass/volume] in Serum or Plasma 9.2 mg/dL 8.5-10.1 [facility] ([facility]) Carbon dioxide, total [Moles/volume] in Serum or Plasma 29 meq/L 21 -32 [facility] ([facility]) Glomerular filtration rate/1.73 sq M pre dicted among non-blacks [Volume Rate/Area] in Serum or Plasma by Creatinine-based formula (MDRD) Laboratory test result [facility] ([facility]) Glomerular filtration rate/1.73 sq M pre dicted among blacks [Volume Rate/Area] in Serum or Plasma by Creatinine-based formula (MDRD) Laboratory test result [facility] ([facility]) <content>CHRONIC KIDNEY DISEASE STAGING PER NKF</content>
<content></content>
<content>STAGE I & II GFR >= 60 NORMAL TO MILDLY DECREASED</content>
<content>STAGE III GFR 30-59 MODERATELY DECREASED</content>
<content>STAGE IV GFR 15-29 SEVERELY DECREASED</content>
<content>STAGE V GFR <15 VERY LITTLE GFR LEFT</content>
<content>ESRD GFR <15 ON [employer] WORKER</content>
<content></content>
<content></content> ID Date Data Source [id number] 11/26/2020 01:48:00 PM EDT [facility] ([facility]) Name Value Range Interpretation Code Description Data Shi rce(s) Supporting Document(s) Magnesium 1.6 mg/dL 1.8-2.4 [facility] ([facility]) ID Date Data Source [id number] 11/26/2020 01:48:00 PM EDT [facility] ([facility]) Name Value Range Interpretation Code Description Data Shi rce(s) Supporting Document(s) Leukocytes [#/volume] in Blood by Automated count 4.4 x10*3/UL 4.1-10 .9 [facility] ([facility]) Erythrocytes [#/volume] in Blood by Automated count 3.32 x10*6/UL 4.2 0-6.30 [facility] ([facility]) Hemoglobin [Mass/volume] in Blood 9.3 g/dL 12.0-18.0 [facility] ([facility]) NOTE: RESULT VERIFIED. Hematocrit [Volume Fraction] of Blood by Automated count 27.5 % 3 7.0-51.0 [facility] ([facility]) MCV 82.7 fL 80.0-97.0 [facility] ([facility]) MCH 28.0 pg 26.0-32.0 [facility] MCHC 33.9 g/dL 31.0-38.0 [facility] ([facility]) Platelets [#/volume] in Blood by Automated count 223 x10*3/UL 140-440 [facility] ([facility]) Erythrocyte distribution width [Ratio] by Automated count 14.4 % 11.6-13.7 [facility] ([facility]) Platelet mean volume [Entitic volume] in Blood by Crispin 8.7 FL 7.8-11.0 [facility] ([facility]) Lymphocytes/100 leukocytes in Blood by Automated count 20.8 % 10. 0-58.5 [facility] ([facility]) Mid % 7.3 % 1.7-9.3 [facility] ([facility]) Neut % 71.9 % 37.0-92.0 [facility] Mid # 0.4 x10*3/UL 0.1-0.6 [facility] ([facility]) Lymph # 0.9 x10*3/UL 0.6-4.1 [facility] ([facility]) Neutrophils [#/volume] in Semen by Manual count 3.1 x10*3/UL 2.0-7.8 [facility] ([facility]) ID Date Data Source [id number] 11/12/2020 10:19:00 AM EDT [facility] ([facility]) Name Value Range Interpretation Code Description Data Shi rce(s) Supporting Document(s) Hepatitis C Virus Genotype Laboratory test result [facility] ([facility]) Comment For Hepc Genotype Laboratory test result [facility] ([facility]) . This test was developed and its performance characteristics [facility]. It has not been cleared or approved by the U.S. Food and Drug Administration. . The FDA has determined that such clearance or approval is not necessary. This test is used for clinical purposes. It should not be regarded as investigational or for research. Performed at: [address] [id number] [employer] Coach: Odell Coe MD, Phone: [phone] ID Date Data Source [id number] 11/04/2020 11:17:00 AM EDT [facility] ([facility]) Name Value Range Interpretation Code Description Data [facility] rce(s) Supporting Document(s) Hepatitis C Quantitation [id number] IU/ml M EDENT ([facility]) Hepatitis C log10 6.083 [facility] ([facility]) Result Units: log10 IU/mL Test Information: Laboratory test result [facility] ([facility]) . The quantitative range of this assay is 15 IU/mL to 100 million IU/mL. Performed at: [address] [id number] [employer] Coach: Niki Meyer MD, Phone: [phone] ID Date Data Source [id number] 10/31/2020 01:38:00 PM EDT [facility] ([facility]) Name Value Range Interpretation Code Description Data [facility] rce(s) Supporting Document(s) Prothrombin Time 14.1 s 12.5-14.3 [facility] ([facility]) Inr 1.07 [facility] ([facility]) THERAPUTIC HUMAN INR VALUES INDICATIONS NORMAL RANGES PROPHYLAXIS/TREATMENT OF: VENOUS THROMBOSIS 2.0-3.0 PULMONARY EMBOLISM 2.0-3.0 PREVENTION OF SYSTEMIC EMBOLISM FROM: TISSUE HEART VALVES 2.0-3.0 ACUTE MYOCARDIAL INFARCTION 2.0-3.0 VALVULAR HEART DISEASE 2.0-3.0 ATRIAL FIBRILLATION 2.0-3.0 MECHANICAL VALVES(HIGH RISK) 2.5-3.5 RECURRENT MYOCARDIAL INFARCTION 2.5-3.5 Partial Thromboplastin Time 25.9 s 24.2-38.5 ME [facility] ([facility] ID Date Data Source [id number] 10/31/2020 01:38:00 PM EDT [facility] ([facility] Name Value Range Interpretation Code Description Data Shi rce(s) Supporting Document(s) Appearance, Urine Laboratory test result [facility] PH,Urine 7.0 units 5.0-9.0 [facility] Color, Urine Laboratory test result MEDE NT ([facility] Specific [place] Urine Auto 1.011 1.002-1.035 [facility] ([facility] Protein, Urine Auto [facility] Glucose, Urine (Ua) Auto Laboratory test result [facility] ([facility] Ketone, Urine Auto Laboratory test result [facility] ([facility] Bilirubin, Urine Auto Laboratory test result [facility] ([facility] Urobilinogen, Urine Auto 0.2 mg/dL 0.0-2.0 MED[facility] T ([facility]) Nitrite, Urine Auto Laboratory test result [facility] ([facility]) Leukocyte Esterase, Urine Auto [facility] Blood, Urine Blood Laboratory test result [facility] ([facility]) WBC, Urine Auto 98 /HPF 0-3 [facility] Bacteria, Urine Auto Laboratory test result [facility] ([facility] RBC, Urine Auto Laboratory test result 0-3 M EDENT ([facility]) Squamous Epithelial Cell Ur AU 0 /HPF 0-6 [facility] ([facility]) Mucus, Urine Laboratory test result [facility] NT ([facility] Hyaline Cast, Urine Auto 6 /LPF 0-1 [facility] T ([facility] ID Date Data Source [id number] 10/31/2020 01:38:00 PM EDT [facility] ([facility] Name Value Range Interpretation Code Description Data Shi rce(s) Supporting Document(s) Bacteria identified in Urine by Culture Laboratory test result [facility] ([facility]) FULL REPORT IN LAB NOTES (eCW and [facility] ). NO GROWTH ID Date Data Source [id number] 10/31/2020 01:33:00 PM EDT [facility] ([facility]) Name Value Range Interpretation Code Description Data Shi rce(s) Supporting Document(s) Glucose [Mass/volume] in Serum or Plasma 162 mg/dL 74-99 [facility] ([facility]) 100-125 mg/dL PRE-DIABETES/FASTING >126 mg/dL DIABETES/FASTING Urea nitrogen [Mass/volume] in Serum or Plasma 10 mg/dL 7-18 [facility] ([facility]) Creatinine 1.0 mg/dL 0.6-1.3 [facility] ([facility]) Potassium [Moles/volume] in Serum or Plasma 3.9 meq/L 3.5-5.1 [facility] ([facility]) Sodium [Moles/volume] in Serum or Plasma 135 meq/L 136-145 [facility] ([facility]) NOTE: RESULT VERIFIED. Chloride [Moles/volume] in Serum or Plasma 101 meq/L 98-107 [facility] ([facility]) Carbon dioxide, total [Moles/volume] in Serum or Plasma 27 meq/L 21 -32 [facility] Calcium [Mass/volume] in Serum or Plasma 8.8 mg/dL 8.5-10.1 [facility] ([facility] Glomerular filtration rate/1.73 sq M pre dicted among non-blacks [Volume Rate/Area] in Serum or Plasma by Creatinine-based formula (MDRD) Laboratory test result [facility] ([facility] Glomerular filtration rate/1.73 sq M pre dicted among blacks [Volume Rate/Area] in Serum or Plasma by Creatinine-based formula (MDRD) Laboratory test result [facility] ([facility]) <content>CHRONIC KIDNEY DISEASE STAGING PER NKF</content>
<content></content>
<content>STAGE I & II GFR >= 60 NORMAL TO MILDLY DECREASED</content>
<content>STAGE III GFR 30-59 MODERATELY DECREASED</content>
<content>STAGE IV GFR 15-29 SEVERELY DECREASED</content>
<content>STAGE V GFR <15 VERY LITTLE GFR LEFT</content>
<content>ESRD GFR <15 ON LIFE SKILLS WORKER</content>
<content></content> ID Date Data Source [id number] 10/31/2020 01:33:00 PM EDT [facility] ([facility] Name Value Range Interpretation Code Description Data Shi rce(s) Supporting Document(s) Leukocytes [#/volume] in Blood by Automated count 4.0 x10*3/UL 4.1-10 .9 [facility] ([facility]) Erythrocytes [#/volume] in Blood by Automated count 3.29 x10*6/UL 4.2 0-6.30 [facility] ([facility] Hemoglobin [Mass/volume] in Blood 9.6 g/dL 12.0-18.0 [facility] ([facility]) NOTE: RESULT VERIFIED. Hematocrit [Volume Fraction] of Blood by Automated count 27.4 % 3 7.0-51.0 [facility] ([facility]) MCH 29.1 pg 26.0-32.0 [facility] ([facility]) MCV 83.3 fL 80.0-97.0 [facility] ([facility]) Erythrocyte distribution width [Ratio] by Automated count 14.1 % 11.6-13.7 [facility] ([facility]) MCHC 34.9 g/dL 31.0-38.0 [facility] ([facility]) Platelets [#/volume] in Blood by Automated count 218 x10*3/UL 140-440 [facility] ([facility]) MPV 8.7 FL 7.8-11.0 [facility] ([facility]) Mid % 7.0 % 1.7-9.3 [facility] ([facility]) Lymph % 20.7 % 10.0-58.5 [facility] Neut % 72.3 % 37.0-92.0 [facility] ([facility]) Lymph # 0.8 x10*3/UL 0.6-4.1 [facility] ([facility]) Neut # 2.9 x10*3/UL 2.0-7.8 [facility] ([facility]) Mid # 0.3 x10*3/UL 0.1-0.6 [facility] ID Date Data Source [id number] 10/31/2020 01:33:00 PM EDT [facility] ([facility]) Name Value Range Interpretation Code Description Data Shi rce(s) Supporting Document(s) Hepatitis C virus Ab [Units/volume] in Serum by Immuno assay Laboratory test result [facility] ([facility] ) <content>This screening test for Hepatit is C Virus was above the 1.0</content>
<content>cutoff index value and will be sent to reference lab</content>
<content>Laboratory [facility], [address] [place], [place] [address]suzette Casanova,</content>
<content>[place] [address] for Hep C RNA RANDOLPH testing to confirm or exclude</content>
<content>active Hepatitis C Virus infection. Screening test Positive</content>
<content>samples with high index values (>11.0) usually (95%) confirm</content>
<content>Positive, but <5 of every 100 samples with this result might</content>
<content>be a false positive and Hep C RNA RANDOLPH testing will aid in</content>
<content>patient management.</content>
<content></content> Hepatitis C virus RNA [Units/volume] (vi ral load) in Serum or Plasma by Probe with amplification Laboratory test result Abnormal (applies to non-numeric results) [facility] Positive: HCV RNA Detected Performed at: [address] [id number] [employer] Coach: Odell Coe MD, Phone: [phone] ID Date Data Source [id number] 10/31/2020 01:33:00 PM EDT [facility] Name Value Range Interpretation Code Description Data Shi rce(s) Supporting Document(s) Magnesium 1.7 mg/dL 1.8-2.4 [facility] ([facility]) ID Date Data Source [id number] 10/31/2020 01:33:00 PM EDT [facility] ([facility]) Name Value Range Interpretation Code Description Data Shi rce(s) Supporting Document(s) Alkaline phosphatase isoenzyme [Units/volume] in Serum or Pl asma 106 mg/dL 46-116 [facility] ([facility]) Aspartate aminotransferase [Enzymatic activity/volume] in Serum or Plasma 46 U/L 15-37 [facility] ([facility] ) Total Bilirubin 0.3 mg/dL 0.2-1.0 [facility] ([facility]) Albumin [Mass/volume] in Serum or Plasma 3.4 g/dL 3.4-5.0 [facility] ([facility]) Alanine aminotransferase [Enzymatic activity/volume] in Seru m or Plasma 50 U/L 12-78 [facility] ([facility]) Proteinase 3 Ab [Units/volume] in Serum 7.4 g/dL 6.4-8.2 [facility] ([facility]) Direct Bilirubin 0.1 mg/dL 0.0-0.2 [facility] ([facility]) A/G Ratio 0.85 CALC 1.00-1.90 [facility] ([facility]) ID Date Data Source [id number] 10/07/2020 02:15:00 PM EDT [facility] ([facility]) Name Value Range Interpretation Code Description Data Shi rce(s) Supporting Document(s) Glucose [Mass/volume] in Serum or Plasma 129 mg/dL 74-99 [facility] ([facility]) 100-125 mg/dL PRE-DIABETES/FASTING >126 mg/dL DIABETES/FASTING Urea nitrogen [Mass/volume] in Serum or Plasma 14 mg/dL 7-18 [facility] ([facility]) Creatinine 1.1 mg/dL 0.6-1.3 [facility] ([facility]) Sodium [Moles/volume] in Serum or Plasma 138 meq/L 136-145 [facility] ([facility]) Potassium [Moles/volume] in Serum or Plasma 4.2 meq/L 3.5-5.1 [facility] ([facility]) Chloride [Moles/volume] in Serum or Plasma 100 meq/L 98-107 [facility] ([facility]) Calcium [Mass/volume] in Serum or Plasma 9.2 mg/dL 8.5-10.1 [facility] ([facility]) Carbon dioxide, total [Moles/volume] in Serum or Plasma 28 meq/L 21 -32 [facility] Glomerular filtration rate/1.73 sq M pre dicted among blacks [Volume Rate/Area] in Serum or Plasma by Creatinine-based formula (MDRD) Laboratory test result [facility] ([facility]) <content>CHRONIC KIDNEY DISEASE STAGING PER NKF</content>
<content></content>
<content>STAGE I & II GFR >= 60 NORMAL TO MILDLY DECREASED</content>
<content>STAGE III GFR 30-59 MODERATELY DECREASED</content>
<content>STAGE IV GFR 15-29 SEVERELY DECREASED</content>
<content>STAGE V GFR <15 VERY LITTLE GFR LEFT</content>
<content>ESRD GFR <15 ON LIFE SKILLS WORKER</content>
<content></content> Glomerular filtration rate/1.73 sq M pre dicted among non-blacks [Volume Rate/Area] in Serum or Plasma by Creatinine-based formula (MDRD) Laboratory test result [facility] ID Date Data Source [id number] 10/07/2020 02:15:00 PM EDT [facility] ([facility]) Name Value Range Interpretation Code Description Data Shi rce(s) Supporting Document(s) Magnesium 1.3 mg/dL 1.8-2.4 [facility] ([facility]) NOTE: RESULT VERIFIED. ID Date Data Source [id number] 10/07/2020 02:15:00 PM EDT [facility] ([facility] Name Value Range Interpretation Code Description Data Shi rce(s) Supporting Document(s) Leukocytes [#/volume] in Blood by Automated count 5.0 x10*3/UL 4.1-10 .9 [facility] ([facility]) NOTE: CBC VERIFIED Erythrocytes [#/volume] in Blood by Automated count 3.41 x10*6/UL 4.2 0-6.30 [facility] ([facility]) Hemoglobin [Mass/volume] in Blood 9.9 g/dL 12.0-18.0 [facility] ([facility]) Hematocrit [Volume Fraction] of Blood by Automated count 28.7 % 3 7.0-51.0 [facility] ([facility]) MCV 84.2 fL 80.0-97.0 [facility] ([facility]) MCH 29.1 pg 26.0-32.0 [facility] ([facility]) MCHC 34.5 g/dL 31.0-38.0 [facility] ([facility] Erythrocyte distribution width [Ratio] by Automated count 13.7 % 11.6-13.7 [facility] ([facility]) Platelets [#/volume] in Blood by Automated count 296 x10*3/UL 140-440 [facility] ([facility]) MPV 7.8 FL 7.8-11.0 [facility] ([facility] Lymph % 25.5 % 10.0-58.5 [facility] ([facility] Neut % 67.7 % 37.0-92.0 [facility] ([facility] Mid % 6.8 % 1.7-9.3 [facility] Lymph # 1.2 x10*3/UL 0.6-4.1 [facility] ([facility]) Mid # 0.4 x10*3/UL 0.1-0.6 [facility] ([facility]) Neut # 3.4 x10*3/UL 2.0-7.8 [facility] ([facility]) ID Date Data Source [id number] 10/01/2020 09:31:00 PM EDT [facility] Name Value Range Interpretation Code Description Data Shi rce(s) Supporting Document(s) SARS coronavirus 2 RNA [Presence] in Res piratory specimen by RANDOLPH with probe detection NEGATIVE [facility] This lab was ordered by [facility] a nd reported by [facility]. ID Date Data Source [id number] 10/01/2020 06:14:00 PM EDT [facility] ([facility] Name Value Range Interpretation Code Description Data Shi rce(s) Supporting Document(s) Appearance, Urine RFX Laboratory test result [facility] ([facility]) PH,Urine RFX 6.0 units 5.0-9.0 [facility] ([facility]) Color, Urine RFX Laboratory test result [facility] ([facility]) Protein, Urine Auto RFX Laboratory test result [facility] ([facility]) Specific [place] Ur Auto RFX 1.016 1.002-1.035 [facility] ([facility]) Glucose, Urine (Ua) Auto RFX Laboratory test result [facility] ([facility]) Ketone, Urine Auto RFX Laboratory test result [facility] ([facility]) Urobilinogen, Urine Auto RFX 0.2 mg/dL 0.0-2.0 [facility] ([facility]) Bilirubin, Urine Auto RFX Laboratory test result [facility] ([facility]) Nitrite, Urine Auto RFX Laboratory test result [facility] ([facility]) Blood, Urine Blood RFX Laboratory test result [facility] ([facility]) Leukocyte Esterase Ur Auto RFX Laboratory test result [facility] ([facility]) RBC, Urine Auto RFX 16 /HPF 0-3 [facility] ([facility]) WBC, Urine Auto RFX 107 /HPF 0-3 [facility] ([facility]) Squam Epithelial Cell Ur Aurfx 0 /HPF 0-6 [facility] ([facility]) Bacteria, Urine Auto RFX Laboratory test result [facility] ([facility]) Mucus, Urine RFX Laboratory test result [facility] ([facility]) Hyaline Cast, Urine Auto RFX 0 /LPF 0-1 M [facility]ENT ([facility]) ID Date Data Source [id number] 10/01/2020 06:14:00 PM EDT [facility] ([facility]) Name Value Range Interpretation Code Description Data Shi rce(s) Supporting Document(s) Lactate [Mass/volume] in Serum or Plasma 1.4 mmol/L 0.4-2.0 [facility] ([facility]) Y/N query for Sepsis Lactate Rule: Y ID Date Data Source [id number] 10/01/2020 05:28:00 PM EDT [facility] ([facility]) Name Value Range Interpretation Code Description Data Shi rce(s) Supporting Document(s) Laboratory test finding (navigational concept) 29.0 % 38.0-51.0 [facility] ([facility]) Laboratory test finding (navigational concept) 123 mg/dL 70-105 [facility] ([facility]) Laboratory test finding (navigational concept) 139 meq/L 136-145 [facility] ([facility]) Laboratory test finding (navigational concept) 4.1 meq/L 3.5-5.1 [facility] ([facility]) Laboratory test finding (navigational concept) 5.0 mg/dL 4.5-5.3 [facility] ([facility]) Laboratory test finding (navigational concept) 99 meq/L 98-109 [facility] ([facility]) Laboratory test finding (navigational concept) 30.0 MM/L 23.0-27.0 [facility] ([facility]) Laboratory test finding (navigational concept) 1.1 mg/dL 0.6-1.3 [facility] ([facility]) Laboratory test finding (navigational concept) 12 mg/dL 8-26 [facility] ([facility]) ID Date Data Source [id number] 10/01/2020 05:23:00 PM EDT [facility] ([facility]) Name Value Range Interpretation Code Description Data Shi rce(s) Supporting Document(s) White Blood Count 4.4 10 4.0-10.0 [facility] ([facility]) Red Blood Count 3.22 10 4.30-6.10 [facility] ([facility]) Hemoglobin 9.1 g/dL 13.5-17.5 [facility] ([facility]) Hematocrit 29.1 % 42.0-52.0 [facility] ([facility]) Mean Corpuscular Volume 90.4 fl 80.0-96.0 [facility] ([facility]) Mean Corpuscular Hemoglobin 28.3 pg 27.0-33.0 ME DENT ([facility]) Mean Corpuscular HGB Conc 31.3 g/dL 32.0-36.5 MEDE NT ([facility]) Red Cell Distribution Width 14.4 % 11.5-14.5 ME DENT ([facility]) Platelet Count, Automated 209 10 150-450 MEDE NT ([facility]) Lymph % 23.0 % 24.0-44.0 [facility] Kay % 11.7 % 2.0-8.0 [facility] Neutrophils % 61.6 % 36.0-66.0 [facility] ([facility]) Baso % 0.5 % 0.0-1.0 [facility] Eos % 2.7 % 0.0-3.0 [facility] Nucleated Red Blood Cell % 0.0 % 0-0 MED ENT ([facility]) Immature Granulocyte % 0.5 % 0-3.0 [facility] ([facility]) Lymph # 1.0 10 1.5-5.0 [facility] Neutrophils # 2.7 10 1.5-8.5 [facility] ([facility]) Kay # 0.5 10 0.0-0.8 [facility] Eos # 0.1 10 0.0-0.5 [facility] Baso # 0.0 10 0.0-0.2 [facility] ID Date Data Source [id number] 10/01/2020 05:23:00 PM EDT [facility] ([facility]) Name Value Range Interpretation Code Description Data Shi rce(s) Supporting Document(s) Ast/Sgot 27 U/L 7-37 [facility] ([place]) Bilirubin,Total 0.2 mg/dL 0.2-1.0 [facility] ([facility]) Alkaline Phosphatase 75 U/L 45-117 [facility] ([facility]) Alt/SGPT 30 U/L 12-78 [facility] ([place] [facility]) Total Protein 7.7 GM/DL 6.4-8.2 [facility] ([facility]) Bilirubin,Direct 0.2 mg/dL 0.0-0.2 [facility] ([facility]) Albumin/Globulin Ratio 0.7 [facility] ([facility]) Albumin 3.1 GM/DL 3.2-5.2 [facility] ([place]) ID Date Data Source [id number] 10/01/2020 05:23:00 PM EDT [facility] ([facility]) Name Value Range Interpretation Code Description Data Shi rce(s) Supporting Document(s) Lipoprotein lipase [Enzymatic activity/volume] in Serum or P lasma 351 U/L 73-393 [facility] ([facility]) ID Date Data Source [id number] 08/26/2020 02:27:00 PM EDT [facility] ([facility]) Name Value Range Interpretation Code Description Data Shi rce(s) Supporting Document(s) Cholesterol [Mass/volume] in Serum or Plasma 114 mg/dL 131-200 [facility] ([facility]) Cholesterol in HDL [Mass/volume] in Serum or Plasma 35 mg/dL 35-60 [facility] ([facility]) Triglyceride [Mass/volume] in Serum or Plasma 107 mg/dL 30-150 [facility] ([facility]) Cholesterol in LDL [Mass/volume] in Serum or Plasma by calcu lation 58 CALC 50-159 [facility] ([facility]) ID Date Data Source [id number] 08/26/2020 02:27:00 PM EDT [facility] ([facility]) Name Value Range Interpretation Code Description Data Shi rce(s) Supporting Document(s) Urea nitrogen [Mass/volume] in Serum or Plasma 10 mg/dL 7-18 [facility] ([facility]) Glucose [Mass/volume] in Serum or Plasma 134 mg/dL 74-99 [facility] ([facility]) 100-125 mg/dL PRE-DIABETES/FASTING >126 mg/dL DIABETES/FASTING Creatinine 0.9 mg/dL 0.6-1.3 [facility] ([facility] Sodium [Moles/volume] in Serum or Plasma 142 meq/L 136-145 [facility] ([facility]) Chloride [Moles/volume] in Serum or Plasma 104 meq/L 98-107 [facility] ([facility]) Potassium [Moles/volume] in Serum or Plasma 3.5 meq/L 3.5-5.1 [facility] ([facility]) Calcium [Mass/volume] in Serum or Plasma 8.8 mg/dL 8.5-10.1 [facility] ([facility]) Carbon dioxide, total [Moles/volume] in Serum or Plasma 27 meq/L 21 -32 [facility] ([facility]) Glomerular filtration rate/1.73 sq M pre dicted among non-blacks [Volume Rate/Area] in Serum or Plasma by Creatinine-based formula (MDRD) Laboratory test result [facility] ([facility] ) Glomerular filtration rate/1.73 sq M pre dicted among blacks [Volume Rate/Area] in Serum or Plasma by Creatinine-based formula (MDRD) Laboratory test result [facility] ([facility]) <content>CHRONIC KIDNEY DISEASE STAGING PER NKF</content>
<content></content>
<content>STAGE I & II GFR >= 60 NORMAL TO MILDLY DECREASED</content>
<content>STAGE III GFR 30-59 MODERATELY DECREASED</content>
<content>STAGE IV GFR 15-29 SEVERELY DECREASED</content>
<content>STAGE V GFR <15 VERY LITTLE GFR LEFT</content>
<content>ESRD GFR <15 ON [employer] SK[employer]S WORKER</content>
<content></content> ID Date Data Source [id number] 08/26/2020 02:27:00 PM EDT [facility] ([facility]) Name Value Range Interpretation Code Description Data Shi rce(s) Supporting Document(s) Magnesium 1.5 mg/dL 1.8-2.4 [facility] ([facility]) NOTE: RESULT VERIFIED. ID Date Data Source [id number] 08/26/2020 02:27:00 PM EDT [facility] ([facility] Name Value Range Interpretation Code Description Data Shi rce(s) Supporting Document(s) Glucose mean value [Mass/volume] in Blood Estimated fr om glycated hemoglobin 163 mg/dL 60-110 [facility] ([facility] ) Hemoglobin A1c/Hemoglobin.total in Blood 7.3 % [facility] Lab Result Notes: Pre-Diabetes 5.7 - 6.4 % Diabetes = or > 6.5% ID Date Data Source [id number] 08/26/2020 02:27:00 PM EDT [facility] ([facility]) Name Value Range Interpretation Code Description Data Shi rce(s) Supporting Document(s) Leukocytes [#/volume] in Blood by Automated count 4.5 x10*3/UL 4.1-10 .9 [facility] ([facility]) Erythrocytes [#/volume] in Blood by Automated count 3.33 x10*6/UL 4.2 0-6.30 [facility] ([facility]) Hemoglobin [Mass/volume] in Blood 10.0 g/dL 12.0-18.0 [facility] ([facility]) MCV 87.0 fL 80.0-97.0 [facility] ([facility]) Hematocrit [Volume Fraction] of Blood by Automated count 29.0 % 3 7.0-51.0 [facility] ([facility]) MCHC 34.7 g/dL 31.0-38.0 [facility] ([place] [facility]) MCH 30.2 pg 26.0-32.0 [facility] ([facility]) Platelets [#/volume] in Blood by Automated count 207 x10*3/UL 140-440 [facility] ([facility]) Erythrocyte distribution width [Ratio] by Automated count 14.3 % 11.6-13.7 [facility] ([facility]) Lymph % 30.3 % 10.0-58.5 [facility] ([place]) MPV 8.4 FL 7.8-11.0 [facility]) Mid % 6.9 % 1.7-9.3 [facility]) Neut % 62.8 % 37.0-92.0 [facility] ([facility]) Mid # 0.4 x10*3/UL 0.1-0.6 [facility] ([facility]) Lymph # 1.3 x10*3/UL 0.6-4.1 [facility] ([facility]) Neut # 2.8 x10*3/UL 2.0-7.8 [facility] ([facility]) ID Date Data Source [id number] 08/26/2020 02:27:00 PM EDT [facility] ([facility]) Name Value Range Interpretation Code Description Data Shi rce(s) Supporting Document(s) Magnesium, Serum Laboratory test result [facility] ([facility]) Hemoglobin A1c/Hemoglobin.total in Blood Laboratory test result [facility] ([facility]) ID Date Data Source [id number] 06/26/2020 10:36:00 AM EST [facility] ([facility]) Name Value Range Interpretation Code Description Data Shi rce(s) Supporting Document(s) Glucose [Mass/volume] in Serum or Plasma 232 mg/dL 74-99 [facility] ([facility]) 100-125 mg/dL PRE-DIABETES/FASTING >126 mg/dL DIABETES/FASTING Urea nitrogen [Mass/volume] in Serum or Plasma 9 mg/dL 7-18 [facility] ([facility]) Creatinine 0.9 mg/dL 0.6-1.3 [facility] ([facility]) Sodium [Moles/volume] in Serum or Plasma 138 meq/L 136-145 [facility] ([facility]) Chloride [Moles/volume] in Serum or Plasma 101 meq/L 98-107 [facility] ([facility]) Potassium [Moles/volume] in Serum or Plasma 3.5 meq/L 3.5-5.1 [facility] ([facility]) Carbon dioxide, total [Moles/volume] in Serum or Plasma 29 meq/L 21 -32 [facility] ([facility]) Calcium [Mass/volume] in Serum or Plasma 8.7 mg/dL 8.5-10.1 [facility] ([facility]) Glomerular filtration rate/1.73 sq M pre dicted among non-blacks [Volume Rate/Area] in Serum or Plasma by Creatinine-based formula (MDRD) Laboratory test result [facility] Glomerular filtration rate/1.73 sq M pre dicted among blacks [Volume Rate/Area] in Serum or Plasma by Creatinine-based formula (MDRD) Laboratory test result [facility] ([facility]) <content>CHRONIC KIDNEY DISEASE STAGING PER NKF</content>
<content></content>
<content>STAGE I & II GFR >= 60 NORMAL TO MILDLY DECREASED</content>
<content>STAGE III GFR 30-59 MODERATELY DECREASED</content>
<content>STAGE IV GFR 15-29 SEVERELY DECREASED</content>
<content>STAGE V GFR <15 VERY LITTLE GFR LEFT</content>
<content>ESRD GFR <15 ON [employer] WORKER</content>
<content></content> ID Date Data Source [id number] 06/26/2020 10:36:00 AM EST [facility] ([facility]) Name Value Range Interpretation Code Description Data Shi rce(s) Supporting Document(s) Magnesium 1.4 mg/dL 1.8-2.4 [facility] ([facility]) NOTE: RESULT VERIFIED. ID Date Data Source [id number] 06/26/2020 10:36:00 AM EST [facility] ([facility]) Name Value Range Interpretation Code Description Data Shi rce(s) Supporting Document(s) Leukocytes [#/volume] in Blood by Automated count 3.2 x10*3/UL 4.1-10 .9 [facility] ([facility]) Erythrocytes [#/volume] in Blood by Automated count 3.25 x10*6/UL 4.2 0-6.30 [facility] ([facility]) Hematocrit [Volume Fraction] of Blood by Automated count 28.3 % 3 7.0-51.0 [facility] ([facility]) Hemoglobin [Mass/volume] in Blood 9.8 g/dL 12.0-18.0 [facility] ([facility]) NOTE: RESULT VERIFIED. MCV 87.1 fL 80.0-97.0 [facility] ([place]) MCH 30.4 pg 26.0-32.0 [facility] ([place]) MCHC 34.9 g/dL 31.0-38.0 [facility] ([place]) Platelets [#/volume] in Blood by Automated count 176 x10*3/UL 140-440 [facility] ([facility]) Erythrocyte distribution width [Ratio] by Automated count 14.5 % 11.6-13.7 [facility] ([facility]) MPV 8.7 FL 7.8-11.0 [facility] ([place] [facility]) Lymph % 31.8 % 10.0-58.5 [facility] ([place] [facility]) Neut % 59.2 % 37.0-92.0 [facility] ([place] [facility]) Mid % 9.0 % 1.7-9.3 [facility] ([place] [facility]) Lymph # 1.0 x10*3/UL 0.6-4.1 [facility] ([facility]) Mid # 0.3 x10*3/UL 0.1-0.6 [facility] ([facility]) Neut # 1.9 x10*3/UL 2.0-7.8 [facility] ([facility]) ID Date Data Source [id number] 06/11/2020 03:43:00 PM EST [facility] ([facility]) Name Value Range Interpretation Code Description Data Shi rce(s) Supporting Document(s) Glucose [Mass/volume] in Serum or Plasma 167 mg/dL 74-99 [facility] ([facility]) 100-125 mg/dL PRE-DIABETES/FASTING >126 mg/dL DIABETES/FASTING Urea nitrogen [Mass/volume] in Serum or Plasma 16 mg/dL 7-18 [facility] ([facility]) Creatinine 0.9 mg/dL 0.6-1.3 [facility] ([facility]) Potassium [Moles/volume] in Serum or Plasma 4.4 meq/L 3.5-5.1 [facility] ([facility]) Sodium [Moles/volume] in Serum or Plasma 135 meq/L 136-145 [facility] ([facility]) Chloride [Moles/volume] in Serum or Plasma 98 meq/L 98-107 [facility] ([facility]) Calcium [Mass/volume] in Serum or Plasma 8.6 mg/dL 8.5-10.1 [facility] ([facility]) Carbon dioxide, total [Moles/volume] in Serum or Plasma 29 meq/L 21 -32 [facility] ([facility]) Glomerular filtration rate/1.73 sq M pre dicted among non-blacks [Volume Rate/Area] in Serum or Plasma by Creatinine-based formula (MDRD) Laboratory test result [facility] ([facility]) Glomerular filtration rate/1.73 sq M pre dicted among blacks [Volume Rate/Area] in Serum or Plasma by Creatinine-based formula (MDRD) Laboratory test result [facility]) <content>CHRONIC KIDNEY DISEASE STAGING PER NKF</content>
<content></content>
<content>STAGE I & II GFR >= 60 NORMAL TO MILDLY DECREASED</content>
<content>STAGE III GFR 30-59 MODERATELY DECREASED</content>
<content>STAGE IV GFR 15-29 SEVERELY DECREASED</content>
<content>STAGE V GFR <15 VERY LITTLE GFR LEFT</content>
<content>ESRD GFR <15 ON [employer] WORKER</content>
<content></content>
<content></content> ID Date Data Source [id number] 06/11/2020 11:08:00 AM EST [facility] Name Value Range Interpretation Code Description Data Shi rce(s) Supporting Document(s) Glucose [Mass/volume] in Serum or Plasma 167 mg/dL 74-99 [facility] ([facility]) 100-125 mg/dL PRE-DIABETES/FASTING >126 mg/dL DIABETES/FASTING Urea nitrogen [Mass/volume] in Serum or Plasma 16 mg/dL 7-18 [facility] ([facility]) Sodium [Moles/volume] in Serum or Plasma 135 meq/L 136-145 [facility] ([facility]) Creatinine 0.9 mg/dL 0.6-1.3 [facility] ([facility]) Chloride [Moles/volume] in Serum or Plasma 98 meq/L 98-107 [facility] ([facility]) Potassium [Moles/volume] in Serum or Plasma 4.4 meq/L 3.5-5.1 [facility] Carbon dioxide, total [Moles/volume] in Serum or Plasma 29 meq/L 21 -32 [facility] ([facility] Glomerular filtration rate/1.73 sq M pre dicted among non-blacks [Volume Rate/Area] in Serum or Plasma by Creatinine-based formula (MDRD) [facility] Calcium [Mass/volume] in Serum or Plasma 8.6 mg/dL 8.5-10.1 [facility] Glomerular filtration rate/1.73 sq M pre dicted among blacks [Volume Rate/Area] in Serum or Plasma by Creatinine-based formula (MDRD) Laboratory test result [facility] ([facility]) <content>CHRONIC KIDNEY DISEASE STAGING PER NKF</content>
<content></content>
<content>STAGE I & II GFR >= 60 NORMAL TO MILDLY DECREASED</content>
<content>STAGE III GFR 30-59 MODERATELY DECREASED</content>
<content>STAGE IV GFR 15-29 SEVERELY DECREASED</content>
<content>STAGE V GFR <15 VERY LITTLE GFR LEFT</content>
<content>ESRD GFR <15 ON [employer] WORKER</content>
<content></content> ID Date Data Source [id number] 06/11/2020 11:07:00 AM EST [facility] ([facility]) Name Value Range Interpretation Code Description Data Shi rce(s) Supporting Document(s) Prostate specific Ag [Mass/volume] in Serum or Plasma 0.81 ng/mL [facility] ([facility] This assay was performed on the Siemens Dimension EXL using the B- Galactosidase/CPRG methodology and should not be compared interchangeably with other methods. The PSA should not be used alone as a screening test for the presence or absence of malignant disease. ID Date Data Source [id number] 05/27/2020 03:49:00 PM EST [facility] ([facility]) Name Value Range Interpretation Code Description Data Shi rce(s) Supporting Document(s) Thyrotropin [Units/volume] in Serum or Plasma by Detec tion limit <= 0.05 mIU/L 1.27 uIU/mL 0.36-3.74 [facility] ([facility]) ID Date Data Source [id number] 05/27/2020 03:49:00 PM EST [facility] ([facility]) Name Value Range Interpretation Code Description Data Shi rce(s) Supporting Document(s) Glucose [Mass/volume] in Serum or Plasma 166 mg/dL 74-99 [facility] ([facility]) 100-125 mg/dL PRE-DIABETES/FASTING >126 mg/dL DIABETES/FASTING Creatinine 1.1 mg/dL 0.6-1.3 [facility] ([facility]) Urea nitrogen [Mass/volume] in Serum or Plasma 12 mg/dL 7-18 [facility] ([facility]) Sodium [Moles/volume] in Serum or Plasma 140 meq/L 136-145 [facility] ([facility]) Potassium [Moles/volume] in Serum or Plasma 3.2 meq/L 3.5-5.1 [facility] ([facility]) Carbon dioxide, total [Moles/volume] in Serum or Plasma 27 meq/L 21 -32 [facility] ([facility]) Calcium [Mass/volume] in Serum or Plasma 8.4 mg/dL 8.5-10.1 [facility] ([facility]) Chloride [Moles/volume] in Serum or Plasma 104 meq/L 98-107 [facility] ([facility]) Glomerular filtration rate/1.73 sq M pre dicted among blacks [Volume Rate/Area] in Serum or Plasma by Creatinine-based formula (MDRD) Laboratory test result [facility] ([facility]) <content>CHRONIC KIDNEY DISEASE STAGING PER NKF</content>
<content></content>
<content>STAGE I & II GFR >= 60 NORMAL TO MILDLY DECREASED</content>
<content>STAGE III GFR 30-59 MODERATELY DECREASED</content>
<content>STAGE IV GFR 15-29 SEVERELY DECREASED</content>
<content>STAGE V GFR <15 VERY LITTLE GFR LEFT</content>
<content>ESRD GFR <15 ON LIFE SKILLS WORKER</content>
<content></content>
<content></content> Glomerular filtration rate/1.73 sq M pre dicted among non-blacks [Volume Rate/Area] in Serum or Plasma by Creatinine-based formula (MDRD) Laboratory test result [facility] ([facility]) ID Date Data Source [id number] 05/27/2020 03:49:00 PM EST [facility] ([facility]) Name Value Range Interpretation Code Description Data Shi rce(s) Supporting Document(s) Magnesium 1.1 mg/dL 1.8-2.4 [facility] ID Date Data Source [id number] 05/27/2020 03:49:00 PM EST [facility] ([facility]) Name Value Range Interpretation Code Description Data Shi rce(s) Supporting Document(s) Leukocytes [#/volume] in Blood by Automated count 5.7 x10*3/UL 4.1-10 .9 [facility] ([facility]) NOTE: CBC VERIFIED Erythrocytes [#/volume] in Blood by Automated count 3.10 x10*6/UL 4.2 0-6.30 [facility]) Hematocrit [Volume Fraction] of Blood by Automated count 26.9 % 3 7.0-51.0 [facility] ([facility]) Hemoglobin [Mass/volume] in Blood 9.6 g/dL 12.0-18.0 [facility] ([facility]) MCH 30.9 pg 26.0-32.0 [facility] MCV 86.7 fL 80.0-97.0 [facility] MCHC 35.6 g/dL 31.0-38.0 [facility] Erythrocyte distribution width [Ratio] by Automated count 14.5 % 11.6-13.7 [facility] ([facility]) Platelets [#/volume] in Blood by Automated count 260 x10*3/UL 140-440 [facility] ([facility]) Platelet mean volume [Entitic volume] in Blood by [place] 8.1 FL 7.8-11.0 [facility] ([facility]) Lymphocytes/100 leukocytes in Blood by Automated count 18.8 % 10. 0-58.5 [facility] ([facility]) Neut % 75.8 % 37.0-92.0 [facility] Mid % 5.4 % 1.7-9.3 [facility] Lymph # 1.0 x10*3/UL 0.6-4.1 [facility] ([facility]) Mid # 0.4 x10*3/UL 0.1-0.6 [facility] ([facility]) Neutrophils [#/volume] in [place] by Manual count 4.3 x10*3/UL 2.0-7.8 MEDENT ([facility]) ID Date Data Source [id number] 05/27/2020 03:49:00 PM EST MEDENT ([facility]) Name Value Range Interpretation Code Description Data Shi rce(s) Supporting Document(s) Ferritin [Mass/volume] in Serum or Plasma 51 ng/mL 26-388 MED[facility] ([facility]) ID Date Data Source [id number] 05/27/2020 03:49:00 PM EST MEDENT ([facility]) Name Value Range Interpretation Code Description Data Shi rce(s) Supporting Document(s) Iron (Fe) 42 ug/dL 65-175 [facility] ([facility]) Percent Saturation 12.8 % 19.7-50.0 MEDENT ([facility]) Total Iron Binding Capacity 329 ug/dL 250-450 ME DENT ([facility]) ID Date Data Source [id number] 05/27/2020 03:49:00 PM EST MED[facility] ([facility]) Name Value Range Interpretation Code Description Data Shi rce(s) Supporting Document(s) Thyrotropin [Units/volume] in Serum or Plasma by Detec tion limit <= 0.05 mIU/L 1.27 uIU/mL 0.36-3.74 [facility] ID Date Data Source [id number] 05/27/2020 03:49:00 PM EST MEDENT ([facility]) Name Value Range Interpretation Code Description Data Shi rce(s) Supporting Document(s) Glucose [Mass/volume] in Serum or Plasma 166 mg/dL 74-99 MED[facility] ([facility]) 100-125 mg/dL PRE-DIABETES/FASTING >126 mg/dL DIABETES/FASTING Urea nitrogen [Mass/volume] in Serum or Plasma 12 mg/dL 7-18 [facility] ([facility]) Potassium [Moles/volume] in Serum or Plasma 3.2 meq/L 3.5-5.1 [facility] ([facility]) Creatinine 1.1 mg/dL 0.6-1.3 MED[facility] ([facility]) Sodium [Moles/volume] in Serum or Plasma 140 meq/L 136-145 MED[facility] ([facility]) Carbon dioxide, total [Moles/volume] in Serum or Plasma 27 meq/L 21 -32 [facility] ([facility]) Chloride [Moles/volume] in Serum or Plasma 104 meq/L 98-107 [facility] Glomerular filtration rate/1.73 sq M pre dicted among blacks [Volume Rate/Area] in Serum or Plasma by Creatinine-based formula (MDRD) Laboratory test result [facility] <content>CHRONIC KIDNEY DISEASE STAGING PER NKF</content>
<content></content>
<content>STAGE I & II GFR >= 60 NORMAL TO MILDLY DECREASED</content>
<content>STAGE III GFR 30-59 MODERATELY DECREASED</content>
<content>STAGE IV GFR 15-29 SEVERELY DECREASED</content>
<content>STAGE V GFR <15 VERY LITTLE GFR LEFT</content>
<content>ESRD GFR <15 ON LIFE [employer] WORKER</content>
<content></content> Calcium [Mass/volume] in Serum or Plasma 8.4 mg/dL 8.5-10.1 [facility] Glomerular filtration rate/1.73 sq M pre dicted among non-blacks [Volume Rate/Area] in Serum or Plasma by Creatinine-based formula (MDRD) Laboratory test result [facility] ([facility] ) ID Date Data Source [id number] 05/27/2020 03:49:00 PM EST [facility] ([facility] Name Value Range Interpretation Code Description Data Shi rce(s) Supporting Document(s) Magnesium 1.1 mg/dL 1.8-2.4 [facility] ([facility]) ID Date Data Source [id number] 05/27/2020 03:49:00 PM EST [facility] ([facility] Name Value Range Interpretation Code Description Data Shi rce(s) Supporting Document(s) Hemoglobin A1c/Hemoglobin.total in Blood 7.0 % [facility] ([facility]) Lab Result Notes: Pre-Diabetes 5.7 - 6.4 % Diabetes = or > 6.5% Glucose mean value [Mass/volume] in Blood Estimated fr om glycated hemoglobin 154 mg/dL 60-110 [facility] ID Date Data Source [id number] 05/27/2020 03:49:00 PM EST [facility] ([facility] Name Value Range Interpretation Code Description Data Shi rce(s) Supporting Document(s) Leukocytes [#/volume] in Blood by Automated count 5.7 x10*3/UL 4.1-10 .9 [facility] NOTE: CBC VERIFIED Erythrocytes [#/volume] in Blood by Automated count 3.10 x10*6/UL 4.2 0-6.30 [facility] Hemoglobin [Mass/volume] in Blood 9.6 g/dL 12.0-18.0 [facility] ([facility] Hematocrit [Volume Fraction] of Blood by Automated count 26.9 % 3 7.0-51.0 [facility] ([facility] MCV 86.7 fL 80.0-97.0 [facility] ([facility]) MCHC 35.6 g/dL 31.0-38.0 [facility] ([facility]) Erythrocyte distribution width [Ratio] by Automated count 14.5 % 11.6-13.7 [facility] ([facility] MCH 30.9 pg 26.0-32.0 [facility] ([facility]) MPV 8.1 FL 7.8-11.0 [facility] ([facility]) Platelets [#/volume] in Blood by Automated count 260 x10*3/UL 140-440 [facility] ([facility] Mid % 5.4 % 1.7-9.3 [facility] ([facility]) Neut % 75.8 % 37.0-92.0 [facility] ([facility]) Lymph % 18.8 % 10.0-58.5 [facility] ([facility]) Mid # 0.4 x10*3/UL 0.1-0.6 [facility] ([facility]) Lymph # 1.0 x10*3/UL 0.6-4.1 [facility] ([facility]) Neut # 4.3 x10*3/UL 2.0-7.8 [facility] ([facility]) ID Date Data Source [id number] 05/24/2020 02:43:00 PM EST MED[facility] ([facility]) Name Value Range Interpretation Code Description Data Shi rce(s) Supporting Document(s) Laboratory test finding (navigational concept) Laboratory test result [facility] ([facility]) A false negative result may occur if a s pecimen is improperly collected, transported or handled. False negative results may also occur if inadequate numbers of organisms are present in the specimen. As with any molecular test, mutations within the target regions of Xpert Xpress SARS-CoV-2 could affect primer and/or probe binding resulting in failure to detect the presence of virus. This test cannot rule out diseases caused by other bacterial or viral pathogens. DISCLAIMER: Testing was performed using the [employer] SARS-CoV-2 test. This test was developed and its performance characteristics determined by [employer]. This test has not been FDA cleared or approved. This test has been authorized by FDA under an Emergency Use Authorization (EUA). This test is only authorized for the duration of time the declaration that circumstances exist justifying the authorization of the emergency use of in vitro diagnostic tests for detection of SARS-CoV-2 virus and/or diagnosis of COVID-19 infection under section 564(b)(1) of the Act, 21 U.S.C. 360bbb-3(b)(1), unless the authorization is terminated or revoked sooner. ID Date Data Source [id number] 05/24/2020 02:43:00 PM EST MED[facility] ([facility]) Name Value Range Interpretation Code Description Data Shi rce(s) Supporting Document(s) Laboratory test finding (navigational concept) Laboratory test result [facility] ([facility]) A false negative result may occur if a s pecimen is improperly collected, transported or handled. False negative results may also occur if inadequate numbers of organisms are present in the specimen. As with any molecular test, mutations within the target regions of Xpert Xpress SARS-CoV-2 could affect primer and/or probe binding resulting in failure to detect the presence of virus. This test cannot rule out diseases caused by other bacterial or viral pathogens. DISCLAIMER: Testing was performed using the [employer] SARS-CoV-2 test. This test was developed and its performance characteristics determined by [employer]. This test has not been FDA cleared or approved. This test has been authorized by FDA under an Emergency Use Authorization (EUA). This test is only authorized for the duration of time the declaration that circumstances exist justifying the authorization of the emergency use of in vitro diagnostic tests for detection of SARS-CoV-2 virus and/or diagnosis of COVID-19 infection under section 564(b)(1) of the Act, 21 U.S.C. 360bbb-3(b)(1), unless the authorization is terminated or revoked sooner. Coronavirus 2019 Nasopharygeal Laboratory test result [facility] ([facility]) ID Date Data Source [id number] 05/24/2020 02:43:00 PM EST [facility] Name Value Range Interpretation Code Description Data Shi rce(s) Supporting Document(s) SARS coronavirus 2 RNA [Presence] in Res piratory specimen by RANDOLPH with probe detection [facility] This lab was ordered by [facility] a nd reported by [facility]. Procedure Social History Code Duration Value Status Description Data Source(s ) Smoking 03/05/2021 12:00:00 AM EDT Former Smoker completed Former Smoker eCW1 ([facility]) Smoking 03/05/2021 12:00:00 AM EDT Former Smoker completed Former Smoker eCW1 ([facility]) Smoking 02/13/2021 08:46:19 AM EDT Ex-smoker (finding) complet ed Ex-smoker (finding) SHAD (Janay Stringer MD [facility]) Smoking 02/10/2021 12:00:00 AM EDT Former Smoker completed Former Smoker eCW1 ([facility]) Smoking 02/10/2021 12:00:00 AM EDT Former Smoker completed Former Smoker eCW1 ([facility]) Smoking 02/10/2021 12:00:00 AM EDT Former Smoker completed Former Smoker eCW1 ([facility]) Smoking 12/23/2020 12:00:00 AM EDT Former Smoker completed Former Smoker eCW1 ([facility]) Smoking 11/15/2020 12:00:00 AM EDT Patient is a former smoker completed Patient is a former smoker MED[facility] ([facility]) Smoking 10/11/2020 12:00:00 AM EDT Former Smoker completed Former Smoker eCW1 ([facility]) Smoking 10/11/2020 12:00:00 AM EDT Former Smoker completed Former Smoker eCW1 ([facility]) Smoking 10/11/2020 12:00:00 AM EDT Former Smoker completed Former Smoker eCW1 ([facility]) Smoking 10/11/2020 12:00:00 AM EDT Former Smoker completed Former Smoker eCW1 ([facility]) Smoking 10/11/2020 12:00:00 AM EDT Former Smoker completed Former Smoker eCW1 ([facility]) Smoking 06/12/2020 12:00:00 AM EST Former Smoker completed Former Smoker eCW1 ([facility]) Vital Signs ID Date Data Source [id number] Name Value Range Interpretation Code Description Data Source(s) Body weight 163 [lb_av] 163 [lb_av] eCW1 ([facility] includes the [facility]) Body height 69 [in_i] 69 [in_i] eCW1 ([facility]) Body mass index (BMI) [Ratio] 24.07 kg/m2 24.07 kg/m2 eCW1 ([facility]) Heart rate 77 /min 77 /min eCW1 ([facility]) Respiratory rate 18 /min 18 /min eCW1 ([facility]) Body temperature 98.2 [degF] 98.2 [degF] eCW1 ( [facility]) Systolic blood pressure 126 mm[Hg] 126 mm[Hg] e CW1 ([facility]) Diastolic blood pressure 64 mm[Hg] 64 mm[Hg] eCW1 ([facility]) Systolic blood pressure 152 mm[Hg] 152 mm[Hg] M EDENT ([facility], ) Diastolic blood pressure 78 mm[Hg] 78 mm[Hg] [facility] Body height 69 [in_i] 69 [in_i] MEDENT ([facility]) 5'9" Body weight 164.00 [lb_av] 164.00 [lb_av] MEDEN T ([facility]) Body mass index (BMI) [Ratio] 24.2 kg/m2 24.2 k g/m2 [facility] ([facility]) [place] body weight 160 [lb_av] 160 [lb_av] MEDEN T ([facility], ) Body weight 74.390 kg 74.390 kg [facility] ([facility]) Body surface area Derived from formula 1.90 m2 1.90 m2 [facility] ([facility], ) Body weight 163.4 [lb_av] 163.4 [lb_av] eCW1 ([facility]) Body height 69 [in_i] 69 [in_i] eCW1 ([facility]) Body mass index (BMI) [Ratio] 24.13 kg/m2 24.13 kg/m2 eCW1 ([facility]) Heart rate 101 /min 101 /min eCW1 ([facility]) Respiratory rate 18 /min 18 /min eCW1 ([facility]) Body temperature 98.6 [degF] 98.6 [degF] eCW1 ( [facility]) Systolic blood pressure 128 mm[Hg] 128 mm[Hg] e CW1 ([facility]) Diastolic blood pressure 82 mm[Hg] 82 mm[Hg] eCW1 ([facility]) Systolic blood pressure 130 mm[Hg] 130 mm[Hg] M EDENT ([facility]) RT Arm Diastolic blood pressure 72 mm[Hg] 72 mm[Hg] MED[facility] ([facility]) RT Arm Heart rate 96 /min 96 /min MED[facility] ([facility]) Body height 67.50 [in_i] 67.50 [in_i] MEDENT ([facility]) 5'7.50" Body weight 164.00 [lb_av] 164.00 [lb_av] MEDEN T ([facility]) Body mass index (BMI) [Ratio] 25.3 kg/m2 25.3 k g/m2 [facility] ([facility]) Body weight 161.8 [lb_av] 161.8 [lb_av] eCW1 ([facility]) Body height 69 [in_i] 69 [in_i] eCW1 ([facility]) Body mass index (BMI) [Ratio] 23.89 kg/m2 23.89 kg/m2 eCW1 ([facility]) Heart rate 78 /min 78 /min eCW1 ([facility]) Respiratory rate 18 /min 18 /min eCW1 ([facility]) Body temperature 97.6 [degF] 97.6 [degF] eCW1 ( [facility]) Systolic blood pressure 116 mm[Hg] 116 mm[Hg] e CW1 ([facility]) Diastolic blood pressure 68 mm[Hg] 68 mm[Hg] eCW1 ([facility]) Body height 67.50 [in_i] 67.50 [in_i] MEDENT ([facility]) 5'7.50" Body weight 162.50 [lb_av] 162.50 [lb_av] MEDEN T ([facility]) Body mass index (BMI) [Ratio] 25.1 kg/m2 25.1 k g/m2 [facility] ([facility]) Systolic blood pressure 122 mm[Hg] 122 mm[Hg] M EDENT ([facility]) RT Arm Diastolic blood pressure 68 mm[Hg] 68 mm[Hg] MED[facility] ([facility]) RT Arm Heart rate 92 /min 92 /min MED[facility] ([facility]) Systolic blood pressure--sitting 128 mm[Hg] 128 mm[Hg] MED[facility] ([facility]) Ra, large cuff Body height 69 [in_i] 69 [in_i] [facility] 5'9" Body mass index (BMI) [Ratio] 23.6 kg/m2 23.6 k g/m2 [facility] ([facility]) Body weight 160.00 [lb_av] 160.00 [lb_av] MEDEN T ([facility]) Diastolic blood pressure--sitting 78 mm[Hg] 78 mm[Hg] [facility] ([facility]) Ra, large cuff Body mass index (BMI) [Ratio] 25.3 kg/m2 25.3 k g/m2 [facility] ([facility]) Heart rate 83 /min 83 /min MED[facility] ([facility]) Body height 67.50 [in_i] 67.50 [in_i] MEDENT ( [facility]) 5'7.50" Body weight 164.00 [lb_av] 164.00 [lb_av] MEDEN T ([facility]) Oxygen saturation in Arterial blood by Pulse oximetry 99 % 99 % MEDENT ([facility]) RM Air Systolic blood pressure 122 mm[Hg] 122 mm[Hg] M EDENT ([facility]) RT Arm Diastolic blood pressure 64 mm[Hg] 64 mm[Hg] MED[facility] ([facility]) RT Arm Diastolic blood pressure 78 mm[Hg] 78 mm[Hg] MEDENT ([facility], ) Body weight 160.00 [lb_av] 160.00 [lb_av] MEDEN T ([facility]) Body surface area Derived from formula 1.88 m2 1.88 m2 [facility] ([facility]) Body height 69 [in_i] 69 [in_i] [facility] 5'9" Body mass index (BMI) [Ratio] 23.6 kg/m2 23.6 k g/m2 [facility] ([facility]) [place] body weight 160 [lb_av] 160 [lb_av] MEDEN T ([facility]) Body weight 72.576 kg 72.576 kg [facility] ([facility]) Systolic blood pressure 126 mm[Hg] 126 mm[Hg] [facility] Body weight 162.4 [lb_av] 162.4 [lb_av] W1 ([facility]) Body height 69 [in_i] 69 [in_i] eCW1 ([facility]) Body mass index (BMI) [Ratio] 23.98 kg/m2 23.98 kg/m2 W1 ([facility]) Heart rate 102 /min 102 /min W1 ([facility]) Respiratory rate 18 /min 18 /min W1 ([facility]) Body temperature 98.0 [degF] 98.0 [degF] eCW1 ( [facility]) Systolic blood pressure 138 mm[Hg] 138 mm[Hg] e CW1 ([facility]) Diastolic blood pressure 74 mm[Hg] 74 mm[Hg] eCW1 ([facility]) Systolic blood pressure 110 mm[Hg] 110 mm[Hg] M EDENT ([facility]) RT Arm Body weight 164.00 [lb_av] 164.00 [lb_av] MEDEN T ([facility]) Oxygen saturation in Arterial blood by Pulse oximetry --post exerci se 97 % 97 % [facility] ([facility]) RM Air Body mass index (BMI) [Ratio] 25.3 kg/m2 25.3 k g/m2 [facility] ([facility]) Diastolic blood pressure 70 mm[Hg] 70 mm[Hg] MEDENT ([facility]) RT Arm Heart rate 79 /min 79 /min MEDENT ([facility]) Body height 67.50 [in_i] 67.50 [in_i] MED[facility] ([facility]) 5'7.50" Systolic blood pressure 128 mm[Hg] 128 mm[Hg] M EDENT ([facility]) RT Arm Diastolic blood pressure 68 mm[Hg] 68 mm[Hg] MED[facility] ([facility]) RT Arm Heart rate 64 /min 64 /min MED[facility] ([facility]) Body height 67.50 [in_i] 67.50 [in_i] [facility] ([facility]) 5'7.50" Body weight 169.50 [lb_av] 169.50 [lb_av] MEDEN T ([facility]) Body mass index (BMI) [Ratio] 26.2 kg/m2 26.2 k g/m2 [facility] ([facility]) Heart rate 92 /min 92 /min MED[facility] ([facility]) Systolic blood pressure 126 mm[Hg] 126 mm[Hg] M EDENT ([facility]) RT Arm Diastolic blood pressure 64 mm[Hg] 64 mm[Hg] [facility] ([facility]) RT Arm Body height 67.50 [in_i] 67.50 [in_i] [facility] ([facility]) 5'7.50" Body weight 166.00 [lb_av] 166.00 [lb_av] MEDEN T ([facility]) Body mass index (BMI) [Ratio] 25.6 kg/m2 25.6 k g/m2 [facility] ([facility]) Body mass index (BMI) [Ratio] 24.1 kg/m2 24.1 k g/m2 MEDENT ([facility]) Heart rate 75 /min 75 /min [facility] ([facility]) Body weight 163.00 [lb_av] 163.00 [lb_av] MEDEN T ([facility]) Body height 69 [in_i] 69 [in_i] MED[facility] ([facility]) 5'9" Systolic blood pressure--sitting 117 mm[Hg] 117 mm[Hg] MEDENT ([facility]) CBP, adult cuff/Ra Diastolic blood pressure--sitting 70 mm[Hg] 70 mm[Hg] MEDENT ([facility]) CBP, adult cuff/Ra Body weight 161 [lb_av] 161 [lb_av] eCW1 (Count includes the [facility]) Body height 69 [in_i] 69 [in_i] eCW1 ([facility]) Body mass index (BMI) [Ratio] 23.77 kg/m2 23.77 kg/m2 eCW1 ([facility]) Heart rate 99 /min 99 /min eCW1 ([facility]) Respiratory rate 18 /min 18 /min eCW1 ([facility]) Body temperature 97.7 [degF] 97.7 [degF] eCW1 ( [facility]) Systolic blood pressure 132 mm[Hg] 132 mm[Hg] e CW1 ([facility]) Diastolic blood pressure 70 mm[Hg] 70 mm[Hg] eCW1 ([facility]) Body mass index (BMI) [Ratio] 25.6 kg/m2 25.6 k g/m2 MED[facility] ([facility]) Systolic blood pressure 136 mm[Hg] 136 mm[Hg] M EDENT ([facility]) RT Arm Diastolic blood pressure 76 mm[Hg] 76 mm[Hg] MEDENT ([facility]) RT Arm Heart rate 88 /min 88 /min MEDENT ([facility]) Body height 67.50 [in_i] 67.50 [in_i] [facility] ([facility] 5'7.50" Body weight 166.00 [lb_av] 166.00 [lb_av] RICKEY T ([facility]) ID Date Data Source [id number] 05/27/2020 03:53:00 PM [facility] Hospital Name Value Range Interpretation Code Description Data Source(s) Weight (Calculated Kilograms) 77.84 77.84 [facility] Weight (Calculated Kilograms) 77.84 77.84 [facility] Hospital ID Date Data Source [id number] 05/27/2020 03:53:00 PM EST [facility] Hospital Name Value Range Interpretation Code Description Data Source(s) Weight (Calculated Kilograms) 77.84 77.84 [facility] Hospital Weight (Calculated Kilograms) 77.84 77.84 [facility] Hospital Weight (Calculated Kilograms) 77.84 77.84 [facility] Hospital ID Date Data Source [id number] 05/27/2020 03:48:00 PM EST [facility] Name Value Range Interpretation Code Description Data Source(s) Weight (Calculated Kilograms) 77.84 77.84 [facility] Weight 2720 2720 [facility] Height 69 69 [facility] Weight (Calculated Kilograms) 77.84 77.84 [facility] Weight 2720 2720 [facility] Temperature 98.0 98.0 [facility] Respiratory Effort 1 1 [facility] Respiratory Rate 17 17 [facility] Pulse Assessment Method 1 1 [facility] Pulse Rate 66 66 [facility] Height 69 69 [facility] Blood Pressure 115/70 115/70 [facility] Weight (Calculated Kilograms) 77.84 77.84 [facility] Weight 2720 2720 [facility] Temperature 98.0 98.0 [facility] Respiratory Effort 1 1 [facility] Respiratory Rate 17 17 [facility] Pulse Assessment Method 1 1 [facility] Pulse Rate 66 66 [facility] Height 69 69 [facility] Blood Pressure 115/70 115/70 [facility] Hospital Weight (Calculated Kilograms) 77.84 77.84 [facility] Weight 2720 2720 [facility] Temperature 98.0 98.0 [facility] Respiratory Effort 1 1 [facility] Respiratory Rate 17 17 [facility] Pulse Assessment Method 1 1 [facility] Pulse Rate 66 66 [facility] Height 69 69 [facility] Blood Pressure 115/70 115/70 [facility] Hospital Weight (Calculated Kilograms) 77.84 77.84 [facility] Hospital Weight 2720 2720 [facility] Height 69 69 [facility] Hospital ID Date Data Source [id number] 05/27/2020 03:53:00 PM [facility] Hospital Name Value Range Interpretation Code Description Data Source(s) Weight (Calculated Kilograms) 77.84 77.84 [facility] Hospital Weight (Calculated Kilograms) 77.84 77.84 [facility] Hospital ID Date Data Source [id number] 05/27/2020 03:53:00 PM [facility] Hospital Name Value Range Interpretation Code Description Data Source(s) Weight (Calculated Kilograms) 77.84 77.84 [facility] Hospital Weight (Calculated Kilograms) 77.84 77.84 [facility] Hospital Weight (Calculated Kilograms) 77.84 77.84 [facility] Hospital ID Date Data Source [id number] 05/27/2020 03:53:00 PM [facility] Hospital Name Value Range Interpretation Code Description Data Source(s) Weight (Calculated Kilograms) 77.84 77.84 [facility] [facility] Weight (Calculated Kilograms) 77.84 77.84 [facility] Weight (Calculated Kilograms) 77.84 77.84 [facility] ID Date Data Source [id number] 05/27/2020 03:52:00 PM [facility] Hospital Name Value Range Interpretation Code Description Data Source(s) Weight (Calculated Kilograms) 77.84 77.84 [facility] Weight (Calculated Kilograms) 77.84 77.84 [facility] Weight (Calculated Kilograms) 77.84 77.84 [facility] ID Date Data Source [id number] 05/27/2020 03:52:00 PM [facility] Hospital Name Value Range Interpretation Code Description Data Source(s) Weight (Calculated Kilograms) 77.84 77.84 [facility] Weight (Calculated Kilograms) 77.84 77.84 [facility] Weight (Calculated Kilograms) 77.84 77.84 [facility] ID Date Data Source [id number] 05/27/2020 03:52:00 PM [facility] Hospital Name Value Range Interpretation Code Description Data Source(s) Weight (Calculated Kilograms) 77.84 77.84 [facility] Weight (Calculated Kilograms) 77.84 77.84 [facility] Weight (Calculated Kilograms) 77.84 77.84 [facility] ID Date Data Source [id number] 05/27/2020 03:52:00 PM EST [facility] Hospital Name Value Range Interpretation Code Description Data Source(s) Weight (Calculated Kilograms) 77.84 77.84 [facility] Weight (Calculated Kilograms) 77.84 77.84 [facility] Hospital ID Date Data Source [id number] 05/27/2020 03:52:00 PM EST [facility] Hospital Name Value Range Interpretation Code Description Data Source(s) Weight (Calculated Kilograms) 77.84 77.84 [facility] Weight (Calculated Kilograms) 77.84 77.84 [facility] Weight (Calculated Kilograms) 77.84 77.84 [facility] ID Date Data Source [id number] 05/27/2020 03:52:00 PM [facility] Hospital Name Value Range Interpretation Code Description Data Source(s) Weight (Calculated Kilograms) 77.84 77.84 [facility] Weight (Calculated Kilograms) 77.84 77.84 [facility] ID Date Data Source [id number] 05/27/2020 03:52:00 PM [facility] Hospital Name Value Range Interpretation Code Description Data Source(s) Weight (Calculated Kilograms) 77.84 77.84 [facility] Weight (Calculated Kilograms) 77.84 77.84 [facility] Weight (Calculated Kilograms) 77.84 77.84 [facility] Weight (Calculated Kilograms) 77.84 77.84 [facility] ID Date Data Source [id number] 05/27/2020 03:52:00 PM [facility] Hospital Name Value Range Interpretation Code Description Data Source(s) Weight (Calculated Kilograms) 77.84 77.84 [facility] Weight (Calculated Kilograms) 77.84 77.84 [facility] ID Date Data Source [id number] 05/27/2020 03:52:00 PM EST [facility] Hospital Name Value Range Interpretation Code Description Data Source(s) Weight (Calculated Kilograms) 77.84 77.84 [facility] ID Date Data Source [id number] 05/27/2020 03:52:00 PM [facility] Hospital Name Value Range Interpretation Code Description Data Source(s) Weight (Calculated Kilograms) 77.84 77.84 [facility] ID Date Data Source [id number] 05/27/2020 03:52:00 PM [facility] Hospital Name Value Range Interpretation Code Description Data Source(s) Weight (Calculated Kilograms) 77.84 77.84 [facility] Weight (Calculated Kilograms) 77.84 77.84 [facility] Weight 2736 2736 [facility] Height 68 68 [facility] Weight (Calculated Kilograms) 77.84 77.84 [facility] Weight 2736 2736 [facility] Height 68 68 [facility] Weight (Calculated Kilograms) 77.84 77.84 [facility] Weight 2736 2736 [facility] Height 68 68 [facility] ID Date Data Source [id number] 05/27/2020 03:52:00 PM [facility] Hospital Name Value Range Interpretation Code Description Data Source(s) Weight (Calculated Kilograms) 77.84 77.84 [facility] Weight (Calculated Kilograms) 77.84 77.84 [facility] ID Date Data Source [id number] 05/27/2020 03:52:00 PM [facility] Hospital Name Value Range Interpretation Code Description Data Source(s) Weight (Calculated Kilograms) 77.84 77.84 [facility] ID Date Data Source [id number] 05/27/2020 03:52:00 PM [facility] Hospital Name Value Range Interpretation Code Description Data Source(s) Weight (Calculated Kilograms) 77.84 77.84 [facility] Weight (Calculated Kilograms) 77.84 77.84 [facility] ID Date Data Source [id number] 05/27/2020 03:52:00 PM [facility] Hospital Name Value Range Interpretation Code Description Data Source(s) Weight (Calculated Kilograms) 77.84 77.84 [facility] ID Date Data Source [id number] 05/27/2020 03:52:00 PM [facility] Hospital Name Value Range Interpretation Code Description Data Source(s) Weight (Calculated Kilograms) 77.84 77.84 [facility] ID Date Data Source [id number] 05/27/2020 03:52:00 PM [facility] Hospital Name Value Range Interpretation Code Description Data Source(s) Weight (Calculated Kilograms) 77.84 77.84 [facility] ID Date Data Source [id number] 05/27/2020 03:52:00 PM [facility] Hospital Name Value Range Interpretation Code Description Data Source(s) Weight (Calculated Kilograms) 77.84 77.84 [facility] ID Date Data Source [id number] 05/27/2020 03:52:00 PM [facility] Hospital Name Value Range Interpretation Code Description Data Source(s) Weight (Calculated Kilograms) 77.84 77.84 [facility] ID Date Data Source [id number] 05/27/2020 03:52:00 PM [facility] Hospital Name Value Range Interpretation Code Description Data Source(s) Weight (Calculated Kilograms) 77.84 77.84 [facility] ID Date Data Source [id number] 05/27/2020 03:52:00 PM [facility] Hospital Name Value Range Interpretation Code Description Data Source(s) Weight (Calculated Kilograms) 77.84 77.84 [facility] ID Date Data Source [id number] 05/27/2020 03:52:00 PM [facility] Hospital Name Value Range Interpretation Code Description Data Source(s) Weight (Calculated Kilograms) 77.84 77.84 [facility] ID Date Data Source [id number] 05/27/2020 03:52:00 PM [facility] Hospital Name Value Range Interpretation Code Description Data Source(s) Weight (Calculated Kilograms) 77.84 77.84 [facility] ID Date Data Source [id number] 05/27/2020 03:52:00 PM [facility] Hospital Name Value Range Interpretation Code Description Data Source(s) Weight (Calculated Kilograms) 77.84 77.84 [facility] ID Date Data Source [id number] 05/27/2020 03:52:00 PM [facility] Hospital Name Value Range Interpretation Code Description Data Source(s) Weight (Calculated Kilograms) 77.84 77.84 [facility] ID Date Data Source [id number] 05/27/2020 03:52:00 PM EST [facility] Hospital Name Value Range Interpretation Code Description Data Source(s) Weight (Calculated Kilograms) 77.84 77.84 [facility] ID Date Data Source [id number] 05/27/2020 03:52:00 PM [facility] Hospital Name Value Range Interpretation Code Description Data Source(s) Weight (Calculated Kilograms) 77.84 77.84 [facility] ID Date Data Source [id number] 05/27/2020 03:52:00 PM [facility] Hospital Name Value Range Interpretation Code Description Data Source(s) Weight (Calculated Kilograms) 77.84 77.84 [facility] ID Date Data Source [id number] 05/27/2020 03:52:00 PM [facility] Hospital Name Value Range Interpretation Code Description Data Source(s) Weight (Calculated Kilograms) 77.84 77.84 [facility] ID Date Data Source [id number] 05/27/2020 03:52:00 PM [facility] Hospital Name Value Range Interpretation Code Description Data Source(s) Weight (Calculated Kilograms) 77.84 77.84 [facility] ID Date Data Source [id number] 05/27/2020 03:52:00 PM [facility] Hospital Name Value Range Interpretation Code Description Data Source(s) Weight (Calculated Kilograms) 77.84 77.84 [facility] ID Date Data Source [id number] 05/27/2020 03:52:00 PM [facility] Hospital Name Value Range Interpretation Code Description Data Source(s) Weight (Calculated Kilograms) 77.84 77.84 [facility] ID Date Data Source [id number] 05/27/2020 03:52:00 PM [facility] Hospital Name Value Range Interpretation Code Description Data Source(s) Weight Measurement Method 1 1 [facility] Weight (Calculated Kilograms) 77.84 77.84 [facility] Weight 2640 2640 [facility] Temperature 97.0 97.0 [facility] Respiratory Effort 1 1 [facility] Respiratory Rate 16 16 [facility] Pulse Rate 62 62 [facility] Height 69 69 [facility] Blood Pressure 127/76 127/76 [facility] Hospital ID Date Data Source [id number] 05/27/2020 03:52:00 PM EST [facility] Hospital Name Value Range Interpretation Code Description Data Source(s) Weight (Calculated Kilograms) 77.84 77.84 [facility] ID Date Data Source [id number] 05/27/2020 03:52:00 PM EST [facility] Hospital Name Value Range Interpretation Code Description Data Source(s) Weight (Calculated Kilograms) 77.84 77.84 [facility] ID Date Data Source [id number] 05/27/2020 03:52:00 PM EST [facility] Hospital Name Value Range Interpretation Code Description Data Source(s) Weight (Calculated Kilograms) 77.84 77.84 [facility] ID Date Data Source [id number] 05/27/2020 03:52:00 PM EST [facility] Hospital Name Value Range Interpretation Code Description Data Source(s) Weight (Calculated Kilograms) 77.84 77.84 [facility] ID Date Data Source [id number] 05/27/2020 03:52:00 PM EST [facility] Hospital Name Value Range Interpretation Code Description Data Source(s) Weight (Calculated Kilograms) 77.84 77.84 [facility] ID Date Data Source [id number] 05/27/2020 03:51:00 PM EST [facility] Hospital Name Value Range Interpretation Code Description Data Source(s) Weight Measurement Method 1 1 [facility] Weight (Calculated Kilograms) 77.84 77.84 [facility] Weight 2704 2704 [facility] Temperature 98.0 98.0 [facility] Respiratory Effort 1 1 [facility] Respiratory Rate 19 19 [facility] Pulse Rate 77 77 [facility] Height 69 69 [facility] Blood Pressure 132/87 132/87 [facility] Hospital ID Date Data Source [id number] 05/27/2020 03:51:00 PM EST [facility] Hospital Name Value Range Interpretation Code Description Data Source(s) Weight (Calculated Kilograms) 77.84 77.84 [facility] ID Date Data Source [id number] 05/27/2020 03:51:00 PM EST [facility] Hospital Name Value Range Interpretation Code Description Data Source(s) Weight Measurement Method 1 1 [facility] Weight (Calculated Kilograms) 77.84 77.84 [facility] Weight 2720 2720 [facility] Temperature 98.4 98.4 [facility] Respiratory Effort 1 1 [facility] Respiratory Rate 16 16 [facility] Pulse Rate 76 76 [facility] Height 69 69 [facility] Blood Pressure 106/62 106/62 [facility] ID Date Data Source [id number] 05/27/2020 03:51:00 PM EST [facility] Hospital Name Value Range Interpretation Code Description Data Source(s) Weight Measurement Method 1 1 [facility] Weight (Calculated Kilograms) 77.84 77.84 [facility] Weight 2704 2704 [facility] Temperature 98.5 98.5 [facility] Respiratory Effort 1 1 [facility] Respiratory Rate 16 16 [facility] Pulse Rate 69 69 [facility] Height 68 68 [facility] Blood Pressure 116/72 116/72 [facility] ID Date Data Source [id number] 05/27/2020 03:51:00 PM EST [facility] Hospital Name Value Range Interpretation Code Description Data Source(s) Weight (Calculated Kilograms) 77.84 77.84 [facility] ID Date Data Source [id number] 05/27/2020 03:51:00 PM [facility] Hospital Name Value Range Interpretation Code Description Data Source(s) Weight (Calculated Kilograms) 77.84 77.84 [facility] ID Date Data Source [id number] 05/27/2020 03:51:00 PM EST [facility] Hospital Name Value Range Interpretation Code Description Data Source(s) Weight (Calculated Kilograms) 77.84 77.84 [facility] ID Date Data Source [id number] 05/27/2020 03:51:00 PM [facility] Hospital Name Value Range Interpretation Code Description Data Source(s) Weight (Calculated Kilograms) 77.84 77.84 [facility] ID Date Data Source [id number] 05/27/2020 03:51:00 PM EST [facility] Hospital Name Value Range Interpretation Code Description Data Source(s) Weight (Calculated Kilograms) 77.84 77.84 [facility] ID Date Data Source [id number] 05/27/2020 03:51:00 PM EST [facility] Hospital Name Value Range Interpretation Code Description Data Source(s) Weight Measurement Method 1 1 [facility] Weight (Calculated Kilograms) 77.84 77.84 [facility] Weight 2640 2640 [facility] Temperature 98.2 98.2 [facility] Respiratory Effort 1 1 [facility] Respiratory Rate 18 18 [facility] Pulse Assessment Method 1 1 [facility] Pulse Rate 71 71 [facility] Height 68 68 [facility] Blood Pressure 118/71 118/71 [facility] ID Date Data Source [id number] 05/27/2020 03:51:00 PM EST [facility] Hospital Name Value Range Interpretation Code Description Data Source(s) Weight (Calculated Kilograms) 77.84 77.84 [facility] ID Date Data Source [id number] 05/27/2020 03:51:00 PM EST [facility] Hospital Name Value Range Interpretation Code Description Data Source(s) Weight (Calculated Kilograms) 77.84 77.84 [facility] ID Date Data Source [id number] 05/27/2020 03:51:00 PM EST [facility] Hospital Name Value Range Interpretation Code Description Data Source(s) Weight Measurement Method 1 1 [facility] Weight (Calculated Kilograms) 77.84 77.84 [facility] Weight 2640 2640 [facility] Temperature 97.1 97.1 [facility] Respiratory Effort 1 1 [facility] Respiratory Rate 18 18 [facility] Pulse Rate 71 71 [facility] Height 69 69 [facility] Blood Pressure 105/58 105/58 [facility] Hospital ID Date Data Source [id number] 05/27/2020 03:51:00 PM EST [facility] Hospital Name Value Range Interpretation Code Description Data Source(s) Weight (Calculated Kilograms) 77.84 77.84 [facility] ID Date Data Source [id number] 05/27/2020 03:51:00 PM EST [facility] Hospital Name Value Range Interpretation Code Description Data Source(s) Weight (Calculated Kilograms) 77.84 77.84 [facility] ID Date Data Source [id number] 05/27/2020 03:51:00 PM EST [facility] Hospital Name Value Range Interpretation Code Description Data Source(s) Weight Measurement Method 1 1 [facility] Weight (Calculated Kilograms) 77.84 77.84 [facility] Weight 2752 2752 [facility] Temperature 98.4 98.4 [facility] Respiratory Effort 1 1 [facility] Respiratory Rate 12 12 [facility] Pulse Rate 75 75 [facility] Height 69 69 [facility] Blood Pressure 109/60 109/60 [facility] ID Date Data Source [id number] 05/27/2020 03:50:00 PM [facility] Hospital Name Value Range Interpretation Code Description Data Source(s) Weight (Calculated Kilograms) 77.84 77.84 [facility] ID Date Data Source [id number] 05/27/2020 03:50:00 PM [facility] Hospital Name Value Range Interpretation Code Description Data Source(s) Weight (Calculated Kilograms) 77.84 77.84 [facility] ID Date Data Source [id number] 05/27/2020 03:50:00 PM [facility] Name Value Range Interpretation Code Description Data Source(s) Weight (Calculated Kilograms) 77.84 77.84 [facility] ID Date Data Source [id number] 05/27/2020 03:50:00 PM [facility] Hospital Name Value Range Interpretation Code Description Data Source(s) Weight (Calculated Kilograms) 77.84 77.84 [facility] Hospital ID Date Data Source [id number] 05/27/2020 03:50:00 PM EST [facility] Hospital Name Value Range Interpretation Code Description Data Source(s) Weight (Calculated Kilograms) 77.84 77.84 [facility] ID Date Data Source [id number] 05/27/2020 03:50:00 PM [facility] Name Value Range Interpretation Code Description Data Source(s) Weight (Calculated Kilograms) 77.84 77.84 [facility] ID Date Data Source [id number] 05/27/2020 03:50:00 PM EST [facility] Hospital Name Value Range Interpretation Code Description Data Source(s) Weight (Calculated Kilograms) 77.84 77.84 [facility] ID Date Data Source [id number] 05/27/2020 03:50:00 PM [facility] Hospital Name Value Range Interpretation Code Description Data Source(s) Weight (Calculated Kilograms) 77.84 77.84 [facility] ID Date Data Source [id number] 05/27/2020 03:50:00 PM EST [facility] Hospital Name Value Range Interpretation Code Description Data Source(s) Weight (Calculated Kilograms) 77.84 77.84 [facility] ID Date Data Source [id number] 05/27/2020 03:50:00 PM [facility] Hospital Name Value Range Interpretation Code Description Data Source(s) Weight (Calculated Kilograms) 77.84 77.84 [facility] ID Date Data Source [id number] 05/27/2020 03:50:00 PM [facility] Hospital Name Value Range Interpretation Code Description Data Source(s) Weight (Calculated Kilograms) 78.93 78.93 [facility] ID Date Data Source [id number] 05/27/2020 03:50:00 PM [facility] Hospital Name Value Range Interpretation Code Description Data Source(s) Weight (Calculated Kilograms) 78.93 78.93 [facility] Temperature 96.3 96.3 [facility] Respiratory Rate 16 16 [facility] Pulse Rate 64 64 [facility] Blood Pressure 111/61 111/61 [facility] Hospital ID Date Data Source [id number] 05/27/2020 03:50:00 PM [facility] Hospital Name Value Range Interpretation Code Description Data Source(s) Weight (Calculated Kilograms) 78.93 78.93 [facility] ID Date Data Source [id number] 05/27/2020 03:50:00 PM [facility] Hospital Name Value Range Interpretation Code Description Data Source(s) Weight (Calculated Kilograms) 78.93 78.93 [facility] Respiratory Rate 18 18 [facility] Pulse Rate 69 69 [facility] Blood Pressure 109/69 109/69 [facility] ID Date Data Source [id number] 05/27/2020 03:50:00 PM EST [facility] Hospital Name Value Range Interpretation Code Description Data Source(s) Weight (Calculated Kilograms) 78.93 78.93 [facility] Temperature 98.2 98.2 [facility] Respiratory Rate 16 16 [facility] Pulse Rate 69 69 [facility] Blood Pressure 111/65 111/65 [facility] Hospital ID Date Data Source [id number] 05/27/2020 03:50:00 PM EST [facility] Hospital Name Value Range Interpretation Code Description Data Source(s) Weight Measurement Method 1 1 [facility] Weight (Calculated Kilograms) 78.93 78.93 [facility] Weight 2784 2784 [facility] Temperature 96.8 96.8 [facility] Respiratory Rate 16 16 [facility] Pulse Rate 73 73 [facility] Blood Pressure 130/75 130/75 [facility] Hospital ID Date Data Source [id number] 05/27/2020 03:50:00 PM EST [facility] Hospital Name Value Range Interpretation Code Description Data Source(s) Weight (Calculated Kilograms) 80.80 80.80 [facility] ID Date Data Source [id number] 05/27/2020 03:50:00 PM EST [facility] Hospital Name Value Range Interpretation Code Description Data Source(s) Weight (Calculated Kilograms) 80.80 80.80 [facility] Temperature 97.1 97.1 [facility] Respiratory Rate 16 16 [facility] Pulse Rate 63 63 [facility] Blood Pressure 138/70 138/70 [facility] Hospital ID Date Data Source [id number] 05/27/2020 03:50:00 PM EST [facility] Hospital Name Value Range Interpretation Code Description Data Source(s) Weight (Calculated Kilograms) 80.80 80.80 [facility] Temperature 98.8 98.8 [facility] Respiratory Rate 16 16 [facility] Pulse Rate 79 79 [facility] Blood Pressure 101/57 101/57 [facility] Hospital ID Date Data Source [id number] 05/27/2020 03:50:00 PM EST [facility] Hospital Name Value Range Interpretation Code Description Data Source(s) Weight (Calculated Kilograms) 80.80 80.80 [facility] Temperature 97.8 97.8 [facility] Respiratory Rate 16 16 [facility] Pulse Rate 74 74 [facility] Blood Pressure 126/70 126/70 [facility] Hospital ID Date Data Source [id number] 05/27/2020 03:50:00 PM EST [facility] Hospital Name Value Range Interpretation Code Description Data Source(s) Weight (Calculated Kilograms) 80.80 80.80 [facility] Temperature 98.1 98.1 [facility] Respiratory Rate 18 18 [facility] Pulse Rate 73 73 [facility] Blood Pressure 107/61 107/61 [facility] ID Date Data Source [id number] 05/27/2020 03:50:00 PM EST [facility] Hospital Name Value Range Interpretation Code Description Data Source(s) Weight (Calculated Kilograms) 80.80 80.80 [facility] Temperature 97.2 97.2 [facility] Respiratory Rate 16 16 [facility] Pulse Rate 73 73 [facility] Blood Pressure 128/74 128/74 [facility] Hospital ID Date Data Source [id number] 05/27/2020 03:50:00 PM EST [facility] Hospital Name Value Range Interpretation Code Description Data Source(s) Weight (Calculated Kilograms) 80.80 80.80 [facility] Temperature 98.1 98.1 [facility] Respiratory Rate 16 16 [facility] Pulse Rate 73 73 [facility] Blood Pressure 118/72 118/72 [facility] Hospital ID Date Data Source [id number] 05/27/2020 03:49:00 PM EST [facility] Name Value Range Interpretation Code Description Data Source(s) Weight (Calculated Kilograms) 80.80 80.80 [facility] Temperature 98.1 98.1 [facility] Respiratory Rate 16 16 [facility] Pulse Rate 82 82 [facility] Blood Pressure 112/68 112/68 [facility] Hospital ID Date Data Source [id number] 05/27/2020 03:49:00 PM EST [facility] Name Value Range Interpretation Code Description Data Source(s) Weight (Calculated Kilograms) 80.80 80.80 [facility] Temperature 98.2 98.2 [facility] Respiratory Rate 16 16 [facility] Pulse Rate 89 89 [facility] Blood Pressure 106/62 106/62 [facility] ID Date Data Source [id number] 05/27/2020 03:49:00 PM EST [facility] Name Value Range Interpretation Code Description Data Source(s) Weight (Calculated Kilograms) 80.80 80.80 [facility] ID Date Data Source [id number] 05/27/2020 03:49:00 PM EST [facility] Name Value Range Interpretation Code Description Data Source(s) Weight Measurement Method 1 1 [facility] Weight 2560 2560 [facility] Temperature 97.2 97.2 [facility] Respiratory Effort 1 1 [facility] Respiratory Rate 18 18 [facility] Pulse Rate 64 64 [facility] Height 69 69 [facility] Blood Pressure 136/81 136/81 [facility] Patient Treatment Plan of Care Planned Activity Planned Date Details Description Data Source (s) Epclusa 400-100 MG 02/10/2021 12:00:00 AM EDT eCW1 ([facility]) Epclusa 400-100 MG 02/10/2021 12:00:00 AM EDT eCW1 ([facility]) Epclusa 400-100 MG 02/10/2021 12:00:00 AM EDT eCW1 ([facility])
[2021-03-28] MEDS ORDERED: fentaNYL 100 MCG/2 ML INJECTION (J3010) As Ordered ONE (08:09)
[2021-03-28] MEDS ORDERED: LIDOCAINE 2% 100MG/5ML SDV (FOR ANES.) As Ordered ONE (08:09)
[2021-03-28] MEDS ORDERED: propofoL 200 MG/20 ML VIAL As Ordered ONE (08:09)
[2021-03-28] MEDS ORDERED: MIDAZOLAM INJ 2MG/2ML VIAL (J2250 PER 1MG) As Ordered ONE (08:10)
[2021-03-28] MEDS ORDERED: CONRAY-60 60% 50ML VIAL (Q9961) As Ordered ONE (08:17)
[2021-03-28] MEDS ORDERED: ONDANSETRON 4MG/2ML VIAL As Ordered ONE (09:45)
[2021-03-28] MEDS ORDERED: ACETAMINOPHEN 1000MG 100ML IV BTL (OFIRMEV) (J0131 PER 10MG) As Ordered ONE (09:45)
[2021-03-28] MEDS ORDERED: KETOROLAC 60MG 2ML VIAL As Ordered ONE (09:45)
[2021-03-28] MEDS ORDERED: PYRI1TAB5 PO (10:40)
[2021-03-28] MEDS ORDERED: HYDR-3713 PO (10:40)
[2021-03-28] MEDS ORDERED: OXYB5TAB10 PO (10:40)
--- NOTE | 2021-03-28 10:42 | ROOPDOC ---
[facility] Report Of Operation Report of Operation DATE OF PROCEDURE: 03/28/21 PREPROCEDURE DIAGNOSES: [h/o stones, bl hydronephrosis, right ureteral stone, no left ureteral stone]. POSTPROCEDURE DIAGNOSES: [right ureteral stone, left ureteral stricture]. PROCEDURE PERFORMED: [cysto, fluoro, bl retrogrades, bl rig uscope, laser litho and basket stone extraction on right, balloon dilatation of ureteral stricture on left, bl stent placement]. SURGEON: [Enid Deluca], EGG BUYER: [none], MD ANESTHESIA: [general]. ESTIMATED BLOOD LOSS: Approximately [minimal] mL. COMPLICATIONS: [none]. REMARKS: [71yo wm. See above preop diagnoses. Surgery arranged to evaluate and manage. No guarantees given. Explained that what is done depends upon what is found. Informed consent obtained. Risks discussed including infection, pain, bleeding, scarring, failure of surgery, injury to gu tract and others.]. FINDINGS: SPECIMENS REMOVED: [stone] PROCEDURE NOTE: . DESCRIPTION OF PROCEDURE: [Met with pt in preop area and surgery again discussed. Questions answered. Pt wished to proceed. Pt brought to OR. Surgery done under iv antibiotic. General anesthesia secured. Dorsal litho position. Well padded. Prep'd and draped in sterile fashion. Time out performed. Rigid cystoscopy performed. No stone in bladder. Right uo found and retrograde pyelogram obtained with 5fr open ended catheter. Contrast injected under fluoroscopy. Filling defect noted in distal ureter. Fluoroscopy used intermittently during surgery. Some images saved. Wire passed up ureter into kidney and rigid ureteroscopy performed. Stone encountered. Too big for simple extraction. Laser lithotripsy performed. Large stone fragmented into many pieces. Basket stone extraction performed. Fragment collected and handed off. Up and down distal ureter many times to basket all fragments. Once satisfied, 6fr multilength stent placed using Seldinger technique. Left uo then found. Attempted to pass wire up ureter but couldn't, even with help from 5fr open ended catheter. Rigid ureteroscopy then performed. Ureteral stricture encountered in distal ureter. Contrast injected through ureteroscope for retrograde pyelogram. Hydroureteronephrosis noted down to stricture. Wire passed through stricture into kidney. Stricture dilated with 15mm 4cm balloon under fluoroscopic guidance. After dilating, 6fr multilength stent placed. Bladder emptied and cystoscope removed. Pt tolerated all well and left room in satisfactory condition.]. BENSON DELUCA MD Mar 28, 2021 10:42
[2021-03-28] MEDS ORDERED: oxyCODONE 5MG TAB PO PRN (10:50)
[2021-03-28] MEDS ORDERED: fentaNYL 100 MCG/2 ML INJECTION (J3010) IV PRN (10:50)
[2021-03-28] MEDS ORDERED: ONDANSETRON 4MG/2ML VIAL IV PRN (10:50)
[2021-03-28] MEDS ORDERED: LR 1,000 ML IV SCH ×2 (10:50)
[2021-03-28] MEDS ORDERED: BACT800T5 PO (11:01)
--- NOTE | 2021-03-28 11:10 | REP ---
INDICATION: BILATERAL STENT PLACEMENT. COMPARISON: None. TECHNIQUE: Intraoperative fluoroscopic imaging. FINDINGS: Bilateral hydronephrosis is noted and final image demonstrates satisfactory bilateral ureteral stent placement. Total fluoroscopic time 1 minutes 48 seconds. IMPRESSION: Bilateral ureteral stents. <Electronically signed by Fuad Alberto > 03/28/21 1104
[2021-03-28 13:40] VITALS: BP 188/96
[2021-04-02 11:07] LABS: CA Oxalate Dihy 30 % (.); Ca Ox Monohydrate 60 % (.); Size 5x3 mm (.)
== END 2021-03-28 13:40 | disposition home or self-care (01) ==
LOC: M SDC 06:45
PROVIDERS: ATTEND Urology
DX: N20.1 Calculus of ureter (principal); I25.10 Atherosclerotic heart disease of native coronary artery without angina pectoris; I25.2 Old myocardial infarction; I10 Essential (primary) hypertension; E78.5 Hyperlipidemia, unspecified; E11.9 Type 2 diabetes mellitus without complications; K21.9 Gastro-esophageal reflux disease without esophagitis; D64.9 Anemia, unspecified; Z92.3 Personal history of irradiation; R91.1 Solitary pulmonary nodule; Z85.46 Personal history of malignant neoplasm of prostate; Z79.899 Other long term (current) drug therapy; Z79.84 Long term (current) use of oral hypoglycemic drugs; Z79.82 Long term (current) use of aspirin
CPT/HCPCS: 52332; 52341; 52356; 74420; 82365; 88300; C1769; C1894; C2617; J0131; J0690; J1885; J2250; J2405; J3010; Q9961

== ENCOUNTER → 2021-06-02 | Outpatient (CLI) | payer MEDICARE ==
[~2021-06-02] MED LIST changes: +ASPI1CHW3 PO; +BACT800T5 PO; +LOSA25TA13 PO; -LOSA25TA14 PO; -LR 1,000 ML IV ONE; +MAGN500T12 PO; +OMEP-173 PO; -OMEP-218 PO; -ceFAZolin SOD 2 GM in IV 1 EA IV ONE
== END ==
LOC: M RAD 13:03
PROVIDERS: ATTEND Urology
DX: N13.30 Unspecified hydronephrosis (principal)

== ENCOUNTER → 2021-06-30 | Outpatient (CLI) | payer MEDICARE ==
[~2021-06-30] MED LIST changes: -ASPI1CHW3 PO; +ISOVUE-370 76% 100ML VIAL As Ordered ONE; -MAGN500T12 PO
== END ==
LOC: M RAD 09:04
PROVIDERS: ATTEND Urology
DX: N13.2 Hydronephrosis with renal and ureteral calculous obstruction (principal)
CPT/HCPCS: 74177; Q9967

== ENCOUNTER → 2021-08-01 | Outpatient (CLI) | payer OTHER ==
[~2021-08-01] MED LIST changes: +ASPI1CHW3 PO; -ISOVUE-370 76% 100ML VIAL As Ordered ONE; +MAGN500T12 PO
[2021-08-01 12:14] LABS: HEMATOCRIT 34.7 % (42.0-52.0); HEMOGLOBIN 11.5 g/dl (13.5-17.5); MEAN CORPUSCULAR HGB CONC 33.1 g/dl (32.0-36.5); MEAN CORPUSCULAR VOLUME 99.7 fl (80.0-96.0); PLATELET COUNT, AUTOMATED 143 10^3/uL (150-450); RED BLOOD COUNT 3.48 10^6/uL (4.30-6.10); WHITE BLOOD COUNT 4.7 10^3/uL (4.0-10.0)
[2021-08-01 12:46] LABS: ALBUMIN 3.7 GM/DL (3.2-5.2); ALT/SGPT 21 U/L (12-78); BILIRUBIN,TOTAL 0.5 MG/DL (0.2-1.0); BLOOD UREA NITROGEN 14 MG/DL (7-18); CALCIUM LEVEL 8.8 MG/DL (8.8-10.2); CARBON DIOXIDE LEVEL 28 MEQ/L (21-32); CHLORIDE LEVEL 105 MEQ/L (98-107); CREATININE FOR GFR 0.92 MG/DL (0.70-1.30); GLOMERULAR FILTRATION RATE > 60.0 (>42); GLUCOSE, FASTING 101 MG/DL (70-100); POTASSIUM SERUM 3.5 MEQ/L (3.5-5.1); SODIUM LEVEL 142 MEQ/L (136-145); TOTAL PROTEIN 7.5 GM/DL (6.4-8.2)
== END ==
LOC: M LAB 10:59 → M RAD 10:59
PROVIDERS: ATTEND Urology
DX: N20.1 Calculus of ureter (principal)

== ENCOUNTER 2021-08-11 11:02 | Day surgery (SDC) | payer MEDICARE, OTHER ==
[~2021-08-11] VITALS: Ht 175.3 cm; Wt 73.9 kg
[~2021-08-11 11:02] MED LIST changes: +CIPROFLOXACIN 400 MG in IV 1 EA IV ONE; +LIDOCAINE 1% MDV 20ML VIAL SQ PRN; +LR 1,000 ML IV ONE
[2021-08-11] MEDS ORDERED: METF-839 PO (11:51)
[2021-08-11] MEDS ORDERED: CONRAY-60 60% 50ML VIAL (Q9961) As Ordered ONE (13:12)
[2021-08-11] MEDS ORDERED: LIDOCAINE 2% 100MG/5ML SDV (FOR ANES.) As Ordered ONE (13:39)
[2021-08-11] MEDS ORDERED: MIDAZOLAM INJ 2MG/2ML VIAL (J2250 PER 1MG) As Ordered ONE (13:39)
[2021-08-11] MEDS ORDERED: dexameTHASONE 4 MG/ML 1ML VIAL (J1100 PER 1MG) As Ordered ONE (13:39)
[2021-08-11] MEDS ORDERED: propofoL 200 MG/20 ML VIAL As Ordered ONE (13:39)
[2021-08-11] MEDS ORDERED: ONDANSETRON 4MG/2ML VIAL As Ordered ONE (13:39)
[2021-08-11] MEDS ORDERED: fentaNYL 250 MCG/5 ML INJECTION As Ordered ONE (13:40)
[2021-08-11] MEDS ORDERED: METOCLOPRAMIDE INJ 10MG/2ML VIAL (J2765 PER 1) As Ordered ONE (13:48)
[2021-08-11] MEDS ORDERED: ceFAZolin 2 GM/D5W 50 ML IV BAG (J0690 PER 500MG) As Ordered ONE (14:15)
[2021-08-11] MEDS ORDERED: ceFAZolin SOD 2 GM in IV 1 EA IV ONE (15:20)
[2021-08-11] MEDS ORDERED: OXYC1TAB23 PO (16:14)
[2021-08-11] MEDS ORDERED: ONDANSETRON 4MG/2ML VIAL IV PRN (16:15)
[2021-08-11] MEDS ORDERED: fentaNYL 100 MCG/2 ML INJECTION IV PRN (16:15)
[2021-08-11] MEDS ORDERED: LR 1,000 ML IV SCH (16:15)
[2021-08-11] MEDS ORDERED: oxyCODONE 5MG TAB PO PRN (16:15)
[2021-08-11] MEDS ORDERED: METOCLOPRAMIDE INJ 10MG/2ML VIAL (J2765 PER 1) IV PRN (16:15)
[2021-08-11] MEDS ORDERED: PERCOCET 5MG/325MG TAB PO PRN (16:20)
[2021-08-11 17:25] VITALS: BP 153/77
== END 2021-08-11 17:30 | disposition home or self-care (01) ==
LOC: M SDC 11:02
PROVIDERS: ATTEND Urology
DX: N20.1 Calculus of ureter (principal); I25.10 Atherosclerotic heart disease of native coronary artery without angina pectoris; I25.2 Old myocardial infarction; E11.9 Type 2 diabetes mellitus without complications; E78.5 Hyperlipidemia, unspecified; Z87.891 Personal history of nicotine dependence; Z79.82 Long term (current) use of aspirin; Z85.46 Personal history of malignant neoplasm of prostate; K21.9 Gastro-esophageal reflux disease without esophagitis; D64.9 Anemia, unspecified; Z92.3 Personal history of irradiation; Z79.899 Other long term (current) drug therapy
CPT/HCPCS: 52356; 74420; 82365; C1769; C1894; C2617; J0690; J1100; J2250; J2405; J2765; J3010; Q9961

== ENCOUNTER → 2021-09-09 | Outpatient (CLI) | payer OTHER ==
[~2021-09-09] MED LIST changes: -CIPROFLOXACIN 400 MG in IV 1 EA IV ONE; -LIDOCAINE 1% MDV 20ML VIAL SQ PRN; -LR 1,000 ML IV ONE; +METF-839 PO; +OXYC1TAB23 PO
[2021-09-09 15:21] LABS: INR 1.06; PROTHROMBIN TIME 14.2 SECONDS (12.7-14.5)
== END ==
LOC: M PLALAB 13:22
PROVIDERS: ATTEND Internal Medicine Infectious Disease
DX: B18.2 Chronic viral hepatitis C (principal)

== ENCOUNTER → 2021-10-20 | Outpatient (CLI) | payer MEDICARE | LOC: M WHC 13:07 | PROVIDERS: ATTEND Urology | DX: N13.30 Unspecified hydronephrosis (principal); N40.0 Benign prostatic hyperplasia without lower urinary tract symptoms; N13.5 Crossing vessel and stricture of ureter without hydronephrosis ==

== ENCOUNTER → 2021-12-12 | Outpatient (CLI) | payer MEDICARE ==
[2021-12-12 10:56] LABS: BLOOD UREA NITROGEN 14 MG/DL (7-18); CALCIUM LEVEL 9.5 MG/DL (8.8-10.2); CARBON DIOXIDE LEVEL 31 MEQ/L (21-32); CHLORIDE LEVEL 105 MEQ/L (98-107); CREATININE FOR GFR 0.96 MG/DL (0.70-1.30); GLOMERULAR FILTRATION RATE > 60.0 (>42); GLUCOSE, FASTING 102 MG/DL (70-100); POTASSIUM SERUM 4.1 MEQ/L (3.5-5.1); SODIUM LEVEL 140 MEQ/L (136-145)
== END ==
LOC: M LAB 09:11
PROVIDERS: ATTEND Urology
DX: N13.5 Crossing vessel and stricture of ureter without hydronephrosis (principal)

== ENCOUNTER → 2021-12-19 | Outpatient (CLI) | payer MEDICARE ==
[~2021-12-19] MED LIST changes: +ISOVUE-370 76% 100ML VIAL As Ordered ONE
== END ==
LOC: M RAD 10:41
PROVIDERS: ATTEND Urology
DX: N13.5 Crossing vessel and stricture of ureter without hydronephrosis (principal)
CPT/HCPCS: 74178; Q9967

== ENCOUNTER → 2022-03-17 | Outpatient (REF) | payer MEDICARE ==
[~2022-03-17] MED LIST changes: -ISOVUE-370 76% 100ML VIAL As Ordered ONE
[2022-03-17 13:46] LABS: INR 0.98; PARTIAL THROMBOPLASTIN TIME 25.7 SECONDS (25.9-37.0); PROTHROMBIN TIME 13.4 SECONDS (12.7-14.5)
== END ==
LOC: M LAB REF 13:09
PROVIDERS: ATTEND Internal Medicine
DX: Z01.818 Encounter for other preprocedural examination (principal); N20.0 Calculus of kidney; K74.69 Other cirrhosis of liver

== ENCOUNTER → 2022-03-18 | Outpatient (CLI) | payer MEDICARE | LOC: M RAD 09:11 | PROVIDERS: ATTEND Urology | DX: Z01.818 Encounter for other preprocedural examination (principal); N13.5 Crossing vessel and stricture of ureter without hydronephrosis ==

== ENCOUNTER → 2022-03-26 | Outpatient (CLI) | payer MEDICARE | LOC: M LABSMTC 10:18 | PROVIDERS: ATTEND Anesthesiology | DX: Z01.812 Encounter for preprocedural laboratory examination (principal); Z20.822 Contact with and (suspected) exposure to COVID-19 ==

== ENCOUNTER → 2022-04-16 | Outpatient (CLI) | payer MEDICARE ==
[~2022-04-16] MED LIST changes: +CIPR-249 PO; +COLA100C5 PO; +PERCOCET PO
== END ==
LOC: M RAD 09:21
PROVIDERS: ATTEND Internal Medicine
DX: R91.8 Other nonspecific abnormal finding of lung field (principal)

== ENCOUNTER → 2022-06-02 | Outpatient (CLI) | payer MEDICARE ==
[2022-06-02 11:32] LABS: BLOOD UREA NITROGEN 16 MG/DL (9-23); CALCIUM LEVEL 8.9 MG/DL (8.3-10.6); CARBON DIOXIDE LEVEL 31 MMOL/L (20-31); CHLORIDE LEVEL 103 MMOL/L (98-107); CREATININE FOR GFR 0.93 MG/DL (0.70-1.30); GLOMERULAR FILTRATION RATE > 60.0 (>42); GLUCOSE, FASTING 163 MG/DL (74-106); POTASSIUM SERUM 4.4 MMOL/L (3.5-5.1); SODIUM LEVEL 140 MMOL/L (136-145)
== END ==
LOC: M LAB 10:22
PROVIDERS: ATTEND Urology
DX: N13.5 Crossing vessel and stricture of ureter without hydronephrosis (principal)

== ENCOUNTER → 2022-07-16 | Outpatient (CLI) | payer MEDICARE ==
[~2022-07-16] MED LIST changes: +ISOVUE-370 76% 100ML VIAL As Ordered ONE
== END ==
LOC: M RAD 08:08
PROVIDERS: ATTEND Urology
DX: N35.919 Unspecified urethral stricture, male, unspecified site (principal)
CPT/HCPCS: 74178; Q9967

== ENCOUNTER 2022-09-27 10:34 | Emergency (ER) | payer MEDICARE ==
[~2022-09-27] VITALS: Ht 175.3 cm; Wt 77.9 kg
[~2022-09-27 10:34] MED LIST changes: +ASPI-655 PO; -ASPI1CHW3 PO; -ISOVUE-370 76% 100ML VIAL As Ordered ONE
[2022-09-27] MEDS ORDERED: ACETAMINOPHEN TAB 650MG DOSE (2X325MG) PO ONE (12:10)
[2022-09-27] MEDS ORDERED: traMADol 50 MG TAB PO ONE (12:10)
[2022-09-27] MEDS ORDERED: LIDOCAINE 5% (LIDODERM) PATCH TD ONE (13:20)
[2022-09-27 14:58] LABS: BASO % 0.3 % (0.0-1.0); EOS % 0.3 % (0.0-3.0); HEMATOCRIT 33.6 % (42.0-52.0); HEMOGLOBIN 11.5 g/dl (13.5-17.5); LYMPH % 13.4 % (24.0-44.0); MEAN CORPUSCULAR HEMOGLOBIN 31.2 pg (27.0-33.0); MEAN CORPUSCULAR HGB CONC 34.2 g/dl (32.0-36.5); MEAN CORPUSCULAR VOLUME 91.1 fl (80.0-96.0); MONO # 0.6 10^3/uL (0.0-0.8); MONO % 7.8 % (2.0-8.0); NEUTROPHILS # 5.9 10^3/uL (1.5-8.5); NEUTROPHILS % 77.8 % (36.0-66.0); PLATELET COUNT, AUTOMATED 151 10^3/uL (150-450); RED BLOOD COUNT 3.69 10^6/uL (4.30-6.10); WHITE BLOOD COUNT 7.5 10^3/uL (4.0-10.0)
[2022-09-27] MEDS ORDERED: MIRA3350 PO (15:24)
[2022-09-27] MEDS ORDERED: HYDR-3713 PO (15:24)
[2022-09-27] MEDS ORDERED: LIDO5DIS41 TOP (15:24)
[2022-09-27 15:27] LABS: BLOOD UREA NITROGEN 13 MG/DL (9-23); CARBON DIOXIDE LEVEL 27 MMOL/L (20-31); CHLORIDE LEVEL 105 MMOL/L (98-107); CREATININE FOR GFR 0.88 MG/DL (0.70-1.30); GLOMERULAR FILTRATION RATE > 60.0 (>42); GLUCOSE, FASTING 109 MG/DL (74-106); POTASSIUM SERUM 3.7 MMOL/L (3.5-5.1); SODIUM LEVEL 139 MMOL/L (136-145)
[2022-09-27 15:46] VITALS: BP 139/70
== END 2022-09-27 15:46 | disposition home or self-care (01) ==
LOC: M ED 10:34
DX: S22.050A Wedge compression fracture of T5-T6 vertebra, initial encounter for closed fracture (principal); S22.060A Wedge compression fracture of T7-T8 vertebra, initial encounter for closed fracture; J43.9 Emphysema, unspecified; C61 Malignant neoplasm of prostate; K21.9 Gastro-esophageal reflux disease without esophagitis; F17.200 Nicotine dependence, unspecified, uncomplicated; I10 Essential (primary) hypertension; E11.9 Type 2 diabetes mellitus without complications; Z87.442 Personal history of urinary calculi; Z79.4 Long term (current) use of insulin; Z79.811 Long term (current) use of aromatase inhibitors; Z79.899 Other long term (current) drug therapy

== ENCOUNTER → 2022-11-12 | Outpatient (CLI) | payer MEDICARE ==
[~2022-11-12] MED LIST changes: +LIDO5DIS41 TOP; +MIRA3350 PO
== END ==
LOC: M SOG 08:51
PROVIDERS: ATTEND Orthopaedic Surgery
DX: M54.6 Pain in thoracic spine (principal)

== ENCOUNTER → 2022-11-17 | Outpatient (REF) | payer MEDICARE ==
[2022-11-17 13:57] LABS: C REACTIVE PROTEIN QUANTITATIV < 0.40 MG/DL (<1.0)
== END ==
LOC: M LAB REF 12:18
PROVIDERS: ATTEND Internal Medicine
DX: M81.8 Other osteoporosis without current pathological fracture (principal); S22.000A Wedge compression fracture of unspecified thoracic vertebra, initial encounter for closed fracture; X58.XXXA Exposure to other specified factors, initial encounter; Y92.9 Unspecified place or not applicable; Y93.9 Activity, unspecified; Y99.9 Unspecified external cause status

== ENCOUNTER → 2022-11-26 | Outpatient (CLI) | payer MEDICARE | LOC: M WHC 12:49 | PROVIDERS: ATTEND Internal Medicine | DX: S22.000A Wedge compression fracture of unspecified thoracic vertebra, initial encounter for closed fracture (principal); X58.XXXA Exposure to other specified factors, initial encounter; Y99.9 Unspecified external cause status; Y92.9 Unspecified place or not applicable ==

== ENCOUNTER → 2022-12-05 | Outpatient (CLI) | payer MEDICARE | LOC: M RAD 10:38 | PROVIDERS: ATTEND Orthopaedic Surgery | DX: S22.009A Unspecified fracture of unspecified thoracic vertebra, initial encounter for closed fracture (principal); M54.6 Pain in thoracic spine; Y93.9 Activity, unspecified; Y92.9 Unspecified place or not applicable ==

== ENCOUNTER → 2022-12-11 | Outpatient (CLI) | payer MEDICARE | LOC: M SOG 13:50 | PROVIDERS: ATTEND Orthopaedic Surgery | DX: M25.511 Pain in right shoulder (principal) ==

== ENCOUNTER → 2023-01-05 | Outpatient (REF) | payer MEDICARE | LOC: M LAB REF 16:23 | PROVIDERS: ATTEND Internal Medicine | DX: M80.08XA Age-related osteoporosis with current pathological fracture, vertebra(e), initial encounter for fracture (principal); Z85.46 Personal history of malignant neoplasm of prostate ==

== ENCOUNTER → 2023-01-22 | Outpatient (CLI) | payer MEDICARE | LOC: M RAD 08:08 | PROVIDERS: ATTEND Internal Medicine | DX: Z87.19 Personal history of other diseases of the digestive system (principal); C78.7 Secondary malignant neoplasm of liver and intrahepatic bile duct ==

== ENCOUNTER → 2023-02-08 | Outpatient (CLI) | payer MEDICARE | LOC: M PLAIMG 06:34 | PROVIDERS: ATTEND Orthopaedic Surgery | DX: M25.511 Pain in right shoulder (principal); M67.813 Other specified disorders of tendon, right shoulder ==

== ENCOUNTER → 2023-02-18 | Outpatient (CLI) | payer MEDICARE, OTHER | LOC: M WUC 09:12 | PROVIDERS: ATTEND Internal Medicine | DX: R10.12 Left upper quadrant pain (principal) ==

== ENCOUNTER → 2023-03-22 | Outpatient (CLI) | payer OTHER, MEDICAID ==
[2023-03-22 16:53] LABS: ALBUMIN 3.8 G/DL (3.2-5.2); ALKALINE PHOSPHATASE 81 U/L (46-116); ALT/SGPT 23 U/L (7.0-40); AST/SGOT 21 U/L (<34); BILIRUBIN,TOTAL 0.6 MG/DL (0.3-1.2); BLOOD UREA NITROGEN 11 MG/DL (9-23); CALCIUM LEVEL 9.6 MG/DL (8.3-10.6); CARBON DIOXIDE LEVEL 30 MMOL/L (20-31); CHLORIDE LEVEL 102 MMOL/L (98-107); CREATININE FOR GFR 0.87 MG/DL (0.70-1.30); GLOMERULAR FILTRATION RATE > 60.0 (>42); GLUCOSE, FASTING 211 MG/DL (74-106); POTASSIUM SERUM 4.9 MMOL/L (3.5-5.1); SODIUM LEVEL 136 MMOL/L (136-145); TOTAL PROTEIN 7.1 G/DL (5.7-8.2)
== END ==
LOC: M PLALAB 11:37
PROVIDERS: ATTEND Internal Medicine
DX: R10.9 Unspecified abdominal pain (principal)

== ENCOUNTER → 2023-03-25 | Outpatient (CLI) | payer OTHER, MEDICAID ==
[~2023-03-25] MED LIST changes: +GASTROGRAFIN SOLUTION 30ML ONE; +ISOVUE-370 76% 100ML VIAL ONE; -OXYB5TAB10 PO; +OXYB5TAB11 PO
== END ==
LOC: M PLAIMG 11:20
PROVIDERS: ATTEND Nurse Practitioner Family
DX: R10.9 Unspecified abdominal pain (principal)
CPT/HCPCS: 74177; Q9963; Q9967

== ENCOUNTER 2023-04-27 12:48 | Outpatient (CLI) | payer OTHER, MEDICAID ==
[~2023-04-27] VITALS: Ht 177.8 cm; Wt 75.3 kg
[~2023-04-27 12:48] MED LIST changes: -GASTROGRAFIN SOLUTION 30ML ONE; -ISOVUE-370 76% 100ML VIAL ONE
[2023-04-27 13:04] VITALS: BP 152/79; O2SAT 99
[2023-04-27] MEDS ORDERED: ZOLEDRONIC ACID 5 MG in IV 1 EA IV ONE (13:05)
[2023-04-27 13:50] VITALS: BP 135/70; O2SAT 98
== END 2023-04-27 13:50 ==
LOC: M INFU 12:48
PROVIDERS: ATTEND Internal Medicine
DX: M80.08XA Age-related osteoporosis with current pathological fracture, vertebra(e), initial encounter for fracture (principal)
CPT/HCPCS: 96365; J3489

== ENCOUNTER → 2023-07-15 | Outpatient (REF) | payer OTHER, MEDICAID | LOC: M LAB REF 16:28 | PROVIDERS: ATTEND Internal Medicine | DX: K74.69 Other cirrhosis of liver (principal) ==

== ENCOUNTER → 2023-08-06 | Outpatient (CLI) | payer OTHER, MEDICAID ==
[~2023-08-06] MED LIST changes: -GERI8.6T PO; -OXYB5TAB11 PO; +OXYB5TAB14 PO; +SENN-193 PO
== END ==
LOC: M RAD 09:49
PROVIDERS: ATTEND Nurse Practitioner Family
DX: I73.9 Peripheral vascular disease, unspecified (principal)

== ENCOUNTER → 2023-08-14 | Outpatient (CLI) | payer OTHER, MEDICAID ==
[2023-08-14 10:52] LABS: IMMUNOGLOBULIN A 239.5 MG/DL (40-350)
[2023-08-14 10:55] LABS: FREE T4 1.1 NG/DL (0.89-1.76); THYROID STIMULATING HORMONE 1.346 uIU/ML (0.55-4.78)
[2023-08-20 01:06] LABS: CALPROTECTIN STOOL 59 ug/g (0-120); FATS NEUTRAL Normal (.); FATS TOTAL Normal (.); PANCREATIC ELASTASE STOOL <50 (>200)
== END ==
LOC: M LAB 08:43
PROVIDERS: ATTEND Physician Assistant Medical
DX: R19.4 Change in bowel habit (principal); R19.7 Diarrhea, unspecified; R10.30 Lower abdominal pain, unspecified

== ENCOUNTER → 2023-09-30 | Outpatient (CLI) | payer OTHER, MEDICAID | LOC: M RAD 09:18 | PROVIDERS: ATTEND Internal Medicine | DX: K74.60 Unspecified cirrhosis of liver (principal) ==

== ENCOUNTER 2023-11-16 06:57 | Day surgery (SDC) | payer OTHER, MEDICAID ==
[~2023-11-16] VITALS: Ht 172.7 cm; Wt 68.7 kg
[~2023-11-16 06:57] MED LIST changes: +CALC1TAB42 PO; +CREO3600 PO; +FAMO1TAB11 PO; +FARX1TAB5 PO; +LOSA50TA28 PO; +TADA5TAB PO
[2023-11-16] MEDS ORDERED: propofoL 200 MG/20 ML VIAL As Ordered ONE (07:04)
[2023-11-16] MEDS ORDERED: LIDOCAINE 2% 100MG/5ML SDV (FOR ANES.) As Ordered ONE (07:04)
[2023-11-16] MEDS ORDERED: fentaNYL 100 MCG/2 ML INJECTION As Ordered ONE (07:08)
[2023-11-16] MEDS: NS 1,000 ML IV ONE (07:16)
[2023-11-16] MEDS ORDERED: GLYCOPYRROLATE INJ 0.2 MG/ML 2 ML VIAL As Ordered ONE (07:31)
[2023-11-16] MEDS ORDERED: PHENYLephrine 500MCG 5ML (100MCG/ML) SYRINGE As Ordered ONE (10:16)
[2023-11-16 12:25] VITALS: BP 125/58; O2SAT 95
== END 2023-11-16 12:50 | disposition home or self-care (01) ==
LOC: M OPP 06:57
PROVIDERS: ATTEND Internal Medicine Gastroenterology
DX: Z86.010 Personal history of colon polyps (principal); D12.2 Benign neoplasm of ascending colon; D12.3 Benign neoplasm of transverse colon; D12.5 Benign neoplasm of sigmoid colon; K63.5 Polyp of colon; K64.8 Other hemorrhoids; K57.30 Diverticulosis of large intestine without perforation or abscess without bleeding; K62.89 Other specified diseases of anus and rectum; K20.90 Esophagitis, unspecified without bleeding; K31.89 Other diseases of stomach and duodenum; R12 Heartburn; R63.4 Abnormal weight loss; E11.9 Type 2 diabetes mellitus without complications; I25.119 Atherosclerotic heart disease of native coronary artery with unspecified angina pectoris; Z86.74 Personal history of sudden cardiac arrest; Z79.02 Long term (current) use of antithrombotics/antiplatelets; Z79.82 Long term (current) use of aspirin; Z79.85 Long-term (current) use of injectable non-insulin antidiabetic drugs; Z79.84 Long term (current) use of oral hypoglycemic drugs; Z79.899 Other long term (current) drug therapy
CPT/HCPCS: 43239; 45380; 45385; 88305; J2371; J3010

== ENCOUNTER → 2024-02-01 | Outpatient (REF) | payer OTHER, MEDICAID | LOC: M LAB REF 16:25 | PROVIDERS: ATTEND Internal Medicine | DX: K74.69 Other cirrhosis of liver (principal) ==

== ENCOUNTER 2024-06-05 09:58 | Outpatient (CLI) | payer OTHER, MEDICAID ==
[~2024-06-05] VITALS: Ht 172.7 cm; Wt 70.5 kg
[~2024-06-05 09:58] MED LIST changes: -TADA5TAB PO; +TADA5TAB94 PO
[2024-06-05] MEDS: ZOLEDRONIC ACID 5 MG in IV 1 EA IV ONE (10:15)
[2024-06-05 10:20] VITALS: BP 139/66; O2SAT 97
[2024-06-05 10:54] VITALS: BP 130/69; O2SAT 96
== END 2024-06-05 10:55 | disposition home or self-care (01) ==
LOC: M INFU 09:58
PROVIDERS: ATTEND Internal Medicine
DX: M81.0 Age-related osteoporosis without current pathological fracture (principal)
CPT/HCPCS: 96365; J3489

== ENCOUNTER → 2024-06-29 | Outpatient (CLI) | payer MEDICARE, MEDICAID | LOC: M RAD 05-03 07:14 | PROVIDERS: ATTEND Physician Assistant Medical | DX: R68.81 Early satiety (principal); R11.10 Vomiting, unspecified; Z53.9 Procedure and treatment not carried out, unspecified reason | CPT/HCPCS: 78264; A9541 ==

== ENCOUNTER → 2024-08-11 | Outpatient (REF) | payer MEDICARE, MEDICAID | LOC: M LAB REF 12:20 | PROVIDERS: ATTEND Internal Medicine | DX: K74.69 Other cirrhosis of liver (principal) ==

== ENCOUNTER → 2024-09-15 | Outpatient (CLI) | payer MEDICARE, MEDICAID | LOC: M WUC 14:38 | PROVIDERS: ATTEND Urology | DX: N20.0 Calculus of kidney (principal) ==

== ENCOUNTER → 2024-09-29 | Outpatient (CLI) | payer MEDICARE, MEDICAID | LOC: M RAD 08:36 | PROVIDERS: ATTEND Internal Medicine | DX: K74.69 Other cirrhosis of liver (principal); K76.0 Fatty (change of) liver, not elsewhere classified ==

== ENCOUNTER → 2025-02-07 | Outpatient (REF) | payer MEDICARE, MEDICAID ==
[~2025-02-07] MED LIST changes: -ASPI-655 PO; +ASPI-737 PO; +LIDO1ADH93 TOP; -LIDO5DIS41 TOP; +SLOW1TAB3 PO; -SLOWTAB2 PO; +TADA5TAB2 PO; -TADA5TAB94 PO
== END ==
LOC: M LAB REF 14:29
PROVIDERS: ATTEND Internal Medicine
DX: K74.69 Other cirrhosis of liver (principal)

== ENCOUNTER → 2025-02-19 | Outpatient (CLI) | payer MEDICARE, MEDICAID | LOC: M RAD 11:16 | PROVIDERS: ATTEND Physician Assistant Medical | DX: R10.32 Left lower quadrant pain (principal) ==

== ENCOUNTER → 2025-03-02 | Outpatient (REF) | payer MEDICARE, MEDICAID ==
[2025-03-02 13:43] LABS: IRON (FE) 39.0 UG/DL (65-175); PERCENT SATURATION 10.1 % (19.7-50.0)
[2025-03-02 13:46] LABS: VITAMIN B12 LEVEL 304.0 PG/ML (211-911)
== END ==
LOC: M LAB REF 12:40
PROVIDERS: ATTEND Internal Medicine
DX: D64.9 Anemia, unspecified (principal)

== ENCOUNTER → 2025-03-15 | Outpatient (CLI) | payer MEDICARE, MEDICAID ==
[~2025-03-15] MED LIST changes: +ISOVUE-370 76% 100 ML VIAL ONE
== END ==
LOC: M PLAIMG 14:32
PROVIDERS: ATTEND Internal Medicine
DX: R10.9 Unspecified abdominal pain (principal)
CPT/HCPCS: 74177; Q9967

== ENCOUNTER → 2025-04-20 | Outpatient (REF) | payer MEDICARE, MEDICAID ==
[~2025-04-20] MED LIST changes: -ISOVUE-370 76% 100 ML VIAL ONE
== END ==
LOC: M LAB REF 12:28
PROVIDERS: ATTEND Internal Medicine
DX: D50.9 Iron deficiency anemia, unspecified (principal)

== ENCOUNTER 2025-04-26 09:57 | Outpatient (CLI) | payer MEDICARE, MEDICAID ==
[~2025-04-26] VITALS: Ht 175.3 cm; Wt 75.0 kg
[~2025-04-26 09:57] MED LIST changes: +ALBUTEROL SULFATE 2.5 MG/0.5 ML INH CONCENTRATE NEB SOLN INH PRN; +EPINEPHrine INJ 1 MG/ML 1ML AMP IM PRN; +diphenhydrAMINE 50 MG/ML VIAL IV PRN
[2025-04-26 10:35] VITALS: BP 133/63; O2SAT 98
[2025-04-26] MEDS: diphenhydrAMINE 50MG PO PRIOR TO INFUSION PO ONE (10:43)
[2025-04-26] MEDS: ACETAMINOPHEN 650MG PO PRIOR TO INFUSION PO ONE (10:44)
[2025-04-26] MEDS: IRON SUCROSE 500 MG in NS 250 ML IV ONE (11:08)
[2025-04-26 12:00] VITALS: BP 128/64; O2SAT 98
[2025-04-26 14:00] VITALS: BP 120/70; O2SAT 95
[2025-04-26 15:25] VITALS: BP 157/72; O2SAT 95
== END 2025-04-26 15:30 | disposition home or self-care (01) ==
LOC: M INFU 09:57
PROVIDERS: ATTEND Internal Medicine
DX: D50.9 Iron deficiency anemia, unspecified (principal)
CPT/HCPCS: 96365; 96366; J1756

== ENCOUNTER 2025-05-15 09:31 | Day surgery (SDC) | payer MEDICARE, MEDICAID ==
[~2025-05-15] VITALS: Ht 175.3 cm; Wt 73.9 kg
[~2025-05-15 09:31] MED LIST changes: -ALBUTEROL SULFATE 2.5 MG/0.5 ML INH CONCENTRATE NEB SOLN INH PRN; -BACTDSTA PO; -EPINEPHrine INJ 1 MG/ML 1ML AMP IM PRN; +METF-838 PO; +SITA50TAB PO; +SULF-8 PO; -diphenhydrAMINE 50 MG/ML VIAL IV PRN
[2025-05-15] MEDS ORDERED: GLYCOPYRROLATE INJ 0.2 MG/ML 2 ML VIAL As Ordered ONE (11:39)
[2025-05-15] MEDS ORDERED: LIDOCAINE 2% 100 MG/5 ML SDV (FOR ANES.) As Ordered ONE (11:52)
[2025-05-15 12:35] VITALS: TEMP 97.5
[2025-05-15 13:01] VITALS: BP 146/70; O2SAT 95
== END 2025-05-15 13:07 | disposition home or self-care (01) ==
LOC: M OPP 09:31
PROVIDERS: ATTEND Internal Medicine Gastroenterology
DX: K55.20 Angiodysplasia of colon without hemorrhage (principal); K62.7 Radiation proctitis; K63.5 Polyp of colon; K57.30 Diverticulosis of large intestine without perforation or abscess without bleeding; K31.819 Angiodysplasia of stomach and duodenum without bleeding; D50.0 Iron deficiency anemia secondary to blood loss (chronic); K44.9 Diaphragmatic hernia without obstruction or gangrene; I25.10 Atherosclerotic heart disease of native coronary artery without angina pectoris; I25.2 Old myocardial infarction; E11.9 Type 2 diabetes mellitus without complications; Z79.82 Long term (current) use of aspirin; Z79.84 Long term (current) use of oral hypoglycemic drugs; Z79.899 Other long term (current) drug therapy; Z96.1 Presence of intraocular lens
CPT/HCPCS: 43270; 45385; 45388; 88305; J1596; J3010

== ENCOUNTER → 2025-05-23 | Outpatient (REF) | payer MEDICARE, MEDICAID | LOC: M LAB REF 17:41 | PROVIDERS: ATTEND Internal Medicine | DX: D50.9 Iron deficiency anemia, unspecified (principal) ==

== ENCOUNTER → 2025-05-25 | Outpatient (CLI) | payer MEDICARE, MEDICAID | LOC: M WHC 12:10 | PROVIDERS: ATTEND Internal Medicine | DX: Z13.820 Encounter for screening for osteoporosis (principal); M85.89 Other specified disorders of bone density and structure, multiple sites ==